=== PATIENT | male | born 1945 | race Caucasian/White ===

== ENCOUNTER → 2019-01-30 | Emergency (ER) | payer MEDICARE, MEDICAID ==
[~2019-01-30] VITALS: Ht 175.3 cm; Wt 102.1 kg
[~2019-01-30] MED LIST: AZIT250T12 PO; SODI45SP9 NS
--- NOTE | 2019-01-30 17:46 | ED Cough/URI ---
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 Symptoms started yesterday all at the same time. States he usually gets a sinus infection every year. No sick contacts, no body aches or joint aches. (SORAYA ARCINIEGA MD) Allergies and Home Medications Allergies Coded Allergies: No Known Drug Allergies (Unverified , 01/30/19) Patient Home Medication List Home Medication List Reviewed: Yes (SORAYA ARCINIEGA MD) Review of Systems Review of Systems Constitutional: No chills, No fever EENTM: nose congestion; No blurred vision, No hoarseness, No throat pain Respiratory: cough, short of breath Cardiovascular: No chest pain, No edema Gastrointestinal: No abdominal pain, No nausea, No vomiting Genitourinary: No decreased output, No hematuria Musculoskeletal: No joint pain, No muscle pain Immunological/Allergic: denies food allergy, denies mold allergy (SORAYA ARCINIEGA MD) Past Chdteon-Tmvhtr-Xxcuvw Hx Past Med/Social Hx: Reviewed Nursing Past Med/Soc Hx (SORAYA ARCINIEGA MD) Patient Social History Recent Foreign Travel: No Contact w/Someone Who Travel: No (SORAYA ARCINIEGA MD) Physical Exam Vital Signs - First Documented 01/30/19 17:33 Temp 98.3 Pulse 88 Resp 18 B/P (MAP) 118/54 (75) Pulse Ox 99 O2 Delivery Room Air (TARYN BULLOCK DO) Capillary Refill : (SORAYA ARCINIEGA MD) Height: '" Weight: lbs. oz. kg; BMI Method: General Appearance: WD/WN, no apparent distress HEENT: PERRL/EOMI, normal ENT inspection, TMs normal, pharynx normal, other (+ frontal and maxillary sinus pressure.) Neck: non-tender, full range of motion, supple, normal inspection Respiratory: chest non-tender, lungs clear, normal breath sounds, no respiratory distress, no accessory muscle use, respiratory distress Cardiovascular: normal peripheral pulses, regular rate, rhythm, no edema, no gallop, no JVD, no murmur Gastrointestinal: normal bowel sounds, non tender, soft, no organomegaly, no pulsatile mass Neurologic/Psychiatric: no motor/sensory deficits, alert, normal mood/affect, oriented x 3 Skin: normal color, warm/dry (SORAYA ARCINIEGA MD) Progress/Results/Core Measures Suspected Sepsis SIRS Temperature: Pulse: Respiratory Rate: Blood Pressure / Mean: (SORAYA ARCINIEGA MD) Results/Orders Vital Signs/I&O 01/30/19 17:33 Temp 98.3 Pulse 88 Resp 18 B/P (MAP) 118/54 (75) Pulse Ox 99 O2 Delivery Room Air (TARYN BULLOCK DO) Vital Signs/I&O Capillary Refill : (SORAYA ARCINIEGA MD) Progress Note : Progress Note Jef addendum: I received sign out at 6 PM. Patient has been complaining of acute on chronic cough and rhinorrhea, nasal congestion for the last 2 days. No fevers. No facial pain. He denies shortness of breath for me. He does state that he was having some trouble breathing out of his nose but now he feels better after having sxpc-zwk-nyntkce sinus congestion medication. He has no sinus tenderness on my exam, nasal turbinates are unremarkable in appearance, pharynx is unremarkable in appearance. Lungs are clear. He is an active smoker. He does have a long smoking history and as such we can consider this complicated bronchitis, we can treat with a Z-Evgeny. I also recommended hypertonic saline for his nasal congestion. I spoke to patient at length about smoking cessation. He will follow-up with his doctor and return if worse. (TARYN BULLOCK DO) Diagnostic Imaging Diagonstic Imaging: Xray Plain Films/CT/US/NM/MRI: chest (SORAYA ARCINIEGA MD) Departure Impression Primary Impression: Rhinitis Qualified Codes: J00 - Acute nasopharyngitis [common cold] Additional Impression: Complicated bronchitis Disposition: 01 HOME, SELF-CARE Condition: Stable Departure-Patient Inst. Referrals: ALCIDES CALI MD (PCP) Primary Care Physician Patient Instructions: Quitting Smoking Scripts Sodium Chloride (Saline Nose Ashippun) 45 Ml Ash[place]un 45 ML NS QID PRN for CONGESTION for 7 Days, #1 SPRAY Prov: TARYN BULLOCK DO 01/30/19 Azithromycin (Azithromycin) 250 Mg Tablet 250 MG PO UD, #6 TAB TAKE 2 TABLETS ON DAY ONE THEN TAKE 1 TABLET DAILY FOR FOUR MORE DAYS Prov: TARYN BULLOCK DO 01/30/19 SORAYA ARCINIEGA MD Jan 30, 2019 17:46 TARYN BULLOCK DO Jan 30, 2019 18:26
--- NOTE | 2019-01-30 18:10 | Diagnostic Imaging Report ---
INDICATION: Flu-like symptoms since yesterday. Coughing up green mucus. EXAMINATION: Two-view chest 01/30/2019. FINDINGS: Heart is unremarkable but there is pulmonary vascular congestion. Linear markings at the bases likely due to atelectasis. There are no infiltrates or effusions. No pneumothorax. IMPRESSION: 1. Bibasilar atelectatic changes. 2. Pulmonary vascular congestion. Dictated by: Dictated on workstation # [id number]
[2019-01-30 18:37] VITALS: BP 122/71
== END | disposition home or self-care (01) ==
LOC: EDUNIT# 17:25 → ER FS 17:27
DX: J31.0 Chronic rhinitis (principal); J40 Bronchitis, not specified as acute or chronic
CPT/HCPCS: 71046

== ENCOUNTER → 2019-12-12 | Outpatient (CLI) | payer MEDICARE, MEDICAID ==
--- NOTE | 2019-12-12 14:35 | Diagnostic Imaging Report ---
Indication: Obstructive airway disease PA and lateral chest Heart size and pulmonary vascularity are normal. There is some scarring at the left lung base. There is no infiltrate, effusion or pneumothorax. IMPRESSION: Left basilar scarring unchanged since 01/30/2019. No acute abnormality seen. Dictated by: Dictated on workstation # [id number]
== END ==
LOC: RAD FS 14:13
PROVIDERS: ATTEND Family Medicine
DX: J44.9 Chronic obstructive pulmonary disease, unspecified (principal)
CPT/HCPCS: 71046

== ENCOUNTER 2020-12-30 13:32 | Emergency (ER) | payer MEDICARE, MEDICAID ==
[~2020-12-30] VITALS: Ht 172.7 cm; Wt 102.2 kg
--- NOTE | 2020-12-30 13:32 | NUR ---
Pt arrival per [facility] for c/o low O2 sats. Arrived on n.c. at 4 L/m but was noted to have improved from "70's" at [facility] with applying pt's O2 at 2L/m. The staff had removed the O2 just NAMED [employer]OUNT EXECUTIVE of EMS as it was a nocturnal order but helped patient up to low 90's.
--- NOTE | 2020-12-30 13:40 | NUR ---
O2 reduced from 4L/m to 2L/m as SaO2 high 90's.
--- NOTE | 2020-12-30 13:43 | ED General ---
General Stated Complaint: LOW O2 Source of Information: Patient Exam Limitations: No Limitations History of Present Illness Date Seen by Provider: Dec 30, 2020 Time Seen by Provider: 13:30 Initial Comments 75-year-old male presents via EMS from his assisted living residence where he was noted to have low oxygen saturation without complaint of significant s hortness of air or any distress. Patient has been treated with "3 rounds of Levaquin" over the past several weeks and is on oxygen at night for oxygen desaturation. He is not on oxygen during the day. However, today when they removed his oxygen this afternoon (was only to be on oxygen at night) he dropped into the 80s and staff was concerned so they called EMS. On EMS arrival, his oxygen saturation was 88% on room air with some coarse breath sounds, he was given a DuoNeb in route with some improvement of his breath sounds and was 99% on 4 L on arrival. Patient was without complaint, denies chest pain, shortness of air, fever or chills or weakness. Allergies and Home Medications Allergies Coded Allergies: No Known Drug Allergies (Unverified , 01/30/19) Home Medications Albuterol Sulfate 2.5 Mg/0.5 Ml Vial.neb, 2.5 MG INH Q6H, (Reported) Albuterol/Ipratropium 4 Gm Aero, 2 PUFF IH QID Prescribed by: JULIA ANGEL on 12/30/201425 Albuterol/Ipratropium 4 Gm Aero, 2 PUFF IH QID PRN for SHORTNESS OF BREATH, (Reported) Allopurinol 100 Mg Tablet, 100 MG PO DAILY, (Reported) Atorvastatin Calcium 10 Mg Tablet, 10 MG PO DAILY, (Reported) Budesonide/Formoterol Fumarate 10.2 Gm Hfa.aer.ad, 2 PUFF IH BID, (Reported) Dexamethasone 6 Mg Tablet, 6 MG PO DAILY Prescribed by: JULIA ANGEL on 12/30/201425 Furosemide 40 Mg Tablet, 40 MG PO BID, (Reported) Gabapentin 100 Mg Capsule, 100 MG PO HS, (Reported) Ibuprofen 800 Mg Tablet, 800 MG PO BID WITH MEALS, (Reported) Loratadine 10 Mg Tablet, 10 MG PO DAILY, (Reported) Multivitamin 1 Each Tablet, 1 EACH PO DAILY, (Reported) Pantoprazole Sodium 40 Mg Tablet.dr, 40 MG PO DAILY, (Reported) Phenobarbital 64.8 Mg Tablet, 64.8 MG PO BID, (Reported) Polyethylene Glycol 3350 17 Gm Powd.pack, 17 GM PO EVERY OTHER DAY, (Reported) Potassium Chloride 10 Meq Tab.er.prt, 10 MEQ PO BID, (Reported) Thiamine HCl 250 Mg Tablet, 250 MG PO DAILY, (Reported) Patient Home Medication List Home Medication List Reviewed: Yes Review of Systems Review of Systems Constitutional: No diaphoresis, No dizziness, No fever, No malaise, No weakness EENTM: no symptoms reported Respiratory: No cough; short of breath, wheezing Cardiovascular: No chest pain, No palpitations, No syncope Gastrointestinal: No abdominal pain, No loss of appetite, No nausea, No vomiting Musculoskeletal: No back pain, No joint pain Skin: No change in color, No rash Past Gizrqyu-Fgmytt-Yuqdgq Hx Past Med/Social Hx: Reviewed Nursing Past Med/Soc Hx Patient Social History Smoking Status: Current Everyday Smoker Type Used: Cigarettes 2nd Hand Smoke Exposure: Yes Recent Hopitalizations: No Immunizations Up To Date Date of Influenza Vaccine: Jul 21, 2018 Seasonal Allergies Seasonal Allergies: No Past Medical History Respiratory: No Cardiac: No High Cholesterol Neurological: Yes Seizure Disorder Genitourinary: Yes (suprapubic catheter) Gastrointestinal: Yes Gastroesophageal Reflux Musculoskeletal: Yes (spinal degeneration) Gout Endocrine: Yes Diabetes, Non-Insulin dep HEENT: No Cancer: No Psychosocial: No Integumentary: No Physical Exam Vital Signs Vital Signs - First Documented 12/30/20 13:32 Temp 36.3 Pulse 96 Resp 20 B/P (MAP) 144/91 (108) Pulse Ox 99 O2 Delivery Nasal Cannula O2 Flow Rate 4.00 Capillary Refill : Height, Weight, BMI Height: 5'9.00" Weight: 225lbs. oz. 102.873271id; BMI Method:Stated General Appearance: No Apparent Distress, WD/WN HEENT: PERRL/EOMI, Normal ENT Inspection Neck: Full Range of Motion, Non Tender, Supple Respiratory: Chest Non Tender, No Accessory Muscle Use, No Respiratory Distress, Rhonci, Wheezing (faint end expiratory) Cardiovascular: Regular Rate, Rhythm, No Edema, No JVD Gastrointestinal: Non Tender, Soft; No Guarding, No Rebound Extremity: Normal Capillary Refill, Normal Inspection, Non Tender Neurologic/Psychiatric: Alert, Oriented x3, Normal Mood/Affect Progress/Results/Core Measures Suspected Sepsis SIRS Temperature: Pulse: Respiratory Rate: Laboratory Tests 12/30/20 13:40: White Blood Count 8.9 Blood Pressure / Mean: Laboratory Tests 12/30/20 13:40: Creatinine 1.38H, Platelet Count 247, Total Bilirubin 0.2 Results/Orders Lab Results Laboratory Tests Test 12/30/20 13:40 Range/Units White Blood Count 8.9 4.3-11.0 10^3/uL Red Blood Count 3.68 L 4.35-5.85 10^6/uL Hemoglobin 12.3 L 13.3-17.7 G/DL Hematocrit 38 L 40-54 % Mean Corpuscular Volume 102 H 80-99 FL Mean Corpuscular Hemoglobin 33 25-34 PG Mean Corpuscular Hemoglobin Concent 33 32-36 G/DL Red Cell Distribution Width 13.0 10.0-14.5 % Platelet Count 247 130-400 10^3/uL Mean Platelet Volume 8.2 7.4-10.4 FL Immature Granulocyte % (Auto) 0 % Neutrophils (%) (Auto) 73 42-75 % Lymphocytes (%) (Auto) 10 L 12-44 % Monocytes (%) (Auto) 8 0-12 % Eosinophils (%) (Auto) 9 0-10 % Basophils (%) (Auto) 1 0-10 % Neutrophils # (Auto) 6.4 1.8-7.8 X 10^3 Lymphocytes # (Auto) 0.9 L 1.0-4.0 X 10^3 Monocytes # (Auto) 0.7 0.0-1.0 X 10^3 Eosinophils # (Auto) 0.8 H 0.0-0.3 10^3/uL Basophils # (Auto) 0.1 0.0-0.1 10^3/uL Immature Granulocyte # (Auto) 0.0 0.0-0.1 10^3/uL Sodium Level 128 L 135-145 MMOL/L Potassium Level 4.3 3.6-5.0 MMOL/L Chloride Level 88 L 98-107 MMOL/L Carbon Dioxide Level 33 H 21-32 MMOL/L Anion Gap 7 5-14 MMOL/L Blood Urea Nitrogen 19 H 7-18 MG/DL Creatinine 1.38 H 0.60-1.30 MG/DL Estimat Glomerular Filtration Rate 50 BUN/Creatinine Ratio 14 Glucose Level 92 70-105 MG/DL Calcium Level 9.0 8.5-10.1 MG/DL Corrected Calcium 9.2 8.5-10.1 MG/DL Total Bilirubin 0.2 0.1-1.0 MG/DL Aspartate Amino Transf (AST/SGOT) 21 5-34 U/L Alanine Aminotransferase (ALT/SGPT) 13 0-55 U/L Alkaline Phosphatase 112 40-136 U/L Total Protein 7.1 6.4-8.2 GM/DL Albumin 3.8 3.2-4.5 GM/DL My Orders Orders - ROVENSTINEZIONJULIA L DO Ed Iv/Invasive Line Start (12/30/20 13:38) Cbc With Automated Diff (12/30/20 13:38) Comprehensive Metabolic Panel (12/30/20 13:38) Chest 1 View Ap/Pa Only (12/30/20 13:38) Dexamethasone Injection (Decadron Inje (12/30/20 13:45) Medications Given in ED Current Medications Medications Dose Ordered Sig/Ana Route Start Time Stop Time Status Last Admin Dose Admin Dexamethasone Sodium Phosphate 8 mg ONCE ONCE IV 12/30/20 13:45 12/30/20 13:46 DC 12/30/20 14:03 8 MG Vital Signs/I&O 12/30/20 12/30/20 13:32 14:58 Temp 36.3 36.2 Pulse 96 95 Resp 20 22 B/P (MAP) 144/91 (108) 122/76 (108) Pulse Ox 99 97 O2 Delivery Nasal Cannula Nasal Cannula O2 Flow Rate 4.00 2.00 Capillary Refill : Progress Note : Progress Note Well-appearing, no distress, much improved after EMS gave a DuoNeb in route and on arrival without complaint. Chest x-ray with no significant findings other than mild atelectasis. Labs unremarkable. Discussed prescriptions, steroid and Combivent inhaler with follow-up in 1 week with his PCP. Also wrote a note/order to give oxygen 24 hours daily as needed to keep sats greater than 90%. Diagnostic Imaging Diagonstic Imaging: Xray Plain Films/CT/US/NM/MRI: chest Comments COMPARISON: 12/12/2019. FINDINGS: Single frontal radiographic view of the chest was obtained and demonstrates low inspiratory volumes with asymmetric elevation of the left hemidiaphragm. There is a probable small left basilar effusion as well. Bibasilar patchy airspace disease is also noted. There is no pneumothorax. Cardiac silhouette and pulmonary vasculature are within normal limits. Osseous structures show no gross acute abnormalities. IMPRESSION: Low lung volumes with probable bibasilar atelectasis and small left effusion. Dictated on workstation # [id number] Dict: 12/30/20 1349 Trans: 12/30/20 1352 [id number] Interpreted by: JUANA BARRIGA MD Electronically signed by: Departure Impression Primary Impression: Bronchitis Additional Impression: Chronic lung disease Disposition: HOME, SELF-CARE Condition: Improved Departure-Patient Inst. Decision time for Depature: 14:23 Referrals: ALCIDES MIRANDA MD (PCP/Family) Primary Care Physician Patient Instructions: Chronic Bronchitis (DC) Add. Discharge Instructions: Follow up with Dr Miranda in 1 week for re-evaluation. Orders written for home oxygen 24 hours daily to keep sats > 90% Scripts Albuterol/Ipratropium (Combivent Respimat Inhal Cameron) 4 Gm Aero 2 PUFF IH QID, #1 INH Prov: JULIA ANGEL DO 12/30/20 Dexamethasone (Dexamethasone) 6 Mg Tablet 6 MG PO DAILY for 7 Days, #7 TAB Prov: JULIA ANGEL DO 12/30/20 JULIA ANGEL DO Dec 30, 2020 13:43
--- NOTE | 2020-12-30 13:53 | Diagnostic Imaging Report ---
INDICATION: Shortness of air. Cough. COMPARISON: 12/12/2019. FINDINGS: Single frontal radiographic view of the chest was obtained and demonstrates low inspiratory volumes with asymmetric elevation of the left hemidiaphragm. There is a probable small left basilar effusion as well. Bibasilar patchy airspace disease is also noted. There is no pneumothorax. Cardiac silhouette and pulmonary vasculature are within normal limits. Osseous structures show no gross acute abnormalities. IMPRESSION: Low lung volumes with probable bibasilar atelectasis and small left effusion. Dictated by: Dictated on workstation # [id number]
[2020-12-30 14:02] LABS: BASOPHILS % (AUTO) 1 % (0-10); EOSINOPHILS % (AUTO) 9 % (0-10); HEMATOCRIT 38 % (40-54); HEMOGLOBIN 12.3 G/DL (13.3-17.7); LYMPHOCYTES # (AUTO) 0.9 X 10^3 (1.0-4.0); LYMPHOCYTES % (AUTO) 10 % (12-44); MEAN CORPUSCULAR HEMOGLOBIN 33 PG (25-34); MEAN CORPUSCULAR HGB CONC 33 G/DL (32-36); MEAN CORPUSCULAR VOLUME 102 FL (80-99); MEAN PLATELET VOLUME 8.2 FL (7.4-10.4); MONOCYTES % (AUTO) 8 % (0-12); NEUTROPHILS # (AUTO) 6.4 X 10^3 (1.8-7.8); NEUTROPHILS % (AUTO) 73 % (42-75); PLATELET COUNT 247 10^3/uL (130-400); WHITE BLOOD COUNT 8.9 10^3/uL (4.3-11.0)
[2020-12-30 14:03] LABS: BASOPHILS # (AUTO) 0.1 10^3/uL (0.0-0.1); EOSINOPHILS # (AUTO) 0.8 10^3/uL (0.0-0.3); MONOCYTES # (AUTO) 0.7 X 10^3 (0.0-1.0)
[2020-12-30 14:13] LABS: CREATININE SERUM 1.38 MG/DL (0.60-1.30)
[2020-12-30 14:14] LABS: ALBUMIN 3.8 GM/DL (3.2-4.5); BILIRUBIN,TOTAL 0.2 MG/DL (0.1-1.0); POTASSIUM 4.3 MMOL/L (3.6-5.0); TOTAL PROTEIN 7.1 GM/DL (6.4-8.2)
[2020-12-30] MEDS ORDERED: PHEN64.8 PO (14:24)
[2020-12-30] MEDS ORDERED: POTA10TA36 PO (14:24)
[2020-12-30] MEDS ORDERED: GABA-486 PO (14:24)
[2020-12-30] MEDS ORDERED: PANT40TA52 PO (14:24)
[2020-12-30] MEDS ORDERED: ATOR10TA66 PO (14:24)
[2020-12-30] MEDS ORDERED: FURO40TA4 PO (14:24)
[2020-12-30] MEDS ORDERED: LORA10TA7 PO (14:24)
[2020-12-30] MEDS ORDERED: IBUP-1780 PO (14:24)
[2020-12-30] MEDS ORDERED: ALLO100T PO (14:24)
[2020-12-30] MEDS ORDERED: DEXA6TAB PO (14:26)
[2020-12-30] MEDS ORDERED: IPRA4AER IH ×2 (14:26→14:42)
--- NOTE | 2020-12-30 14:30 | NUR ---
Attempt to call [facility] for patient's transportation. No answer.
--- NOTE | 2020-12-30 14:38 | NUR ---
Call from Lisseth Bolivar Director of [facility] and she is made aware patient is doing fine and ready for discharge.
[2020-12-30] MEDS ORDERED: POLY17PO6 PO (14:42)
[2020-12-30] MEDS ORDERED: THIA250T8 PO (14:42)
[2020-12-30] MEDS ORDERED: BUDE10.2 IH (14:42)
[2020-12-30] MEDS ORDERED: MULT-974 PO (14:42)
[2020-12-30] MEDS ORDERED: ALB0.5V INH (14:42)
[2020-12-30 14:58] VITALS: BP 122/76
--- NOTE | 2020-12-30 14:58 | NUR ---
Pt is discharged in computer and awaiting ride.
--- NOTE | 2020-12-30 15:25 | NUR ---
Patient was assisted to be loaded in van per WC with staff. 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 Envelope of instructions provided.
[2020-12-31] MEDS ORDERED: AZIT250T12 PO (17:31)
[2020-12-31] MEDS ORDERED: oxygen (17:31)
== END 2020-12-30 14:58 | disposition home or self-care (01) ==
LOC: EDUNIT# 13:32 → ER FS 13:33
DX: J40 Bronchitis, not specified as acute or chronic (principal); J98.4 Other disorders of lung; E78.00 Pure hypercholesterolemia, unspecified; K21.9 Gastro-esophageal reflux disease without esophagitis; M10.9 Gout, unspecified; G40.909 Epilepsy, unspecified, not intractable, without status epilepticus; F17.210 Nicotine dependence, cigarettes, uncomplicated
CPT/HCPCS: 36415; 71045; 80053; 85025

== ENCOUNTER 2020-12-31 14:45 | Emergency (ER) | payer MEDICARE, MEDICAID ==
[~2020-12-31] VITALS: Ht 175 cm; Wt 102.0 kg
[~2020-12-31 14:45] MED LIST changes: +ALB0.5V INH; +ALLO100T PO; +ATOR10TA66 PO; +BUDE10.2 IH; +DEXA6TAB PO; +FURO40TA4 PO; +GABA-486 PO; +IBUP-1780 PO; +IPRA4AER IH; +LORA10TA7 PO; +MULT-974 PO; +PANT40TA52 PO; +PHEN64.8 PO; +POLY17PO6 PO; +POTA10TA36 PO; +THIA250T8 PO
--- NOTE | 2020-12-31 15:45 | ED General ---
General Stated Complaint: COPD, Source of Information: Patient Exam Limitations: No Limitations History of Present Illness Date Seen by Provider: Dec 31, 2020 Time Seen by Provider: 15:42 Initial Comments To ER by private vehicle from [facility] in [place]. Reports of persistent difficulty breathing. He was seen at [place] ye sterday, diagnosed with bronchitis, given prescription for dexamethasone and Combivent. He continues to smoke about a half a pack of cigarettes per day which he has done since he was 30 years old. No fevers. No exposure to ill contacts that are known. Has O2 at home to wear PRN. Timing/Duration: 1-2 Days Severity: Moderate Associated Systoms: Cough, Shortness of Air Allergies and Home Medications Allergies Coded Allergies: No Known Drug Allergies (Unverified , 01/30/19) Home Medications Albuterol Sulfate 2.5 Mg/0.5 Ml Vial.neb, 2.5 MG INH Q6H, (Reported) Albuterol/Ipratropium 4 Gm Aero, 2 PUFF IH QID Prescribed by: JULIA ANGEL on 12/30/20 1426 Albuterol/Ipratropium 4 Gm Aero, 2 PUFF IH QID PRN for SHORTNESS OF BREATH, (Reported) Allopurinol 100 Mg Tablet, 100 MG PO DAILY, (Reported) Atorvastatin Calcium 10 Mg Tablet, 10 MG PO DAILY, (Reported) Azithromycin 250 Mg Tablet, 250 MG PO UD TAKE 2 TABLETS ON DAY ONE THEN TAKE 1 TABLET DAILY FOR FOUR MORE DAYS Prescribed by: VIBHA FLORES on 12/31/20 1731 Budesonide/Formoterol Fumarate 10.2 Gm Hfa.aer.ad, 2 PUFF IH BID, (Reported) Dexamethasone 6 Mg Tablet, 6 MG PO DAILY Prescribed by: JULIA ANGEL on 12/30/20 1426 Furosemide 40 Mg Tablet, 40 MG PO BID, (Reported) Gabapentin 100 Mg Capsule, 100 MG PO HS, (Reported) Ibuprofen 800 Mg Tablet, 800 MG PO BID WITH MEALS, (Reported) Loratadine 10 Mg Tablet, 10 MG PO DAILY, (Reported) Multivitamin 1 Each Tablet, 1 EACH PO DAILY, (Reported) Pantoprazole Sodium 40 Mg Tablet.dr, 40 MG PO DAILY, (Reported) Phenobarbital 64.8 Mg Tablet, 64.8 MG PO BID, (Reported) Polyethylene Glycol 3350 17 Gm Powd.pack, 17 GM PO EVERY OTHER DAY, (Reported) Potassium Chloride 10 Meq Tab.er.prt, 10 MEQ PO BID, (Reported) Thiamine HCl 250 Mg Tablet, 250 MG PO DAILY, (Reported) Patient Home Medication List Home Medication List Reviewed: Yes Review of Systems Review of Systems Constitutional: see HPI EENTM: see HPI Respiratory: see HPI, cough, short of breath, wheezing Genitourinary: no symptoms reported Musculoskeletal: no symptoms reported Skin: no symptoms reported Psychiatric/Neurological: No Symptoms Reported Hematologic/Lymphatic: No Symptoms Reported Immunological/Allergic: no symptoms reported Past Ovmvass-Cvivyh-Wcvlcx Hx Patient Social History Alcohol Beverage of Choice: Whiskey Type Used: Cigarettes 2nd Hand Smoke Exposure: Yes Recent Hopitalizations: No Immunizations Up To Date Date of Influenza Vaccine: Aug 19, 2020 Seasonal Allergies Seasonal Allergies: Yes Past Medical History Surgeries: Yes (suprapubic catheter placement) Respiratory: Yes Chronic Bronchitis Cardiac: Yes High Cholesterol, Hypertension Neurological: Yes Neuropathy, Seizure Disorder Genitourinary: Yes (suprapubic catheter) Neurogenic Bladder Gastrointestinal: Yes Gastroesophageal Reflux Musculoskeletal: Yes (spinal degeneration/uses wheelchair) Gout Endocrine: Yes Diabetes, Non-Insulin dep HEENT: No Cancer: No Psychosocial: No Integumentary: No Blood Disorders: No Physical Exam Vital Signs Vital Signs - First Documented 12/31/20 15:30 Temp 36.0 Pulse 101 Resp 20 B/P (MAP) 174/95 (121) Pulse Ox 96 O2 Delivery Simple Mask O2 Flow Rate 2.00 Capillary Refill : Height, Weight, BMI Height: 5'9.00" Weight: 225lbs. oz. 102.034484iy; 34.00 BMI Method:Stated General Appearance: No Apparent Distress, Chronically ill, Other (Patient saturation is 76% on room air on arrival without oxygen--drove down here from facility without oxygen. ) Eyes: Bilateral Eye Normal Inspection, Bilateral Eye PERRL, Bilateral Eye EOMI Respiratory: Lungs Clear, Normal Breath Sounds, No Accessory Muscle Use, No Respiratory Distress, Other (No distress speaks in full sentences no accessory muscle use. He is surprisingly asymptomatic with a SPO2 of 76% on room air on arrival. He did not travel down here with his supplemental oxygen.) Cardiovascular: Regular Rate, Rhythm, Normal Peripheral Pulses Gastrointestinal: Normal Bowel Sounds, Non Tender, Soft Neurologic/Psychiatric: Alert, Oriented x3 Skin: Normal Color, Warm/Dry Focused Exam Lactate Level 12/31/20 16:20: Lactic Acid Level 1.30 Lactic Acid Level Laboratory Tests Test 12/31/20 16:20 Lactic Acid Level 1.30 MMOL/L (0.50-2.00) Progress/Results/Core Measures Suspected Sepsis SIRS Temperature: Pulse: Respiratory Rate: Laboratory Tests 12/31/20 16:20: White Blood Count 8.3 Blood Pressure / Mean: 12/31/20 16:20: Lactic Acid Level 1.30 Laboratory Tests 12/31/20 16:20: Creatinine 1.57H, Platelet Count 212, Total Bilirubin 0.3 Results/Orders Lab Results Laboratory Tests Test 12/31/20 15:46 12/31/20 16:00 12/31/20 16:20 Range/Units Coronavirus 2019 ([place]) Negative Negative Blood Gas Puncture Site RR Blood Gas Patient Temperature 98.1 Arterial Blood pH 7.36 L 7.37-7.43 Arterial Blood Partial Pressure CO2 65 H 35-45 MMHG Arterial Blood Partial Pressure O2 76 L 79-93 MMHG Arterial Blood HCO3 36 H 23-27 MMOL/L Arterial Blood Total CO2 37.8 H 21.0-31.0 MMOL/L Arterial Blood Oxygen Saturation 95 94-100 % Arterial Blood Base Excess 10.1 H -2.5-2.5 MMOL/L Husam Test NA Blood Gas Ventilator Setting NO Blood Gas Inspired Oxygen 2.5L White Blood Count 8.3 4.3-11.0 10^3/uL Red Blood Count 3.89 L 4.30-5.52 10^6/uL Hemoglobin 13.0 L 13.3-17.7 g/dL Hematocrit 40 40-54 % Mean Corpuscular Volume 102 H 80-99 fL Mean Corpuscular Hemoglobin 33 25-34 pg Mean Corpuscular Hemoglobin Concent 33 32-36 g/dL Red Cell Distribution Width 12.7 10.0-14.5 % Platelet Count 212 130-400 10^3/uL Mean Platelet Volume 8.6 L 9.0-12.2 fL Immature Granulocyte % (Auto) 0 % Neutrophils (%) (Auto) 77 H 42-75 % Lymphocytes (%) (Auto) 12 12-44 % Monocytes (%) (Auto) 7 0-12 % Eosinophils (%) (Auto) 3 0-10 % Basophils (%) (Auto) 1 0-10 % Neutrophils # (Auto) 6.4 1.8-7.8 10^3/uL Lymphocytes # (Auto) 1.0 1.0-4.0 10^3/uL Monocytes # (Auto) 0.6 0.0-1.0 10^3/uL Eosinophils # (Auto) 0.3 0.0-0.3 10^3/uL Basophils # (Auto) 0.1 0.0-0.1 10^3/uL Immature Granulocyte # (Auto) 0.0 0.0-0.1 10^3/uL Sodium Level 131 L 135-145 MMOL/L Potassium Level 4.3 3.6-5.0 MMOL/L Chloride Level 87 L 98-107 MMOL/L Carbon Dioxide Level 33 H 21-32 MMOL/L Anion Gap 11 5-14 MMOL/L Blood Urea Nitrogen 24 H 7-18 MG/DL Creatinine 1.57 H 0.60-1.30 MG/DL Estimat Glomerular Filtration Rate 43 BUN/Creatinine Ratio 15 Glucose Level 107 H 70-105 MG/DL Lactic Acid Level 1.30 0.50-2.00 MMOL/L Calcium Level 9.0 8.5-10.1 MG/DL Corrected Calcium 9.0 8.5-10.1 MG/DL Total Bilirubin 0.3 0.1-1.0 MG/DL Aspartate Amino Transf (AST/SGOT) 20 5-34 U/L Alanine Aminotransferase (ALT/SGPT) 15 0-55 U/L Alkaline Phosphatase 105 40-136 U/L C-Reactive Protein High Sensitivity 1.80 H 0.00-0.50 MG/DL Total Protein 7.5 6.4-8.2 GM/DL Albumin 4.0 3.2-4.5 GM/DL Procalcitonin 0.08 <0.10 NG/ML My Orders Orders - VIBHA FLORES MEDIA MARKETING DIRECTOR Cbc With Automated Diff (12/31/20 15:38) Comprehensive Metabolic Panel (12/31/20 15:38) Procalcitonin (Pct) (12/31/20 15:38) Hs C Reactive Protein (12/31/20 15:38) Chest 1 View, Ap/Pa Only (12/31/20 15:38) Ed Iv/Invasive Line Start (12/31/20 15:38) Blood Culture (12/31/20 15:38) Arterial Blood Gas (12/31/20 15:38) Lactic Acid Analyzer (12/31/20 15:38) Covid 19 Inhouse Test (12/31/20 15:45) Vital Signs/I&O 12/31/20 15:30 Temp 36.0 Pulse 101 Resp 20 B/P (MAP) 174/95 (121) Pulse Ox 96 O2 Delivery Simple Mask O2 Flow Rate 2.00 Capillary Refill : Departure Communication (Admissions) 1708 given the hypercarbia I discussed with Dr. Velasquez and we recommend a dmission to the hospital for BiPAP. The patient states he is not going to stay in the hospital. He is alert and oriented and capable of making this decision. He agrees to sign out AGAINST MEDICAL ADVICE. I will give him a prescription for azithromycin he should continue the steroids. 1721 Discussed with Lisseth from [place] who drove him here. Advised her that he is going to come home (though he requests we not tell her that hes leaving AMA). However he was 76% on room air so he will need to be transported home on oxygen. She informs me that he sits outside and smokes in shorts and that he will be fine to go home without oxygen. I advised that he will not and he needs oxygen. She is very upset that I want him transported home on oxygen. States She states she was not aware that he was supposed to be on continuous oxygen until she was almost to [place] when she brought him initially. Lisseth states that he only has a concentrator plugged into the wall at home, he does not have one for portable use. 1732-spoke with Neftaly from [facility]. He agrees to bring out an oxygen tank. Impression Primary Impression: COPD with exacerbation Disposition: HOME, SELF-CARE Condition: Stable Departure-Patient Inst. Decision time for Depature: 17:18 Referrals: ALCIDES CALI MD (PCP/Family) Primary Care Physician Patient Instructions: COPD Exacerbation, Adult ED Scripts Azithromycin (Azithromycin) 250 Mg Tablet 250 MG PO UD, #6 TAB TAKE 2 TABLETS ON DAY ONE THEN TAKE 1 TABLET DAILY FOR FOUR MORE DAYS Prov: VIBHA FLORES MEDIA MARKETING DIRECTOR 12/31/20 [oxygen] No Conflict Check L NA DAILY PRN, #2 ICD 10 J96.11 Prov: VIBHA FLORES APRN 12/31/20 VIBHA FLORES APRN Dec 31, 2020 15:45
[2020-12-31 16:12] LABS: ABG BASE EXCESS 10.1 MMOL/L (-2.5-2.5); ABG OXYGEN SATURATION 95 % (94-100); ABG PCO2 65 MMHG (35-45); ABG PH 7.36 (7.37-7.43); ABG PO2 76 MMHG (79-93); ABG TCO2 37.8 MMOL/L (21.0-31.0)
[2020-12-31 16:13] LABS: INSPIRED O2 2.5L; PATIENT TEMP 98.1; VENTILATOR NO
[2020-12-31 16:31] LABS: BASOPHILS # (AUTO) 0.1 10^3/uL (0.0-0.1); BASOPHILS % (AUTO) 1 % (0-10); EOSINOPHILS # (AUTO) 0.3 10^3/uL (0.0-0.3); EOSINOPHILS % (AUTO) 3 % (0-10); HEMATOCRIT 40 % (40-54); LYMPHOCYTES % (AUTO) 12 % (12-44); MEAN CORPUSCULAR HEMOGLOBIN 33 pg (25-34); MEAN CORPUSCULAR HGB CONC 33 g/dL (32-36); MEAN CORPUSCULAR VOLUME 102 fL (80-99); MEAN PLATELET VOLUME 8.6 fL (9.0-12.2); MONOCYTES # (AUTO) 0.6 10^3/uL (0.0-1.0); MONOCYTES % (AUTO) 7 % (0-12); NEUTROPHILS # (AUTO) 6.4 10^3/uL (1.8-7.8); NEUTROPHILS % (AUTO) 77 % (42-75); PLATELET COUNT 212 10^3/uL (130-400); WHITE BLOOD COUNT 8.3 10^3/uL (4.3-11.0)
[2020-12-31 16:40] LABS: POTASSIUM 4.3 MMOL/L (3.6-5.0)
[2020-12-31 16:43] LABS: TOTAL PROTEIN 7.5 GM/DL (6.4-8.2)
[2020-12-31 16:45] LABS: BILIRUBIN,TOTAL 0.3 MG/DL (0.1-1.0)
[2020-12-31 16:47] LABS: CREATININE SERUM 1.57 MG/DL (0.60-1.30)
--- NOTE | 2020-12-31 16:52 | Diagnostic Imaging Report ---
INDICATION: Cough and shortness of breath. EXAMINATION: Frontal chest obtained at 04:50 p.m. and compared to yesterday. FINDINGS: Heart is normal in size. There is mild bibasilar atelectasis. There is poor inspiration. There is no pneumothorax or pleural fluid. IMPRESSION: Poor inspiration with mild bibasilar atelectasis. No significant change from yesterday. Dictated by: Dictated on workstation # [id number]
[2020-12-31] MEDS ORDERED: oxygen (17:31)
[2020-12-31] MEDS ORDERED: AZIT250T12 PO (17:31)
[2020-12-31 18:20] VITALS: BP 123/63
== END 2020-12-31 18:20 | disposition home or self-care (01) ==
LOC: EDUNIT# 14:45 → ER 14:47
DX: J44.1 Chronic obstructive pulmonary disease with (acute) exacerbation (principal); M10.9 Gout, unspecified; E78.00 Pure hypercholesterolemia, unspecified; K21.9 Gastro-esophageal reflux disease without esophagitis; G40.909 Epilepsy, unspecified, not intractable, without status epilepticus; Z20.822 Contact with and (suspected) exposure to COVID-19; Z77.22 Contact with and (suspected) exposure to environmental tobacco smoke (acute) (chronic)
CPT/HCPCS: 71045; 80053; 82805; 83605; 84145; 85025; 86141; 87040; 99285; U0002; 36415; 87635

== ENCOUNTER 2021-02-19 18:01 | Inpatient (IN) | payer MEDICARE, MEDICAID ==
[2021-02-19] VITALS (8 sets, daily range): BP systolic 116–164; BP diastolic 54–94
[~2021-02-19] VITALS: Ht 175 cm; Wt 106.7 kg
[~2021-02-19 18:01] MED LIST changes: +ALBU2.5V4 NEB; +IPRA3AMP31 NEB; +LOPE-175 PO; +NAPH15DR6 OU; +NYST15CR TOP; +TIZA-169 PO; +oxygen
[2021-02-19 18:20] LABS: BASOPHILS # (AUTO) 0.1 10^3/uL (0.0-0.1); BASOPHILS % (AUTO) 1 % (0-10); EOSINOPHILS # (AUTO) 0.3 10^3/uL (0.0-0.3); EOSINOPHILS % (AUTO) 4 % (0-10); HEMATOCRIT 33 % (40-54); HEMOGLOBIN 10.8 G/DL (13.3-17.7); LYMPHOCYTES # (AUTO) 0.7 X 10^3 (1.0-4.0); LYMPHOCYTES % (AUTO) 9 % (12-44); MEAN CORPUSCULAR HEMOGLOBIN 34 PG (25-34); MEAN CORPUSCULAR HGB CONC 32 G/DL (32-36); MEAN CORPUSCULAR VOLUME 104 FL (80-99); MEAN PLATELET VOLUME 9.5 FL (7.4-10.4); MONOCYTES # (AUTO) 0.5 X 10^3 (0.0-1.0); MONOCYTES % (AUTO) 7 % (0-12); NEUTROPHILS # (AUTO) 6.2 X 10^3 (1.8-7.8); NEUTROPHILS % (AUTO) 80 % (42-75); PLATELET COUNT 250 10^3/uL (130-400); WHITE BLOOD COUNT 7.8 10^3/uL (4.3-11.0)
[2021-02-19 18:34] LABS: PROTHROMBIN TIME PATIENT 13.3 SEC (12.2-14.7)
--- NOTE | 2021-02-19 18:38 | Diagnostic Imaging Report ---
INDICATION: Shortness of breath. Comparison made with the prior study from January 27, 2021. FINDINGS: There is enlargement of the cardiac silhouette. There are again findings of a large left-sided pleural effusion. There again appears to be abnormal prominence of the central pulmonary vascularity suggesting a component of edema. The degree of edema does not appear as severe as the comparison exam. The right lung is better aerated than on the prior. There is no pneumothorax. IMPRESSION: 1. Similar features to the prior examination with cardiomegaly, large left effusion and abnormal pulmonary vascularity. The overall degree of severity of this process is, however, diminished from the comparison exam. Dictated by: Dictated on workstation # [id number]
[2021-02-19 18:39] LABS: ALANINE AMINOTRANSFERASE 145 U/L (0-55); ALBUMIN 3.5 GM/DL (3.2-4.5); ALKALINE PHOSPHATASE 177 U/L (40-136); BILIRUBIN,TOTAL 0.4 MG/DL (0.1-1.0); BUN/CREATININE RATIO 19; CALCIUM 8.4 MG/DL (8.5-10.1); CARBON DIOXIDE 32 MMOL/L (21-32); CHLORIDE 95 MMOL/L (98-107); CREATININE SERUM 1.02 MG/DL (0.60-1.30); GFR ESTIMATED > 60; GLUCOSE 135 MG/DL (70-105); SODIUM 134 MMOL/L (135-145); TOTAL PROTEIN 6.4 GM/DL (6.4-8.2)
[2021-02-19] MEDS ORDERED: FUROSEMIDE 40 MG/4 ML INJ (LASIX) IVP ONE (18:45)
--- NOTE | 2021-02-19 18:47 | ED General ---
General Chief Complaint: Respiratory Problems Stated Complaint: RESP DISTRESS Nursing Triage Note: Patient brought to the ED from [facility] via EMS for chief complaint of shortness of breath. 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 Staff reports that patient tested negative for COVID-19 yesterday. Nursing Sepsis Screen: No Definite Risk Source of Information: Patient Exam Limitations: No Limitations History of Present Illness Date Seen by Provider: Feb 19, 2021 Time Seen by Provider: 18:02 Initial Comments Here by EMS with report of shortness of breath. Patient is a resident of [facility]. Previous recent hospitalization at [facility] with follow-up care at [facility]. Does have history of atrial fibrillation and heart failure. Currently on digoxin. Had Lasix increased to 80 mg p.o. today due to concerns of 20 pound weight gain. Has been on 2 to 4 L of oxygen at the long-term but more recently 4 L via nasal cannula. Difficulty with getting O2 sats initially and he was placed on nonrebreather. Patient was 100% on nonrebreather on arrival. Denies recent fever or chills. Does admit to weakness. Does not currently smoke but quit at last evaluation in early January. Denies nausea or vomiting. No contact with Covid and is in facility that has no Covid infections and surveillance has shown negative for Covid. Timing/Duration: 1-2 Days Severity: Moderate Associated Systoms: No Cough, No Fever/Chills, No Nausea/Vomiting; Shortness of Air, Weakness Allergies and Home Medications Allergies Coded Allergies: No Known Drug Allergies (Unverified , 01/30/19) Home Medications Albuterol Sulfate 2.5 Mg/3 Ml Vial.neb, 3 ML NEB BID, (Reported) Allopurinol 100 Mg Tablet, 100 MG PO DAILY, (Reported) Atorvastatin Calcium 10 Mg Tablet, 10 MG PO 1700, (Reported) Azithromycin 250 Mg Tablet, 250 MG PO DAILY, (Reported) FILLED 01-18-2021 (FIRST DOSE 01-19) #6/5 DAY SUPPLY Budesonide/Formoterol Fumarate 10.2 Gm Hfa.aer.ad, 2 PUFF IH BID, (Reported) Furosemide 40 Mg Tablet, 40 MG PO 0800,1400, (Reported) Gabapentin 100 Mg Capsule, 100 MG PO HS, (Reported) Ibuprofen 800 Mg Tablet, 800 MG PO 0800,1700, (Reported) Ipratropium/Albuterol Sulfate 3 Ml Ampul.neb, 3 ML NEB Q6H PRN for SHORTNESS OF BREATH, (Reported) Loperamide HCl 2 Mg Capsule, 2 MG PO UD PRN for DIARRHEA, (Reported) Loratadine 10 Mg Tablet, 10 MG PO DAILY, (Reported) Multivitamin 1 Each Tablet, 1 EACH PO DAILY, (Reported) Naphazoline HCl/Pheniramine 15 Ml Drops, 1 DROP OU PRN PRN for DRY/ITCHY EYES, (Reported) Nystatin 15 Gm Cream..g., 1 APPLIC TOP PRN PRN for RASH, (Reported) Pantoprazole Sodium 40 Mg Tablet.dr, 40 MG PO DAILY, (Reported) Phenobarbital 64.8 Mg Tablet, 64.8 MG PO BID, (Reported) Polyethylene Glycol 3350 17 Gm Powd.pack, 17 GM PO EVERY OTHER DAY, (Reported) Polyethylene Glycol 3350 17 Gm Powd.pack, 17 GR PO DAILY PRN for CONSTIPATION- 2ND LINE, (Reported) Potassium Chloride 10 Meq Tab.er.prt, 10 MEQ PO 0800,1700, (Reported) Thiamine HCl 250 Mg Tablet, 250 MG PO DAILY, (Reported) Tizanidine HCl 2 Mg Tablet, 2 MG PO Q8H PRN for MUSCLE SPASMS, (Reported) Patient Home Medication List Home Medication List Reviewed: Yes Review of Systems Review of Systems Constitutional: see HPI; No chills, No fever EENTM: no symptoms reported Respiratory: No cough; short of breath; No wheezing Cardiovascular: No chest pain; edema Gastrointestinal: No abdominal pain, No nausea, No vomiting Genitourinary: no symptoms reported Musculoskeletal: no symptoms reported Skin: no symptoms reported All Other Systems Reviewed Negative Unless Noted: Yes Past Xfecfkn-Nabyys-Nqkcir Hx Past Med/Social Hx: Reviewed Nursing Past Med/Soc Hx Patient Social History Alcohol Use: Regular Use Number of Drinks Today: GG Alcohol Beverage of Choice: Whiskey Smoking Status: Current Everyday Smoker Type Used: Cigarettes 2nd Hand Smoke Exposure: Yes Recent Infectious Disease Expo: No Recent Hopitalizations: No Immunizations Up To Date Tetanus Booster (TDap): Unknown Date of Influenza Vaccine: Aug 19, 2020 Seasonal Allergies Seasonal Allergies: Yes Past Medical History Surgeries: Yes (suprapubic catheter placement) Respiratory: Yes Chronic Bronchitis, COPD Cardiac: Yes High Cholesterol, Hypertension Neurological: Yes Neuropathy, Seizure Disorder Genitourinary: Yes (suprapubic catheter) Neurogenic Bladder Gastrointestinal: Yes Gastroesophageal Reflux Musculoskeletal: Yes (spinal degeneration/uses wheelchair) Gout Endocrine: Yes Diabetes, Non-Insulin dep HEENT: No Cancer: No Psychosocial: No Integumentary: No Blood Disorders: No Family Medical History Reviewed Nursing Family Hx Physical Exam-Suspected Sepsis Physical Exam Vital Signs Vital Signs - First Documented 02/19/21 02/19/21 18:01 18:10 Temp 36.4 Pulse 112 Resp 31 B/P (MAP) 164/54 (90) Pulse Ox 96 O2 Delivery Nasal Cannula O2 Flow Rate 4.00 Capillary Refill : Less Than 3 Seconds Blood Pressure Mean: 90 Height, Weight, BMI Height: 5'9.00" Weight: 225lbs. oz. 102.574426kg; 25.00 BMI Method:Stated General Appearance: No Apparent Distress, WD/WN HEENT: PERRL/EOMI, Pharynx Normal Neck: Non Tender, Supple Respiratory: Decreased Breath Sounds, Other (Mildly tachypneic with rate in the 20s.) Cardiovascular: Irregularly Irregular, Tachycardia Gastrointestinal: Non Tender, Soft Back: Normal Inspection, No CVA Tenderness, No Vertebral Tenderness Extremity: Normal Range of Motion, Non Tender, Pedal Edema (3+ pedal edema to level just above knees bilateral) Neurologic/Psychiatric: Alert, Oriented x3 Skin: normal color, warm/dry Focused Exam Lactate Level 02/19/21 18:10: Lactic Acid Level 0.90 Lactic Acid Level Laboratory Tests Test 02/19/21 18:10 Lactic Acid Level 0.90 MMOL/L (0.50-2.00) Procedures/Interventions Date of ETT Placement: Jan 23, 2021 Time of ETT Placement: 1614 Progress/Results/Core Measures Suspected Sepsis Recent Fever Within 48 Hours: No Infection Criteria Present: None New/Unexplained Altered Menta: No Sepsis Screen: No Definite Risk SIRS Temperature: Pulse: 112 Respiratory Rate: 31 Laboratory Tests 02/19/21 18:10: White Blood Count 7.8 Blood Pressure 164 /54 Mean: 90 02/19/21 18:10: Lactic Acid Level 0.90 Laboratory Tests 02/19/21 18:10: Creatinine 1.02, INR Comment 1.0, Platelet Count 250, Total Bilirubin 0.4 Results/Orders Lab Results Laboratory Tests Test 02/19/21 18:10 02/19/21 18:45 Range/Units White Blood Count 7.8 4.3-11.0 10^3/uL Red Blood Count 3.20 L 4.35-5.85 10^6/uL Hemoglobin 10.8 L 13.3-17.7 G/DL Hematocrit 33 L 40-54 % Mean Corpuscular Volume 104 H 80-99 FL Mean Corpuscular Hemoglobin 34 25-34 PG Mean Corpuscular Hemoglobin Concent 32 32-36 G/DL Red Cell Distribution Width 15.0 H 10.0-14.5 % Platelet Count 250 130-400 10^3/uL Mean Platelet Volume 9.5 7.4-10.4 FL Immature Granulocyte % (Auto) 1 % Neutrophils (%) (Auto) 80 H 42-75 % Lymphocytes (%) (Auto) 9 L 12-44 % Monocytes (%) (Auto) 7 0-12 % Eosinophils (%) (Auto) 4 0-10 % Basophils (%) (Auto) 1 0-10 % Neutrophils # (Auto) 6.2 1.8-7.8 X 10^3 Lymphocytes # (Auto) 0.7 L 1.0-4.0 X 10^3 Monocytes # (Auto) 0.5 0.0-1.0 X 10^3 Eosinophils # (Auto) 0.3 0.0-0.3 10^3/uL Basophils # (Auto) 0.1 0.0-0.1 10^3/uL Immature Granulocyte # (Auto) 0.0 0.0-0.1 10^3/uL Prothrombin Time 13.3 12.2-14.7 SEC INR Comment 1.0 0.8-1.4 Activated Partial Thromboplast Time 22 L 24-35 SEC Sodium Level 134 L 135-145 MMOL/L Potassium Level 4.0 3.6-5.0 MMOL/L Chloride Level 95 L 98-107 MMOL/L Carbon Dioxide Level 32 21-32 MMOL/L Anion Gap 7 5-14 MMOL/L Blood Urea Nitrogen 19 H 7-18 MG/DL Creatinine 1.02 0.60-1.30 MG/DL Estimat Glomerular Filtration Rate > 60 BUN/Creatinine Ratio 19 Glucose Level 135 H 70-105 MG/DL Lactic Acid Level 0.90 0.50-2.00 MMOL/L Calcium Level 8.4 L 8.5-10.1 MG/DL Corrected Calcium 8.8 8.5-10.1 MG/DL Total Bilirubin 0.4 0.1-1.0 MG/DL Aspartate Amino Transf (AST/SGOT) 75 H 5-34 U/L Alanine Aminotransferase (ALT/SGPT) 145 H 0-55 U/L Alkaline Phosphatase 177 H 40-136 U/L Troponin I < 0.30 <0.30 NG/ML C-Reactive Protein 3.12 H <0.50 MG/DL Pro-B-Type Natriuretic Peptide 3641.0 H <75.0 PG/ML Total Protein 6.4 6.4-8.2 GM/DL Albumin 3.5 3.2-4.5 GM/DL Urine Color YELLOW Urine Clarity SLIGHTLY CLOUDY Urine pH 6.5 5-9 Urine Specific Ponce 1.010 L 1.016-1.022 Urine Protein TRACE H NEGATIVE Urine Glucose (UA) NEGATIVE NEGATIVE Urine Ketones NEGATIVE NEGATIVE Urine Nitrite NEGATIVE NEGATIVE Urine Bilirubin NEGATIVE NEGATIVE Urine Urobilinogen 0.2 < = 1.0 MG/DL Urine Leukocyte Esterase 3+ H NEGATIVE Urine RBC (Auto) TRACE-I NEGATIVE Urine RBC NONE /HPF Urine WBC >100 H /HPF Urine Squamous Epithelial Cells 0-2 /HPF Urine Crystals NONE /LPF Urine Bacteria MODERATE H /HPF Urine Casts NONE /LPF Urine Mucus NEGATIVE /LPF Urine Culture Indicated NO My Orders Orders - KENDRICK SANTACRUZ MD Cbc With Automated Diff (02/19/21 18:14) Comprehensive Metabolic Panel (02/19/21 18:14) Blood Culture (02/19/21 18:14) Sputum Culture (02/19/21 18:14) Urinalysis (02/19/21 18:14) Urine Culture (02/19/21 18:14) Protime With Inr (02/19/21 18:14) Partial Thromboplastin Time (02/19/21 18:14) Chest 1 View Ap/Pa Only (02/19/21 18:14) Ed Iv/Invasive Line Start (02/19/21 18:14) Ekg Tracing (02/19/21 18:14) Vital Signs Adult Sepsis Patie Q15M (02/19/21 18:14) O2 (02/19/21 18:14) Remove Rings In Anticipation O (02/19/21 18:14) Lactic Acid Analyzer (02/19/21 18:14) Probnp Fs (02/19/21 18:14) Crp Fs (02/19/21 18:14) Troponin I Fs (02/19/21 18:14) Furosemide Injection (Lasix Injection) (02/19/21 18:45) Diltiazem Cd 24 Hr Capsule (Cardizem Cd (02/20/21 09:00) Enoxaparin Injection (Lovenox Injection) (02/19/21 19:30) Diltiazem Cd 24 Hr Capsule (Cardizem Cd (02/19/21 19:23) Medications Given in ED Current Medications Medications Dose Ordered Sig/Ana Route Start Time Stop Time Status Last Admin Dose Admin Diltiazem HCl 120 mg STK-MED ONCE PO 02/19/21 19:23 02/19/21 19:30 DC 02/19/21 19:32 120 MG Enoxaparin Sodium 100 mg ONCE ONCE SC 02/19/21 19:30 02/19/21 19:31 DC 02/19/21 19:33 100 MG Furosemide 80 mg ONCE ONCE IVP 02/19/21 18:45 02/19/21 18:46 DC 02/19/21 18:39 80 MG Vital Signs/I&O 02/19/21 02/19/21 18:01 18:10 Temp 36.4 Pulse 112 Resp 31 B/P (MAP) 164/54 (90) Pulse Ox 96 96 O2 Delivery Nasal Cannula Nasal Cannula O2 Flow Rate 4.00 4.00 Capillary Refill : Less Than 3 Seconds Blood Pressure Mean: 90 Progress Note : Progress Note Seen and evaluated on arrival by EMS. IV established by EMS. We will initiate sepsis protocol plus BNP, troponin and EKG. Lasix 80 mg IV ordered for obvious volume overload. Decreased oxygen to 4 L via nasal cannula and is tolerating well. Monitor patient. 1930: I have discussed the case with Dr. Yu and Gina Alatorre. Dr. Yu accepts patient for admission and Dr. Alatorre accepts patient in consult. We will initiate Lovenox 1 mg/kg subcu and Cardizem 120 mg p.o. Patient will be admitted to cardiac stepdown. O2 saturations mid to upper 90s on his 4 L. Heart rate 10 5-1 19. Blood pressure 120s to 140s systolic. Patient denies any significant complaints currently. Patient will go by EMS. Patient agrees to plan. ECG Initial ECG Impression Date: Feb 19, 2021 Initial ECG Impression Time: 18:13 Initial ECG Rate: 116 Initial ECG Rhythm: A Fib/Flutter Initial ECG Impression: Atrial Fibrillation Initial ECG Comparisson: Unchanged (Unchanged with respect to morphology but rate is slower than previous. 01/20/2021.) Comment Atrial fibrillation with some features occasionally a flutter. Normal axis. No evidence of ST elevation UT. Interpreted by me. Diagnostic Imaging Diagonstic Imaging: Xray Plain Films/CT/US/NM/MRI: chest Comments NAME: NOHEMY HUERTA MED REC#: [id number] PT STATUS: REG ER : 1945 PHYSICIAN: KENDRICK SANTACRUZ MD ADMIT DATE: 02/19/21/ER FS Draft Date of Exam:02/19/21 CHEST 1 VIEW AP/PA ONLY INDICATION: Shortness of breath. Comparison made with the prior study from January 27, 2021. FINDINGS: There is enlargement of the cardiac silhouette. There are again findings of a large left-sided pleural effusion. There again appears to be abnormal prominence of the central pulmonary vascularity suggesting a component of edema. The degree of edema does not appear as severe as the comparison exam. The right lung is better aerated than on the prior. There is no pneumothorax. IMPRESSION: 1. Similar features to the prior examination with cardiomegaly, large left effusion and abnormal pulmonary vascularity. The overall degree of severity of this process is diminished from the comparison exam. Dictated on workstation # [id number] Dict: 02/19/21 1830 Trans: 02/19/21 1836 CVB [id number] Interpreted by: FAUZIA SPANN MD Electronically signed by: Departure Communication (Admissions) Time/Spoke to Admitting Phy: 19:05 Time/Spoke to Consulting Phy: 19:00 Impression Primary Impression: Acute on chronic heart failure Qualified Codes: I50.43 - Acute on chronic combined systolic (congestive) and diastolic (congestive) heart failure Disposition: 09 ADMITTED INPATIENT Condition: Stable Admissions Decision to Admit Reason: Admit from ER (General) Decision to Admit/Date: Feb 19, 2021 Time/Decision to Admit Time: 19:00 Departure-Patient Inst. Referrals: ALCIDES CALI MD (PCP/Family) Primary Care Physician KENDRICK SANTACRUZ MD Feb 19, 2021 18:47
[2021-02-19 18:56] LABS: BACTERIA,URINE MODERATE /HPF; BILIRUBIN,URINE NEGATIVE (NEGATIVE); CLARITY,URINE SLIGHTLY CLOUDY; COLOR,URINE YELLOW; GLUCOSE, URINE (UA) NEGATIVE (NEGATIVE); KETONES,URINE NEGATIVE (NEGATIVE); LEUKOCYTE ESTERASE ,URINE 3+ (NEGATIVE); NITRITE,URINE NEGATIVE (NEGATIVE); PH,URINE 6.5 (5-9); PROTEIN,URINE TRACE (NEGATIVE); SQUAMOUS EPITHELIAL CELL,UR 0-2 /HPF; WBC,URINE >100 /HPF
[2021-02-19] MEDS ORDERED: dilTIAZem120 MG (CARDIZEM CD) CAP PO ONE (19:23)
[2021-02-19] MEDS ORDERED: ENOXAPARIN 100 MG/1 ML (LOVENOX) SYR SC ONE (19:30)
[2021-02-19] MEDS ORDERED: RT-ALBUTEROL/IPRATROPIUM 3 ML (DUONEB) VIAL INH PRN (22:30)
[2021-02-19] MEDS: ENOXAPARIN 100 MG/1 ML (LOVENOX) SYR SC SCH (22:41)
[2021-02-19] MEDS: CEFEPIME 1,000 MG/SWFI 10 ML IV PUSH IV SCH ×2 (23:46)
[2021-02-20] VITALS (18 sets, daily range): BP systolic 112–150; BP diastolic 66–101
[2021-02-20 01:24] LABS: BILIRUBIN,URINE NEGATIVE (NEGATIVE); CLARITY,URINE CLEAR; COLOR,URINE YELLOW; GLUCOSE, URINE (UA) NEGATIVE (NEGATIVE); KETONES,URINE NEGATIVE (NEGATIVE); LEUKOCYTE ESTERASE ,URINE 3+ (NEGATIVE); NITRITE,URINE NEGATIVE (NEGATIVE); PROTEIN,URINE NEGATIVE (NEGATIVE)
[2021-02-20 01:37] LABS: BACTERIA,URINE MODERATE /HPF; SQUAMOUS EPITHELIAL CELL,UR 0-2 /HPF
[2021-02-20 01:44] LABS: ABG BASE EXCESS 11.3 MMOL/L (-2.5-2.5); ABG OXYGEN SATURATION 97 % (94-100); ABG PCO2 64 MMHG (35-45); ABG PH 7.38 (7.37-7.43); ABG PO2 107 MMHG (79-93); ABG TCO2 38.7 MMOL/L (21.0-31.0)
[2021-02-20 01:46] LABS: ALLENS TEST YES-POS; INSPIRED O2 4L; PATIENT TEMP NOT INDICATED; VENTILATOR NO
[2021-02-20] MEDS: RT-ALBUTEROL/IPRATROPIUM 3 ML (DUONEB) VIAL INH SCH ×6 (01:59→21:05)
[2021-02-20 03:38] LABS: BASOPHILS % (AUTO) 1 % (0-10); EOSINOPHILS # (AUTO) 0.3 10^3/uL (0.0-0.3); EOSINOPHILS % (AUTO) 4 % (0-10); HEMATOCRIT 36 % (40-54); HEMOGLOBIN 11.2 g/dL (13.3-17.7); LYMPHOCYTES # (AUTO) 0.9 10^3/uL (1.0-4.0); LYMPHOCYTES % (AUTO) 13 % (12-44); MEAN CORPUSCULAR HEMOGLOBIN 33 pg (25-34); MEAN CORPUSCULAR HGB CONC 31 g/dL (32-36); MEAN CORPUSCULAR VOLUME 107 fL (80-99); MEAN PLATELET VOLUME 9.5 fL (9.0-12.2); MONOCYTES # (AUTO) 0.4 10^3/uL (0.0-1.0); MONOCYTES % (AUTO) 6 % (0-12); NEUTROPHILS # (AUTO) 5.2 10^3/uL (1.8-7.8); NEUTROPHILS % (AUTO) 76 % (42-75); PLATELET COUNT 252 10^3/uL (130-400); WHITE BLOOD COUNT 6.8 10^3/uL (4.3-11.0)
[2021-02-20 04:01] LABS: BUN/CREATININE RATIO 17; CALCIUM 8.3 MG/DL (8.5-10.1); CARBON DIOXIDE 30 MMOL/L (21-32); CHLORIDE 96 MMOL/L (98-107); CREATININE SERUM 0.93 MG/DL (0.60-1.30); GFR ESTIMATED > 60; GLUCOSE 110 MG/DL (70-105); POTASSIUM 3.2 MMOL/L (3.6-5.0); SODIUM 140 MMOL/L (135-145)
[2021-02-20] MEDS: CEFEPIME 1,000 MG/SWFI 10 ML IV PUSH IV SCH ×8 (05:15→21:18)
[2021-02-20] MEDS: ENOXAPARIN 100 MG/1 ML (LOVENOX) SYR SC SCH ×2 (08:08→19:53)
[2021-02-20] MEDS ORDERED: CEFEPIME INJECTION 2,000 MG in WATER (STERILE) FOR INJECTION 20 ML IV SCH (09:00)
[2021-02-20] MEDS ORDERED: dilTIAZem120 MG (CARDIZEM CD) CAP PO SCH (09:00)
--- NOTE | 2021-02-20 09:12 | Diagnostic Imaging Report ---
PROCEDURE: US Venous Lower Ext Brian. TECHNIQUE: Multiple real-time grayscale images were obtained over the lower extremities in various projections, bilaterally. Additional duplex Doppler and color Doppler images were also obtained. INDICATION: Lower extremity swelling and numbness COMPARISON: None. FINDINGS: The bilateral common femoral vein, femoral vein, deep femoral vein, and popliteal vein are normal in appearance. These vessels show normal compressibility, color flow and doppler augmentation. The visualized deep calf veins demonstrate no distinct intraluminal thrombus. IMPRESSION: 1. No sonographic evidence of deep venous thrombosis in the bilateral lower extremities. Dictated by: Dictated on workstation # [id number]
--- NOTE | 2021-02-20 10:01 | History & Physical-Hospitalist ---
History of Present Illness HPI/Chief Complaint 75-year-old white male with complicated past medical history resides in a [facility] in [place]. He noticed that his legs were not as strong and he was weak and more short of breath yesterday the nursing staff encouraged him to go to the emergency room which he did. Is found to be in A. fib with RVR and which is actually old and in congestive failure. He is admitted for tuning up. He was requiring a higher level of oxygen than he had been in the past. This morning at the time my interview he says he is feeling better he does asked that he not be reintubated but he would entertain CPR and defibrillation. Source: patient, old records Exam Limitations: no limitations Date Seen 02/20/21 Time Seen by a Provider: 09:00 Attending Physician Delfina Yu MD PCP Wellington Miranda MD Referring Physician Date of Admission Feb 19, 2021 at 19:00 Home Medications & Allergies Home Medications Reviewed patient Home Medication Reconciliation performed by pharmacy medication reconciliations gas plant technician and/or nursing. Patients Allergies have been reviewed. Allergies Allergies Coded Allergies No Known Drug Allergies (Unverified01/30/19) Patient Social History Marrital Status: single Employed/Student: retired Smoking Status: Current Everyday Smoker Immunizations Up To Date Influenza Vaccine Up-to-Date: Yes; Up-to-Date Tetanus Booster (TDap): Unknown Current Status Communicates: Verbally Primary Language: Ethiopian Preferred Spoken Language: Ethiopian Is interpretation needed?: No Past Medical History PMHx: HTN HLD Atherosclerotic occlusive disease DMII Previous respiratory failure COPD Alcohol dependence CKD SurgHx: Suprapubic catheter Review of Systems Constitutional: see HPI Respiratory: cough, short of breath Cardiovascular: no symptoms reported Gastrointestinal: no symptoms reported Genitourinary: other (Suprapubic cath) Musculoskeletal: muscle weakness (Legs) Skin: no symptoms reported Psychiatric/Neurological: No Symptoms Reported Physical Exam Physical Exam Vital Signs Vital Signs - First Documented 02/19/21 02/19/21 18:01 18:10 Temp 36.4 Pulse 112 Resp 31 B/P (MAP) 164/54 (90) Pulse Ox 96 O2 Delivery Nasal Cannula O2 Flow Rate 4.00 Capillary Refill : Less Than 3 Seconds Height, Weight, BMI Height: 5'9.00" Weight: 225lbs. oz. 102.596187vj; 36.24 BMI Method:Stated General Appearance: Chronically ill HEENT: Other (Dry) Neck: Limited Range of Motion Respiratory: No Accessory Muscle Use, No Respiratory Distress, Decreased Breath Sounds Cardiovascular: Irregularly Irregular, Tachycardia Gastrointestinal: Normal Bowel Sounds, Non Tender, Soft Back: Normal Inspection Extremity: Pedal Edema, Swelling Neurologic/Psychiatric: Alert, Oriented x3, Normal Mood/Affect Skin: Pallor Results Results/Procedures Labs Laboratory Tests 02/19/21 18:10 02/20/21 03:20 Patient resulted labs reviewed. Imaging: Reviewed Imaging Report Assessment/Plan Admission Diagnosis Atrial fibrillation with RVR Exacerbation of COPD CHF decompensated Increased weakness O2 dependent COPD Plan for improved rate control diuresis physical therapy and probable return to [facility] Admission Status: Inpatient Order (span 2 midnights) Reason for Inpatient Admission: Multiple comorbidities Diagnosis/Problems Diagnosis/Problems (1) Acute on chronic heart failure Status: Acute Qualifiers: Heart failure type: combined systolic and diastolic Qualified Codes: I50.43 - Acute on chronic combined systolic (congestive) and diastolic (congestive) heart failure (2) COPD with exacerbation Status: Acute (3) Atrial fibrillation with RVR Status: Acute (4) Productive cough Status: Acute (5) Hypertension Status: Chronic Supervisory-Addendum Brief Verification & Attestation Participated in pt care: history, MDM, physical Personally performed: exam, history, MDM Care discussed with: other (ER physician) Procedures: n/a No student involved in patient's care DELFINA YU MD Feb 20, 2021 10:01
[2021-02-20] MEDS ORDERED: RT-ALBUTEROL/IPRATROPIUM 3 ML (DUONEB) VIAL IH PRN (10:30)
[2021-02-20] MEDS ORDERED: polyethylene glycoL POWDER 17 GM (MIRALAX) PACK PO PRN (10:30)
[2021-02-20] MEDS ORDERED: dilTIAZem120 MG (CARDIZEM CD) CAP PO ONE (14:00)
[2021-02-20] MEDS ORDERED: FUROSEMIDE 40 MG/4 ML INJ (LASIX) IVP ONE (14:30)
[2021-02-20] MEDS ORDERED: KCL 20 MEQ TAB (K-DUR) PO ONE ×2 (14:30→16:30)
--- NOTE | 2021-02-20 14:31 | Consultation-Cardiology ---
HPI-Cardiology Cardiology Consultation: Date of Consultation 02/20/21 Date of Admission Attending Physician Delfina Yu MD Admitting Physician Wellington Miranda MD Consulting Physician Lulu ALATORRE MD HPI: Time Seen by a Provider: 13:30 Chief Complaint: Shortness of breath This is a 75-year-old gentleman who was previously admitted to our hospital for respiratory failure and then transferred to [place]. From [place] he was transferred to [facility]. He has a history of atrial fibrillation and congestive heart failure. He was complaining of increasing sh ortness of breath and was given increased dose of Lasix. There was also associated weight gain as well. [facility] but was more short of breath requiring a nonrebreather and transferred to our hospital. Previous smoker. Does not smoke at this point in time. Review of Systems-Cardiology Review of Systems Constitutional: As described under HPI; No As described under HPI, No no symptoms reported, No chills, No fever, No lightheadedness Eyes: No As described under HPI, No no symptoms reported, No blindness, No blurred vision, No contact lenses, No drainage, No decreased acuity, No foreign body sensation, No pain, No vision change Ears/Nose/Throat: No As described under HPI, No no symptoms reported, No chronic hearing loss, No ear discharge, No ear pain, No nasal drainage, No ulcerations Respiratory: No no symptoms reported; As described under HPI; No As described under HPI, No cough; orthopnea; No shortness of breath, No SOB with excertion Cardiovascular: No no symptoms reported; As described under HPI; No As described under HPI, No chest pain, No edema, No irregular heart rate, No lightheadedness, No palpitations Gastrointestinal: No no symptoms reported, No As described under HPI, No abdomen distended, No abdominal pain, No blood streaked bowels, No constipation, No diarrhea, No nausea, No vomiting, No stool coloration changes Genitourinary: No As described under HPI, No burning, No dysuria, No discharge, No frequency, No flank pain, No hematuria, No urgency Skin: No rash, No skin related problems, No ulcerations Psychiatric/Neurological: No anxiety, No depression, No seizure, No focal weakness, No syncope Hematologic: No bleeding abnormalities All Other Systems Reviewed Negative Unless Noted: Yes [id number] Hx Patient Social History Marrital Status: single Employed/Student: retired Smoking Status: Current Everyday Smoker 2nd Hand Smoke Exposure: Yes Immunizations Up To Date Tetanus Booster (TDap): Unknown Date of Influenza Vaccine: Aug 19, 2020 Past Medical History PMH As described under Assessment. Allergies and Home Medications Allergies Coded Allergies: No Known Drug Allergies (Unverified , 01/30/19) Home Medications Albuterol Sulfate 2.5 Mg/3 Ml Vial.neb, 3 ML NEB BID, (Reported) Allopurinol 100 Mg Tablet, 100 MG PO DAILY, (Reported) Atorvastatin Calcium 10 Mg Tablet, 10 MG PO 1700, (Reported) Azithromycin 250 Mg Tablet, 250 MG PO DAILY, (Reported) FILLED 01-18-2021 (FIRST DOSE 01-19) #6/5 DAY SUPPLY Budesonide/Formoterol Fumarate 10.2 Gm Hfa.aer.ad, 2 PUFF IH BID, (Reported) Furosemide 40 Mg Tablet, 40 MG PO 0800,1400, (Reported) Gabapentin 100 Mg Capsule, 100 MG PO HS, (Reported) Ibuprofen 800 Mg Tablet, 800 MG PO 0800,1700, (Reported) Ipratropium/Albuterol Sulfate 3 Ml Ampul.neb, 3 ML NEB Q6H PRN for SHORTNESS OF BREATH, (Reported) Loperamide HCl 2 Mg Capsule, 2 MG PO UD PRN for DIARRHEA, (Reported) Loratadine 10 Mg Tablet, 10 MG PO DAILY, (Reported) Multivitamin 1 Each Tablet, 1 EACH PO DAILY, (Reported) Naphazoline HCl/Pheniramine 15 Ml Drops, 1 DROP OU PRN PRN for DRY/ITCHY EYES, (Reported) Nystatin 15 Gm Cream..g., 1 APPLIC TOP PRN PRN for RASH, (Reported) Pantoprazole Sodium 40 Mg Tablet.dr, 40 MG PO DAILY, (Reported) Phenobarbital 64.8 Mg Tablet, 64.8 MG PO BID, (Reported) Polyethylene Glycol 3350 17 Gm Powd.pack, 17 GM PO EVERY OTHER DAY, (Reported) Polyethylene Glycol 3350 17 Gm Powd.pack, 17 GR PO DAILY PRN for CONSTIPATION- 2ND LINE, (Reported) Potassium Chloride 10 Meq Tab.er.prt, 10 MEQ PO 0800,1700, (Reported) Thiamine HCl 250 Mg Tablet, 250 MG PO DAILY, (Reported) Tizanidine HCl 2 Mg Tablet, 2 MG PO Q8H PRN for MUSCLE SPASMS, (Reported) Patient Home Medication List Home Medication List Reviewed: Yes Physical Exam-Cardiology Physical Exam Vital Signs/I&O 02/20/21 02/20/21 02/20/21 02/20/21 02:55 03:00 03:00 04:00 Pulse 106 97 Resp 29 25 B/P (MAP) 121/75 (90) Pulse Ox 91 98 O2 Delivery Nasal Cannula Nasal Cannula Nasal Cannula Nasal Cannula O2 Flow Rate 3.00 4.00 4.00 4.00 02/20/21 02/20/21 02/20/21 02/20/21 05:00 06:00 06:22 07:00 Pulse 98 106 102 Resp 24 25 B/P (MAP) 145/71 (95) 141/101 (114) Pulse Ox 90 96 95 O2 Delivery Nasal Cannula Nasal Cannula Nasal Cannula O2 Flow Rate 4.00 4.00 2.00 02/20/21 02/20/21 02/20/21 02/20/21 07:00 07:53 08:00 08:00 Temp 36.3 Pulse 98 118 Resp 27 B/P (MAP) 145/88 (107) 140/86 (104) Pulse Ox 97 99 97 O2 Delivery Nasal Cannula Nasal Cannula Nasal Cannula O2 Flow Rate 4.00 4.00 4.00 02/20/21 02/20/21 02/20/21 02/20/21 09:00 10:00 10:14 11:00 Pulse 118 109 92 Resp 16 24 23 B/P (MAP) 127/72 (90) 127/66 (86) Pulse Ox 97 96 96 96 O2 Delivery Nasal Cannula Nasal Cannula Nasal Cannula Nasal Cannula O2 Flow Rate 4.00 4.00 4.00 4.00 02/20/21 02/20/21 02/20/21 02/20/21 11:32 12:00 12:42 13:00 Temp 36.2 Pulse 130 118 131 Resp 28 29 B/P (MAP) 131/93 (106) 130/93 (105) Pulse Ox 97 97 O2 Delivery Nasal Cannula Nasal Cannula O2 Flow Rate 4.00 4.00 02/20/21 00:00 Intake Total 300 ml Output Total 900 ml Balance -600 ml Capillary Refill : Less Than 3 Seconds Constitutional: appears stated age, AAO x 3; No apparent distress; well- developed, well-nourished HEENT: PERRL; No discharge; hearing is well preserved, oral hygience is good; No ulceration, No xanthelasmas are seen Neck: No carotid bruit; carotid pulses are 2 + bilaterally Respiratory: chest is bilaterally symmetric, lungs clear to auscultation Cardiovascular: irregularly irregular, S1 and S2 Gastrointestinal: soft, audible bowel sounds; No spleenomegaly Rectal: deferred Extremities: No clubbing, No cyanosis; no lower extremity edema bilateral; No significant edema Neurologic/Psychiatric: no motor/sensory deficits, alert, normal mood/affect, oriented x 3, power is 5/5 both on sides Skin: normal color, warm/dry Data Review Labs Laboratory Tests 02/19/21 18:10: White Blood Count 7.8, Red Blood Count 3.20L, Hemoglobin 10.8L, Hematocrit 33L, Mean Corpuscular Volume 104H, Mean Corpuscular Hemoglobin 34, Mean Corpuscular Hemoglobin Concent 32, Red Cell Distribution Width 15.0H, Platelet Count 250, Mean Platelet Volume 9.5, Immature Granulocyte % (Auto) 1, Neutrophils (%) (Auto) 80H, Lymphocytes (%) (Auto) 9L, Monocytes (%) (Auto) 7, Eosinophils (%) (Auto) 4, Basophils (%) (Auto) 1, Neutrophils # (Auto) 6.2, Lymphocytes # (Auto) 0.7L, Monocytes # (Auto) 0.5, Eosinophils # (Auto) 0.3, Basophils # (Auto) 0.1, Immature Granulocyte # (Auto) 0.0, Prothrombin Time 13.3, INR Comment 1.0, Activated Partial Thromboplast Time 22L, Sodium Level 134L, Potassium Level 4.0, Chloride Level 95L, Carbon Dioxide Level 32, Anion Gap 7, Blood Urea Nitrogen 19H, Creatinine 1.02, Estimat Glomerular Filtration Rate > 60, BUN/Creatinine Ratio 19, Glucose Level 135H, Lactic Acid Level 0.90, Calcium Level 8.4L, Corrected Calcium 8.8, Total Bilirubin 0.4, Aspartate Amino Transf (AST/SGOT) 75H, Alanine Aminotransferase (ALT/SGPT) 145H, Alkaline Phosphatase 177H, Troponin I < 0.30, C-Reactive Protein 3.12H, Pro-B-Type Natriuretic Peptide 3641.0H, Total Protein 6.4, Albumin 3.5 02/19/21 18:45: Urine Color YELLOW, Urine Clarity SLIGHTLY CLOUDY, Urine pH 6.5, Urine Specific Loop 1.010L, Urine Protein TRACEH, Urine Glucose (UA) NEGATIVE, Urine Ketones NEGATIVE, Urine Nitrite NEGATIVE, Urine Bilirubin NEGATIVE, Urine Urobilinogen 0.2, Urine Leukocyte Esterase 3+H, Urine RBC (Auto) TRACE-I, Urine RBC NONE, Urine WBC >100H, Urine Squamous Epithelial Cells 0-2, Urine Crystals NONE, Urine Bacteria MODERATEH, Urine Casts NONE, Urine Mucus NEGATIVE, Urine Culture Indicated NO 02/19/21 22:05: Troponin I 0.160H, Thyroid Stimulating Hormone (TSH) 3.86 02/20/21 01:00: Urine Color YELLOW, Urine Clarity CLEAR, Urine pH 7.0, Urine Specific Loop 1.010L, Urine Protein NEGATIVE, Urine Glucose (UA) NEGATIVE, Urine Ketones NEGATIVE, Urine Nitrite NEGATIVE, Urine Bilirubin NEGATIVE, Urine Urobilinogen 0.2, Urine Leukocyte Esterase 3+H, Urine RBC (Auto) TRACE-I, Urine RBC NONE, Urine WBC 10-25H, Urine Squamous Epithelial Cells 0-2, Urine Crystals NONE, Urine Bacteria MODERATEH, Urine Casts NONE, Urine Mucus NEGATIVE, Urine Culture Indicated YES 02/20/21 01:35: Blood Gas Puncture Site RIGHT RADIAL, Blood Gas Patient Temperature NOT INDICATED, Arterial Blood pH 7.38, Arterial Blood Partial Pressure CO2 64H, Arterial Blood Partial Pressure O2 107H, Arterial Blood HCO3 37H, Arterial Blood Total CO2 38.7H, Arterial Blood Oxygen Saturation 97, Arterial Blood Base Excess 11.3H, Husam Test YES-POS, Blood Gas Ventilator Setting NO, Blood Gas Inspired Oxygen 4L 02/20/21 03:20: White Blood Count 6.8, Red Blood Count 3.36L, Hemoglobin 11.2L, Hematocrit 36L, Mean Corpuscular Volume 107H, Mean Corpuscular Hemoglobin 33, Mean Corpuscular Hemoglobin Concent 31L, Red Cell Distribution Width 14.6H, Platelet Count 252, Mean Platelet Volume 9.5, Immature Granulocyte % (Auto) 0, Neutrophils (%) (Auto) 76H, Lymphocytes (%) (Auto) 13, Monocytes (%) (Auto) 6, Eosinophils (%) (Auto) 4, Basophils (%) (Auto) 1, Neutrophils # (Auto) 5.2, Lymphocytes # (Auto) 0.9L, Monocytes # (Auto) 0.4, Eosinophils # (Auto) 0.3, Basophils # (Auto) 0.0, Immature Granulocyte # (Auto) 0.0, Sodium Level 140, Potassium Level 3.2L, Chloride Level 96L, Carbon Dioxide Level 30, Anion Gap 14, Blood Urea Nitrogen 16, Creatinine 0.93, Estimat Glomerular Filtration Rate > 60, BUN/Creatinine Ratio 17, Glucose Level 110H, Calcium Level 8.3L Microbiology 02/19/21 Urine Culture - Preliminary, Resulted Probable Pseudomonas ECG Impression ECG Initial ECG Impression: Atrial Fibrillation A/P-Cardiology Assessment/Admission Diagnosis Acute respiratory failure, Acute on chronic congestive heart failure, Longstanding persistent atrial fibrillation, Oxygen dependent COPD Plan Acute respiratory failure, likely multifactorial due to COPD exacerbation and acute on chronic congestive heart failure. Echocardiogram done on 01/20/2021 showed mild systolic dysfunction with an EF of 45 to 50%. Elevated PA pressure was noted. Acute on chronic congestive heart failure, IV Lasix 80 mg. Potassium supplementation. Longstanding persistent atrial fibrillation, need to start him on oral anticoagulation. However due to phenobarbital, numerous oral anticoagulation are contraindicated. We will require pharmacy help to see which oral anticoagulation can the patient tolerate. Also I will request Dr. Yu/primary team to see if there is no oral anticoagulation that we can give with phenobarbital, if there is a possibility of changing phenobarbital to some other agent. For now the patient is on full dose Lovenox. Ventricular rate is well controlled. Oxygen dependent COPD, on oxygen therapy. Defer to the primary team. Pulmonary hypertension, likely due to severe COPD. Thank you for your consultation. Please call me if you have any questions. Britany Alatorre MD, FACP, FACC, FSCAI, FHRS, CCDS Interventional Cardiology Cardiac Electrophysiology Vascular Medicine and Endovascular Interventions Lulu ALATORRE MD Feb 20, 2021 14:31
[2021-02-20] MEDS: KCL 10 MEQ TAB (MICRO K) PO SCH (16:57)
[2021-02-20] MEDS: GABAPENTIN 100 MG (NEURONTIN) CAP PO SCH (19:53)
[2021-02-20] MEDS: PHENobarbital 64.8 MG (1 GRAIN) TAb PO SCH (19:53)
[2021-02-20] MEDS ORDERED: RT--FLUTICASONE/SALMETEROL 113-14 (AIRDUO RespiCLICK) IH ONE (20:54)
[2021-02-20] MEDS ORDERED: RT-ALBUTEROL SULF 2.5 MG/3 ML PRE-MIX VIAL IH SCH (21:00)
[2021-02-20] MEDS: RT--FLUTICASONE/SALMETEROL 232-14 (AIRDUO RespiCLICK) IH SCH (21:02)
[2021-02-21 00:20] VITALS: BP 137/78
[2021-02-21 03:19] LABS: BASOPHILS # (AUTO) 0.1 10^3/uL (0.0-0.1); BASOPHILS % (AUTO) 1 % (0-10); EOSINOPHILS # (AUTO) 0.4 10^3/uL (0.0-0.3); EOSINOPHILS % (AUTO) 5 % (0-10); HEMATOCRIT 36 % (40-54); HEMOGLOBIN 11.1 g/dL (13.3-17.7); LYMPHOCYTES # (AUTO) 0.7 10^3/uL (1.0-4.0); LYMPHOCYTES % (AUTO) 9 % (12-44); MEAN CORPUSCULAR HEMOGLOBIN 33 pg (25-34); MEAN CORPUSCULAR HGB CONC 31 g/dL (32-36); MEAN CORPUSCULAR VOLUME 108 fL (80-99); MEAN PLATELET VOLUME 9.6 fL (9.0-12.2); MONOCYTES # (AUTO) 0.5 10^3/uL (0.0-1.0); MONOCYTES % (AUTO) 6 % (0-12); NEUTROPHILS # (AUTO) 5.5 10^3/uL (1.8-7.8); NEUTROPHILS % (AUTO) 78 % (42-75); PLATELET COUNT 284 10^3/uL (130-400)
[2021-02-21 03:39] LABS: ALANINE AMINOTRANSFERASE 132 U/L (0-55); ALBUMIN 3.5 GM/DL (3.2-4.5); ALKALINE PHOSPHATASE 165 U/L (40-136); BILIRUBIN,TOTAL 0.7 MG/DL (0.1-1.0); BUN/CREATININE RATIO 15; CALCIUM 8.3 MG/DL (8.5-10.1); CARBON DIOXIDE 33 MMOL/L (21-32); CHLORIDE 96 MMOL/L (98-107); CREATININE SERUM 1.09 MG/DL (0.60-1.30); GFR ESTIMATED > 60; GLUCOSE 102 MG/DL (70-105); POTASSIUM 3.9 MMOL/L (3.6-5.0); SODIUM 141 MMOL/L (135-145); TOTAL PROTEIN 6.6 GM/DL (6.4-8.2)
[2021-02-21 03:53] VITALS: BP 136/93
[2021-02-21] MEDS: CEFEPIME 1,000 MG/SWFI 10 ML IV PUSH IV SCH ×8 (04:18→23:01)
[2021-02-21] MEDS: RT--FLUTICASONE/SALMETEROL 232-14 (AIRDUO RespiCLICK) IH SCH ×2 (07:12→21:03)
[2021-02-21] MEDS: RT-ALBUTEROL/IPRATROPIUM 3 ML (DUONEB) VIAL INH SCH ×5 (07:13→22:21)
[2021-02-21] MEDS ORDERED: AZITHROMYCIN 250 MG TAB (ZITHROMAX) PO SCH (09:00)
[2021-02-21] MEDS: ALLOPURINOL 100 MG (ZYLOPRIM) TAB PO SCH (09:31)
[2021-02-21] MEDS: polyethylene glycoL POWDER 17 GM (MIRALAX) PACK PO SCH (09:31)
[2021-02-21] MEDS: KCL 10 MEQ TAB (MICRO K) PO SCH ×2 (09:31→17:49)
[2021-02-21] MEDS: PANTOPRAZOLE 40 MG (PROTONIX) TAB PO SCH (09:31)
[2021-02-21] MEDS: PHENobarbital 64.8 MG (1 GRAIN) TAb PO SCH ×2 (09:31→19:38)
[2021-02-21] MEDS: ENOXAPARIN 100 MG/1 ML (LOVENOX) SYR SC SCH ×2 (09:32→19:38)
--- NOTE | 2021-02-21 09:45 | Progress Note - Hospitalist ---
Subjective HPI/CC On Admission Date Seen by Provider: Feb 21, 2021 Time Seen by Provider: 09:00 75-year-old white male with complicated past medical history resides in a senior care in [place]. He noticed that his legs were not as strong and he was weak and more short of breath yesterday the nursing staff encouraged him to go to the emergency room which he did. Is found to be in A. fib with RVR and which is actually old and in congestive failure. He is admitted for tuning up. He was requiring a higher level of oxygen than he had been in the past. This morning at the time my interview he says he is feeling better he does asked that he not be reintubated but he would entertain CPR and defibrillation. Subjective/Events-last exam Patient is without complaint this morning he asks if he is better. His heart rate is better controlled. Dr. Alatorre and I discussed the difficulty of using blood thinners with phenobarbital and allopurinol. It is recommended that he go on a blood thinner because of the A. fib. Review of Systems Pulmonary: Dyspnea Neurological: Weakness Focused Exam Lactate Level 02/19/21 18:10: Lactic Acid Level 0.90 Objective Exam Vital Signs Vital Signs Date Time Temp Pulse Resp B/P (MAP) Pulse Ox O2 Delivery O2 Flow Rate FiO2 02/21/21 08:00 104 25 97 Nasal Cannula 4.00 02/21/21 07:58 36.6 02/21/21 03:53 136/93 (107) Capillary Refill : Less Than 3 Seconds General Appearance: Chronically ill HEENT: Other (My) Neck: Limited Range of Motion Respiratory: Lungs Clear, Normal Breath Sounds, No Accessory Muscle Use, No Respiratory Distress, Decreased Breath Sounds Cardiovascular: Irregularly Irregular Gastrointestinal: Normal Bowel Sounds, Non Tender, Soft Rectal: Deferred Extremity: Pedal Edema, Swelling Results/Procedures Lab Laboratory Tests 02/21/21 02:58 Patient resulted labs reviewed. Imaging: Reviewed Imaging Report Assessment/Plan Assessment and Plan Assess & Plan/Chief Complaint Atrial fibrillation with RVR-improved rate control. We will start Coumadin since the interaction with phenobarbital is that co-administration may decrease the levels of Coumadin, however if the phenobarbital administration is level the Coumadin can be managed by the INR Exacerbation of COPD-improved CHF decompensated-improved with better rate control of his A. fib Increased weakness-we will start PT in the morning O2 dependent COPD-met protocol Suprapubic catheter with Pseudomonas-on meropenem We will transfer to the floor on telemetry Diagnosis/Problems Diagnosis/Problems (1) Acute on chronic heart failure Status: Acute Qualifiers: Heart failure type: combined systolic and diastolic Qualified Codes: I50.4 3 - Acute on chronic combined systolic (congestive) and diastolic (congestive) heart failure (2) COPD with exacerbation Status: Acute (3) Atrial fibrillation with RVR Status: Acute (4) Productive cough Status: Acute (5) Hypertension Status: Chronic CAITLIN VICENTE MD Feb 21, 2021 09:45
[2021-02-21 11:20] VITALS: BP 118/79
[2021-02-21 16:08] VITALS: BP 146/90
[2021-02-21] MEDS ORDERED: WATER (STERILE) FOR INJECTION 10 ML ONE ×2 (17:31→22:43)
[2021-02-21] MEDS ORDERED: CEFEPIME 1 GM/10 ML (MAXIPIME) VIAL ONE ×2 (17:31→22:43)
[2021-02-21] MEDS: warFARin 10 MG (COUMADIN) TAB PO SCH (17:49)
[2021-02-21 19:35] VITALS: BP 125/75
[2021-02-21] MEDS: GABAPENTIN 100 MG (NEURONTIN) CAP PO SCH (19:38)
[2021-02-22] VITALS (12 sets, daily range): BP systolic 124–167; BP diastolic 78–101
[2021-02-22] MEDS: RT-ALBUTEROL/IPRATROPIUM 3 ML (DUONEB) VIAL INH SCH ×2 (02:26→07:05)
[2021-02-22] MEDS ORDERED: WATER (STERILE) FOR INJECTION 10 ML ONE ×4 (04:09→21:15)
[2021-02-22] MEDS ORDERED: CEFEPIME 1 GM/10 ML (MAXIPIME) VIAL ONE ×4 (04:09→21:15)
[2021-02-22] MEDS: CEFEPIME 1,000 MG/SWFI 10 ML IV PUSH IV SCH ×8 (04:24→21:24)
[2021-02-22 06:35] LABS: BASOPHILS # (AUTO) 0.1 10^3/uL (0.0-0.1); BASOPHILS % (AUTO) 1 % (0-10); EOSINOPHILS # (AUTO) 0.3 10^3/uL (0.0-0.3); EOSINOPHILS % (AUTO) 4 % (0-10); HEMATOCRIT 34 % (40-54); HEMOGLOBIN 10.5 g/dL (13.3-17.7); LYMPHOCYTES % (AUTO) 12 % (12-44); MEAN CORPUSCULAR HEMOGLOBIN 33 pg (25-34); MEAN CORPUSCULAR HGB CONC 31 g/dL (32-36); MEAN CORPUSCULAR VOLUME 108 fL (80-99); MEAN PLATELET VOLUME 9.1 fL (9.0-12.2); MONOCYTES # (AUTO) 0.6 10^3/uL (0.0-1.0); MONOCYTES % (AUTO) 8 % (0-12); NEUTROPHILS # (AUTO) 5.8 10^3/uL (1.8-7.8); NEUTROPHILS % (AUTO) 74 % (42-75); PLATELET COUNT 214 10^3/uL (130-400); WHITE BLOOD COUNT 7.8 10^3/uL (4.3-11.0)
[2021-02-22 06:42] LABS: INR 1.1 (0.8-1.4); PROTHROMBIN TIME PATIENT 14.9 SEC (12.2-14.7)
[2021-02-22 06:57] LABS: ALANINE AMINOTRANSFERASE 98 U/L (0-55); ALBUMIN 3.3 GM/DL (3.2-4.5); ALKALINE PHOSPHATASE 146 U/L (40-136); BILIRUBIN,TOTAL 0.6 MG/DL (0.1-1.0); BUN/CREATININE RATIO 16; CALCIUM 8.1 MG/DL (8.5-10.1); CARBON DIOXIDE 30 MMOL/L (21-32); CHLORIDE 96 MMOL/L (98-107); CREATININE SERUM 1.03 MG/DL (0.60-1.30); GFR ESTIMATED > 60; GLUCOSE 106 MG/DL (70-105); POTASSIUM 4.2 MMOL/L (3.6-5.0); SODIUM 137 MMOL/L (135-145); TOTAL PROTEIN 6.2 GM/DL (6.4-8.2)
[2021-02-22] MEDS: RT--FLUTICASONE/SALMETEROL 232-14 (AIRDUO RespiCLICK) IH SCH ×2 (07:10→23:06)
[2021-02-22] MEDS: ALLOPURINOL 100 MG (ZYLOPRIM) TAB PO SCH (07:52)
[2021-02-22] MEDS: PHENobarbital 64.8 MG (1 GRAIN) TAb PO SCH ×2 (07:52→21:24)
[2021-02-22] MEDS: KCL 10 MEQ TAB (MICRO K) PO SCH ×2 (07:52→16:33)
[2021-02-22] MEDS: PANTOPRAZOLE 40 MG (PROTONIX) TAB PO SCH (07:52)
[2021-02-22] MEDS: ENOXAPARIN 100 MG/1 ML (LOVENOX) SYR SC SCH ×2 (07:53→21:24)
[2021-02-22] MEDS: polyethylene glycoL POWDER 17 GM (MIRALAX) PACK PO SCH ×2 (07:53→07:55)
[2021-02-22] MEDS ORDERED: DIGOXIN 0.25 MG/ML (LANOXIN) 2 ML AMP IV ONE (09:45)
[2021-02-22] MEDS ORDERED: meTOprolol 5 MG/5 ML (LOPRESSOR) VIAL ONE (09:48)
[2021-02-22] MEDS: meTOprolol 5 MG/5 ML (LOPRESSOR) VIAL IV SCH ×4 (10:04→23:43)
--- NOTE | 2021-02-22 10:13 | Physical Therapy Evaluation ---
PT Evaluation-General Medical Diagnosis Admission Date Feb 19, 2021 at 19:00 Medical Diagnosis: CHF Onset Date: Feb 19, 2021 Therapy Diagnosis Therapy Diagnosis: generalized weakness/debility Height/Weight Height (Feet): 5 Height (Inches): 9.00 Weight (Pounds): 225 Precautions Precautions/Isolations: Fall Prevention, Standard Precautions, Pressure Ulcer Referral Physician: Aimee Reason for Referral: Evaluation/Treatment Medical History Pertinent Medical History: Atrial Fib, Alcoholism, COPD, DM, HTN, Smoking Current History EMS from [place] secondary to SOA Reviewed History: Yes Social History Home: Assisted Prior Prior Level of Function SCALE: Activities may be completed with or without assistive devices. 1-Mjzeuaisst-psdmczq completes the activity by him/herself with no assistance from a helper. 5-Set-up or Clean-up Assistance-helper sets up or cleans up; patient completes activity. [place] assists only prior to or following the activity. 4-Supervision or Touching Assistance-helper provides verbal cues and/or touching/steadying and/or contact guard assistance as patient completes activity. Assistance may be provided throughout the activity or intermittently. 3-Partial/Moderate Assistance-helper does LESS THAN HALF the effort. [place] lifts, holds or supports trunk or limbs, but provides less than half the effort. 2-Substantial/Maximal Assistance-helper does MORE THAN HALF the effort. [place] lifts or holds trunk or limbs and provides more than half the effort. 8-Rgpojbjdm-xmggdi does ALL the effort. Patient does none of the effort to complete the activity. Or, the assistance of 2 or more helpers is required for the patient to complete the activity. If activity was not attempted, code reason: 7-Patient Refused. 9-Not Applicable-not attempted and the patient did not perform the activity before the current illness, exacerbation or injury. 10-Not Attempted due to Environmental Limitations-(lack of equipment, weather restraints, etc.). 88-Not Attempted due to Medical Conditions or Safety Concerns. Bed Mobility: 2 Transfers (B,C,W/C): 1 Gait: 9 Stairs: 9 Wheelchair Mobility: 2 Indoor Mobility (Ambulation): Not [place] Stairs: Not [place] Prior Devices Use: Manual wheelchair, Walker PT Evaluation-Current Subjective Patient agrees to PT. Objective Patient Orientation: Normal For Age Attachments: Oxygen, Suprapubic Catheter ROM/Strength ROM Lower Extremities bilateral LE WFL (noted edema bilateral LE) Strength Lower Extremities 3-/5 grossly bilateral LE Integumentary/Posture Integumentary refer to nursing notes Bowel Incontinence: Yes Bladder Incontinence: Cramer Cath Posture trunk flexed posture Neuromuscular (Tone, Coordination, Reflexes) diminished coordination bilateral LE and core Sensory Vision: Functional Hearing: Functional Sensation Right Lower Extremit: Impaired Sensation Left Lower Extremity: Impaired Transfers Roll Left to Right (QC): 1 Lying to Sitting/Side of Bed(Q: 1 Sit to Stand (QC): 1 Chair/Yhz-dp-Geuow Xfer(QC): 1 patient incontinent BM during session requiring dependent assist of 2 to perform sit to stand and assist of another to cleanse patient Gait Does the Patient Walk?: No and Walking Goal NOT indicated Balance Sitting Static: Fair Sitting Dynamic: Fair Standing Static: Fair Standing Dynamic: Poor Assessment/Needs 75 y.o. male, will benefit from skilled PT to address functional strength and mobility to improve current LOF. Patient is extremely edematous total body. Rehab Potential: Guarded PT Chcf Goals Chcf Goals PT Chcf Goals Time Frame: Mar 06, 2021 Roll Left & Right (QC): 2 Sit to Lying (QC): 2 Lying-Sitting on Side/Bed(QC): 2 Sit to Stand (QC): 2 Chair/Dxe-fm-Ssukh Xfer(QC): 2 PT Plan Problem List Problem List: Activity Tolerance, Functional Strength, Safety, Balance, Transfer, Bed Mobility Treatment/Plan Treatment Plan: Continue Plan of Care Treatment Plan: Bed Mobility, Education, Functional Activity Ken, Functional Strength, Safety, Therapeutic Exercise, Transfers Treatment Duration: Mar 06, 2021 Frequency: 6 times per week Estimated Hrs Per Day: .25 hour per day Patient and/or Family Agrees t: Yes Time/GCodes Time In: 913 Time Out: 930 Total Billed Treatment Time: 17 Total Billed Treatment 1 visit EVMod 17 min SELVIN RODRIGUEZ PT Feb 22, 2021 10:13
--- NOTE | 2021-02-22 10:29 | Progress Note - Hospitalist ---
TANGELA CHANEY, MED STUDENT 02/22/21 1029: Subjective HPI/CC On Admission 75-year-old white male with complicated past medical history resides in a prison in [place]. He noticed that his legs were not as strong and he was weak and more short of breath yesterday the nursing staff encouraged him to go to the emergency room which he did. Is found to be in A. fib with RVR and which is actually old and in congestive failure. He is admitted for tuning up. He was requiring a higher level of oxygen than he had been in the past. This morning at the time my interview he says he is feeling better he does asked that he not be reintubated but he would entertain CPR and defibrillation. Subjective/Events-last exam Pt did well overnight with no acute events. He denies any shortness of breath or worsening of his leg swelling overnight. He has not ambulated much except to the bathroom. Review of Systems General: No Chills, No Night Sweats, No Fatigue, No Malaise, No Appetite, No Other HEENT: Visual Changes Pulmonary: No Dyspnea, No Cough, No Pleuritic Chest Pain, No Other Cardiovascular: Chest Pain Gastrointestinal: Nausea, Vomiting Genitourinary: No Dysuria, No Frequency, No Incontinence, No Hematuria, No Retention, No Other Musculoskeletal: No: other, neck pain, shoulder pain, arm pain, back pain, hand pain, leg pain, foot pain Neurological: No: Weakness, Numbness, Incoordination, Change in speech, Confusion, Seizures, Other Focused Exam Lactate Level 02/19/21 18:10: Lactic Acid Level 0.90 Objective Exam Vital Signs Vital Signs Date Time Temp Pulse Resp B/P (MAP) Pulse Ox O2 Delivery O2 Flow Rate FiO2 02/22/21 09:38 158 167/93 (117) 02/22/21 08:00 Nasal Cannula 4.00 02/22/21 08:00 36.1 20 95 Capillary Refill : Less Than 3 Seconds General Appearance: No Apparent Distress Neck: Full Range of Motion, Normal Inspection Respiratory: Chest Non Tender, Lungs Clear, Normal Breath Sounds, No Accessory Muscle Use, No Respiratory Distress Cardiovascular: Regular Rate, Rhythm, No Edema, No Gallop, No JVD, No Murmur, Normal Peripheral Pulses Gastrointestinal: Normal Bowel Sounds, No Organomegaly, No Pulsatile Mass, Non Tender, Soft Extremity: Normal Capillary Refill, Normal Inspection, Pedal Edema, Swelling Neurologic/Psychiatric: Alert, Oriented x3 Skin: Normal Color, Warm/Dry Results/Procedures Lab Laboratory Tests 02/22/21 06:06 Patient resulted labs reviewed. Imaging: Reviewed Imaging Report Assessment/Plan Assessment and Plan Assess & Plan/Chief Complaint Curly Gonzalez is a 75 y/o M w/ PMH of COPD, chronic a-fib, and HF w/ last EF of 45-50 (01/20/2021) presenting for acute on chronic HF exacerbation #CHF - JVD present - Bilateral 1-2+ pitting edema in lower extremities up to mid-perdue - BNP 142 - U/o net +240 yesterday, +710 today Plan: > Start Lasix 80mg BID > Goal net -1.5L u/o > Cardiology following #A-fib w/ RVR - Permanent a-fib - HRs 80-150s overnight - Currently on Diltiazem 240mg - Warfarin 10mg, Lovenox max dose Plan: > Bridge Lovenox to warfarin > Cardiology managing HR #COPD - Home 2L NC at night - Currently 4L NC w/ 95% O2 saturation - Lungs CTAB Plan: > Schedule duonebs TID > Titrate O2 off #Transaminitis - AST 37, ALT 98, ALP 146 - Likely congestive vs ischemic Plan: > Continue to monitor > Will RUQ US, viral panel if necessary Dispo: Continue inpatient floor care GRACE ALFONSO DO 02/23/21 0507: Subjective HPI/CC On Admission Date Seen by Provider: Feb 22, 2021 Time Seen by Provider: 09:30 Subjective/Events-last exam Pt doing a little better Cardiology mentioned diuresis so will await for their dosing DuoNebs will be ordered scheduled Coumadin managed, INR 1.1 Has chronic AF Oxygenation requiring 4 liters, was at home on 2 liters PT and OT working with him Review of Systems Pulmonary: Dyspnea Objective Exam General Appearance: No Apparent Distress, WD/WN, Chronically ill Respiratory: Lungs Clear Cardiovascular: Regular Rate, Rhythm Assessment/Plan Assessment and Plan Assess & Plan/Chief Complaint Monitor closely Wean O2 Supervisory-Addendum Brief Verification & Attestation Participated in pt care: history, MDM, physical Personally performed: exam, history, MDM, supervision of care Care discussed with: Medical Student Procedures: n/a Results interpretation: Verified all documentation Verification and Attestation of Medical Student E/M Service A medical student performed and documented this service in my presence. I reviewed and verified all information documented by the medical student and made modifications to such information, when appropriate. I personally performed the physical exam and medical decision making. Grace Alfonso, Feb 23, 2021,05:07 TANGELA CHANEY, MED STUDENT Feb 22, 2021 10:29 GRACE ALFONSO DO Feb 23, 2021 05:07
[2021-02-22] MEDS ORDERED: FUROSEMIDE 40 MG/4 ML INJ (LASIX) IVP ONE (10:30)
[2021-02-22] MEDS ORDERED: ARTIFICAL TEARS 0.4 ML UNIT DOSE (REFRESH PLUS) OU PRN (11:00)
--- NOTE | 2021-02-22 12:03 | Cardiology Progress Note ---
Cardiology Progess Note Progress Date Seen by Provider: Feb 22, 2021 Time Seen by Provider: 08:10 Mr. Gonzalez was seen and examined this morning while eating breakfast. Denies concerns at this time. States he is still having shortness of breath but is improved with increasing his nighttime O2. States Lasix is not improving his edema. Focused Exam Lactate Level Physical Exam Vital Signs/I&O 02/22/21 02/22/21 02/22/21 02/22/21 08:00 08:00 09:38 10:15 Temp 36.1 Pulse 97 158 156 Resp 20 B/P (MAP) 124/85 (98) 167/93 (117) 144/101 (115) Pulse Ox 95 92 O2 Delivery Nasal Cannula Nasal Cannula O2 Flow Rate 4.00 4.00 02/22/21 02/22/21 02/22/21 02/22/21 10:25 12:12 12:15 12:16 Pulse 73 87 83 83 B/P (MAP) 134/79 (97) 146/90 (108) 127/78 (94) Pulse Ox 93 02/22/21 02/22/21 02/22/21 14:25 16:00 17:54 Temp 36.1 Pulse 68 78 Resp 22 B/P (MAP) 124/80 (95) 152/83 (106) Pulse Ox 92 94 O2 Delivery Nasal Cannula Nasal Cannula O2 Flow Rate 1.50 3.00 02/22/21 00:00 Intake Total 890 ml Output Total 425 ml Balance 465 ml Capillary Refill : Less Than 3 Seconds Constitutional: appears stated age, AAO x 3, well-developed, well-nourished HEENT: PERRL; No discharge; hearing is well preserved, oral hygience is good; No ulceration, No xanthelasmas are seen Respiratory: chest is bilaterally symmetric, crackles Cardiovascular: irregularly irregular, S1 and S2 Gastrointestinal: soft, audible bowel sounds Rectal: deferred Extremities: No clubbing, No cyanosis; significant edema Neurologic/Psychiatric: no motor/sensory deficits, alert, normal mood/affect, oriented x 3 A/P-Cardiology Assessment/Plan Plan Acute respiratory failure, likely multifactorial due to COPD exacerbation and acute on chronic congestive heart failure. Echocardiogram done on 01/20/2021 showed mild systolic dysfunction with an EF of 45 to 50%. Elevated PA pressure was noted. Acute on chronic congestive heart failure, Lasix 40mg IV BID with potassium supplementation. Monitor electrolytes. Longstanding persistent atrial fibrillation, previously diagnosed on 01/20/2021 on last admission. CHADsVASc score of 5, yearly stroke risk 7.2%. Currently on diltiazem 240mg daily. Adding lopressor 5mg IV and digoxin PO. Day #2 of warfarin with lovenox bridge. Oxygen dependent COPD, on oxygen therapy. Defer to the primary team. Pulmonary hypertension, likely due to severe COPD. Patient was seen and evaluated with Jelly Carter, medical student Management was discussed I agree with the scribed note Patient recovered from multifactorial respiratory failure Continue with diuretics Monitor electrolytes Continue with oxygen and physical therapy. JELLY MULLINS, Feb 22, 2021 12:02 pm MAHAD CRUMP MD Feb 22, 2021 7:10 pm
[2021-02-22] MEDS ORDERED: NYST1POW22 TOP (13:47)
[2021-02-22] MEDS ORDERED: METO-333 PO (13:47)
[2021-02-22] MEDS ORDERED: DIGO125T3 PO (13:47)
[2021-02-22] MEDS ORDERED: FLUT1BLS12 IH (13:47)
[2021-02-22] MEDS ORDERED: DOCU100T2 PO (13:47)
[2021-02-22] MEDS ORDERED: PHEN32.44 PO (13:47)
[2021-02-22] MEDS ORDERED: SIME80TA16 PO (13:47)
[2021-02-22] MEDS ORDERED: MV-M1TAB2 PO (13:47)
[2021-02-22] MEDS ORDERED: THIA100T66 PO (13:47)
[2021-02-22] MEDS ORDERED: FURO80TA3 PO (13:47)
[2021-02-22] MEDS ORDERED: LACT1CAP62 PO (13:47)
[2021-02-22] MEDS: RT-ALBUTEROL/IPRATROPIUM 3 ML (DUONEB) VIAL IH SCH ×2 (14:25→23:06)
[2021-02-22] MEDS: FUROSEMIDE 40 MG/4 ML INJ (LASIX) IVP SCH (16:33)
[2021-02-22] MEDS: warFARin 10 MG (COUMADIN) TAB PO SCH (17:49)
[2021-02-22] MEDS: GABAPENTIN 100 MG (NEURONTIN) CAP PO SCH (21:24)
[2021-02-23] MEDS ORDERED: WATER (STERILE) FOR INJECTION 10 ML ONE ×2 (03:43→20:49)
[2021-02-23] MEDS ORDERED: CEFEPIME 1 GM/10 ML (MAXIPIME) VIAL ONE ×2 (03:43→20:49)
[2021-02-23] MEDS: CEFEPIME 1,000 MG/SWFI 10 ML IV PUSH IV SCH ×8 (03:57→21:56)
[2021-02-23 03:58] VITALS: BP_SYST 122; BP_SYST 77; BP_DIAS 82
[2021-02-23 05:50] LABS: BASOPHILS # (AUTO) 0.1 10^3/uL (0.0-0.1); BASOPHILS % (AUTO) 1 % (0-10); EOSINOPHILS # (AUTO) 0.3 10^3/uL (0.0-0.3); EOSINOPHILS % (AUTO) 4 % (0-10); HEMATOCRIT 35 % (40-54); HEMOGLOBIN 10.7 g/dL (13.3-17.7); LYMPHOCYTES % (AUTO) 13 % (12-44); MEAN CORPUSCULAR HEMOGLOBIN 33 pg (25-34); MEAN CORPUSCULAR HGB CONC 31 g/dL (32-36); MEAN CORPUSCULAR VOLUME 107 fL (80-99); MEAN PLATELET VOLUME 9.3 fL (9.0-12.2); MONOCYTES # (AUTO) 0.5 10^3/uL (0.0-1.0); MONOCYTES % (AUTO) 7 % (0-12); NEUTROPHILS # (AUTO) 5.9 10^3/uL (1.8-7.8); NEUTROPHILS % (AUTO) 75 % (42-75); PLATELET COUNT 209 10^3/uL (130-400); WHITE BLOOD COUNT 7.9 10^3/uL (4.3-11.0)
[2021-02-23 06:00] LABS: INR 1.7 (0.8-1.4); PROTHROMBIN TIME PATIENT 20.8 SEC (12.2-14.7)
[2021-02-23 06:04] LABS: ALBUMIN 3.2 GM/DL (3.2-4.5); CHLORIDE 93 MMOL/L (98-107); SODIUM 136 MMOL/L (135-145)
[2021-02-23 06:06] LABS: GLUCOSE 96 MG/DL (70-105)
[2021-02-23] MEDS: meTOprolol 5 MG/5 ML (LOPRESSOR) VIAL IV SCH (06:06)
[2021-02-23] MEDS: FUROSEMIDE 40 MG/4 ML INJ (LASIX) IVP SCH ×2 (06:06→16:10)
[2021-02-23 06:07] LABS: TOTAL PROTEIN 6.1 GM/DL (6.4-8.2)
[2021-02-23 06:08] LABS: BILIRUBIN,TOTAL 0.5 MG/DL (0.1-1.0); CARBON DIOXIDE 31 MMOL/L (21-32)
[2021-02-23 06:10] LABS: ALKALINE PHOSPHATASE 135 U/L (40-136); CREATININE SERUM 1.17 MG/DL (0.60-1.30); GFR ESTIMATED > 60
[2021-02-23 06:11] LABS: BUN/CREATININE RATIO 14
[2021-02-23 06:13] LABS: ALANINE AMINOTRANSFERASE 78 U/L (0-55)
[2021-02-23 07:33] VITALS: BP 127/77
--- NOTE | 2021-02-23 07:35 | Cardiology Progress Note ---
Subjective Date Seen by Provider: Feb 23, 2021 Time Seen by Provider: 07:10 Subjective/Events-last exam Mr. Gonzalez was seen and examined this morning. He was resting comfortably throughout the interview. Denies any chest pain or shortness of breath at this time. Does admit to some back pain, but believes this is due to the hospital bed. Review of Systems General: No Chills, No Night Sweats, No Fatigue, No Malaise, No Appetite, No Other HEENT: No Head Aches, No Visual Changes, No Eye Pain, No Ear Pain, No Dysphasia, No Sinus Congestion, No Post Nasal Drip, No Sore Throat, No Other Pulmonary: No Dyspnea, No Cough, No Pleuritic Chest Pain, No Other Cardiovascular: No: Chest Pain, Palpitations, Orthopnea, Paroxysmal Noc. Dyspnea, Edema, Lt Headedness, Other Objective-Cardiology Exam Last Set of Vital Signs Vital Signs 02/23/21 02/23/21 02/23/21 08:23 11:33 12:19 Temp 36.1 Pulse 117 Resp 24 B/P (MAP) 154/74 (100) Pulse Ox 88 O2 Delivery Room Air O2 Flow Rate 2.00 Capillary Refill : Less Than 3 Seconds I&O Intake and Output 02/23/21 00:00 Intake Total 3360 ml Output Total 4600 ml Balance -1240 ml Intake Oral 3350 ml IV Total 10 ml Output Urine Total 4600 ml General: Alert, Oriented X3 HEENT: PERRLA Lungs: Other (coarse breath sounds bilaterally ) Heart: No Murmurs, Other (irregularly irregular) Abdomen: Normal Bowel Sounds, Soft Extremities: No Clubbing, Other (2+ pitting edema bilateral LE) Results Lab Laboratory Tests 02/23/21 05:23 A/P-Cardiology Admission Diagnosis Acute respiratory failure Hypertension Congestive heart failure Hyperlipidemia Assessment/Plan Acute respiratory failure, likely multifactorial due to COPD exacerbation and acute on chronic congestive heart failure. Echocardiogram done on 01/20/2021 showed mild systolic dysfunction with an EF of 45 to 50%. Elevated PA pressure was noted. Continue on diuretics and monitor tolerance and response Acute on chronic congestive heart failure, Lasix 40mg IV BID with potassium supplementation. Monitor electrolytes, K+ on 02/23 labs was 4. Longstanding persistent atrial fibrillation, previously diagnosed on 01/20/2021 on last admission. Currently on diltiazem 240mg daily. Started on Toprol, continue on digoxin and monitor tolerance and response CHADsVASc score of 5, yearly stroke risk 7.2%. Day #3 of warfarin with lovenox bridge. INR 1.7 on 02/23. Oxygen dependent COPD, on oxygen therapy. Defer to the primary team. Pulmonary hypertension, likely due to severe COPD. Supervisory-Addendum Brief Verification & Attestation Participated in pt care: history, MDM, physical Personally performed: exam, history, MDM, supervision of care Care discussed with: Medical Student Procedures: n/a Results interpretation: Verified all documentation Verification and Attestation of Medical Student E/M Service A medical student performed and documented this service in my presence. I r eviewed and verified all information documented by the medical student and made modifications to such information, when appropriate. I personally performed the physical exam and medical decision making. Mahad Leslie, Feb 23, 2021,13:13 MIRACLE MULLINS, Feb 23, 2021 07:35 MAHAD LESLIE MD Feb 23, 2021 10:38
[2021-02-23] MEDS: RT-ALBUTEROL/IPRATROPIUM 3 ML (DUONEB) VIAL IH SCH ×3 (08:23→20:33)
[2021-02-23] MEDS: RT--FLUTICASONE/SALMETEROL 232-14 (AIRDUO RespiCLICK) IH SCH ×2 (08:23→20:33)
[2021-02-23] MEDS: ALLOPURINOL 100 MG (ZYLOPRIM) TAB PO SCH (09:04)
[2021-02-23] MEDS: DIGOXIN 0.25 MG (LANOXIN) TAB PO SCH (09:04)
[2021-02-23] MEDS: PANTOPRAZOLE 40 MG (PROTONIX) TAB PO SCH (09:04)
[2021-02-23] MEDS: PHENobarbital 64.8 MG (1 GRAIN) TAb PO SCH ×2 (09:04→21:01)
[2021-02-23] MEDS: polyethylene glycoL POWDER 17 GM (MIRALAX) PACK PO SCH (09:05)
[2021-02-23] MEDS: ENOXAPARIN 100 MG/1 ML (LOVENOX) SYR SC SCH ×2 (09:05→21:01)
--- NOTE | 2021-02-23 10:07 | Physical Therapy Daily Note ---
PT Daily Note-Current Subjective Patient agrees to PT. Mental Status Patient Orientation: Normal For Age Attachments: Oxygen, Suprapubic Catheter Transfers SCALE: Activities may be completed with or without assistive devices. 8-Gyqzlfguwa-ufwccew completes the activity by him/herself with no assistance from a helper. 5-Set-up or Clean-up Assistance-helper sets up or cleans up; patient completes activity. [place] assists only prior to or following the activity. 4-Supervision or Touching Assistance-helper provides verbal cues and/or touching/steadying and/or contact guard assistance as patient completes activity. Assistance may be provided throughout the activity or intermittently. 3-Partial/Moderate Assistance-helper does LESS THAN HALF the effort. [place] lifts, holds or supports trunk or limbs, but provides less than half the effort. 2-Substantial/Maximal Assistance-helper does MORE THAN HALF the effort. [place] lifts or holds trunk or limbs and provides more than half the effort. 9-Cucyqmyul-hkphrm does ALL the effort. Patient does none of the effort to complete the activity. Or, the assistance of 2 or more helpers is required for the patient to complete the activity. If activity was not attempted, code reason: 7-Patient Refused. 9-Not Applicable-not attempted and the patient did not perform the activity before the current illness, exacerbation or injury. 10-Not Attempted due to Environmental Limitations-(lack of equipment, weather restraints, etc.). 88-Not Attempted due to Medical Conditions or Safety Concerns. Lying to Sitting/Side of Bed(Q: 5 Sit to Stand (QC): 3 Chair/Mcc-ac-Ycuva Xfer(QC): 3 sit to stand to FWW x 3 sets for exercise Gait Training Does the Patient Walk?: No and Walking Goal NOT indicated Exercises Seated Therapy Exercises: Ankle pumps, Long arc quads Seated Reps: 15 Assessment Patient is up in recliner with breakfast on tray. Patient tolerates minimal activity. PT Assistant Director Of Financial Aid Goals Assistant Director Of Financial Aid Goals PT Assistant Director Of Financial Aid Goals Time Frame: Mar 06, 2021 Roll Left & Right (QC): 2 Sit to Lying (QC): 2 Lying-Sitting on Side/Bed(QC): 2 Sit to Stand (QC): 2 Chair/Saq-wz-Ibhtx Xfer(QC): 2 PT Plan Treatment/Plan Treatment Plan: Continue Plan of Care Treatment Plan: Bed Mobility, Education, Functional Activity Ken, Functional Strength, Safety, Therapeutic Exercise, Transfers Treatment Duration: Mar 06, 2021 Frequency: 6 times per week Estimated Hrs Per Day: .25 hour per day Patient and/or Family Agrees t: Yes Time/GCodes Time In: 843 Time Out: 853 Total Billed Treatment Time: 10 Total Billed Treatment 1 visit FA 10 min SELVIN RODRIGUEZ PT Feb 23, 2021 10:07
--- NOTE | 2021-02-23 11:13 | Progress Note - Hospitalist ---
TANGELA CHANEY, MED STUDENT 02/23/21 1113: Subjective HPI/CC On Admission 75-year-old white male with complicated past medical history resides in a half-way in [place]. He noticed that his legs were not as strong and he was weak and more short of breath yesterday the nursing staff encouraged him to go to the emergency room which he did. Is found to be in A. fib with RVR and which is actually old and in congestive failure. He is admitted for tuning up. He was requiring a higher level of oxygen than he had been in the past. This morning at the time my interview he says he is feeling better he does asked that he not be reintubated but he would entertain CPR and defibrillation. Subjective/Events-last exam Doing well this morning with no acute events overnight. Mr. Wagner reports improved breathing and overall feeling much better. He is currently still requiring 1.5L oxygen via nasal cannula but that is a decrease from 3L yesterday. Review of Systems General: No Chills, No Night Sweats, No Fatigue, No Malaise, No Appetite, No Other Pulmonary: No Dyspnea, No Cough, No Pleuritic Chest Pain, No Other Cardiovascular: Edema Gastrointestinal: No: Nausea, Vomiting, Abdominal Pain, Diarrhea, Constipation, Melena, Hematochezia, Other Genitourinary: No Dysuria, No Frequency, No Incontinence, No Hematuria, No Retention, No Other Musculoskeletal: No: other, neck pain, shoulder pain, arm pain, back pain, hand pain, leg pain, foot pain Neurological: No: Weakness, Numbness, Incoordination, Change in speech, Confusion, Seizures, Other Objective Exam Vital Signs Vital Signs Date Time Temp Pulse Resp B/P (MAP) Pulse Ox O2 Delivery O2 Flow Rate FiO2 02/23/21 08:23 97 Nasal Cannula 2.00 02/23/21 07:33 35.9 81 24 127/77 (94) Capillary Refill : Less Than 3 Seconds General Appearance: No Apparent Distress, WD/WN Neck: Full Range of Motion, Normal Inspection, Non Tender, Supple Respiratory: Chest Non Tender, Lungs Clear, Normal Breath Sounds, No Accessory Muscle Use, No Respiratory Distress Cardiovascular: Regular Rate, Rhythm, No Gallop, No JVD, No Murmur, Normal Peripheral Pulses Gastrointestinal: Normal Bowel Sounds, No Organomegaly, No Pulsatile Mass, Non Tender, Soft Extremity: Normal Inspection, Non Tender, Pedal Edema Neurologic/Psychiatric: Alert, Oriented x3, No Motor/Sensory Deficits Results/Procedures Lab Laboratory Tests 02/23/21 05:23 Patient resulted labs reviewed. Imaging: Reviewed Imaging Report Assessment/Plan Assessment and Plan Assess & Plan/Chief Complaint Curly Gonzalez is a 75 y/o M w/ PMH of COPD, chronic a-fib, and HF w/ last EF of 45-50 (01/20/2021) presenting for acute on chronic HF exacerbation #CHF - JVD present - Bilateral 1-2+ pitting edema in lower extremities up to mid-perdue - BNP 142 - U/o net -1240 mls yesterday, -850mls as of this morning - Lasix 40mg BID IV started yesterday Plan: > Continue Lasix > Goal net -1.5L u/o > Cardiology following #A-fib w/ RVR - Permanent a-fib - HR 80's overnight - Currently on Diltiazem 240mg - Warfarin 10mg, Lovenox max dose - Started on Digixon 0.25 and Metoprolol 5mg yesterday - Warfarin decreased to 5mg for today - INR 1.7 today Plan: > Bridge Lovenox to warfarin, goal INR 2-3 > Cardiology managing HR #COPD - 1.5l NC today, 3L yesterday - Lungs CTAB - Duonebs scheduled for TID yesterday Plan: > Continue to titrate off oxygen > Likely will improve with duonebs and removing fluid #Transaminitis - AST 37, ALT 98, ALP 146 - Likely congestive vs ischemic Plan: > Continue to monitor > Will RUQ US, viral panel if necessary Dispo: Continue inpatient floor care, potential discharge tomorrow GRACE ALFONSO DO 02/24/21 0559: Subjective HPI/CC On Admission Date Seen by Provider: Feb 23, 2021 Time Seen by Provider: 10:00 Subjective/Events-last exam Pt doing a lot better today Nebulizer treatments scheduled seems to be helping Has a suprapubic catheter Up in a chair today Now on 1.5 liters of O2 INR 1.7, rest of labs look good Review of Systems General: Fatigue, Malaise Objective Exam General Appearance: No Apparent Distress, WD/WN, Chronically ill Respiratory: Lungs Clear Cardiovascular: Regular Rate, Rhythm Neurologic/Psychiatric: Alert, Oriented x3, No Motor/Sensory Deficits, Normal Mood/Affect Assessment/Plan Assessment and Plan Assess & Plan/Chief Complaint DC planned for tomorrow O2 Nebs INR check Supervisory-Addendum Brief Verification & Attestation Participated in pt care: history, MDM, physical Personally performed: exam, history, MDM, supervision of care Care discussed with: Medical Student Procedures: n/a Results interpretation: Verified all documentation Verification and Attestation of Medical Student E/M Service A medical student performed and documented this service in my presence. I reviewed and verified all information documented by the medical student and made modifications to such information, when appropriate. I personally performed the physical exam and medical decision making. Grace Alfonso, Feb 24, 2021,05:59 TANGELA CHANEY, MED STUDENT Feb 23, 2021 11:13 GRACE ALFONSO DO Feb 24, 2021 05:59
[2021-02-23 11:33] VITALS: BP 154/74
[2021-02-23] MEDS: NYSTATIN CREAM (MYCOSTATIN) 30 GM TUBE TP SCH ×2 (13:39→21:02)
[2021-02-23 16:00] VITALS: BP 153/81
[2021-02-23] MEDS ORDERED: warFARin 5 MG (COUMADIN) TAB PO SCH (18:00)
[2021-02-23 20:00] VITALS: BP 111/75
[2021-02-23] MEDS: meTOprolol TARTRATE 25 MG (LOPRESSOR) TABLET PO SCH (21:01)
[2021-02-23] MEDS: GABAPENTIN 100 MG (NEURONTIN) CAP PO SCH (21:01)
[2021-02-24 00:34] VITALS: BP 113/76
[2021-02-24] MEDS ORDERED: CEFEPIME 1 GM/10 ML (MAXIPIME) VIAL ONE ×2 (03:42→10:48)
[2021-02-24] MEDS ORDERED: WATER (STERILE) FOR INJECTION 10 ML ONE (03:42)
[2021-02-24] MEDS: CEFEPIME 1,000 MG/SWFI 10 ML IV PUSH IV SCH ×4 (03:53→10:57)
[2021-02-24 03:55] VITALS: BP 127/83
[2021-02-24 05:27] LABS: HEMOGLOBIN 11.1 g/dL (13.3-17.7); MEAN PLATELET VOLUME 9.6 fL (9.0-12.2); WHITE BLOOD COUNT 8.2 10^3/uL (4.3-11.0)
[2021-02-24 05:40] LABS: INR 2.2 (0.8-1.4); PROTHROMBIN TIME PATIENT 24.4 SEC (12.2-14.7)
[2021-02-24 05:45] LABS: ALBUMIN 3.4 GM/DL (3.2-4.5)
[2021-02-24 05:46] LABS: CALCIUM 8.4 MG/DL (8.5-10.1)
[2021-02-24 05:47] LABS: TOTAL PROTEIN 6.5 GM/DL (6.4-8.2)
[2021-02-24 05:49] LABS: BILIRUBIN,TOTAL 0.5 MG/DL (0.1-1.0)
[2021-02-24 05:51] LABS: CREATININE SERUM 1.25 MG/DL (0.60-1.30)
[2021-02-24] MEDS: FUROSEMIDE 40 MG/4 ML INJ (LASIX) IVP SCH (06:46)
[2021-02-24] MEDS: RT-ALBUTEROL/IPRATROPIUM 3 ML (DUONEB) VIAL IH SCH (07:18)
[2021-02-24] MEDS: RT--FLUTICASONE/SALMETEROL 232-14 (AIRDUO RespiCLICK) IH SCH (07:18)
[2021-02-24 07:33] VITALS: BP 127/75
--- NOTE | 2021-02-24 07:36 | Cardiology Progress Note ---
Subjective Date Seen by Provider: Feb 24, 2021 Time Seen by Provider: 07:10 Subjective/Events-last exam Mr. Gonzalez was seen and examined this morning. He was resting comfortably in bed during interview. Believes he is feeling much better, denies chest pain, shortness of breath, nausea or vomiting. Believes his swelling is much improved from yesterday. Objective-Cardiology Exam Last Set of Vital Signs Vital Signs 02/24/21 14:27 Temp 35.7 Pulse 76 Resp 20 B/P (MAP) 132/74 Pulse Ox 94 O2 Delivery Nasal Cannula O2 Flow Rate 1.50 Capillary Refill : Less Than 3 Seconds I&O Intake and Output 02/24/21 00:00 Intake Total 1890 ml Output Total 4925 ml Balance -3035 ml Intake Oral 1890 ml Output Urine Total 4925 ml General: Alert, No Acute Distress HEENT: PERRLA Lungs: Clear to Auscultation, Normal Air Movement Heart: No Murmurs, Other (irregularly irregular) Abdomen: Normal Bowel Sounds, Soft Extremities: No Clubbing, Other (1+ pitting edema bilateral LE) Results Lab Laboratory Tests 02/24/21 05:11 A/P-Cardiology Admission Diagnosis Acute respiratory failure Hypertension Congestive heart failure Hyperlipidemia Assessment/Plan Acute respiratory failure, likely multifactorial due to COPD exacerbation and acute on chronic congestive heart failure. Echocardiogram done on 01/20/2021 showed mild systolic dysfunction with an EF of 45 to 50%. Elevated PA pressure was noted. Continue on diuretics and monitor tolerance and response Acute on chronic congestive heart failure, transition to oral Lasix 40mg daily with potassium supplementation. Monitor electrolytes, K+ on 02/24 labs was 4. Longstanding persistent atrial fibrillation, previously diagnosed on 01/20/2021 on last admission. Currently on diltiazem 240mg daily. Started on Toprol, continue on digoxin and monitor tolerance and response. Digoxin level 1.05. CHADsVASc score of 5, yearly stroke risk 7.2%. Day #4 of warfarin with lovenox bridge. INR 2.2 on 02/24. Oxygen dependent COPD, on oxygen therapy. Defer to the primary team. Pulmonary hypertension, likely due to severe COPD. Supervisory-Addendum Brief Verification & Attestation Participated in pt care: history, MDM, physical Personally performed: exam, history, MDM, supervision of care Care discussed with: Medical Student Procedures: n/a Results interpretation: Verified all documentation Verification and Attestation of Medical Student E/M Service A medical student performed and documented this service in my presence. I reviewed and verified all information documented by the medical student and made modifications to such information, when appropriate. I personally performed the physical exam and medical decision making. Mahad Leslie, Feb 24, 2021,18:26 MIRACLE MULLINS, Feb 24, 2021 07:36 MAHAD LESLIE MD Feb 24, 2021 18:26
[2021-02-24] MEDS: DIGOXIN 0.25 MG (LANOXIN) TAB PO SCH (08:57)
[2021-02-24] MEDS: PHENobarbital 64.8 MG (1 GRAIN) TAb PO SCH (08:58)
[2021-02-24] MEDS: meTOprolol TARTRATE 25 MG (LOPRESSOR) TABLET PO SCH (08:58)
[2021-02-24] MEDS: polyethylene glycoL POWDER 17 GM (MIRALAX) PACK PO SCH (08:59)
[2021-02-24] MEDS: ALLOPURINOL 100 MG (ZYLOPRIM) TAB PO SCH (08:59)
[2021-02-24] MEDS: PANTOPRAZOLE 40 MG (PROTONIX) TAB PO SCH (08:59)
[2021-02-24] MEDS: ENOXAPARIN 100 MG/1 ML (LOVENOX) SYR SC SCH (08:59)
[2021-02-24] MEDS: NYSTATIN CREAM (MYCOSTATIN) 30 GM TUBE TP SCH (09:01)
[2021-02-24] MEDS ORDERED: WRF5T PO (10:33)
[2021-02-24] MEDS ORDERED: DILT240C91 PO (10:33)
[2021-02-24] MEDS ORDERED: DIGO250T15 PO (10:33)
[2021-02-24] MEDS ORDERED: IPRA3AMP31 IH (10:33)
--- NOTE | 2021-02-24 10:34 | Discharge Summary ---
Discharge Summary Hospital Course Was the Problem List Reviewed?: Yes Problems/Dx: (1) Acute on chronic heart failure Status: Acute Qualifiers: Qualified Codes: I50.43 - Acute on chronic combined systolic (congestive) and diastolic (congestive) heart failure (2) COPD with exacerbation Status: Acute (3) Atrial fibrillation with RVR Status: Acute (4) Productive cough Status: Acute (5) Hypertension Status: Chronic Hospital Course Date of Admission: Feb 19, 2021 at 19:00 Admission Diagnosis : Family Physician/Provider: Wellington Miranda MD Date of Discharge: 02/24/21 Discharge Diagnosis: Acute on chronic CHF, AF, acute on chronic UTI, SP catheter, hypoxia, COPD Hospital Course: Hospital course: Pt had a lengthy hospital course for six days after he was admitted fro acute on-chronic heart failure, he was found to be hypoxic, found to have acute on- chronic UTI, placed on Cefepime due to Supra-pubic catheter confirmed pseudomonas. He required IV Lasix, cardiology was consulted, hypoxia improved back to two lit[facility], [facility], he has finished his antibiotics of Cefepime for the UTI and Pt will have close follow-up with cardiology. His INR was 2.2 at discharge. Labs and Pending Lab Test: Laboratory Tests 02/24/21 05:11: White Blood Count 8.2, Red Blood Count 3.40L, Hemoglobin 11.1L, Hematocrit 36L, Mean Corpuscular Volume 105H, Mean Corpuscular Hemoglobin 33, Mean Corpuscular Hemoglobin Concent 31L, Red Cell Distribution Width 14.3, Platelet Count 208, Mean Platelet Volume 9.6, Prothrombin Time 24.4H, INR Comment 2.2H, Sodium Level 135, Potassium Level 4.0, Chloride Level 92L, Carbon Dioxide Level 30, Anion Gap 13, Blood Urea Nitrogen 17, Creatinine 1.25, Estimat Glomerular Filtration Rate 56, BUN/Creatinine Ratio 14, Glucose Level 101, Calcium Level 8.4L, Corrected Calcium 8.9, Total Bilirubin 0.5, Aspartate Amino Transf (AST/SGOT) 38H, Alanine Aminotransferase (ALT/SGPT) 69H, Alkaline Phosphatase 137H, Total Protein 6.5, Albumin 3.4, Triglycerides Level 148, Cholesterol Level 172, LDL Cholesterol Direct 124, VLDL Cholesterol 30, HDL Cholesterol 28L, Digoxin Level 1.05 Microbiology 02/20/21 Urine Culture - Final, Complete Pseudomonas aeruginosa 02/19/21 Blood Culture - Preliminary, Resulted No growth Home Meds Active Diltiazem 24Hr ER (Diltiazem HCl) 240 Mg Cap.er.24h 240 Mg PO DAILY 365 Days Digox (Digoxin) 250 Mcg Tablet 0.25 Mg PO DAILY 365 Days Jantoven (Warfarin Sodium) 5 Mg Tablet 5 Mg PO DAILY@1800 365 Days Iprat-Albut 0.5-3(2.5) mg/3 ml (Ipratropium/Albuterol Sulfate) 3 Ml Ampul.neb 3 Ml IH RTTID 30 Days Reported B-1 (Thiamine HCl) 100 Mg Tablet 100 Mg PO DAILY Theragran-M Premier 50+ Caplet (Mv-Mn/FA/Coq10/Lycopene/Lutein) 1 Each Tablet 1 Each PO DAILY Simethicone 80 Mg Tab.chew 80 Mg PO BID Phenobarbital 32.4 Mg Tablet 32.4 Mg PO BID Nystatin 1 Each Powder.ea. 1 Each TOP TID Metoprolol Tartrate 25 Mg Tablet 25 Mg PO BID Probiotic (Lactobacillus Acidophilus) 1 Each Capsule 1 Each PO BID Furosemide 80 Mg Tablet 80 Mg PO DAILY STOP TAKING 02/26/21 AND SWITCH TO FUROSEMIDE 40MG Fluticasone-Salmeterol 250-50 (Fluticasone Propion/Salmeterol) 1 Each Blst.w.dev 1 Each IH BID Docusate Sodium 100 Mg Tablet 100 Mg PO BID Digoxin 125 Mcg Tablet 125 Mcg PO DAILY Albuterol Sulfate 2.5 Mg/3 Ml Vial.neb 3 Ml NEB BID Symbicort 160-4.5 Mcg Inhaler (Budesonide/Formoterol Fumarate) 10.2 Gm Hfa.aer.ad 2 Puff IH BID Atorvastatin Calcium 10 Mg Tablet 10 Mg PO 1700 Pantoprazole Sodium 40 Mg Tablet.dr 40 Mg PO DAILY Gabapentin 100 Mg Capsule 100 Mg PO HS Allopurinol 100 Mg Tablet 100 Mg PO DAILY Assessment/Pt Instructions [facility] 1 week Discharge Planning: <30 minutes discharge planning Discharge Instructions Discharge Diet: No Restrictions Activity as Tolerated: Yes Discharge Physical Examination Vital Signs Vital Signs Date Time Temp Pulse Resp B/P (MAP) Pulse Ox O2 Delivery O2 Flow Rate FiO2 02/24/21 08:28 Nasal Cannula 1.50 02/24/21 07:33 36.2 95 18 127/75 (92) 95 General Appearance: No Apparent Distress, WD/WN Respiratory: Lungs Clear Cardiovascular: Regular Rate, Rhythm Neurologic/Psychiatric: Alert, Oriented x3, No Motor/Sensory Deficits, Normal Mood/Affect Allergies: Coded Allergies: No Known Drug Allergies (Unverified , 01/30/19) Discharge Summary Date of Admission Feb 19, 2021 at 19:00 Date of Discharge Discharge Date: Feb 24, 2021 Admission Diagnosis Atrial fibrillation with RVR Exacerbation of COPD CHF decompensated Increased weakness O2 dependent COPD Plan for improved rate control diuresis physical therapy and probable return to [facility] Discharge Diagnosis DC planned for tomorrow O2 Nebs INR check (1) Acute on chronic heart failure Status: Acute Qualifiers: Qualified Codes: I50.43 - Acute on chronic combined systolic (congestive) and diastolic (congestive) heart failure (2) COPD with exacerbation Status: Acute (3) Atrial fibrillation with RVR Status: Acute (4) Productive cough Status: Acute (5) Hypertension Status: Chronic ASTRID ALFONSO DO Feb 24, 2021 10:34
--- NOTE | 2021-02-24 10:34 | Discharge Inst-Skilled Nursing ---
Discharge Inst-Skilled NF Reconcile Patient Problems Problems Reviewed?: Yes Chief Complaint 75-year-old white male with complicated past medical history resides in a retirement in [place]. He noticed that his legs were not as strong and he was weak and more short of breath yesterday the nursing staff encouraged him to go to the emergency room which he did. Is found to be in A. fib with RVR and which is actually old and in congestive failure. He is admitted for tuning up. He was requiring a higher level of oxygen than he had been in the past. This morning at the time my interview he says he is feeling better he does asked that he not be reintubated but he would entertain CPR and defibrillation. Patient Instructions Patient Problems: AF Debility Consult/Follow Up/Orders Follow Up Appt.: PCP NH rounds 1 week Skilled NF Admit to: Certification (SNF) I certify that SNF services are required to be given on an inpatient basis because of the above named patient's need for snf care on a continuing basis for the conditions(s) for which he/she was receiving inpatient hospital services prior to his/her transfer to the SNF. Intermediate Facility Order: Nursing Services, Blindstitch Lapel Padder-Evaluate & Treat, Physical Therapy-Evaluate & Treat Oxygen Delivery Method: Nasal Cannula Discharge Diet: No Restrictions Resuscitation Status: Code Limitations(See Ord) New & Resume Previous Orders New Medications: Digoxin (Digox) 250 Mcg Tablet 0.25 MG PO DAILY for 365 Days, TAB Diltiazem HCl (Diltiazem 24Hr ER) 240 Mg Cap.er.24h 240 MG PO DAILY for 365 Days, CAP Ipratropium/Albuterol Sulfate (Iprat-Albut 0.5-3(2.5) mg/3 ml) 3 Ml Ampul.neb 3 ML IH RTTID for 30 Days, INHALER Warfarin Sodium (Jantoven) 5 Mg Tablet 5 MG PO DAILY@1800 for 365 Days, TAB Continued Medications: Allopurinol (Allopurinol) 100 Mg Tablet 100 MG PO DAILY, TAB Atorvastatin Calcium (Atorvastatin Calcium) 10 Mg Tablet 10 MG PO 1700, TAB Budesonide/Formoterol Fumarate (Symbicort 160-4.5 Mcg Inhaler) 10.2 Gm Hfa .aer.ad 2 PUFF IH BID, INHALER Docusate Sodium (Docusate Sodium) 100 Mg Tablet 100 MG PO BID, TAB Fluticasone Propion/Salmeterol (Fluticasone-Salmeterol 250-50) 1 Each Blst.w.dev 1 EACH IH BID Furosemide (Furosemide) 80 Mg Tablet 80 MG PO DAILY, TAB STOP TAKING 02/26/21 AND SWITCH TO FUROSEMIDE 40MG Gabapentin (Gabapentin) 100 Mg Capsule 100 MG PO HS, CAP Lactobacillus Acidophilus (Probiotic) 1 Each Capsule 1 EACH PO BID, CAP Metoprolol Tartrate (Metoprolol Tartrate) 25 Mg Tablet 25 MG PO BID, TAB Mv-Mn/FA/Coq10/Lycopene/Lutein (Theragran-M Premier 50+ Caplet) 1 Each Tablet 1 EACH PO DAILY, TAB Nystatin (Nystatin) 1 Each Powder.ea. 1 EACH TOP TID, UNIT Pantoprazole Sodium (Pantoprazole Sodium) 40 Mg Tablet.dr 40 MG PO DAILY, TAB Phenobarbital (Phenobarbital) 32.4 Mg Tablet 32.4 MG PO BID, TAB Simethicone (Simethicone) 80 Mg Tab.chew 80 MG PO BID, TAB Thiamine HCl (B-1) 100 Mg Tablet 100 MG PO DAILY, TAB Discontinued Medications: Albuterol Sulfate (Albuterol Sulfate) 2.5 Mg/3 Ml Vial.neb 3 ML NEB BID, EA Digoxin (Digoxin) 125 Mcg Tablet 125 MCG PO DAILY, TAB Grace Velasquez Feb 24, 2021 10:33 GRACE VELASQUEZ DO Feb 24, 2021 10:34
--- NOTE | 2021-02-24 11:02 | Progress Note ---
TANGELA CHANEY, MED STUDENT 02/24/21 1102: Progress Note The following information is only a summary of the Pt's admission while at [facility] and is not al inclusive. Please review the entire chart for more information. Curly Wagner is a 75 y/o M w/ PMH HTN, HLD, COPD, CKD, chronic a-fib, HF w/ EF 45-50 presented to [facility] for shortness of breath and lower extremity weakness. His vitals on admission included tachycardia at 112, tachypnea at 31 respirations per minute, and hypertensive 164/54. Initial lab work showed a low bicarb at 19, hypokalemia at 3.2, and hyponatremia at 134. Cardiology was consulted for Mr. Wagner's atrial fibrillation with rapid ventricular response. He was subsequently started on Lovenox to warfarin bridge, metoprolol 5mg, and diltiazem 240mg. Mr. Wagner's heart rate would still occasionally reach >100 so the metoprolol was increased to 25mg. INR at the time of discharge is 2.2. For his heart failure, Mr. Wagner was started on furosemide 40mg IV and has had net negative 7.06L fluid status. Mr. Wagner initially weighted 111kg on admission but his weight on discharge is 106.7 which we estimate to be his dry weight. Mr. Wagner has also required 3L of oxygen on admission which is increased from his reported baseline 2L requirement. Mr. Wagner was started duonebs TID and fuoresimde 40mg IV which resulted in a decrease in Mr. Wagner's oxygen requirement. On discharge, Mr. Wagner is on 1.5L oxygen and reports improved breathing. During Mr. Wagner's hospital stay, PT and OT saw Mr. Wagner and he had difficulty transferring himself to his wheelchair. It has been recommended Mr. Wagner continue his PT at a shelter facility. On discharge Mr. Wagner is in stable condition with vitals within normal limits including oxygen saturation of 97% on 1.5L oxygen. GRACE ALFONSO DO 02/24/21 2005: Supervisory-Addendum Brief Verification & Attestation Participated in pt care: history, MDM, physical Personally performed: exam, history, MDM, supervision of care Care discussed with: Medical Student Procedures: n/a Results interpretation: Verified all documentation Verification and Attestation of Medical Student E/M Service A medical student performed and documented this service in my presence. I reviewed and verified all information documented by the medical student and made modifications to such information, when appropriate. I personally performed the physical exam and medical decision making. Grace Alfonso, Feb 24, 2021,20:05 TANGELA CHANEY, MED STUDENT Feb 24, 2021 11:02 GRACE ALFONSO DO Feb 24, 2021 20:05
[2021-02-24 12:09] VITALS: BP 92/55
[2021-02-24 12:24] VITALS: BP 132/74
[2021-02-24 14:27] VITALS: BP 132/74
== END 2021-02-24 13:30 | DRG 291 ==
LOC: EDUNIT# 18:01 → ER FS 18:02 → ICU 19:00 → ER FS 20:21 → 4TH 02-21 12:10
PROVIDERS: ADMIT Internal Medicine; ATTEND Internal Medicine
DX: I13.0 Hypertensive heart and chronic kidney disease with heart failure and stage 1 through stage 4 chronic kidney disease, or unspecified chronic kidney disease (principal); I50.43 Acute on chronic combined systolic (congestive) and diastolic (congestive) heart failure; J96.01 Acute respiratory failure with hypoxia; T83.518A Infection and inflammatory reaction due to other urinary catheter, initial encounter; J44.1 Chronic obstructive pulmonary disease with (acute) exacerbation; I48.21 Permanent atrial fibrillation; F17.210 Nicotine dependence, cigarettes, uncomplicated; E78.00 Pure hypercholesterolemia, unspecified; G40.909 Epilepsy, unspecified, not intractable, without status epilepticus; N31.9 Neuromuscular dysfunction of bladder, unspecified; I27.20 Pulmonary hypertension, unspecified; K21.9 Gastro-esophageal reflux disease without esophagitis; N18.9 Chronic kidney disease, unspecified; E11.22 Type 2 diabetes mellitus with diabetic chronic kidney disease; M10.9 Gout, unspecified; Z99.81 Dependence on supplemental oxygen
CPT/HCPCS: 36415; 71045; 80048; 80053; 80061; 80162; 81000; 82805; 83605; 83880; 84443; 84484; 85025; 85027; 85610; 85730; 86141; 87040; 87077; 87088; 87186; 93005; 93970; 94640; 94760

== ENCOUNTER 2021-02-27 16:02 | Inpatient (IN) | payer MEDICARE, MEDICAID ==
[~2021-02-27] VITALS: Ht 175 cm; Wt 114.3 kg
[2021-02-27] VITALS (8 sets, daily range): BP systolic 93–151; BP diastolic 51–95
[~2021-02-27 16:02] MED LIST changes: +DIGO125T3 PO; +DIGO250T15 PO; +DILT240C91 PO; +DOCU100T2 PO; +FLUT1BLS12 IH; +FURO80TA3 PO; +IPRA3AMP31 IH; +LACT1CAP62 PO; +METO-333 PO; +MV-M1TAB2 PO; +NYST1POW22 TOP; +PHEN32.44 PO; +SIME80TA16 PO; +THIA100T66 PO; +WRF5T PO
[2021-02-27] MEDS ORDERED: FUROSEMIDE 40 MG/4 ML INJ (LASIX) IVP ONE ×2 (16:15→17:00)
--- NOTE | 2021-02-27 16:24 | ED General ---
General Chief Complaint: Respiratory Problems Stated Complaint: SOB History of Present Illness Date Seen by Provider: Feb 27, 2021 Time Seen by Provider: 16:19 Initial Comments Patient presenting to the emergency department from the [facility] for e valuation of worsening shortness of breath. Patient was just released from the hospital 2 days ago after being admitted for acute on chronic CHF as well as acute on chronic COPD and his oxygen was titrated up to 4 L which she is on at the [facility] [place] [facility] however he had an oxygen saturation in the 70s on his baseline oxygen and they called 911 for EMS to bring him here for further evaluation. Patient denies any pain to me rather he just feels very short of breath patient also had a complicated urinary tract infection and is on cefepime. Patient had diastolic dysfunction as well as signs of pulmonary hypertension and his ejection fraction was 45 to 50%. He is a full code but a DNI which I do not completely understand but he said that is his wishes. He appears to be acute on chronically ill and has an oxygen saturation of 90% on 6 L in the emergency department. Allergies and Home Medications Allergies Coded Allergies: No Known Drug Allergies (Unverified , 01/30/19) Home Medications Allopurinol 100 Mg Tablet, 100 MG PO DAILY, (Reported) Atorvastatin Calcium 10 Mg Tablet, 10 MG PO 1700, (Reported) Budesonide/Formoterol Fumarate 10.2 Gm Hfa.aer.ad, 2 PUFF IH BID, (Reported) Digoxin 250 Mcg Tablet, 0.25 MG PO DAILY Prescribed by: ASTRID ALFONSO on 02/24/21 1033 Diltiazem HCl 240 Mg Cap.er.24h, 240 MG PO DAILY Prescribed by: ASTRID ALFONSO on 02/24/21 1033 Docusate Sodium 100 Mg Tablet, 100 MG PO BID, (Reported) Fluticasone Propion/Salmeterol 1 Each Blst.w.dev, 1 EACH IH BID, (Reported) Furosemide 80 Mg Tablet, 80 MG PO DAILY, (Reported) STOP TAKING 02/26/21 AND SWITCH TO FUROSEMIDE 40MG Gabapentin 100 Mg Capsule, 100 MG PO HS, (Reported) Ipratropium/Albuterol Sulfate 3 Ml Ampul.neb, 3 ML IH RTTID Prescribed by: ASTRID ALFONSO on 02/24/21 1033 Lactobacillus Acidophilus 1 Each Capsule, 1 EACH PO BID, (Reported) Metoprolol Tartrate 25 Mg Tablet, 25 MG PO BID, (Reported) Mv-Mn/FA/Coq10/Lycopene/Lutein 1 Each Tablet, 1 EACH PO DAILY, (Reported) Nystatin 1 Each Powder.ea., 1 EACH TOP TID, (Reported) Pantoprazole Sodium 40 Mg Tablet.dr, 40 MG PO DAILY, (Reported) Phenobarbital 32.4 Mg Tablet, 32.4 MG PO BID, (Reported) Simethicone 80 Mg Tab.chew, 80 MG PO BID, (Reported) Thiamine HCl 100 Mg Tablet, 100 MG PO DAILY, (Reported) Warfarin Sodium 5 Mg Tablet, 5 MG PO DAILY@1800 Prescribed by: ASTRID ALFONSO on 02/24/21 1033 Patient Home Medication List Home Medication List Reviewed: Yes Review of Systems Review of Systems Constitutional: no symptoms reported EENTM: no symptoms reported Respiratory: short of breath Cardiovascular: edema Gastrointestinal: no symptoms reported Genitourinary: no symptoms reported Musculoskeletal: no symptoms reported Skin: no symptoms reported Psychiatric/Neurological: No Symptoms Reported All Other Systems Reviewed Negative Unless Noted: Yes Past Qjtmpdd-Uvyiot-Imsxgu Hx Patient Social History Alcohol Beverage of Choice: Whiskey Type Used: Cigarettes 2nd Hand Smoke Exposure: Yes Recent Hopitalizations: No Immunizations Up To Date Tetanus Booster (TDap): Unknown Date of Influenza Vaccine: Aug 19, 2020 Seasonal Allergies Seasonal Allergies: Yes Past Medical History Surgeries: Yes (suprapubic catheter placement) Respiratory: Yes Chronic Bronchitis, COPD Cardiac: Yes High Cholesterol, Hypertension Neurological: Yes Neuropathy, Seizure Disorder Genitourinary: Yes (suprapubic catheter) Neurogenic Bladder Gastrointestinal: Yes Gastroesophageal Reflux Musculoskeletal: Yes (spinal degeneration/uses wheelchair) Gout Endocrine: Yes Diabetes, Non-Insulin dep HEENT: No Cancer: No Psychosocial: No Integumentary: No Blood Disorders: No Physical Exam Vital Signs Vital Signs - First Documented 02/27/21 16:02 Temp 35.9 Pulse 103 Resp 26 B/P (MAP) 203/88 (126) Pulse Ox 94 O2 Delivery Non Rebreather O2 Flow Rate 15.00 Capillary Refill : Height, Weight, BMI Height: 5'9.00" Weight: 225lbs. oz. 102.818121tn; 36.24 BMI Method:Stated General Appearance: Chronically ill, Moderate Distress HEENT: PERRL/EOMI Neck: Supple Respiratory: Crackles, Respiratory Distress Cardiovascular: Irregularly Irregular, Other (edema BL LE) Gastrointestinal: Non Tender, Soft Extremity: Normal Capillary Refill Neurologic/Psychiatric: Alert, Other (confused, lethargic) Skin: Warm/Dry Procedures/Interventions Date of ETT Placement: Jan 23, 2021 Time of ETT Placement: 1614 Progress/Results/Core Measures Suspected Sepsis SIRS Temperature: Pulse: Respiratory Rate: Laboratory Tests 02/27/21 16:19: White Blood Count 15.5H Blood Pressure / Mean: Laboratory Tests 02/27/21 16:19: Creatinine 1.05, INR Comment 1.4, Platelet Count 348, Total Bilirubin 0.4 Results/Orders Lab Results Laboratory Tests Test 02/27/21 16:19 02/27/21 16:24 02/27/21 16:28 Range/Units White Blood Count 15.5 H 4.3-11.0 10^3/uL Red Blood Count 3.80 L 4.35-5.85 10^6/uL Hemoglobin 12.6 L 13.3-17.7 G/DL Hematocrit 40 40-54 % Mean Corpuscular Volume 104 H 80-99 FL Mean Corpuscular Hemoglobin 33 25-34 PG Mean Corpuscular Hemoglobin Concent 32 32-36 G/DL Red Cell Distribution Width 14.2 10.0-14.5 % Platelet Count 348 130-400 10^3/uL Mean Platelet Volume 9.1 7.4-10.4 FL Immature Granulocyte % (Auto) 1 % Neutrophils (%) (Auto) 82 H 42-75 % Lymphocytes (%) (Auto) 9 L 12-44 % Monocytes (%) (Auto) 6 0-12 % Eosinophils (%) (Auto) 2 0-10 % Basophils (%) (Auto) 1 0-10 % Neutrophils # (Auto) 12.6 H 1.8-7.8 X 10^3 Lymphocytes # (Auto) 1.4 1.0-4.0 X 10^3 Monocytes # (Auto) 0.9 0.0-1.0 X 10^3 Eosinophils # (Auto) 0.3 0.0-0.3 10^3/uL Basophils # (Auto) 0.1 0.0-0.1 10^3/uL Immature Granulocyte # (Auto) 0.2 H 0.0-0.1 10^3/uL Neutrophils % (Manual) 82 % Lymphocytes % (Manual) 12 % Monocytes % (Manual) 5 % Eosinophils % (Manual) 1 % Toxic Granulation 4+ Prothrombin Time 17.7 H 12.2-14.7 SEC INR Comment 1.4 0.8-1.4 Activated Partial Thromboplast Time 32 24-35 SEC Sodium Level 132 L 135-145 MMOL/L Potassium Level 4.2 3.6-5.0 MMOL/L Chloride Level 91 L 98-107 MMOL/L Carbon Dioxide Level 32 21-32 MMOL/L Anion Gap 9 5-14 MMOL/L Blood Urea Nitrogen 17 7-18 MG/DL Creatinine 1.05 0.60-1.30 MG/DL Estimat Glomerular Filtration Rate > 60 BUN/Creatinine Ratio 16 Glucose Level 178 H 70-105 MG/DL Calcium Level 9.2 8.5-10.1 MG/DL Corrected Calcium 9.0 8.5-10.1 MG/DL Total Bilirubin 0.4 0.1-1.0 MG/DL Aspartate Amino Transf (AST/SGOT) 37 H 5-34 U/L Alanine Aminotransferase (ALT/SGPT) 51 0-55 U/L Alkaline Phosphatase 234 H 40-136 U/L Troponin I < 0.30 <0.30 NG/ML Pro-B-Type Natriuretic Peptide 1745.0 H <75.0 PG/ML Total Protein 7.6 6.4-8.2 GM/DL Albumin 4.2 3.2-4.5 GM/DL Urine Color YELLOW Urine Clarity SLIGHTLY CLOUDY Urine pH 6.0 5-9 Urine Specific [place] 1.020 1.016-1.022 Urine Protein 2+ H NEGATIVE Urine Glucose (UA) NEGATIVE NEGATIVE Urine Ketones NEGATIVE NEGATIVE Urine Nitrite POSITIVE H NEGATIVE Urine Bilirubin NEGATIVE NEGATIVE Urine Urobilinogen 0.2 < = 1.0 MG/DL Urine Leukocyte Esterase 2+ H NEGATIVE Urine RBC (Auto) 1+ H NEGATIVE Urine RBC NONE /HPF Urine WBC 50-100 H /HPF Urine Crystals NONE /LPF Urine Bacteria MODERATE H /HPF Urine Casts NONE /LPF Urine Mucus NEGATIVE /LPF Urine Culture Indicated YES Blood Gas Puncture Site RIGHT WRIST Blood Gas Patient Temperature 35.9 Arterial Blood pH 7.22 *L 7.37-7.43 Arterial Blood Partial Pressure CO2 95 *H 35-45 MMHG Arterial Blood Partial Pressure O2 64 L 79-93 MMHG Arterial Blood HCO3 39 H 23-27 MMOL/L Arterial Blood Total CO2 41.8 H 21.0-31.0 MMOL/L Arterial Blood Oxygen Saturation 87 L 94-100 % Arterial Blood Base Excess 7.9 H -2.5-2.5 MMOL/L Hus[place] Test NEG Blood Gas Ventilator Setting NO Blood Gas Inspired Oxygen 15 L My Orders Orders - DICK CRAIG DO Cbc With Automated Diff (02/27/21 16:13) Comprehensive Metabolic Panel (02/27/21 16:13) Iv/Invasive Line Insertion .IV start (02/27/21 16:13) Chest 1 View Ap/Pa Only (02/27/21 16:13) Ekg Tracing (02/27/21 16:13) Troponin I Fs (02/27/21 16:13) Protime With Inr (02/27/21 16:13) Probnp Fs (02/27/21 16:13) Partial Thromboplastin Time (02/27/21 16:13) Furosemide Injection (Lasix Injection) (02/27/21 16:15) Ua Culture If Indicated (02/27/21 16:18) Arterial Blood Gas (02/27/21 16:20) Manual Differential (02/27/21 16:19) Urine Culture (02/27/21 16:24) Nitro Drip 30641 Mcg/D5w (Nitroglycerin (02/27/21 17:00) Furosemide Injection (Lasix Injection) (02/27/21 17:00) Medications Given in ED Current Medications Medications Dose Ordered Sig/Ana Route Start Time Stop Time Status Last Admin Dose Admin Furosemide 40 mg ONCE ONCE IVP 02/27/21 16:15 02/27/21 16:16 DC 02/27/21 16:25 40 MG Vital Signs/I&O 02/27/21 16:02 Temp 35.9 Pulse 103 Resp 26 B/P (MAP) 203/88 (126) Pulse Ox 94 O2 Delivery Non Rebreather O2 Flow Rate 15.00 Capillary Refill : Progress Note : Progress Note Patient appears to be more hypoxic however do not hear any wheezing. I suspect this is more likely from his CHF or pulmonary hypertension. I will check labs and imaging and then likely plan for transfer to [facility] after his work-up is completed given his worsening hypoxia and respiratory status. Patient was started on BiPAP here in the emergency department and he did appeared to improve as his oxygen saturation was 100% and he did not appear to be in as much distress. I did speak to Dr. Alfonso and she did request intubation which is certainly warranted in this circumstance given his acidosis from his CO2 retention with altered mental status. I confirmed on his paperwork the patient is listed as a full code but specifically has listed DO NOT INTUBATE. I will honor his pre-existing wishes. I will not ask him if he wishes to be intubated at this time given he is confused and with likely not be able to make a good decision. Patient has signs of leukocytosis and possible pneumonia and urinary tract infection. I will defer antibiotics at this time given the complexity of his prior infection. I spoke to Dr. Cortez and he agreed with current treatment and will see patient if and when he makes it to the ICU at [facility]. I also spoke to Dr. Leslie and he felt this was more likely pulmonary than his CHF. I did order a nitroglycerin drip but his blood pressure improved with the BiPAP so I will defer the nitro drip at this time. Patient transferred to [facility] in critical condition. Critical care time I have 46 minutes including speaking to consultants charting and managing his critical illness. Critical Care Note Critical Care Total Time (minutes) 46 Departure Impression Primary Impression: Acute respiratory failure with hypoxia and hypercapnia Additional Impressions: COPD exacerbation CHF exacerbation UTI (urinary tract infection) Pulmonary hypertension Disposition: ADMITTED INPATIENT Condition: Critical Transfer Transfer Reason: Exceeds level of care Transfer Facility: [facility] by Dr. Alfonso Method of Transfer: EMS Departure-Patient Inst. Referrals: ALCIDES CALI MD (PCP/Family) Primary Care Physician DICK CRAIG DO Feb 27, 2021 16:24
[2021-02-27 16:29] LABS: BASOPHILS # (AUTO) 0.1 10^3/uL (0.0-0.1); BASOPHILS % (AUTO) 1 % (0-10); EOSINOPHILS # (AUTO) 0.3 10^3/uL (0.0-0.3); EOSINOPHILS % (AUTO) 2 % (0-10); HEMATOCRIT 40 % (40-54); HEMOGLOBIN 12.6 G/DL (13.3-17.7); LYMPHOCYTES # (AUTO) 1.4 X 10^3 (1.0-4.0); LYMPHOCYTES % (AUTO) 9 % (12-44); MEAN CORPUSCULAR HEMOGLOBIN 33 PG (25-34); MEAN CORPUSCULAR HGB CONC 32 G/DL (32-36); MEAN CORPUSCULAR VOLUME 104 FL (80-99); MEAN PLATELET VOLUME 9.1 FL (7.4-10.4); MONOCYTES # (AUTO) 0.9 X 10^3 (0.0-1.0); MONOCYTES % (AUTO) 6 % (0-12); NEUTROPHILS # (AUTO) 12.6 X 10^3 (1.8-7.8); NEUTROPHILS % (AUTO) 82 % (42-75); PLATELET COUNT 348 10^3/uL (130-400); WHITE BLOOD COUNT 15.5 10^3/uL (4.3-11.0)
[2021-02-27 16:34] LABS: BACTERIA,URINE MODERATE /HPF; BILIRUBIN,URINE NEGATIVE (NEGATIVE); CLARITY,URINE SLIGHTLY CLOUDY; COLOR,URINE YELLOW; GLUCOSE, URINE (UA) NEGATIVE (NEGATIVE); KETONES,URINE NEGATIVE (NEGATIVE); LEUKOCYTE ESTERASE ,URINE 2+ (NEGATIVE); NITRITE,URINE POSITIVE (NEGATIVE); PROTEIN,URINE 2+ (NEGATIVE); WBC,URINE 50-100 /HPF
[2021-02-27 16:36] LABS: ABG BASE EXCESS 7.9 MMOL/L (-2.5-2.5); ABG OXYGEN SATURATION 87 % (94-100); ABG PCO2 95 MMHG (35-45); ABG PH 7.22 (7.37-7.43); ABG PO2 64 MMHG (79-93); ABG TCO2 41.8 MMOL/L (21.0-31.0); ALLENS TEST NEG
[2021-02-27 16:38] LABS: INSPIRED O2 15 L; PATIENT TEMP 35.9; VENTILATOR NO
--- NOTE | 2021-02-27 16:39 | Diagnostic Imaging Report ---
INDICATION: Shortness of breath and hypoxia. FINDINGS: There is cardiomegaly and moderate central pulmonary venous congestion. There are bibasilar infiltrates. There is a left pleural effusion. No pneumothorax. The mediastinum is unremarkable. IMPRESSION: 1. Bibasilar infiltrates and a left pleural effusion. 2. Cardiomegaly and moderate central pulmonary venous congestion. Dictated by: Dictated on workstation # [id number]
[2021-02-27 16:42] LABS: EOSINOPHILS % (MANUAL) 1 %; LYMPHOCYTES % (MANUAL) 12 %; MONOCYTES % (MANUAL) 5 %; NEUTROPHILS % (MANUAL) 82 %; TOXIC GRANULATION/VACUOLAZATIO 4+
[2021-02-27 16:44] LABS: INR 1.4 (0.8-1.4); PROTHROMBIN TIME PATIENT 17.7 SEC (12.2-14.7)
[2021-02-27 16:45] LABS: ALKALINE PHOSPHATASE 234 U/L (40-136); BILIRUBIN,TOTAL 0.4 MG/DL (0.1-1.0); BUN/CREATININE RATIO 16; CALCIUM 9.2 MG/DL (8.5-10.1); CARBON DIOXIDE 32 MMOL/L (21-32); CHLORIDE 91 MMOL/L (98-107); CREATININE SERUM 1.05 MG/DL (0.60-1.30); GFR ESTIMATED > 60; GLUCOSE 178 MG/DL (70-105); POTASSIUM 4.2 MMOL/L (3.6-5.0); SODIUM 132 MMOL/L (135-145)
[2021-02-27 16:46] LABS: ALANINE AMINOTRANSFERASE 51 U/L (0-55); ALBUMIN 4.2 GM/DL (3.2-4.5); TOTAL PROTEIN 7.6 GM/DL (6.4-8.2)
[2021-02-27] MEDS: NITRO DRIP 25000 MCG/D5W 250 ML IV SCH (18:42)
[2021-02-27 20:50] LABS: ABG BASE EXCESS 8.7 MMOL/L (-2.5-2.5); ABG OXYGEN SATURATION 91 % (94-100); ABG PCO2 66 MMHG (35-45); ABG PO2 66 MMHG (79-93); ABG TCO2 36.9 MMOL/L (21.0-31.0)
[2021-02-27 20:51] LABS: ABG PH 7.33 (7.37-7.43); INSPIRED O2 80% BIPAP; VENTILATOR NO
[2021-02-28] VITALS (26 sets, daily range): BP systolic 86–141; BP diastolic 47–84
[2021-02-28 04:16] LABS: BASOPHILS # (AUTO) 0.1 10^3/uL (0.0-0.1); BASOPHILS % (AUTO) 1 % (0-10); EOSINOPHILS # (AUTO) 0.1 10^3/uL (0.0-0.3); EOSINOPHILS % (AUTO) 1 % (0-10); HEMATOCRIT 37 % (40-54); HEMOGLOBIN 11.7 g/dL (13.3-17.7); LYMPHOCYTES # (AUTO) 0.9 10^3/uL (1.0-4.0); LYMPHOCYTES % (AUTO) 6 % (12-44); MEAN CORPUSCULAR HEMOGLOBIN 33 pg (25-34); MEAN CORPUSCULAR HGB CONC 32 g/dL (32-36); MEAN CORPUSCULAR VOLUME 105 fL (80-99); MEAN PLATELET VOLUME 9.4 fL (9.0-12.2); MONOCYTES # (AUTO) 0.7 10^3/uL (0.0-1.0); MONOCYTES % (AUTO) 5 % (0-12); NEUTROPHILS # (AUTO) 11.6 10^3/uL (1.8-7.8); NEUTROPHILS % (AUTO) 87 % (42-75); PLATELET COUNT 286 10^3/uL (130-400); WHITE BLOOD COUNT 13.4 10^3/uL (4.3-11.0)
[2021-02-28 04:24] LABS: ABG BASE EXCESS 10.1 MMOL/L (-2.5-2.5); ABG OXYGEN SATURATION 91 % (94-100); ABG PCO2 45 MMHG (35-45); ABG PH 7.49 (7.37-7.43); ABG PO2 57 MMHG (79-93); ABG TCO2 35.6 MMOL/L (21.0-31.0)
[2021-02-28 04:25] LABS: ALLENS TEST YES-POS; INSPIRED O2 21% BIPAP; PATIENT TEMP 36.3; VENTILATOR NO
[2021-02-28 04:35] LABS: BUN/CREATININE RATIO 15; CALCIUM 8.7 MG/DL (8.5-10.1); CARBON DIOXIDE 28 MMOL/L (21-32); CHLORIDE 93 MMOL/L (98-107); CREATININE SERUM 1.12 MG/DL (0.60-1.30); GFR ESTIMATED > 60; GLUCOSE 107 MG/DL (70-105); MAGNESIUM 1.7 MG/DL (1.6-2.4); PHOSPHORUS 3.2 MG/DL (2.3-4.7); POTASSIUM 4.2 MMOL/L (3.6-5.0); SODIUM 134 MMOL/L (135-145)
--- NOTE | 2021-02-28 05:40 | Pulmonary Consultation ---
History of Present Illness History of Present Illness Date Seen by Provider: Feb 28, 2021 Time Seen by Provider: 05:34 Date of Admission History of Present Illness 75yo with hx of COPD, CHF and recent hospitalization presented to ED secondary to worsening SOB. PT was found to be hypoxic upon admission. PT denies CP, palpitations f/ns/c. Allergies and Home Medications Allergies Coded Allergies: No Known Drug Allergies (Unverified , 01/30/19) Home Medications Allopurinol 100 Mg Tablet, 100 MG PO DAILY, (Reported) Atorvastatin Calcium 10 Mg Tablet, 10 MG PO DAILY, (Reported) Budesonide/Formoterol Fumarate 10.2 Gm Hfa.aer.ad, 2 PUFF IH BID, (Reported) Digoxin 250 Mcg Tablet, 250 MCG PO DAILY, (Reported) Diltiazem HCl 240 Mg Capsule.er, 240 MG PO DAILY, (Reported) Docusate Sodium 100 Mg Tablet, 100 MG PO BID, (Reported) Fluticasone Propion/Salmeterol 1 Each Blst.w.dev, 1 EACH IH BID, (Reported) Furosemide 40 Mg Tablet, 40 MG PO DAILY, (Reported) Ipratropium/Albuterol Sulfate 3 Ml Ampul.neb, 3 ML IH TID, (Reported) Lactobacillus Acidophilus 1 Each Capsule, 1 EACH PO BID, (Reported) Levofloxacin 500 Mg Tablet, 500 MG PO DAILY Prescribed by: LELA FONTENOT on 03/03/21 1133 Metoprolol Tartrate 25 Mg Tablet, 25 MG PO BID, (Reported) Mv-Mn/FA/Coq10/Lycopene/Lutein 1 Each Tablet, 1 EACH PO DAILY, (Reported) Nystatin 1 Each Powder.ea., 1 EACH TOP TID, (Reported) Pantoprazole Sodium 40 Mg Tablet.dr, 40 MG PO DAILY, (Reported) Phenobarbital 32.4 Mg Tablet, 32.4 MG PO BID, (Reported) Simethicone 180 Mg Capsule, 180 MG PO BID, (Reported) Thiamine HCl 100 Mg Tablet, 100 MG PO DAILY, (Reported) Warfarin Sodium 5 Mg Tablet, 5 MG PO DAILY, (Reported) Past Cknaycs-Qoiguf-Rfkhrc Hx Patient Social History Alcohol Use: Occasionally Uses Number of Drinks Today: GG Alcohol Beverage of Choice: Whiskey Smoking Status: Current Everyday Smoker Type Used: Cigarettes 2nd Hand Smoke Exposure: Yes Recent Infectious Disease Expo: No Recent Hopitalizations: No Alcohol Use?: No Immunizations Up To Date Tetanus Booster (TDap): Unknown Date of Influenza Vaccine: Aug 19, 2020 Seasonal Allergies Seasonal Allergies: Yes Past Medical History Surgeries: Yes (suprapubic catheter placement) Respiratory: Yes Chronic Bronchitis, COPD Cardiac: Yes High Cholesterol, Hypertension Neurological: Yes Neuropathy, Seizure Disorder Genitourinary: Yes (suprapubic catheter) Neurogenic Bladder Gastrointestinal: Yes Gastroesophageal Reflux Musculoskeletal: Yes (spinal degeneration/uses wheelchair) Gout Endocrine: Yes Diabetes, Non-Insulin dep HEENT: No Cancer: No Psychosocial: No Integumentary: No Blood Disorders: No Review of Systems Time Seen by Provider: 05:35 Sepsis Event Evaluation Height, Weight, BMI Height: 5'9.00" Weight: 225lbs. oz. 102.031543xs; 34.84 BMI Method:Stated Exam Exam Vital Signs Date Time Temp Pulse Resp B/P (MAP) Pulse Ox O2 Delivery O2 Flow Rate FiO2 02/28/21 05:29 High Flow N/C 4.00 02/28/21 05:00 80 27 105/56 (72) 91 NIV Bilevel 21.00 02/28/21 04:41 NIV Bilevel 21 02/28/21 04:00 85 24 112/68 (83) 90 NIV Bilevel 21.00 02/28/21 03:00 83 26 104/72 (83) 91 NIV Bilevel 21.00 02/28/21 02:00 81 21 100/58 (72) 90 NIV Bilevel 21.00 02/28/21 01:47 82 37 92 21.00 02/28/21 01:00 79 26 92/48 (63) 90 NIV Bilevel 21.00 02/28/21 01:00 78 02/28/21 00:36 NIV Bilevel 21.00 02/28/21 00:35 36.7 02/28/21 00:16 NIV Bilevel 30 02/28/21 00:00 77 26 103/54 (70) 96 NIV Bilevel 30.00 02/27/21 23:18 NIV Bilevel 30.00 02/27/21 23:17 35.8 02/27/21 23:00 77 26 93/51 (65) 95 NIV Bilevel 50.00 02/27/21 22:00 80 25 118/77 (91) 100 NIV Bilevel 50.00 02/27/21 21:55 NIV Bilevel 50.00 02/27/21 21:55 79 26 102/58 (73) 100 NIV Bilevel 50.00 02/27/21 21:00 78 20 102/58 (73) 100 NIV Bilevel 50.00 02/27/21 20:30 36.0 02/27/21 20:28 36.0 02/27/21 20:06 84 29 97 80.00 02/27/21 20:00 83 25 99 NIV Bilevel 50.00 02/27/21 20:00 NIV Bilevel 80 02/27/21 19:00 85 33 112/70 (84) 97 NIV Bilevel 50.00 02/27/21 19:00 85 02/27/21 18:37 NIV Bilevel 70 02/27/21 18:32 95 02/27/21 18:15 102 32 151/95 (113) 91 NIV Bilevel 50.00 02/27/21 18:09 108 34 97 50.00 02/27/21 17:30 35.9 89 24 141/69 (126) 100 NIV Bilevel 02/27/21 16:02 35.9 103 26 203/88 (126) 94 Non Rebreather 15.00 I & O 02/28/21 07:00 Intake Total 0 ml Output Total 900 ml Balance -900 ml Height & Weight Height: 5'9.00" Weight: 225lbs. oz. 102.344179lh; 34.84 BMI Method:Stated General Appearance: Chronically ill, Moderate Distress HEENT: PERRL/EOMI Neck: Supple Respiratory: Crackles, Respiratory Distress Cardiovascular: Irregularly Irregular, Other (edema BL LE) Capillary Refill: Less Than 3 Seconds Extremity: Normal Capillary Refill Neurologic/Psychiatric: Alert, Other (confused, lethargic) Skin: Warm/Dry Results Lab Laboratory Tests 02/27/21 16:19 02/28/21 03:47 Assessment/Plan Assessment/Plan Acute respiratory failure -Currenlty on BIPAP -PT is a DNR -Oxygen COPDAE -Duonebs -Oxygen -Add advair UTI with chronic coburn -Pt has been on Cefepime as out pt -[place] cultures pending -Start Merrem and vanco PAfib -start theraputic dose Lovenox -Pt is on Coumadin as out pt. INR is < 2 CHF hx - 01/20/2021 showed mild systolic dysfunction with an EF of 45 to 50%. Pulmonary HTN DM -SSI -Accu checks VICTOR M MIRANDA DO Feb 28, 2021 05:39
[2021-02-28] MEDS ORDERED: ENOXAPARIN 100 MG/1 ML (LOVENOX) SYR SC SCH (05:45)
[2021-02-28] MEDS ORDERED: PHARMACY TO DOSE IV SCH (05:45)
--- NOTE | 2021-02-28 06:05 | Diagnostic Imaging Report ---
EXAMINATION: Portable erect AP chest at 3:44 AM INDICATION: Respiratory distress The cardiomegaly, pulmonary congestion and bibasilar pneumonia/atelectasis and bilateral pleural effusions seen on the prior exam of 02/27/2021 are again visualized. Overall, there does not appear to have been any significant change. However, the left lung base may be slightly better aerated. The mediastinum is not widened. The osseous structures are intact. IMPRESSION: The overall appearance of the chest has not changed significantly since the prior exam. The left lung base may be slightly better aerated, however. A followup study would be recommended for continued evaluation. Dictated by: Dictated on workstation # [id number]
[2021-02-28] MEDS: inSUlin ASPART (NovoLOG) 1 UNIT/0.01 ML (CHARGE PER UNIT) SC SCH ×4 (06:21→20:31)
[2021-02-28] MEDS ORDERED: VANCOMYCIN 1000 MG/VIAL ONE (06:36)
[2021-02-28] MEDS ORDERED: NS (IVPB) 500 ML ONE (06:36)
[2021-02-28] MEDS: MEROPENEM 500 MG in WATER (STERILE) FOR INJECTION 10 ML IV SCH ×4 (06:55→23:11)
[2021-02-28] MEDS: VANCOMYCIN INJECTION 1,000 MG in NS (IVPB) 250 ML IV SCH ×2 (06:55→08:03)
[2021-02-28] MEDS ORDERED: ENOXAPARIN 60 MG/0.6 ML (LOVENOX) SYR SC SCH (07:00)
--- NOTE | 2021-02-28 07:02 | History & Physical-Hospitalist ---
History of Present Illness HPI/Chief Complaint CC: Acute hypoxic hypercapneic resp failure on chronic resp failure HPI: This is a 75yoWM known to me from recent DC 2 days prior to presenting to [facility] ER with dyspnea. Patient was DC in improved status on but quickly decompensated. ABG reviewed and biPAP was initiated since he was do not intubate but remained a full code. ABG showed CO2 93. Currently he is much better. DNR ordered obtained. Patient really needs Hospice. Source: patient Exam Limitations: clinical condition Date Seen 02/28/21 Time Seen by a Provider: 10:30 Attending Physician Grace Velasquez Pankaj K MD Referring Physician Date of Admission Feb 27, 2021 at 18:04 Home Medications & Allergies Home Medications Reviewed patient Home Medication Reconciliation performed by pharmacy medication reconciliations sterilization technician and/or nursing. Patients Allergies have been reviewed. Allergies Allergies Coded Allergies No Known Drug Allergies (Unverified01/30/19) Patient Social History Marrital Status: single Employed/Student: retired Tobacco Use?: Yes Tobacco type used: Cigarettes Smoking Status: Current Everyday Smoker Substance use?: No Alcohol Use?: No Pt stated abuse/neglect: No Immunizations Up To Date Tetanus Booster (TDap): Unknown Current Status Primary Language: Citizen Of [place] Past Medical History PMHx: HTN HLD Atherosclerotic occlusive disease DMII Previous respiratory failure COPD Alcohol dependence CKD Chronic UTI Severe BPH SurgHx: Suprapubic catheter Family Medical History Family Hx: NC Review of Systems Constitutional: see HPI, malaise, weakness Respiratory: dyspnea on exertion, short of breath Physical Exam Physical Exam Vital Signs Vital Signs - First Documented 02/27/21 02/27/21 16:02 18:37 Temp 35.9 Pulse 103 Resp 26 B/P (MAP) 203/88 (126) Pulse Ox 94 O2 Delivery Non Rebreather O2 Flow Rate 15.00 FiO2 70 Capillary Refill : Less Than 3 Seconds Height, Weight, BMI Height: 5'9.00" Weight: 225lbs. oz. 102.287535vb; 34.84 BMI Method:Stated General Appearance: No Apparent Distress, Anxious, Chronically ill, Obese Eyes: Right Eye Normal Inspection, Right Eye PERRL HEENT: PERRL/EOMI, Normal ENT Inspection, Pharynx Normal, Moist Mucous Membranes Neck: Full Range of Motion, Normal Inspection, Non Tender Respiratory: Chest Non Tender, Lungs Clear, No Respiratory Distress, Accessory Muscle Use, Decreased Breath Sounds Cardiovascular: No Edema, No Gallop, No JVD, No Murmur, Normal Peripheral Pulses, Irregularly Irregular Gastrointestinal: Normal Bowel Sounds, No Organomegaly, No Pulsatile Mass, Non Tender, Soft Back: Normal Inspection, No CVA Tenderness, No Vertebral Tenderness Extremity: Normal Capillary Refill, Normal Inspection, Normal Range of Motion, Non Tender, No Calf Tenderness, No Pedal Edema Neurologic/Psychiatric: Alert, Oriented x3, No Motor/Sensory Deficits, Normal Mood/Affect Skin: Normal Color, Warm/Dry Lymphatic: No Adenopathy Results Results/Procedures Labs Laboratory Tests 02/27/21 16:19 02/28/21 03:47 Patient resulted labs reviewed. Assessment/Plan Admission Diagnosis Assessment: Acute hypoxic hypercapneic resp failure on chronic resp failure PNA UTI chronic SP catheter COPD O2 dependence AF CHF CAD Plan: Monitor closely ICU DNR Needs Hospice Admission Status: Inpatient Order (span 2 midnights) Reason for Inpatient Admission: resp failure GRACE VELASQUEZ DO Feb 28, 2021 07:02
[2021-02-28] MEDS: RT-ALBUTEROL/IPRATROPIUM 3 ML (DUONEB) VIAL INH SCH ×5 (07:17→21:53)
[2021-02-28] MEDS: FUROSEMIDE 40 MG/4 ML INJ (LASIX) IVP SCH (08:02)
[2021-02-28] MEDS: PANTOPRAZOLE 40 MG (PROTONIX) VIAL IV SCH (08:02)
[2021-02-28] MEDS: ENOXAPARIN 300 MG/3 ML (LOVENOX) MULTI-DOSE VIAL SQ SCH ×2 (09:10→20:29)
[2021-02-28] MEDS: RT--FLUTICASONE/SALMETEROL 113-14 (AIRDUO RespiCLICK) IH SCH ×2 (09:52→21:54)
--- NOTE | 2021-02-28 11:04 | Consultation-Cardiology ---
HPI-Cardiology Cardiology Consultation Date of Consultation 02/28/21 Date of Admission Time Seen by Provider: 10:58 Indication: Shortness of breath HPI 75 years old gentleman with recent discharge from the hospital for acute exacerbation of COPD and congestive heart failure, patient was feeling better on discharge then he started to have increasing shortness of breath, cough. Oxygen saturation has dropped. Patient was brought back to the hospital. On my evaluation was laying down in bed, requiring higher dose of oxygen. Denied any chest pain, complaining of fatigue and loss of energy in addition to the shortness of breath. Home Medications & Allergies Allergies: Coded Allergies: No Known Drug Allergies (Unverified , 01/30/19) Home Medication List Reviewed: Yes BDI-Xaciua-Tapsxq Hx Patient Social History Recreational Drug Use: No Smoking Status: Current Everyday Smoker Type Used: Cigarettes 2nd Hand Smoke Exposure: Yes Recent Hopitalizations: No Alcohol Use?: No Immunizations Up To Date Tetanus Booster (TDap): Unknown Date of Influenza Vaccine: Aug 19, 2020 Past Medical History Discussed below Family Medical History Family Medical Hx Noncontributory Review of Systems-General Review of Systems Constitutional: no symptoms reported, see HPI EENTM: see HPI, no symptoms reported Respiratory: see HPI, cough, dyspnea on exertion; No hemoptysis, No orthopnea, No phlegm; short of breath; No stridor, No wheezing, No other Cardiovascular: see HPI; No chest pain; edema; No Hx of Intervention, No palpitations, No syncope, No vascular heart diseas, No other Gastrointestinal: no symptoms reported, see HPI Genitourinary: no symptoms reported, see HPI Musculoskeletal: no symptoms reported, see HPI Skin: no symptoms reported, see HPI Psychiatric/Neurological: No Symptoms Reported, See HPI All Other Systems Reviewed Negative Unless Noted: Yes Reviewed Test Results Reviewed Test Results Lab Laboratory Tests Test 02/27/21 16:19 02/27/21 16:24 02/27/21 16:28 02/27/21 20:30 Range/Units White Blood Count 15.5 H 4.3-11.0 10^3/uL Red Blood Count 3.80 L 4.35-5.85 10^6/uL Hemoglobin 12.6 L 13.3-17.7 G/DL Hematocrit 40 40-54 % Mean Corpuscular Volume 104 H 80-99 FL Mean Corpuscular Hemoglobin 33 25-34 PG Mean Corpuscular Hemoglobin Concent 32 32-36 G/DL Red Cell Distribution Width 14.2 10.0-14.5 % Platelet Count 348 130-400 10^3/uL Mean Platelet Volume 9.1 7.4-10.4 FL Immature Granulocyte % (Auto) 1 % Neutrophils (%) (Auto) 82 H 42-75 % Lymphocytes (%) (Auto) 9 L 12-44 % Monocytes (%) (Auto) 6 0-12 % Eosinophils (%) (Auto) 2 0-10 % Basophils (%) (Auto) 1 0-10 % Neutrophils # (Auto) 12.6 H 1.8-7.8 X 10^3 Lymphocytes # (Auto) 1.4 1.0-4.0 X 10^3 Monocytes # (Auto) 0.9 0.0-1.0 X 10^3 Eosinophils # (Auto) 0.3 0.0-0.3 10^3/uL Basophils # (Auto) 0.1 0.0-0.1 10^3/uL Immature Granulocyte # (Auto) 0.2 H 0.0-0.1 10^3/uL Neutrophils % (Manual) 82 % Lymphocytes % (Manual) 12 % Monocytes % (Manual) 5 % Eosinophils % (Manual) 1 % Toxic Granulation 4+ Prothrombin Time 17.7 H 12.2-14.7 SEC INR Comment 1.4 0.8-1.4 Activated Partial Thromboplast Time 32 24-35 SEC Sodium Level 132 L 135-145 MMOL/L Potassium Level 4.2 3.6-5.0 MMOL/L Chloride Level 91 L 98-107 MMOL/L Carbon Dioxide Level 32 21-32 MMOL/L Anion Gap 9 5-14 MMOL/L Blood Urea Nitrogen 17 7-18 MG/DL Creatinine 1.05 0.60-1.30 MG/DL Estimat Glomerular Filtration Rate > 60 BUN/Creatinine Ratio 16 Glucose Level 178 H 70-105 MG/DL Calcium Level 9.2 8.5-10.1 MG/DL Corrected Calcium 9.0 8.5-10.1 MG/DL Total Bilirubin 0.4 0.1-1.0 MG/DL Aspartate Amino Transf (AST/SGOT) 37 H 5-34 U/L Alanine Aminotransferase (ALT/SGPT) 51 0-55 U/L Alkaline Phosphatase 234 H 40-136 U/L Troponin I < 0.30 <0.30 NG/ML Pro-B-Type Natriuretic Peptide 1745.0 H <75.0 PG/ML Total Protein 7.6 6.4-8.2 GM/DL Albumin 4.2 3.2-4.5 GM/DL Urine Color YELLOW Urine Clarity SLIGHTLY CLOUDY Urine pH 6.0 5-9 Urine Specific Depue 1.020 1.016-1.022 Urine Protein 2+ H NEGATIVE Urine Glucose (UA) NEGATIVE NEGATIVE Urine Ketones NEGATIVE NEGATIVE Urine Nitrite POSITIVE H NEGATIVE Urine Bilirubin NEGATIVE NEGATIVE Urine Urobilinogen 0.2 < = 1.0 MG/DL Urine Leukocyte Esterase 2+ H NEGATIVE Urine RBC (Auto) 1+ H NEGATIVE Urine RBC NONE /HPF Urine WBC 50-100 H /HPF Urine Crystals NONE /LPF Urine Bacteria MODERATE H /HPF Urine Casts NONE /LPF Urine Mucus NEGATIVE /LPF Urine Culture Indicated YES Blood Gas Puncture Site RIGHT WRIST LT BRACHIAL Blood Gas Patient Temperature 35.9 36.0 Arterial Blood pH 7.22 *L 7.33 *L 7.37-7.43 Arterial Blood Partial Pressure CO2 95 *H 66 H 35-45 MMHG Arterial Blood Partial Pressure O2 64 L 66 L 79-93 MMHG Arterial Blood HCO3 39 H 35 H 23-27 MMOL/L Arterial Blood Total CO2 41.8 H 36.9 H 21.0-31.0 MMOL/L Arterial Blood Oxygen Saturation 87 L 91 L 94-100 % Arterial Blood Base Excess 7.9 H 8.7 H -2.5-2.5 MMOL/L Husam Test NEG NA Blood Gas Ventilator Setting NO NO Blood Gas Inspired Oxygen 15 L 80% BIPAP Lactic Acid Level 1.33 0.50-2.00 MMOL/L Test 02/28/21 00:19 02/28/21 03:47 02/28/21 04:19 Range/Units Glucometer 123 H 70-110 MG/DL White Blood Count 13.4 H 4.3-11.0 10^3/uL Red Blood Count 3.54 L 4.30-5.52 10^6/uL Hemoglobin 11.7 L 13.3-17.7 g/dL Hematocrit 37 L 40-54 % Mean Corpuscular Volume 105 H 80-99 fL Mean Corpuscular Hemoglobin 33 25-34 pg Mean Corpuscular Hemoglobin Concent 32 32-36 g/dL Red Cell Distribution Width 13.8 10.0-14.5 % Platelet Count 286 130-400 10^3/uL Mean Platelet Volume 9.4 9.0-12.2 fL Immature Granulocyte % (Auto) 1 % Neutrophils (%) (Auto) 87 H 42-75 % Lymphocytes (%) (Auto) 6 L 12-44 % Monocytes (%) (Auto) 5 0-12 % Eosinophils (%) (Auto) 1 0-10 % Basophils (%) (Auto) 1 0-10 % Neutrophils # (Auto) 11.6 H 1.8-7.8 10^3/uL Lymphocytes # (Auto) 0.9 L 1.0-4.0 10^3/uL Monocytes # (Auto) 0.7 0.0-1.0 10^3/uL Eosinophils # (Auto) 0.1 0.0-0.3 10^3/uL Basophils # (Auto) 0.1 0.0-0.1 10^3/uL Immature Granulocyte # (Auto) 0.2 H 0.0-0.1 10^3/uL Sodium Level 134 L 135-145 MMOL/L Potassium Level 4.2 3.6-5.0 MMOL/L Chloride Level 93 L 98-107 MMOL/L Carbon Dioxide Level 28 21-32 MMOL/L Anion Gap 13 5-14 MMOL/L Blood Urea Nitrogen 17 7-18 MG/DL Creatinine 1.12 0.60-1.30 MG/DL Estimat Glomerular Filtration Rate > 60 BUN/Creatinine Ratio 15 Glucose Level 107 H 70-105 MG/DL Calcium Level 8.7 8.5-10.1 MG/DL Phosphorus Level 3.2 2.3-4.7 MG/DL Magnesium Level 1.7 1.6-2.4 MG/DL Procalcitonin 0.35 H <0.10 NG/ML Blood Gas Puncture Site LT RAD Blood Gas Patient Temperature 36.3 Arterial Blood pH 7.49 H 7.37-7.43 Arterial Blood Partial Pressure CO2 45 35-45 MMHG Arterial Blood Partial Pressure O2 57 L 79-93 MMHG Arterial Blood HCO3 34 H 23-27 MMOL/L Arterial Blood Total CO2 35.6 H 21.0-31.0 MMOL/L Arterial Blood Oxygen Saturation 91 L 94-100 % Arterial Blood Base Excess 10.1 H -2.5-2.5 MMOL/L Husam Test YES-POS Blood Gas Ventilator Setting NO Blood Gas Inspired Oxygen 21% BIPAP Physical Exam Physical Exam Vital Signs Vital Signs - First Documented 02/27/21 02/27/21 16:02 18:37 Temp 35.9 Pulse 103 Resp 26 B/P (MAP) 203/88 (126) Pulse Ox 94 O2 Delivery Non Rebreather O2 Flow Rate 15.00 FiO2 70 Capillary Refill : Less Than 3 Seconds Height, Weight, BMI Height: 5'9.00" Weight: 225lbs. oz. 102.171911dk; 34.84 BMI Method:Stated General Appearance: Chronically ill, Moderate Distress Eyes: Bilateral Eye Normal Inspection, Bilateral Eye PERRL, Bilateral Eye EOMI HEENT: PERRL/EOMI Neck: Supple Respiratory: Crackles, Decreased Breath Sounds, Respiratory Distress Cardiovascular: No JVD, Systolic Murmur, Irregularly Irregular, Other (edema BL LE) Gastrointestinal: Non Tender, Soft Back: Normal Inspection, No CVA Tenderness, No Vertebral Tenderness Extremity: Normal Capillary Refill Neurologic/Psychiatric: Alert, Other (confused, lethargic) Skin: Warm/Dry Lymphatic: No Adenopathy A/P-Cardiology Admission Diagnosis Acute respiratory failure Acute exacerbation of COPD Congestive heart failure Pneumonia Assessment/Plan Acute respiratory failure, acute exacerbation of COPD with congestive heart failure. Improving slowly. Continue to monitor Pneumonia, receiving antibiotics. Managed by primary care team Congestive heart failure, acute on chronic left ventricular systolic dysfunction, last echo done in January 2021 showing mild left ventricular systolic dysfunction with EF 45 to 50%, had pulmonary hypertension. Started on diuretics. Continue to monitor Persistent atrial fibrillation, diagnosed in January 2021, rate is controlled. Continue to monitor CHADs-VASc score of 5, yearly stroke risk 7.2%. Day #4 of warfarin with lovenox bridge. INR 2.2 on 02/24. Oxygen dependent COPD, managed by primary care team. Pulmonary hypertension, PA pressure 55 to 60 mmHg, likely due to severe COPD. MAHAD CRUMP MD Feb 28, 2021 11:04
[2021-02-28] MEDS: NITRO DRIP 25000 MCG/D5W 250 ML IV SCH (15:23)
[2021-02-28] MEDS: VANCOMYCIN 1 GM/NS 250 ML IVPB IV SCH ×2 (17:24)
[2021-03-01] VITALS (13 sets, daily range): BP systolic 119–152; BP diastolic 65–90
[2021-03-01] MEDS: RT-ALBUTEROL/IPRATROPIUM 3 ML (DUONEB) VIAL INH SCH ×6 (02:23→21:31)
[2021-03-01 03:42] LABS: BASOPHILS # (AUTO) 0.1 10^3/uL (0.0-0.1); BASOPHILS % (AUTO) 1 % (0-10); EOSINOPHILS # (AUTO) 0.1 10^3/uL (0.0-0.3); EOSINOPHILS % (AUTO) 2 % (0-10); HEMATOCRIT 36 % (40-54); LYMPHOCYTES # (AUTO) 1.2 10^3/uL (1.0-4.0); LYMPHOCYTES % (AUTO) 13 % (12-44); MEAN CORPUSCULAR HEMOGLOBIN 32 pg (25-34); MEAN CORPUSCULAR HGB CONC 31 g/dL (32-36); MEAN CORPUSCULAR VOLUME 105 fL (80-99); MEAN PLATELET VOLUME 9.3 fL (9.0-12.2); MONOCYTES # (AUTO) 0.7 10^3/uL (0.0-1.0); MONOCYTES % (AUTO) 7 % (0-12); NEUTROPHILS # (AUTO) 7.1 10^3/uL (1.8-7.8); NEUTROPHILS % (AUTO) 77 % (42-75); PLATELET COUNT 251 10^3/uL (130-400); WHITE BLOOD COUNT 9.2 10^3/uL (4.3-11.0)
[2021-03-01 04:06] LABS: BUN/CREATININE RATIO 16; CALCIUM 8.4 MG/DL (8.5-10.1); CARBON DIOXIDE 28 MMOL/L (21-32); CHLORIDE 94 MMOL/L (98-107); CREATININE SERUM 1.15 MG/DL (0.60-1.30); GFR ESTIMATED > 60; GLUCOSE 97 MG/DL (70-105); MAGNESIUM 1.7 MG/DL (1.6-2.4); PHOSPHORUS 2.6 MG/DL (2.3-4.7); SODIUM 134 MMOL/L (135-145)
--- NOTE | 2021-03-01 04:42 | Pulmonary Progress Note ---
Subjective Time Seen by a Provider: 04:41 Subjective/Events-last exam Pt is currently on 3 liter NC. Sepsis Event Evaluation Height, Weight, BMI Height: 5'9.00" Weight: 225lbs. oz. 102.152638vu; 34.84 BMI Method:Stated Focused Exam Lactate Level 02/27/21 20:30: Lactic Acid Level 1.33 Exam Exam Vital Signs Date Time Temp Pulse Resp B/P (MAP) Pulse Ox O2 Delivery O2 Flow Rate FiO2 03/01/21 04:00 94 High Flow N/C 3.00 03/01/21 04:00 36.4 High Flow N/C 3.00 03/01/21 03:00 86 19 133/84 (100) 95 NIV Bilevel 30.00 03/01/21 03:00 High Flow N/C 3.00 03/01/21 02:23 89 26 92 21.00 03/01/21 02:00 91 23 130/89 (103) 93 NIV Bilevel 30.00 03/01/21 01:00 92 03/01/21 01:00 85 26 135/76 (95) 95 NIV Bilevel 30.00 03/01/21 00:00 86 25 130/80 (97) 97 NIV Bilevel 30.00 02/28/21 23:08 36.3 NIV Bilevel 30.00 02/28/21 23:05 97 NIV Bilevel 30 02/28/21 23:00 94 29 134/84 (101) 94 NIV Bilevel 30.00 02/28/21 22:30 NIV Bilevel 30.00 02/28/21 22:00 96 25 135/81 (99) 96 High Flow N/C 3.00 02/28/21 21:55 99 26 92 21.00 02/28/21 21:00 82 30 141/80 (100) 91 High Flow N/C 3.00 02/28/21 20:00 86 28 119/82 (94) 92 High Flow N/C 3.00 02/28/21 19:20 93 High Flow N/C 3.00 02/28/21 19:15 36.1 02/28/21 19:00 95 02/28/21 19:00 106/72 (83) High Flow N/C 3.00 02/28/21 19:00 95 31 119/67 (84) 90 High Flow N/C 3.00 02/28/21 18:28 93 High Flow N/C 3.00 02/28/21 18:00 92 25 92/59 (70) 93 High Flow N/C 4.00 02/28/21 17:00 101 32 98/57 (71) 89 High Flow N/C 4.00 02/28/21 16:00 93 29 102/68 (79) 93 High Flow N/C 4.00 02/28/21 15:16 Nasal Cannula 4.00 02/28/21 15:00 85 27 101/69 (80) 93 High Flow N/C 4.00 02/28/21 15:00 35.8 02/28/21 14:20 93 High Flow N/C 3.00 02/28/21 14:00 86 28 97/68 (78) 90 High Flow N/C 4.00 02/28/21 13:00 97 23 105/75 (85) 91 High Flow N/C 4.00 02/28/21 13:00 103 02/28/21 12:00 96 32 90/66 (74) 88 High Flow N/C 4.00 02/28/21 11:01 Nasal Cannula 4.00 02/28/21 11:00 103 23 94/62 (73) 88 High Flow N/C 4.00 02/28/21 10:00 82 27 98/62 (74) 95 High Flow N/C 4.00 02/28/21 09:41 95 High Flow N/C 4.00 02/28/21 09:00 96 29 107/70 (82) 96 High Flow N/C 4.00 02/28/21 08:00 73 10 102/63 (76) 91 High Flow N/C 4.00 02/28/21 07:52 Nasal Cannula 4.00 02/28/21 07:32 36.4 02/28/21 07:18 99 High Flow N/C 4.00 02/28/21 07:00 106 02/28/21 07:00 109 21 94/58 (70) 97 High Flow N/C 4.00 02/28/21 06:00 81 27 122/74 (90) 92 High Flow N/C 4.00 02/28/21 05:29 High Flow N/C 4.00 02/28/21 05:00 80 27 105/56 (72) 91 NIV Bilevel 21.00 I & O 03/01/21 07:00 Intake Total 1710 ml Output Total 1650 ml Balance 60 ml Height & Weight Height: 5'9.00" Weight: 225lbs. oz. 102.421128nr; 34.84 BMI Method:Stated General Appearance: No Apparent Distress, Anxious, Chronically ill, Obese HEENT: PERRL/EOMI, Normal ENT Inspection, Pharynx Normal, Moist Mucous Membranes Neck: Full Range of Motion, Normal Inspection, Non Tender Respiratory: Chest Non Tender, Lungs Clear, No Respiratory Distress, Accessory Muscle Use, Decreased Breath Sounds Cardiovascular: No Edema, No Gallop, No JVD, No Murmur, Normal Peripheral Pulses, Irregularly Irregular Capillary Refill: Less Than 3 Seconds Extremity: Normal Capillary Refill, Normal Inspection, Normal Range of Motion, Non Tender, No Calf Tenderness, No Pedal Edema Neurologic/Psychiatric: Alert, Oriented x3, No Motor/Sensory Deficits, Normal Mood/Affect Skin: Normal Color, Warm/Dry Lymphatic: No Adenopathy Results Lab Laboratory Tests 02/27/21 16:19 02/28/21 03:47 03/01/21 03:25 Assessment/Plan Assessment/Plan Acute respiratory failure -Currenlty on 3 liter NC -PT is a DNR -Oxygen COPDAE -Duonebs -Oxygen - advair UTI with chronic coburn -Pt has been on Cefepime as out pt -[place] cultures pending - Merrem and vanco PAfib -start theraputic dose Lovenox -Pt is on Coumadin as out pt. INR is < 2 CHF hx - 01/20/2021 showed mild systolic dysfunction with an EF of 45 to 50%. Pulmonary HTN DM -SSI -Accu checks VICTOR M MIRANDA DO Mar 01, 2021 04:42
[2021-03-01] MEDS ORDERED: SODIUM PHOSPHATE INJ 15 MM in D5W 100 ML IVPB 100 ML IV ONE (04:45)
[2021-03-01] MEDS ORDERED: MAGNESIUM 1 GM/100 ML IVPB 200 ML IV ONE (04:45)
[2021-03-01] MEDS: MEROPENEM 500 MG in WATER (STERILE) FOR INJECTION 10 ML IV SCH ×4 (05:02→23:48)
[2021-03-01] MEDS: VANCOMYCIN 1 GM/NS 250 ML IVPB IV SCH ×4 (05:02→17:42)
[2021-03-01] MEDS: inSUlin ASPART (NovoLOG) 1 UNIT/0.01 ML (CHARGE PER UNIT) SC SCH ×4 (05:02→21:07)
[2021-03-01] MEDS: MAGNESIUM 1 GM/100 ML IVPB 100 ML IV SCH ×2 (05:02→06:23)
[2021-03-01] MEDS: RT--FLUTICASONE/SALMETEROL 113-14 (AIRDUO RespiCLICK) IH SCH ×2 (06:46→21:31)
--- NOTE | 2021-03-01 07:40 | Diagnostic Imaging Report ---
EXAMINATION: Chest 1 view HISTORY: Followup. Respiratory failure. COMPARISON: 02/28/2021. FINDINGS: Increasing opacities are seen in the bilateral perihilar regions with continued consolidative opacities in the bilateral lung bases. Increasing small to moderate pleural effusions are seen. No pneumothorax. Stable prominent cardiac silhouette. IMPRESSION: 1. Increased perihilar opacities bilaterally. 2. Increasing small to moderate pleural effusions with bibasilar opacities present. 3. Stable prominent cardiac silhouette. Dictated by: Dictated on workstation # [id number]
[2021-03-01] MEDS: FUROSEMIDE 40 MG/4 ML INJ (LASIX) IVP SCH (07:45)
[2021-03-01] MEDS: PANTOPRAZOLE 40 MG (PROTONIX) VIAL IV SCH (07:45)
[2021-03-01] MEDS: ENOXAPARIN 300 MG/3 ML (LOVENOX) MULTI-DOSE VIAL SQ SCH ×2 (07:45→21:25)
--- NOTE | 2021-03-01 09:56 | Cardiology Progress Note ---
Subjective Date Seen by Provider: Mar 01, 2021 Time Seen by Provider: 09:55 Subjective/Events-last exam Patient was seen at bedside, sitting comfortably, having mild shortness of breath, using 3 L nasal cannula Review of Systems General: No Chills, No Night Sweats; Fatigue, Malaise; No Appetite, No Other HEENT: No Head Aches, No Visual Changes, No Eye Pain, No Ear Pain, No Dysphasia, No Sinus Congestion, No Post Nasal Drip, No Sore Throat, No Other Pulmonary: Dyspnea; No Cough, No Pleuritic Chest Pain, No Other Cardiovascular: No: Chest Pain, Palpitations, Orthopnea, Paroxysmal Noc. Dyspnea, Edema, Lt Headedness, Other Focused Exam Lactate Level 02/27/21 20:30: Lactic Acid Level 1.33 Objective-Cardiology Exam Last Set of Vital Signs Vital Signs 02/28/21 03/01/21 03/01/21 23:05 08:00 08:32 Temp 36.4 Pulse 90 Resp 19 B/P (MAP) 152/84 (106) Pulse Ox 96 O2 Delivery High Flow N/C O2 Flow Rate 3.00 FiO2 30 Capillary Refill : Less Than 3 Seconds I&O Intake and Output 03/01/21 00:00 Intake Total 1535 ml Output Total 1775 ml Balance -240 ml Intake Oral 1275 ml IV Total 260 ml Output Urine Total 1775 ml General: Alert, Oriented X3, Cooperative HEENT: Atraumatic, PERRLA Neck: Supple, No JVD, No Thyromegaly Lungs: Normal Air Movement, Other (Bilateral rhonchi) Heart: Normal S1, Normal S2, No Murmurs, Other (Irregular rhythm) Abdomen: Normal Bowel Sounds, Soft, No Tenderness, No Hepatosplenomegaly, No Masses Extremities: No Clubbing, No Cyanosis, No Edema, Normal Pulses, No Tenderness/Swelling Skin: No Rashes, No Breakdown, No Significant Lesion Neuro: Normal Gait, Normal Speech, Strength at 5/5 X4 Ext, Normal Tone, Sensation Intact Psych/Mental Status: Mental Status NL, Mood NL Results Lab Laboratory Tests 03/01/21 03:25 A/P-Cardiology Admission Diagnosis Acute respiratory failure Acute exacerbation of COPD Congestive heart failure Pneumonia Assessment/Plan Status post acute respiratory failure with exacerbation of COPD, improving slowly. Managed by Dr. Cortez Pneumonia, receiving antibiotics. Managed by primary care team Congestive heart failure, acute on chronic left ventricular systolic dysfunction, last echo done in January 2021 showing mild left ventricular systolic dysfunction with EF 45 to 50%, had pulmonary hypertension. Continue with diuretics and monitor Persistent atrial fibrillation, diagnosed in January 2021, rate is controlled. Continue to monitor CHADs-VASc score of 5, yearly stroke risk 7.2%. Restart Coumadin and monitor INR Oxygen dependent COPD, managed by primary care team. Pulmonary hypertension, PA pressure 55 to 60 mmHg, likely due to severe COPD. MAHAD CRUMP MD Mar 01, 2021 9:56 am
--- NOTE | 2021-03-01 10:12 | Physical Therapy Evaluation ---
PT Evaluation-General Medical Diagnosis Admission Date Feb 27, 2021 at 18:04 Medical Diagnosis: respiratory failure Onset Date: Feb 27, 2021 Therapy Diagnosis Therapy Diagnosis: debility/weakness Height/Weight Height (Feet): 5 Height (Inches): 9.00 Weight (Pounds): 225 Precautions Precautions/Isolations: Seizure, Fall Prevention, Standard Precautions, Pressure Ulcer Weight Bear Status Right Lower Extremity: Right Partial Weight Bearing Left Lower Extremity: Left Partial Weight Bearing Referral Physician: Dana Reason for Referral: Evaluation/Treatment Medical History Pertinent Medical History: Atrial Fib, Alcoholism, COPD, DM, Heart Failure, HTN, Neuropathy, Smoking Additional Medical History [facility] lift transfer at [facility] Current History EMS from [place] secondary to [facility] Reviewed History: Yes Social History Home: Skilled Nursing Prior Prior Level of Function SCALE: Activities may be completed with or without assistive devices. 2-Tpsbybkizv-cfipnsi completes the activity by him/herself with no assistance from a helper. 5-Set-up or Clean-up Assistance-helper sets up or cleans up; patient completes activity. [place] assists only prior to or following the activity. 4-Supervision or Touching Assistance-helper provides verbal cues and/or touching/steadying and/or contact guard assistance as patient completes activity. Assistance may be provided throughout the activity or intermittently. 3-Partial/Moderate Assistance-helper does LESS THAN HALF the effort. [place] lifts, holds or supports trunk or limbs, but provides less than half the effort. 2-Substantial/Maximal Assistance-helper does MORE THAN HALF the effort. [place] l ifts or holds trunk or limbs and provides more than half the effort. 8-Fxfzsahql-ifdaor does ALL the effort. Patient does none of the effort to complete the activity. Or, the assistance of 2 or more helpers is required for the patient to complete the activity. If activity was not attempted, code reason: 7-Patient Refused. 9-Not Applicable-not attempted and the patient did not perform the activity before the current illness, exacerbation or injury. 10-Not Attempted due to Environmental Limitations-(lack of equipment, weather restraints, etc.). 88-Not Attempted due to Medical Conditions or Safety Concerns. Bed Mobility: 1 Transfers (B,C,W/C): 1 (Katy lift) Gait: 9 Stairs: 9 Wheelchair Mobility: 1 Indoor Mobility (Ambulation): Not Applicalbe Stairs: Not Applicalbe Prior Devices Use: Manual wheelchair, Mechanical lift PT Evaluation-Current Subjective Patient reluctantly agrees to PT. Objective Patient Orientation: Person, Time, Situation Attachments: Oxygen, Suprapubic Catheter, IV ROM/Strength ROM Lower Extremities bilateral LE WFL Strength Lower Extremities 3-/5 grossly bilateral LE Integumentary/Posture Integumentary refer to nursing notes Bowel Incontinence: Yes Bladder Incontinence: No (suprapubic cath) Neuromuscular (Tone, Coordination, Reflexes) severely diminished due to inactivity PLOF Sensory Vision: Functional Hearing: Impaired Sensation Right Lower Extremit: Impaired Sensation Left Lower Extremity: Impaired Transfers Roll Left to Right (QC): 1 Sit to Lying (QC): 1 Lying to Sitting/Side of Bed(Q: 1 Sit to Stand (QC): 9 Chair/Pov-eo-Nyeeo Xfer(QC): 7 Gait Does the Patient Walk?: No and Walking Goal NOT indicated Balance Sitting Static: Fair Sitting Dynamic: Fair Assessment/Needs 75 y.o. male, will be seen short term by skilled PT to address functional s trength. Patient is a Katy lift transfer due to weakness and inactivity PLOF at [place]. Nursing notified. Rehab Potential: Guarded PT Correction Goals Correction Goals PT Business Editor Goals Time Frame: Mar 12, 2021 Roll Left & Right (QC): 2 Sit to Lying (QC): 2 Lying-Sitting on Side/Bed(QC): 2 Sit to Stand (QC): 9 Chair/Wue-dn-Nhsnu Xfer(QC): 1 PT Plan Problem List Problem List: Activity Tolerance, Functional Strength, Safety, Balance, Transfer, Bed Mobility Treatment/Plan Treatment Plan: Continue Plan of Care Treatment Plan: Bed Mobility, Education, Functional Activity Ken, Functional Strength, Safety, Therapeutic Exercise Treatment Duration: Mar 12, 2021 Frequency: 5 times per week Estimated Hrs Per Day: .25 hour per day Patient and/or Family Agrees t: Yes Time/GCodes Time In: 830 Time Out: 844 Total Billed Treatment Time: 14 Total Billed Treatment 1 visit EVMod 14 min SELVIN RODRIGUEZ PT Mar 01, 2021 10:12
[2021-03-01] MEDS: DIGOXIN 0.25 MG (LANOXIN) TAB PO SCH (10:46)
[2021-03-01] MEDS: meTOprolol TARTRATE 25 MG (LOPRESSOR) TABLET PO SCH ×2 (10:46→21:25)
--- NOTE | 2021-03-01 13:27 | Occupational Therapy Eval ---
OT Evaluation-General/PLF Medical Diagnosis Admission Date Feb 27, 2021 at 18:04 Medical Diagnosis: respiratory failure Onset Date: Feb 27, 2021 Therapy Diagnosis Therapy Diagnosis: Weakness Height/Weight Height (Feet): 5 Height (Inches): 9.00 Weight (Pounds): 225 Precautions Precautions/Isolations: Seizure, Fall Prevention, Standard Precautions, Pressure Ulcer Referral Physician: Dana Referral Reason: Activity Tolerance, Self Care, Evaluation/Treatment, Strengthening/ROM Medical History Pertinent Medical History: Atrial Fib, Alcoholism, COPD, DM, Heart Failure, H TN, Neuropathy, Smoking Additional Medical History HLD, Suprapubic catheter Reviewed History: Yes Social History Home: Custodial Current Living Status: Entry Into Home: Level Entry ADL-Prior Level of Function SCALE: Activities may be completed with or without assistive devices. 2-Qdlpgclpwf-ntdyfit completes the activity by him/herself with no assistance from a helper. 5-Set-up or Clean-up Assistance-helper sets up or cleans up; patient completes activity. [place] assists only prior to or following the activity. 4-Supervision or Touching Assistance-helper provides verbal cues and/or touching/steadying and/or contact guard assistance as patient completes activity. Assistance may be provided throughout the activity or intermittently. 3-Partial/Moderate Assistance-helper does LESS THAN HALF the effort. [place] lifts, holds or supports trunk or limbs, but provides less than half the effort. 2-Substantial/Maximal Assistance-helper does MORE THAN HALF the effort. [place] lifts or holds trunk or limbs and provides more than half the effort. 9-Mvhrzlfrv-meifxk does ALL the effort. Patient does none of the effort to complete the activity. Or, the assistance of 2 or more helpers is required for the patient to complete the activity. If activity was not attempted, code reason: 7-Patient Refused. 9-Not Applicable-not attempted and the patient did not perform the activity b efore the current illness, exacerbation or injury. 10-Not Attempted due to Environmental Limitations-(lack of equipment, weather restraints, etc.). 88-Not Attempted due to Medical Conditions or Safety Concerns. ADL PLOF Comments Pt. is inconsistent with history. He states that he lives in an assisted living, but when questioned, reports that he has been at [facility]. When asked what prompted him having to go to NH, pt. states that he has been in [facility], and other facilities, and that he had pneumonia. Pt. is able to verbalize that he uses a wheelchair for most mobility at assisted living, but does use walker to transfer. However, when asked when the last time he functionally ambulated with walker was, pt. verbalizes that it was a month ago. Pt. does state that he receives full assistance to bathe/dress at assisted living. Self Care: Needed Some Help Functional Cognition: Unknown OT Current Status Subjective Pt. does not report pain. Appearance Pt. in bed. Alert. Mental Status/Objective Patient Orientation: Unable to Assess Attachments: IV, Oxygen, Suprapubic Catheter, Telemetry Current Hand Dominance: Right Upper Extremity ROM Pt. has very limited AROM in bilateral shoulders. States that it is from arthritis. Upper Extremity Strength 2/5 bilateral shoulders 3/5 bilateral elbows, fingers ADL-Treatment Eating (QC): 4 (Nursing taking away tray of food when OT enters room. Pt. reports that he was able to feed self. Clinical judgement suggests that pt. required SBA at minimum.) Lower Body Dressing (QC): 1 (Clinical judgement suggests pt. requires dependent assistance.) On/Off Footwear (QC): 1 Toileting Hygiene (QC): 1 Other Treatments Pt. at bed level. OT encourages pt. to work on bed mobility, and to demonstrate core strength with sitting up/forward in bed. Pt. is able to assist self into forward flexed position. However, he is unable to maintain it. OT encourages pt. to transfer to side of bed. Pt. is able to start bringing legs to EOB. He is unable to assist any further and OT brings legs over side, and then assists pt. into seated position. However, pt. is retropulsive and is able to stay in this position without falling backward. Pt. is laid back down and positioned to comfort level. Notes suggest that pt. requires [place] lift transfer at [place]. However, pt. is unable to fully articulate this. All needs met in room. Education OT Patient Education: Correct positioning, Modified ADL techniques, Progress toward Goal/Update tx plan, Purpose of tx/functional activities, Reviewed precautions, Rehab process, Transfer techniques Teaching Recipient: Patient Teaching Methods: Demonstration, Discussion Response to Teaching: Reinforcement Needed OT Short Term Goals Short Term Goals Time Frame: Mar 08, 2021 Eatin Oral hygiene: 4 Upper body dressin OT Solids Control Technician Goals Fpc Goals Time Frame: Mar 15, 2021 Eating (QC): 5 Oral Hygiene (QC): 5 Upper Body Dressing (QC): 4 Additional Goals: 1-Demonstrate ADL Tasks, 2-Verbalize Understanding, 3- ImproveStrength/Ken 1=Demonstrate adherence to instructed precautions during ADL tasks. 2=Patient will verbalize/demonstrate understanding of assistive devices/modifications for ADL. 3=Patient will improve strength/tolerance for activity to enable patient to perform ADL's. OT Education/Plan Problem List/Assessment Assessment: Decreased Activ Tolerance, Decreased UE Strength, Dependent Transfers, Impaired Bed Mobility, Impaired Cognition, Impaired Funct Balance, Impaired I ADL's, Impaired Self-Care Skills, Restricted Funct UE ROM Discharge Recommendations Plan/Recommendations: Continue POC Therapy Discharge Recommendati: 24 Hour Supervision, Post Acute OT Treatment Plan/Plan of Care Treatment,Training & Education: Yes Patient would benefit from OT for education, treatment and training to promote independence in ADL's, mobility, safety and/or upper extremity function for ADL's. Plan of Care: ADL Retraining, Functional Mobility, UE Funct Exercise/Act Treatment Duration: Mar 15, 2021 Frequency: 5 times per week Estimated Hrs Per Day: .25 hour per day Agreement: Yes Rehab Potential: Guarded Time/GCodes Start Time: 12:50 Stop Time: 13:05 Total Time Billed (hr/min): 15 Billed Treatment Time 1, GAETANO MCGEE OT Mar 01, 2021 13:27
[2021-03-01] MEDS ORDERED: TROUGH ORDER-PHARMACY XX NR (17:00)
[2021-03-01] MEDS: warFARin 5 MG (COUMADIN) TAB PO SCH (17:13)
--- NOTE | 2021-03-01 19:30 | Progress Note ---
Subjective Subjective/Events-last exam Patient states that he is somewhat feeling better. Continues on oxygen. Baseline activity patient is in wheelchair and able to help with transfers but requires assistance. Tolerating PO diet. Review of Systems General: Malaise Pulmonary: Dyspnea, Cough Cardiovascular: No: Chest Pain, Palpitations Gastrointestinal: No: Nausea, Vomiting, Abdominal Pain, Diarrhea, Constipation Genitourinary: Frequency Neurological: Weakness, Incoordination Focused Exam Lactate Level 02/27/21 20:30: Lactic Acid Level 1.33 Objective Exam Last Set of Vital Signs Vital Signs Date Time Temp Pulse Resp B/P (MAP) Pulse Ox O2 Delivery O2 Flow Rate FiO2 03/01/21 19:10 36.9 84 18 131/79 (96) 96 High Flow N/C 3.00 02/28/21 23:05 30 Capillary Refill : Less Than 3 Seconds I&O Intake and Output 03/01/21 00:00 Intake Total 1535 ml Output Total 1775 ml Balance -240 ml Intake Oral 1275 ml IV Total 260 ml Output Urine Total 1775 ml General: Alert, Oriented X3, Mild Distress (with any activity gets noticably short of breath) Lungs: Other (diminished breath sounds) Heart: No Murmurs Abdomen: Normal Bowel Sounds, Soft, No Tenderness, No Masses Extremities: Other (2+ pitting edema bilaterally) Neuro: Normal Speech, Sensation Intact, Cranial Nerves 3-12 NL Results/Procedures Lab Laboratory Tests 02/28/21 20:30: Glucometer 163H 03/01/21 03:25: White Blood Count 9.2, Red Blood Count 3.40L, Hemoglobin 11.0L, Hematocrit 36L, Mean Corpuscular Volume 105H, Mean Corpuscular Hemoglobin 32, Mean Corpuscular Hemoglobin Concent 31L, Red Cell Distribution Width 13.9, Platelet Count 251, Mean Platelet Volume 9.3, Immature Granulocyte % (Auto) 1, Neutrophils (%) (Auto) 77H, Lymphocytes (%) (Auto) 13, Monocytes (%) (Auto) 7, Eosinophils (%) (Auto) 2, Basophils (%) (Auto) 1, Neutrophils # (Auto) 7.1, Lymphocytes # (Auto) 1.2, Monocytes # (Auto) 0.7, Eosinophils # (Auto) 0.1, Basophils # (Auto) 0.1, Immature Granulocyte # (Auto) 0.1, Sodium Level 134L, Potassium Level 4.0, Chloride Level 94L, Carbon Dioxide Level 28, Anion Gap 12, Blood Urea Nitrogen 18, Creatinine 1.15, Estimat Glomerular Filtration Rate > 60, BUN/Creatinine Ratio 16, Glucose Level 97, Calcium Level 8.4L, Phosphorus Level 2.6, Magnesium Level 1.7 03/01/21 10:18: Glucometer 135H 03/01/21 15:33: Glucometer 127H 03/01/21 17:09: Vancomycin Level Trough 22.1H Microbiology 02/27/21 Blood Culture - Preliminary, Resulted Staph, Coag Neg (BIOFUELS MANAGER) 02/27/21 MRSA Screen - Final, Complete 02/27/21 Urine Culture - Preliminary, Resulted Pseudomonas aeruginosa Enterococcus faecalis Assessment/Plan Assessment/Plan (1) Acute respiratory failure with hypoxia and hypercapnia Status: Acute Assessment & Plan: 03/01: Titrate as tolerated, unsure if patient has baseline oxygen requirement at home prior to admission, MAT protocol, Will transfer out of ICU (2) 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 Assessment & Plan: 03/01: Continue antibiotics, culture growing pseudomonas (3) Pseudomonas infection Status: Acute (4) Acute on chronic systolic (congestive) heart failure Status: Acute Assessment & Plan: 03/01: Cardiology consulted, appreciate recommendations, Strict I/Os (5) Atrial fibrillation, chronic Status: Chronic Assessment & Plan: 03/01: Dr Leslie recommends restarting coumadin, daily INRs, bleeding precautions (6) COPD exacerbation Status: Acute (7) Hypertension Status: Chronic Assessment & Plan: - Continue home meds Qualifiers: Qualified Codes: I10 - Essential (primary) hypertension (8) Hyperlipidemia Status: Chronic Assessment & Plan: - Continue home meds (9) DVT prophylaxis Status: Acute Assessment & Plan: - Lovenox bridge, restarting coumadin - Hospice consult made, patient states that he is not quite ready for hospice but he did want to be DNR LELA FONTENOT MD Mar 01, 2021 19:30
[2021-03-01] MEDS ORDERED: meTOprolol TARTRATE 25 MG (LOPRESSOR) TABLET PO SCH (21:00)
[2021-03-02] MEDS: RT-ALBUTEROL/IPRATROPIUM 3 ML (DUONEB) VIAL INH SCH ×6 (02:07→21:50)
[2021-03-02 03:00] VITALS: BP 128/82
[2021-03-02] MEDS: MEROPENEM 500 MG in WATER (STERILE) FOR INJECTION 10 ML IV SCH ×4 (05:18→23:44)
[2021-03-02 06:12] LABS: BASOPHILS # (AUTO) 0.1 10^3/uL (0.0-0.1); BASOPHILS % (AUTO) 1 % (0-10); EOSINOPHILS # (AUTO) 0.2 10^3/uL (0.0-0.3); EOSINOPHILS % (AUTO) 2 % (0-10); HEMATOCRIT 37 % (40-54); HEMOGLOBIN 11.3 g/dL (13.3-17.7); LYMPHOCYTES # (AUTO) 1.2 10^3/uL (1.0-4.0); LYMPHOCYTES % (AUTO) 12 % (12-44); MEAN CORPUSCULAR HEMOGLOBIN 32 pg (25-34); MEAN CORPUSCULAR HGB CONC 31 g/dL (32-36); MEAN CORPUSCULAR VOLUME 105 fL (80-99); MEAN PLATELET VOLUME 9.7 fL (9.0-12.2); MONOCYTES # (AUTO) 0.6 10^3/uL (0.0-1.0); MONOCYTES % (AUTO) 6 % (0-12); NEUTROPHILS # (AUTO) 7.9 10^3/uL (1.8-7.8); NEUTROPHILS % (AUTO) 79 % (42-75); PLATELET COUNT 293 10^3/uL (130-400)
[2021-03-02] MEDS: VANCOMYCIN 1 GM/NS 250 ML IVPB IV SCH ×2 (06:18)
[2021-03-02 06:27] LABS: POTASSIUM 4.1 MMOL/L (3.6-5.0); PROTHROMBIN TIME PATIENT 13.5 SEC (12.2-14.7)
[2021-03-02 06:28] LABS: CALCIUM 8.7 MG/DL (8.5-10.1)
[2021-03-02] MEDS: inSUlin ASPART (NovoLOG) 1 UNIT/0.01 ML (CHARGE PER UNIT) SC SCH ×4 (06:30→20:32)
[2021-03-02 06:32] LABS: CREATININE SERUM 1.23 MG/DL (0.60-1.30); PHOSPHORUS 3.8 MG/DL (2.3-4.7)
[2021-03-02 06:35] LABS: MAGNESIUM 2.1 MG/DL (1.6-2.4)
[2021-03-02] MEDS: RT--FLUTICASONE/SALMETEROL 113-14 (AIRDUO RespiCLICK) IH SCH ×2 (06:45→19:00)
[2021-03-02] MEDS ORDERED: FURO40TA4 PO (08:07)
[2021-03-02] MEDS ORDERED: SIME180C65 PO (08:07)
[2021-03-02] MEDS ORDERED: DILT240C87 PO (08:07)
[2021-03-02] MEDS ORDERED: DIGO250T3 PO (08:07)
[2021-03-02] MEDS ORDERED: WARF-48 PO (08:07)
[2021-03-02] MEDS ORDERED: IPRA3AMP31 IH (08:07)
[2021-03-02 08:09] VITALS: BP 132/61
[2021-03-02] MEDS: ENOXAPARIN 300 MG/3 ML (LOVENOX) MULTI-DOSE VIAL SQ SCH ×2 (08:15→20:32)
[2021-03-02] MEDS: FUROSEMIDE 40 MG/4 ML INJ (LASIX) IVP SCH (08:15)
[2021-03-02] MEDS: PANTOPRAZOLE 40 MG (PROTONIX) TAB PO SCH (08:16)
[2021-03-02] MEDS: meTOprolol TARTRATE 25 MG (LOPRESSOR) TABLET PO SCH ×2 (08:16→20:31)
[2021-03-02] MEDS: DIGOXIN 0.25 MG (LANOXIN) TAB PO SCH (08:16)
[2021-03-02] MEDS ORDERED: DIGOXIN 0.25 MG (LANOXIN) TAB PO SCH (09:00)
--- NOTE | 2021-03-02 09:48 | Occupational Ther Daily Note ---
OT Current Status-Daily Note Subjective Pt. verbalizes that he is having pain in low back and legs with sitting EOB. Does not report pain level, but requests to lay down. Mental Status/Objective Patient Orientation: Person, Place Attachments: IV, Oxygen ADL-Treatment Therapy Code Descriptions/Definitions Functional [place] Measure: 0=Not Assessed/NA 4=Minimal Assistance 1=Total Assistance 5=Supervision or Setup 2=Maximal Assistance 6=Modified [place] 3=Moderate Assistance 7=Complete IndependenceSCALE: Activities may be completed with or without assistive devices. 2-Emcgfvkqdo-igjrijg completes the activity by him/herself with no assistance from a helper. 5-Set-up or Clean-up Assistance-helper sets up or cleans up; patient completes activity. [place] assists only prior to or following the activity. 4-Supervision or Touching Assistance-helper provides verbal cues and/or touching/steadying and/or contact guard assistance as patient completes activity. Assistance may be provided throughout the activity or intermittently. 3-Partial/Moderate Assistance-helper does LESS THAN HALF the effort. [place] lifts, holds or supports trunk or limbs, but provides less than half the effort. 2-Substantial/Maximal Assistance-helper does MORE THAN HALF the effort. [place] lifts or holds trunk or limbs and provides more than half the effort. 6-Xfszzummx-kxkwbm does ALL the effort. Patient does none of the effort to complete the activity. Or, the assistance of 2 or more helpers is required for the patient to complete the activity. If activity was not attempted, code reason: 7-Patient Refused. 9-Not Applicable-not attempted and the patient did not perform the activity before the current illness, exacerbation or injury. 10-Not Attempted due to Environmental Limitations-(lack of equipment, weather restraints, etc.). 88-Not Attempted due to Medical Conditions or Safety Concerns. Oral Hygiene (QC): 4 (SBA to sit EOB and brush teeth.) Other Treatment Pt. agrees to work with OT. Transfers supine-sit with hard max assist. Pt. is able to be brought far enough to EOB, that he is able to balance self in "slumped" position. Pt. is able to brush teeth after set up and with SBA. He is able to wash face with warm washcloth. Pt. completes several LE exercises seated, such as leg kicks. Pt. begins to report that it hurts to sit EOB. Transfers sit-supine with max x 2. Bed mobility performed with max x 2. Pt. was receiving full assistance at [place] for showering/bathing. Therefore, this will not be OT goal at this facility, as it is not skilled for him. All needs met. Education OT Patient Education: Correct positioning, Modified ADL techniques, Progress toward Goal/Update tx plan, Purpose of tx/functional activities, Reviewed precautions, Rehab process, Transfer techniques Teaching Recipient: Patient Teaching Methods: Demonstration, Discussion Response to Teaching: Verbalize Understanding, Return Demonstration, Reinforcement Needed OT Short Term Goals Short Term Goals Time Frame: Mar 08, 2021 Eatin Oral hygiene: 4 Upper body dressin OT [facility] Goals Tower Helper Goals Time Frame: Mar 15, 2021 Eating (QC): 5 Oral Hygiene (QC): 5 Upper Body Dressing (QC): 4 Additional Goals: 1-Demonstrate ADL Tasks, 2-Verbalize Understanding, 3- ImproveStrength/Ken 1=Demonstrate adherence to instructed precautions during ADL tasks. 2=Patient will verbalize/demonstrate understanding of assistive devices/modifications for ADL. 3=Patient will improve strength/tolerance for activity to enable patient to perform ADL's. OT Education/Plan Problem List/Assessment Assessment: Decreased Activ Tolerance, Decreased UE Strength, Dependent Transfers, Impaired Bed Mobility, Impaired Funct Balance, Impaired I ADL's, Impaired Self-Care Skills, Restricted Funct UE ROM Discharge Recommendations Plan/Recommendations: Continue POC Therapy Discharge Recommendati: 24 Hour Supervision, Post Acute OT Treatment Plan/Plan of Care Treatment,Training & Education: Yes Patient would benefit from OT for education, treatment and training to promote independence in ADL's, mobility, safety and/or upper extremity function for ADL's. Plan of Care: ADL Retraining, Functional Mobility, UE Funct Exercise/Act Treatment Duration: Mar 15, 2021 Frequency: 5 times per week Estimated Hrs Per Day: .25 hour per day Agreement: Yes Rehab Potential: Fair Time/GCodes Start Time: 09:15 Stop Time: 09:32 Total Time Billed (hr/min): 17 Billed Treatment Time 1, ADL GAETANO PARIKH OT Mar 02, 2021 09:48
--- NOTE | 2021-03-02 10:17 | Physical Therapy Daily Note ---
PT Daily Note-Current Subjective Patient agrees to exercises only. Mental Status Patient Orientation: Person, Time, Situation Attachments: Oxygen, Suprapubic Catheter, IV Transfers SCALE: Activities may be completed with or without assistive devices. 4-Nqfrilernx-qsfneir completes the activity by him/herself with no assistance from a helper. 5-Set-up or Clean-up Assistance-helper sets up or cleans up; patient completes activity. [place] assists only prior to or following the activity. 4-Supervision or Touching Assistance-helper provides verbal cues and/or touching/steadying and/or contact guard assistance as patient completes activi ty. Assistance may be provided throughout the activity or intermittently. 3-Partial/Moderate Assistance-helper does LESS THAN HALF the effort. [place] lifts, holds or supports trunk or limbs, but provides less than half the effort. 2-Substantial/Maximal Assistance-helper does MORE THAN HALF the effort. [place] lifts or holds trunk or limbs and provides more than half the effort. 4-Qkkrfoesy-gwmbhj does ALL the effort. Patient does none of the effort to complete the activity. Or, the assistance of 2 or more helpers is required for the patient to complete the activity. If activity was not attempted, code reason: 7-Patient Refused. 9-Not Applicable-not attempted and the patient did not perform the activity before the current illness, exacerbation or injury. 10-Not Attempted due to Environmental Limitations-(lack of equipment, weather restraints, etc.). 88-Not Attempted due to Medical Conditions or Safety Concerns. Weight Bearing Right Lower Extremity: Right Partial Weight Bearing Left Lower Extremity: Left Partial Weight Bearing Exercises Supine Ex: Ankle pumps, Quad Set, Heel Slides, Straight leg raise, Hip abd/add Supine Reps: 10 (2 sets AAROM) Assessment Patient tolerates minimal activity and ceased treatment due to not feeling well. Patient declined OOB with [place]y Lift at this time. PT Legal Word Processor Goals Correction Goals PT Legal Word Processor Goals Time Frame: Mar 12, 2021 Roll Left & Right (QC): 2 Sit to Lying (QC): 2 Lying-Sitting on Side/Bed(QC): 2 Sit to Stand (QC): 9 Chair/Vzu-pb-Vtjrk Xfer(QC): 1 PT Plan Treatment/Plan Treatment Plan: Continue Plan of Care Treatment Plan: Bed Mobility, Education, Functional Activity Ken, Functional Strength, Safety, Therapeutic Exercise Treatment Duration: Mar 12, 2021 Frequency: 5 times per week Estimated Hrs Per Day: .25 hour per day Patient and/or Family Agrees t: Yes Time/GCodes Time In: 846 Time Out: 859 Total Billed Treatment Time: 13 Total Billed Treatment 1 visit EX 13 min SELVIN RODRIGUEZ PT Mar 02, 2021 10:17
--- NOTE | 2021-03-02 11:07 | Cardiology Progress Note ---
Subjective Date Seen by Provider: Mar 02, 2021 Time Seen by Provider: 11:06 Subjective/Events-last exam Patient was seen at bedside, laying down comfortably, still having shortness of breath. No new complaint Review of Systems General: No Chills, No Night Sweats; Fatigue; No Malaise, No Appetite, No Other HEENT: No Head Aches, No Visual Changes, No Eye Pain, No Ear Pain, No Dysphasia, No Sinus Congestion, No Post Nasal Drip, No Sore Throat, No Other Pulmonary: Dyspnea; No Pleuritic Chest Pain, No Other Cardiovascular: No: Chest Pain, Palpitations, Orthopnea, Paroxysmal Noc. Dyspnea, Edema, Lt Headedness, Other Focused Exam Lactate Level 02/27/21 20:30: Lactic Acid Level 1.33 Objective-Cardiology Exam Last Set of Vital Signs Vital Signs 02/28/21 03/02/21 03/02/21 23:05 08:09 10:34 Temp 36.7 Pulse 80 Resp 18 B/P (MAP) 132/61 (84) Pulse Ox 99 O2 Delivery Nasal Cannula O2 Flow Rate 3.00 FiO2 30 Capillary Refill : Less Than 3 Seconds I&O Intake and Output 03/02/21 00:00 Intake Total 2270 ml Output Total 2620 ml Balance -350 ml Intake Oral 1685 ml IV Total 585 ml Output Urine Total 2620 ml General: Alert, Oriented X3, Mild Distress (with any activity gets noticably short of breath) HEENT: Atraumatic, PERRLA Neck: Supple, No JVD, No Thyromegaly Lungs: Other (diminished breath sounds) Heart: Normal S1, Normal S2, No Murmurs Abdomen: Normal Bowel Sounds, Soft, No Tenderness, No Masses Extremities: Other (2+ pitting edema bilaterally) Skin: No Rashes, No Breakdown, No Significant Lesion Neuro: Normal Speech, Sensation Intact, Cranial Nerves 3-12 NL Psych/Mental Status: Mental Status NL, Mood NL Results Lab Laboratory Tests 03/02/21 05:29 A/P-Cardiology Admission Diagnosis Acute respiratory failure Acute exacerbation of COPD Congestive heart failure Pneumonia Assessment/Plan Status post acute respiratory failure with exacerbation of COPD, improving slowly. Managed by Dr. Cortez Pneumonia, receiving antibiotics. Managed by primary care team Recurrent UTI with Pseudomonas, managed by primary care team Staff aureus grew in blood culture on February 27, I will repeat 2 sets of blood culture and evaluate. Echocardiogram did not show any vegetation. Congestive heart failure, acute on chronic left ventricular systolic dysfunction, last echo done in January 2021 showing mild left ventricular systolic dysfunction with EF 45 to 50%, had pulmonary hypertension. Continue with diuretics and monitor Persistent atrial fibrillation, diagnosed in January 2021, rate is controlled. Continue to monitor CHADs-VASc score of 5, yearly stroke risk 7.2%. Restart Coumadin and monitor INR Oxygen dependent COPD, managed by primary care team. Pulmonary hypertension, PA pressure 55 to 60 mmHg, likely due to severe COPD. MAHAD CRUMP MD Mar 02, 2021 11:07
[2021-03-02 11:47] VITALS: BP 128/73
[2021-03-02 15:55] VITALS: BP 110/77
[2021-03-02] MEDS: warFARin 5 MG (COUMADIN) TAB PO SCH (17:55)
--- NOTE | 2021-03-02 18:51 | Progress Note ---
Subjective Subjective/Events-last exam Patient sleeping comfortably this AM, easily awoken. Denies any concerns. States that he feels much better. States that he only wears oxygen at night. Tolerating PO diet. Review of Systems Pulmonary: No Dyspnea, No Cough Cardiovascular: No: Chest Pain, Palpitations Gastrointestinal: No: Nausea, Vomiting, Abdominal Pain, Diarrhea Neurological: Weakness, Incoordination Focused Exam Lactate Level 02/27/21 20:30: Lactic Acid Level 1.33 Objective Exam Last Set of Vital Signs Vital Signs Date Time Temp Pulse Resp B/P (MAP) Pulse Ox O2 Delivery O2 Flow Rate FiO2 03/02/21 15:55 36.8 86 18 110/77 (88) 96 High Flow N/C 0.50 02/28/21 23:05 30 Capillary Refill : Less Than 3 Seconds I&O Intake and Output 03/02/21 00:00 Intake Total 2270 ml Output Total 2620 ml Balance -350 ml Intake Oral 1685 ml IV Total 585 ml Output Urine Total 2620 ml General: Alert, Oriented X3, Cooperative Lungs: Clear to Auscultation, Normal Air Movement Heart: Regular Rate, No Murmurs Abdomen: Normal Bowel Sounds, Soft, No Tenderness, No Masses Extremities: Other (1+ pitting edema equal bilaterally) Skin: No Rashes, No Breakdown Neuro: Normal Speech, Sensation Intact, Cranial Nerves 3-12 NL Results/Procedures Lab Laboratory Tests 03/01/21 20:57: Glucometer 135H 03/02/21 05:29: White Blood Count 10.0, Red Blood Count 3.50L, Hemoglobin 11.3L, Hematocrit 37L, Mean Corpuscular Volume 105H, Mean Corpuscular Hemoglobin 32, Mean Corpuscular Hemoglobin Concent 31L, Red Cell Distribution Width 13.9, Platelet Count 293, Mean Platelet Volume 9.7, Immature Granulocyte % (Auto) 1, Neutrophils (%) (Auto) 79H, Lymphocytes (%) (Auto) 12, Monocytes (%) (Auto) 6, Eosinophils (%) (Auto) 2, Basophils (%) (Auto) 1, Neutrophils # (Auto) 7.9H, Lymphocytes # (Auto) 1.2, Monocytes # (Auto) 0.6, Eosinophils # (Auto) 0.2, Basophils # (Auto) 0.1, Immature Granulocyte # (Auto) 0.1, Prothrombin Time 13.5, INR Comment 1.0, Sodium Level 137, Potassium Level 4.1, Chloride Level 94L, Carbon Dioxide Level 30, Anion Gap 13, Blood Urea Nitrogen 17, Creatinine 1.23, Estimat Glomerular Filtration Rate 57, BUN/Creatinine Ratio 14, Glucose Level 101, Calcium Level 8.7, Phosphorus Level 3.8, Magnesium Level 2.1 03/02/21 11:39: Glucometer 107 03/02/21 16:02: Glucometer 113H Microbiology 02/27/21 Blood Culture - Preliminary, Resulted Staph, Coag Neg (DRIVER HELPER) 02/27/21 MRSA Screen - Final, Complete 02/27/21 Urine Culture - Final, Complete Pseudomonas aeruginosa Enterococcus faecalis Assessment/Plan Assessment/Plan (1) Acute respiratory failure with hypoxia and hypercapnia Status: Acute Assessment & Plan: 03/01: Titrate as tolerated, unsure if patient has baseline oxygen requirement at home prior to admission, MAT protocol, Will transfer out of ICU 03/02: No oxygen requirement at baseline during the daytime, will titrate as tolerated, Continue IV antibiotics, will transition to PO tomorrow and possibly d/c back to NH (2) 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 Assessment & Plan: 03/01: Continue antibiotics, culture growing pseudomonas (3) Pseudomonas infection Status: Acute (4) Acute on chronic systolic (congestive) heart failure Status: Acute Assessment & Plan: 03/01: Cardiology consulted, appreciate recommendations, Strict I/Os 03/02: Transition to PO Lasix tomorrow (5) Atrial fibrillation, chronic Status: Chronic Assessment & Plan: 03/01: Dr Leslie recommends restarting coumadin, daily INRs, bleeding precautions (6) COPD exacerbation Status: Acute (7) Hypertension Status: Chronic Assessment & Plan: - Continue home meds Qualifiers: Qualified Codes: I10 - Essential (primary) hypertension (8) Hyperlipidemia Status: Chronic Assessment & Plan: - Continue home meds (9) DVT prophylaxis Status: Acute Assessment & Plan: - Lovenox bridge, restarting coumadin - Hospice consult made, patient states that he is not quite ready for hospice but he did want to be DNR LELA FONTENOT MD Mar 02, 2021 18:51
[2021-03-02 20:00] VITALS: BP 129/60
[2021-03-02 23:44] VITALS: BP 128/78
[2021-03-03] MEDS: RT-ALBUTEROL/IPRATROPIUM 3 ML (DUONEB) VIAL INH SCH ×3 (02:17→11:06)
[2021-03-03 04:00] VITALS: BP 118/78
[2021-03-03 05:21] LABS: BASOPHILS # (AUTO) 0.1 10^3/uL (0.0-0.1); BASOPHILS % (AUTO) 1 % (0-10); EOSINOPHILS # (AUTO) 0.2 10^3/uL (0.0-0.3); EOSINOPHILS % (AUTO) 2 % (0-10); HEMATOCRIT 34 % (40-54); HEMOGLOBIN 10.7 g/dL (13.3-17.7); LYMPHOCYTES # (AUTO) 1.4 10^3/uL (1.0-4.0); LYMPHOCYTES % (AUTO) 15 % (12-44); MEAN CORPUSCULAR HEMOGLOBIN 33 pg (25-34); MEAN CORPUSCULAR HGB CONC 32 g/dL (32-36); MEAN CORPUSCULAR VOLUME 105 fL (80-99); MEAN PLATELET VOLUME 9.1 fL (9.0-12.2); MONOCYTES # (AUTO) 0.6 10^3/uL (0.0-1.0); MONOCYTES % (AUTO) 7 % (0-12); NEUTROPHILS # (AUTO) 6.9 10^3/uL (1.8-7.8); NEUTROPHILS % (AUTO) 75 % (42-75); PLATELET COUNT 263 10^3/uL (130-400); WHITE BLOOD COUNT 9.2 10^3/uL (4.3-11.0)
[2021-03-03] MEDS: MEROPENEM 500 MG in WATER (STERILE) FOR INJECTION 10 ML IV SCH ×2 (05:29→13:19)
[2021-03-03 05:30] LABS: CHLORIDE 93 MMOL/L (98-107); INR 1.1 (0.8-1.4); POTASSIUM 3.9 MMOL/L (3.6-5.0); PROTHROMBIN TIME PATIENT 14.1 SEC (12.2-14.7); SODIUM 132 MMOL/L (135-145)
[2021-03-03 05:32] LABS: GLUCOSE 95 MG/DL (70-105)
[2021-03-03 05:33] LABS: CARBON DIOXIDE 30 MMOL/L (21-32)
[2021-03-03 05:35] LABS: PHOSPHORUS 2.7 MG/DL (2.3-4.7)
[2021-03-03 05:36] LABS: BUN/CREATININE RATIO 13; CREATININE SERUM 1.15 MG/DL (0.60-1.30); GFR ESTIMATED > 60
[2021-03-03 05:38] LABS: MAGNESIUM 1.9 MG/DL (1.6-2.4)
[2021-03-03] MEDS: inSUlin ASPART (NovoLOG) 1 UNIT/0.01 ML (CHARGE PER UNIT) SC SCH ×2 (05:43→13:19)
[2021-03-03] MEDS: RT--FLUTICASONE/SALMETEROL 113-14 (AIRDUO RespiCLICK) IH SCH (07:08)
--- NOTE | 2021-03-03 07:18 | Pulmonary Progress Note ---
Subjective Time Seen by a Provider: 07:14 Subjective/Events-last exam No complications noted. Sepsis Event Evaluation Height, Weight, BMI Height: 5'9.00" Weight: 225lbs. oz. 102.949326kd; 34.84 BMI Method:Stated Exam Exam Vital Signs Date Time Temp Pulse Resp B/P (MAP) Pulse Ox O2 Delivery O2 Flow Rate FiO2 03/03/21 04:00 36.4 84 18 118/78 (91) 99 High Flow N/C 2.00 03/03/21 02:17 96 Nasal Cannula 2.00 03/03/21 01:00 86 03/02/21 23:44 36.1 73 18 128/78 (95) 98 High Flow N/C 2.00 03/02/21 21:50 96 Nasal Cannula 2.00 03/02/21 20:13 High Flow N/C 0.50 03/02/21 20:00 36.2 88 18 129/60 (83) 94 High Flow N/C 0.50 03/02/21 19:00 92 Nasal Cannula 0.50 03/02/21 19:00 92 03/02/21 15:55 36.8 86 18 110/77 (88) 96 High Flow N/C 0.50 03/02/21 14:21 95 Nasal Cannula 1.00 03/02/21 12:26 79 03/02/21 11:47 36.1 79 17 128/73 (91) 98 High Flow N/C 3.00 03/02/21 10:34 99 Nasal Cannula 3.00 03/02/21 08:09 36.7 80 18 132/61 (84) 97 High Flow N/C 3.00 03/02/21 08:00 High Flow N/C 3.00 I & O 03/03/21 06:59 Intake Total 2950 ml Output Total 2350 ml Balance 600 ml Height & Weight Height: 5'9.00" Weight: 225lbs. oz. 102.405109kd; 34.84 BMI Method:Stated General Appearance: No Apparent Distress, Anxious, Chronically ill, Obese HEENT: PERRL/EOMI, Normal ENT Inspection, Pharynx Normal, Moist Mucous Membranes Neck: Full Range of Motion, Normal Inspection, Non Tender Respiratory: Chest Non Tender, Lungs Clear, No Respiratory Distress, Accessory Muscle Use, Decreased Breath Sounds Cardiovascular: No Edema, No Gallop, No JVD, No Murmur, Normal Peripheral Pulses, Irregularly Irregular Capillary Refill: Less Than 3 Seconds Extremity: Normal Capillary Refill, Normal Inspection, Normal Range of Motion, Non Tender, No Calf Tenderness, No Pedal Edema Neurologic/Psychiatric: Alert, Oriented x3, No Motor/Sensory Deficits, Normal Mood/Affect Skin: Normal Color, Warm/Dry Lymphatic: No Adenopathy Results Lab Laboratory Tests 03/02/21 05:29 03/03/21 05:10 Assessment/Plan Assessment/Plan Acute respiratory failure -- Improving -Currenlty on 2 liter NC -PT is a DNR -Oxygen COPDAE -Duonebs -Oxygen - advair UTI with pseudomonus and enterococcus -[place] cultures pending - Merrem and vanco PAfib -start theraputic dose Lovenox -Pt is on Coumadin as out pt. INR is < 2 CHF hx - 01/20/2021 showed mild systolic dysfunction with an EF of 45 to 50%. Pulmonary HTN DM -SSI -Accu checks VICTOR M MIRANDA DO Mar 03, 2021 07:18
[2021-03-03 07:52] VITALS: BP 125/75
[2021-03-03] MEDS: FUROSEMIDE 40 MG/4 ML INJ (LASIX) IVP SCH (08:43)
[2021-03-03] MEDS: meTOprolol TARTRATE 25 MG (LOPRESSOR) TABLET PO SCH (08:44)
[2021-03-03] MEDS: ENOXAPARIN 300 MG/3 ML (LOVENOX) MULTI-DOSE VIAL SQ SCH (08:44)
[2021-03-03] MEDS: DIGOXIN 0.25 MG (LANOXIN) TAB PO SCH (08:44)
[2021-03-03] MEDS: PANTOPRAZOLE 40 MG (PROTONIX) TAB PO SCH (08:44)
[2021-03-03] MEDS ORDERED: VANCOMYCIN 1250 MG/NS 250 ML IVPB IV SCH ×2 (09:00)
--- NOTE | 2021-03-03 10:12 | Cardiology Progress Note ---
Subjective Date Seen by Provider: Mar 03, 2021 Time Seen by Provider: 10:09 Subjective/Events-last exam Patient is sitting up in bed, denies any chest pain or increased dyspnea Objective-Cardiology Exam Last Set of Vital Signs Vital Signs 02/28/21 03/03/21 03/03/21 03/03/21 23:05 11:07 12:00 13:26 Temp 36.2 Pulse 75 Resp 16 B/P (MAP) 126/67 (86) Pulse Ox 94 O2 Delivery Nasal Cannula O2 Flow Rate 1.00 FiO2 30 Capillary Refill : Less Than 3 Seconds I&O Intake and Output 03/03/21 00:00 Intake Total 2950 ml Output Total 2375 ml Balance 575 ml Intake Oral 2950 ml Output Urine Total 2375 ml General: Alert, Oriented X3, Cooperative HEENT: Atraumatic, PERRLA Neck: Supple, No JVD, No Thyromegaly Lungs: Clear to Auscultation, Normal Air Movement Heart: Regular Rate, No Murmurs Abdomen: Normal Bowel Sounds, Soft, No Tenderness, No Masses Extremities: Other (1+ pitting edema equal bilaterally) Skin: No Rashes, No Breakdown Neuro: Normal Speech, Sensation Intact, Cranial Nerves 3-12 NL Psych/Mental Status: Mental Status NL, Mood NL Results Lab Laboratory Tests 03/03/21 05:10 A/P-Cardiology Admission Diagnosis Acute respiratory failure Acute exacerbation of COPD Congestive heart failure Pneumonia Assessment/Plan Status post acute respiratory failure with exacerbation of COPD, improving slowly. Managed by Dr. Cortez Pneumonia, receiving antibiotics. Managed by primary care team Recurrent UTI with Pseudomonas, managed by primary care team Staff aureus grew in blood culture on February 27, I will repeat 2 sets of blood culture and evaluate. Echocardiogram did not show any vegetation. Congestive heart failure, acute on chronic left ventricular systolic dysfunction, last echo done in January 2021 showing mild left ventricular systolic dysfunction with EF 45 to 50%, had pulmonary hypertension. Continue with diuretics and monitor Persistent atrial fibrillation, diagnosed in January 2021, rate is controlled. Continue to monitor CHADs-VASc score of 5, yearly stroke risk 7.2%. Restarted Coumadin on 03/01/21, continue to monitor INR. Oxygen dependent COPD, managed by primary care team. Pulmonary hypertension, PA pressure 55 to 60 mmHg, likely due to severe COPD. Patient was seen and evaluated with Tiffanie, examination performed, management plan was discussed, agree with the current scribed note, I made few changes to the note using Italic font Patient was improving slowly, has repeat blood culture pending Maintained on oral anticoagulation to reduce the risk of stroke Oxygen dependent Managed by primary care team TIFFANIE CALDWELL Mar 03, 2021 10:12 MAHAD CRUMP MD Mar 03, 2021 16:55
--- NOTE | 2021-03-03 11:09 | Discharge Summary ---
Diagnosis/Chief Complaint Date of Admission Feb 27, 2021 at 18:04 Date of Discharge Discharge Diagnosis Problems/Diagnosis: (1) Acute respiratory failure with hypoxia and hypercapnia Assessment & Plan: 03/01: Titrate as tolerated, unsure if patient has baseline oxygen requirement at home prior to admission, MAT protocol, Will transfer out of ICU 03/02: No oxygen requirement at baseline during the daytime, will titrate as tolerated, Continue IV antibiotics, will transition to PO tomorrow and possibly d/c back to NH Status: Acute (2) Chronic UTI (urinary tract infection) Assessment & Plan: 03/01: Continue antibiotics, culture growing pseudomonas Status: Chronic (3) Pseudomonas infection Status: Acute (4) Acute on chronic systolic (congestive) heart failure Assessment & Plan: 03/01: Cardiology consulted, appreciate recommendations, Strict I/Os 03/02: Transition to PO Lasix tomorrow Status: Acute (5) Atrial fibrillation, chronic Assessment & Plan: 03/01: Dr Leslie recommends restarting coumadin, daily INRs, bleeding precautions Status: Chronic (6) COPD exacerbation Status: Acute (7) Hypertension Assessment & Plan: - Continue home meds Qualifiers: Qualified Codes: I10 - Essential (primary) hypertension Status: Chronic (8) Hyperlipidemia Assessment & Plan: - Continue home meds Status: Chronic (9) DVT prophylaxis Assessment & Plan: - Lovenox bridge, restarting coumadin - Hospice consult made, patient states that he is not quite ready for hospice but he did want to be DNR Status: Acute Discharge Summary-Simple/Stand Consultations Discharge Physical Examination Allergies: Coded Allergies: No Known Drug Allergies (Unverified , 01/30/19) Vitals & I&Os Vital Sign - Last 12Hours Date Time Temp Pulse Resp B/P (MAP) Pulse Ox O2 Delivery O2 Flow Rate FiO2 03/03/21 11:07 94 1.00 03/03/21 11:06 Room Air 03/03/21 07:52 36.2 83 15 125/75 (92) 02/28/21 23:05 30 Intake and Output 03/03/21 00:00 Intake Total 2300 ml Output Total 2025 ml Balance 275 ml Hospital Course See final discharge diagnosis. Discharge Instructions to patient/family Please see electronic discharge instructions given to patient. Discharge Medications Reviewed and agree with Discharge Medication list on patient's Discharge Instruction sheet LELA FONTENOT MD Mar 03, 2021 11:09
[2021-03-03] MEDS ORDERED: LEVO500T80 PO (11:33)
--- NOTE | 2021-03-03 11:34 | Discharge Summary ---
Discharge [facility] Reconcile Patient Problems Problems Reviewed?: Yes Discharge Medications New, Converted or Re-Newed RX: Transmitted to Pharmacy New Medications: Levofloxacin (Levofloxacin) 500 Mg Tablet 500 MG PO DAILY, #7 TAB Continued Medications: Allopurinol (Allopurinol) 100 Mg Tablet 100 MG PO DAILY, TAB Atorvastatin Calcium (Atorvastatin Calcium) 10 Mg Tablet 10 MG PO DAILY, TAB Budesonide/Formoterol Fumarate (Symbicort 160-4.5 Mcg Inhaler) 10.2 Gm Hfa.ae r.ad 2 PUFF IH BID, INHALER Digoxin (Digoxin) 250 Mcg Tablet 250 MCG PO DAILY, TAB Diltiazem HCl (Diltiazem ER) 240 Mg Capsule.er 240 MG PO DAILY, CAP Docusate Sodium (Docusate Sodium) 100 Mg Tablet 100 MG PO BID, TAB Fluticasone Propion/Salmeterol (Fluticasone-Salmeterol 250-50) 1 Each Blst.w.dev 1 EACH IH BID Furosemide (Furosemide) 40 Mg Tablet 40 MG PO DAILY, TAB Ipratropium/Albuterol Sulfate (Iprat-Albut 0.5-3(2.5) mg/3 ml) 3 Ml Ampul.neb 3 ML IH TID, EACH Lactobacillus Acidophilus (Probiotic) 1 Each Capsule 1 EACH PO BID, CAP Metoprolol Tartrate (Metoprolol Tartrate) 25 Mg Tablet 25 MG PO BID, TAB Mv-Mn/FA/Coq10/Lycopene/Lutein (Theragran-M Premier 50+ Caplet) 1 Each Tablet 1 EACH PO DAILY, TAB Nystatin (Nystatin) 1 Each Powder.ea. 1 EACH TOP TID, UNIT Pantoprazole Sodium (Pantoprazole Sodium) 40 Mg Tablet.dr 40 MG PO DAILY, TAB Phenobarbital (Phenobarbital) 32.4 Mg Tablet 32.4 MG PO BID, TAB Simethicone (Simethicone) 180 Mg Capsule 180 MG PO BID, CAP Thiamine HCl (B-1) 100 Mg Tablet 100 MG PO DAILY, TAB Warfarin Sodium (Warfarin Sodium) 5 Mg Tablet 5 MG PO DAILY, TAB Discontinued Medications: Gabapentin (Gabapentin) 100 Mg Capsule 100 MG PO HS, CAP Patient Instructions Goal/Follow Up Appt: Your PCP provider will see you at the facility Activity & Diet Discharge Diet: Cardiac Diet Orders-Post D/C & Referrals Daily INR until between 2-3, then contact PCP for routine order LELA FONTENOT MD Mar 03, 2021 11:14
[2021-03-03 12:00] VITALS: BP 126/67
--- NOTE | 2021-03-03 13:26 | Discharge Summary ---
Discharge Summary Reconcile Patient Problems Problems Reviewed?: Yes Hospital Course Hospital Course Date of Admission: Feb 27, 2021 at 18:04 Admission Diagnosis : Family Physician/Provider: Wellington Miranda MD Date of Discharge: 03/03/21 Discharge Diagnosis: Acute Respiratory Failure with Hypoxia Chronic UTI Pseudomonas UTI Acute on Chronic systolic CHF Atrial Fibrillation COPD Exacerbation HTN HLD Debility Hospital Course: See problem list Labs and Pending Lab Test: Laboratory Tests 03/02/21 16:02: Glucometer 113H 03/02/21 20:02: Glucometer 135H 03/03/21 05:10: White Blood Count 9.2, Red Blood Count 3.23L, Hemoglobin 10.7L, Hematocrit 34L, Mean Corpuscular Volume 105H, Mean Corpuscular Hemoglobin 33, Mean Corpuscular Hemoglobin Concent 32, Red Cell Distribution Width 13.7, Platelet Count 263, Mean Platelet Volume 9.1, Immature Granulocyte % (Auto) 1, Neutrophils (%) (A uto) 75, Lymphocytes (%) (Auto) 15, Monocytes (%) (Auto) 7, Eosinophils (%) (Auto) 2, Basophils (%) (Auto) 1, Neutrophils # (Auto) 6.9, Lymphocytes # (Auto) 1.4, Monocytes # (Auto) 0.6, Eosinophils # (Auto) 0.2, Basophils # (Auto) 0.1, Immature Granulocyte # (Auto) 0.1, Prothrombin Time 14.1, INR Comment 1.1, Sodium Level 132L, Potassium Level 3.9, Chloride Level 93L, Carbon Dioxide Level 30, Anion Gap 9, Blood Urea Nitrogen 15, Creatinine 1.15, Estimat Glomerular F iltration Rate > 60, BUN/Creatinine Ratio 13, Glucose Level 95, Calcium Level 8.0L, Phosphorus Level 2.7, Magnesium Level 1.9 Microbiology 02/27/21 Blood Culture - Preliminary, Resulted Staph, 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) 02/27/21 MRSA Screen - Final, Complete 02/27/21 Urine Culture - Final, Complete Pseudomonas aeruginosa Enterococcus faecalis Home Meds Active Levofloxacin 500 Mg Tablet 500 Mg PO DAILY Reported Warfarin Sodium 5 Mg Tablet 5 Mg PO DAILY Iprat-Albut 0.5-3(2.5) mg/3 ml (Ipratropium/Albuterol Sulfate) 3 Ml Ampul.neb 3 Ml IH TID Furosemide 40 Mg Tablet 40 Mg PO DAILY Diltiazem ER (Diltiazem HCl) 240 Mg Capsule.er 240 Mg PO DAILY Digoxin 250 Mcg Tablet 250 Mcg PO DAILY Simethicone 180 Mg Capsule 180 Mg PO BID B-1 (Thiamine HCl) 100 Mg Tablet 100 Mg PO DAILY Theragran-M Premier 50+ Caplet (Mv-Mn/FA/Coq10/Lycopene/Lutein) 1 Each Tablet 1 Each PO DAILY Phenobarbital 32.4 Mg Tablet 32.4 Mg PO BID Nystatin 1 Each Powder.ea. 1 Each TOP TID Metoprolol Tartrate 25 Mg Tablet 25 Mg PO BID Probiotic (Lactobacillus Acidophilus) 1 Each Capsule 1 Each PO BID Fluticasone-Salmeterol 250-50 (Fluticasone Propion/Salmeterol) 1 Each Blst.w.dev 1 Each IH BID Docusate Sodium 100 Mg Tablet 100 Mg PO BID Symbicort 160-4.5 Mcg Inhaler (Budesonide/Formoterol Fumarate) 10.2 Gm Hf a.aer.ad 2 Puff IH BID Atorvastatin Calcium 10 Mg Tablet 10 Mg PO DAILY Pantoprazole Sodium 40 Mg Tablet.dr 40 Mg PO DAILY Allopurinol 100 Mg Tablet 100 Mg PO DAILY Follow Up Appt.: PCP to see patient in [place] Skilled NF Admit to: Certification (SNF) I certify that SNF services are required to be given on an inpatient basis because of the above named patient's need for half-way care on a continuing basis for the conditions(s) for which he/she was receiving inpatient hospital services prior to his/her transfer to the SNF. Half-Way Facility Order: Nursing Services, Radiologic Technology Instructor-Evaluate & Treat, Physical Therapy-Evaluate & Treat Oxygen Delivery Method: Nasal Cannula (At night only on previous order, no changes) Discharge Diet: Cardiac Diet Daily Activity as Tolerated: Yes Resuscitation Status: Do Not Resuscitate Lela Loza Mar 03, 2021 13:23 Discharge Physical Exam General: Alert, Oriented X3, Cooperative Lungs: Clear to Auscultation, Normal Air Movement Heart: No Murmurs Abdomen: Normal Bowel Sounds, Soft, No Tenderness, No Masses Extremities: Other (1 pitting edema bilaterally) Skin: No Rashes, No Breakdown Neuro: Normal Speech, Sensation Intact, Cranial Nerves 3-12 NL LELA LOZA MD Mar 03, 2021 13:26
--- NOTE | 2021-03-04 13:53 | Physician Query Clarification ---
PQ-Intro New Diagnosis Admission/Discharge Admission Date: Feb 27, 2021 at 18:04 Discharge Date: Mar 03, 2021 at 13:36 Dr. Loza, The medical record reflects the following clinical scenario: History/Risk Factors: acute on chronic respiratory failure w/hypoxia/hypercapnia, pneumonia, HTN acute on chronic systolic CHF, COPD AE Clinical Findings: T35.9, P 103, R 26, BP 203/88, WBC 15.5, Lactic 1.33 Preliminary blood cultures staph, C02 retention with AMS/confusion Treatment: IV Merrem, IV Vancomycin Bipap Question: What condition best reflects the above clinical scenario? Please document a response in the Progress Noter or Discharge Summary. 1. Sepsis 2. No sepsis. Diagnoses as listed 3. Other, with explanation of the clinical findings. 4. Clinically undetermined, no explanation for the clinical findings. Please remember a lack of response to the above will prompt a phone page by CDI/Coding staff. In responding to this query, please exercise your independent professional judgment. The purpose of this communication is to more accurately reflect the complexity of your patients condition. The fact that a question is asked does not imply that any particular answer is desired or expected. Thank you for your timely response to this clarification. Requestors name: [email or web address] THIS PHYSICIAN QUERY FORM IS A PERMANENT PART OF THE MEDICAL RECORD HANNAH MICHAEL Mar 04, 2021 13:53
--- NOTE | 2021-03-04 13:56 | Physician Query Clarification ---
PQ-Link Infection to Dev/Proc Admission/Discharge Admission Date: Feb 27, 2021 at 18:04 Discharge Date: Mar 03, 2021 at 13:36 Dr. Loza, The medical record reflects the following clinical scenario: History/Risk Factors: acute on chronic respiratory failure w/hypoxia/hypercapnia, pneumonia, HTN acute on chronic systolic CHF, COPD AE. UTI Clinical Finding: Chronic coburn, Urine culture pseudomonas, enteroccus Treatment: IV Merrem, IV Vancomycin, d/c coburn Question: Can you specify if the UTI is due to/associated with coburn? Please document a response in Progress Note or Discharge Summary. 1. Yes - UTI is due to/associated with coburn. 2. No - UTI is not due to/associated with coburn. 3. Other, with explanation of the clinical findings. 4. Clinically undetermined, no explanation for the clinical findings. Please remember a lack of response to the above will prompt a phone page by CDI/Coding staff. In responding to this query, please exercise your independent professional judgment. The purpose of this communication is to more accurately reflect the complexity of your patients condition. The fact that a question is asked does not imply that any particular answer is desired or expected. Thank you for your timely response to this clarification. Requestors name: Hannah THIS PHYSICIAN QUERY FORM IS A PERMANENT PART OF THE MEDICAL RECORD HANNAH MICHAEL Mar 04, 2021 13:56
== END 2021-03-03 13:36 | DRG 189 ==
LOC: EDUNIT# 16:02 → ER FS 16:05 → ICU 18:04 → 4TH 03-01 15:13
PROVIDERS: ADMIT Internal Medicine; ATTEND Family Medicine
PROC: 5A09457 Assistance with Respiratory Ventilation, 24-96 Consecutive Hours, Continuous Positive Airway Pressure (ICD-10-PCS; principal; 2021-02-27)
DX: J96.21 Acute and chronic respiratory failure with hypoxia (principal); J18.9 Pneumonia, unspecified organism; I50.23 Acute on chronic systolic (congestive) heart failure; T83.518A Infection and inflammatory reaction due to other urinary catheter, initial encounter; J44.0 Chronic obstructive pulmonary disease with (acute) lower respiratory infection; J44.1 Chronic obstructive pulmonary disease with (acute) exacerbation; N39.0 Urinary tract infection, site not specified; I48.19 Other persistent atrial fibrillation; J96.22 Acute and chronic respiratory failure with hypercapnia; Z66 Do not resuscitate; I11.0 Hypertensive heart disease with heart failure; I27.20 Pulmonary hypertension, unspecified; E78.00 Pure hypercholesterolemia, unspecified; G40.909 Epilepsy, unspecified, not intractable, without status epilepticus; N31.9 Neuromuscular dysfunction of bladder, unspecified; K21.9 Gastro-esophageal reflux disease without esophagitis; M10.9 Gout, unspecified; E11.40 Type 2 diabetes mellitus with diabetic neuropathy, unspecified; E78.5 Hyperlipidemia, unspecified; B96.5 Pseudomonas (aeruginosa) (mallei) (pseudomallei) as the cause of diseases classified elsewhere; F17.210 Nicotine dependence, cigarettes, uncomplicated; Z79.01 Long term (current) use of anticoagulants; Z99.81 Dependence on supplemental oxygen
CPT/HCPCS: 36415; 71045; 80048; 80053; 80202; 81000; 82805; 82962; 83605; 83735; 83880; 84100; 84145; 84484; 85007; 85025; 85027; 85610; 85730; 87040; 87077; 87081; 87088; 87186; 93005; 94640; 94660; 94760; 94761; 96374; 96375; 99291

== ENCOUNTER 2021-03-10 20:18 | Emergency (ER) | payer MEDICARE, MEDICAID ==
[~2021-03-10 20:18] MED LIST changes: +DIGO250T3 PO; +DILT240C87 PO; +LEVO500T80 PO; +SIME180C65 PO; +WARF-48 PO
--- NOTE | 2021-03-10 20:37 | ED Dyspnea ---
General Chief Complaint: Respiratory Problems Stated Complaint: SOA Source of Information: Patient, EMS, Longterm Records, Old Records History of Present Illness Date Seen by Provider: Mar 10, 2021 Time Seen by Provider: 20:18 Initial Comments 75-year-old male presenting from [facility] via EMS. He was having increased shortness of breath in the last hour or 2 prior to arrival. He does have chronic respiratory failure with heart failure and chronic O2 requirem ent. He has recently been discharged from the hospital a week ago after having respiratory failure and distress. He feels that they have not given him his Lasix in the middle of the day like the were supposed to in the last 2 days. He was eating and eating solid sandwich this evening and suddenly started having more trouble breathing. He denies having any swallowing difficulty or choking but after he started getting short of breath he became more anxious and was having more shortness of breath. Staff increased his oxygen to 5 L but he was still having difficulty picking up a good oxygen saturation waveform. EMS switched him over to their oxygen and 6 L by nasal cannula and he started to calm down. By the time he arrived in the emergency department things were improving. He denied any fever or chills. He has a cough with productive sputum that is white and clear. This has been a chronic problem. He does have an indwelling catheter. He reported some mild nausea but no vomiting. He was not having any pain on arrival. Allergies and Home Medications Allergies Coded Allergies: No Known Drug Allergies (Unverified , 01/30/19) Home Medications Albuterol Sulfate 2.5 Mg/3 Ml Vial.neb, 2.5 MG INH Q6H PRN for SHORTNESS OF BREATH Prescribed by: TREVA CANCHOLA on 03/10/212215 Allopurinol 100 Mg Tablet, 100 MG PO DAILY, (Reported) Atorvastatin Calcium 10 Mg Tablet, 10 MG PO DAILY, (Reported) Budesonide/Formoterol Fumarate 10.2 Gm Hfa.aer.ad, 2 PUFF IH BID, (Reported) Digoxin 250 Mcg Tablet, 250 MCG PO DAILY, (Reported) Diltiazem HCl 240 Mg Capsule.er, 240 MG PO DAILY, (Reported) Docusate Sodium 100 Mg Tablet, 100 MG PO BID, (Reported) Fluticasone Propion/Salmeterol 1 Each Blst.w.dev, 1 EACH IH BID, (Reported) Furosemide 40 Mg Tablet, 40 MG PO DAILY, (Reported) Furosemide 80 Mg Tablet, 80 MG PO DAILY Prescribed by: TREVA CANCHOLA on 03/10/216 Ipratropium/Albuterol Sulfate 3 Ml Ampul.neb, 3 ML IH TID, (Reported) Lactobacillus Acidophilus 1 Each Capsule, 1 EACH PO BID, (Reported) Levofloxacin 500 Mg Tablet, 500 MG PO DAILY Prescribed by: LELA FONTENOT on 03/03/21 1133 Metoprolol Tartrate 25 Mg Tablet, 25 MG PO BID, (Reported) Mv-Mn/FA/Coq10/Lycopene/Lutein 1 Each Tablet, 1 EACH PO DAILY, (Reported) Nystatin 1 Each Powder.ea., 1 EACH TOP TID, (Reported) Pantoprazole Sodium 40 Mg Tablet.dr, 40 MG PO DAILY, (Reported) Phenobarbital 32.4 Mg Tablet, 32.4 MG PO BID, (Reported) Simethicone 180 Mg Capsule, 180 MG PO BID, (Reported) Thiamine HCl 100 Mg Tablet, 100 MG PO DAILY, (Reported) Warfarin Sodium 5 Mg Tablet, 5 MG PO DAILY, (Reported) Patient Home Medication List Home Medication List Reviewed: Yes Review of Systems Review of Systems Constitutional: No chills, No diaphoresis, No fever; malaise EENTM: no symptoms reported Respiratory: see HPI Cardiovascular: No chest pain Gastrointestinal: nausea; No vomiting Genitourinary: see HPI Musculoskeletal: no symptoms reported Skin: no symptoms reported Psychiatric/Neurological: Weakness (Generalized) Past Giymezs-Tfsaxu-Lxlwuz Hx Past Med/Social Hx: Reviewed Nursing Past Med/Soc Hx Patient Social History Alcohol Beverage of Choice: Whiskey Type Used: Cigarettes 2nd Hand Smoke Exposure: Yes Recent Hopitalizations: No Immunizations Up To Date Tetanus Booster (TDap): Unknown Date of Influenza Vaccine: Aug 19, 2020 Seasonal Allergies Seasonal Allergies: Yes Past Medical History Surgeries: Yes (suprapubic catheter placement) Respiratory: Yes Chronic Bronchitis, COPD Cardiac: Yes High Cholesterol, Hypertension Neurological: Yes Neuropathy, Seizure Disorder Genitourinary: Yes (suprapubic catheter) Neurogenic Bladder Gastrointestinal: Yes Gastroesophageal Reflux Musculoskeletal: Yes (spinal degeneration/uses wheelchair) Gout Endocrine: Yes Diabetes, Non-Insulin dep HEENT: No Cancer: No Psychosocial: No Integumentary: No Blood Disorders: No Family Medical History NC Physical Exam Vital Signs Vital Signs - First Documented 03/10/21 03/10/21 20:18 20:20 Temp 36.6 Pulse 112 Resp 33 B/P (MAP) 191/102 (131) Pulse Ox 90 O2 Delivery Nasal Cannula O2 Flow Rate 6.00 Capillary Refill : Height, Weight, BMI Height: 5'9.00" Weight: 225lbs. oz. 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 Norm as Tested Skin: Warm/Dry Focused Exam Lactate Level 03/10/21 20:25: Lactic Acid Level 1.22 Lactic Acid Level Laboratory Tests Test 03/10/21 20:25 Lactic Acid Level 1.22 MMOL/L (0.50-2.00) Procedures/Interventions Date of ETT Placement: Jan 23, 2021 Time of ETT Placement: 161 Progress/Results/Core Measures Results/Orders Lab Results Laboratory Tests Test 03/10/21 20:25 Range/Units White Blood Count 17.6 H 4.3-11.0 10^3/uL Red Blood Count 3.80 L 4.35-5.85 10^6/uL Hemoglobin 12.4 L 13.3-17.7 G/DL Hematocrit 38 L 40-54 % Mean Corpuscular Volume 100 H 80-99 FL Mean Corpuscular Hemoglobin 33 25-34 PG Mean Corpuscular Hemoglobin Concent 33 32-36 G/DL Red Cell Distribution Width 13.2 10.0-14.5 % Platelet Count 386 130-400 10^3/uL Mean Platelet Volume 9.0 7.4-10.4 FL Immature Granulocyte % (Auto) 2 % Neutrophils (%) (Auto) 83 H 42-75 % Lymphocytes (%) (Auto) 7 L 12-44 % Monocytes (%) (Auto) 5 0-12 % Eosinophils (%) (Auto) 3 0-10 % Basophils (%) (Auto) 1 0-10 % Neutrophils # (Auto) 14.6 H 1.8-7.8 X 10^3 Lymphocytes # (Auto) 1.2 1.0-4.0 X 10^3 Monocytes # (Auto) 0.8 0.0-1.0 X 10^3 Eosinophils # (Auto) 0.5 H 0.0-0.3 10^3/uL Basophils # (Auto) 0.2 H 0.0-0.1 10^3/uL Immature Granulocyte # (Auto) 0.4 H 0.0-0.1 10^3/uL Neutrophils % (Manual) 83 % Lymphocytes % (Manual) 10 % Monocytes % (Manual) 1 % Eosinophils % (Manual) 2 % Basophils % (Manual) 1 % Metamyelocytes % 3 % Band Neutrophils 0 % Sodium Level 135 135-145 MMOL/L Potassium Level 3.7 3.6-5.0 MMOL/L Chloride Level 92 L 98-107 MMOL/L Carbon Dioxide Level 31 21-32 MMOL/L Anion Gap 12 5-14 MMOL/L Blood Urea Nitrogen 17 7-18 MG/DL Creatinine 1.13 0.60-1.30 MG/DL Estimat Glomerular Filtration Rate > 60 BUN/Creatinine Ratio 15 Glucose Level 210 H 70-105 MG/DL Lactic Acid Level 1.22 0.50-2.00 MMOL/L Calcium Level 8.6 8.5-10.1 MG/DL Corrected Calcium 8.6 8.5-10.1 MG/DL Magnesium Level 1.5 L 1.6-2.4 MG/DL Total Bilirubin 0.3 0.1-1.0 MG/DL Aspartate Amino Transf (AST/SGOT) 29 5-34 U/L Alanine Aminotransferase (ALT/SGPT) 33 0-55 U/L Alkaline Phosphatase 185 H 40-136 U/L Troponin I < 0.30 <0.30 NG/ML Pro-B-Type Natriuretic Peptide 4361.0 H <75.0 PG/ML Total Protein 7.2 6.4-8.2 GM/DL Albumin 4.0 3.2-4.5 GM/DL My Orders Orders - TREVA CANCHOLA MD Cbc With Automated Diff (03/10/21 20:32) Comprehensive Metabolic Panel (03/10/21 20:32) Blood Culture (03/10/21 20:32) Chest 1 View Ap/Pa Only (03/10/21 20:32) Magnesium (03/10/21 20:32) Ekg Tracing (03/10/21 20:32) O2 (03/10/21 20:32) Ed Iv/Invasive Line Start (03/10/21 20:32) Sputum Culture (03/10/21 20:32) Monitor-Rhythm Ecg Trace Only (03/10/21 20:32) Lactic Acid Analyzer (03/10/21 20:32) Troponin I Fs (03/10/21 20:32) Probnp Fs (03/10/21 20:32) Manual Differential (03/10/21 20:25) Furosemide Injection (Lasix Injection) (03/10/21 21:33) Vital Signs/I&O 03/10/21 03/10/21 03/10/21 20:18 20:20 21:22 Temp 36.6 36.6 Pulse 112 103 Resp 33 25 B/P (MAP) 191/102 (131) 157/71 (99) Pulse Ox 90 90 96 O2 Delivery Nasal Cannula Nasal Cannula O2 Flow Rate 6.00 6.00 Progress Progress Note #1: Progress Note Obtain basic labs as well as blood culture and cardiac enzymes. Electrocardiogram to monitor his tachycardia. Placed on cardiac telemetry monitoring to follow his heart rate and rhythm. Initial telemetry monitoring shows sinus tachycardia without ectopy. He is afebrile but with recent admission to the hospital and feeling worse suddenly will send blood cultures and lactic acid. Since he is coughing up some thick white sputum we will send a sputum culture as well. Differential diagnosis would include anxiety, CHF exacerbation, COPD exacerbation, pneumonia, chronic respiratory failure, myocardial infarction, aspiration pneumonia Progress Note #2: Progress Note Chest x-ray appears stable with slight improvement compared to last week. His electrocardiogram is stable without acute ST elevation or ischemic changes. His telemetry monitoring shows sinus rhythm with heart rate slowing into the 90s and continues to show no ectopy. His labs do show an elevated white blood cell count which may be partly due to stress and anxiety. He has stable chemistry with a negative troponin but does have mild elevation of his proBNP to just over 4000. His symptoms were improved with rest here in the ED. His O2 sat was stable and he was able to be weaned down on his oxygen by nasal cannula to 3 L. He was given a dose of Lasix 40 mg IV to help with diuresis and heart failure. Reviewed with the patient results and he stated he was not wanting to be admitted to the hospital because they had talked about placing him on hospice if he needed to be admitted again. He would like to go back to medical [facility] since his breathing has improved. Will write for an increase in his Lasix for a few days to help with diuresis from CHF standpoint and increase his breathing treatments for a few days to help with his breathing from a COPD standpoint. Counseled to check back with his primary provider about continued symptoms as well. Initial ECG Impression Date: Mar 10, 2021 Initial ECG Impression Time: 20:59 Initial ECG Rate: 107 Initial ECG Rhythm: S.Tach Initial ECG Comparisson: Unchanged Comment Sinus tachycardia with a heart rate of 107 bpm. He had LA interval of [address] elevation. QT interval 282 ms with a QTc interval 377 ms. Chronic repolarization abnormalities in the anterolateral leads. Appears stable from previous tracings Diagnostic Imaging Diagonstic Imaging: Xray Plain Films/CT/US/NM/MRI: chest Comments [facility], [facility]. [place], [place] NAME: NOHEMY HUERTA [facility] REC#: [id number] PT STATUS: REG ER : 1945 PHYSICIAN: TREVA CANCHOLA MD ADMIT DATE: 03/10/21/ER FS Signed Date of Exam:03/10/21 CHEST 1 VIEW AP/PA ONLY EXAMINATION: Chest 1 view. HISTORY: Hypoxia. Shortness of breath. COMPARISON: 03/01/2021. FINDINGS: Cardiomegaly is again noted with decreased central pulmonary vascular congestion. Moderate left and small right pleural effusions are again seen and appear stable. No evidence of pneumothorax. No acute osseous abnormality. IMPRESSION: 1. Cardiomegaly with decreased pulmonary vascular congestion. 2. Stable moderate left and small right pleural effusions. Dictated by: Dictated on workstation # [id number] Dict: 03/10/212102 Trans: 03/10/212113 [facility] [id number] Interpreted by: KURT GOMEZ DO Electronically signed by: KURT GOMEZ DO 03/10/212113 Departure Impression Primary Impression: Dyspnea Qualified Codes: R06.02 - Shortness of breath Additional Impression: Acute on chronic combined systolic and diastolic CHF (congestive heart failure) Disposition: HOME, SELF-CARE Condition: Improved Departure-Patient Inst. Decision time for Depature: 22:11 Referrals: ALCIDES CALI MD (PCP/Family) Primary Care Physician Patient Instructions: Shortness of Breath, Adult ED, Heart Failure, Adult (DC) Add. Discharge Instructions: For the next 5 days take 80 mg of Lasix (Furosemide) to help with heart failure and fluid retention. On March 16 decrease the Lasix (Furosemide) back down to 40 mg a day. Check back with clinic for continued problems/concerns about breathing Use Albuterol Nebulized treatment to help with shortness of breath. All discharge instructions reviewed with patient and/or family. Voiced understanding. Scripts Albuterol Sulfate (Albuterol Sulfate) 2.5 Mg/3 Ml Vial.neb 2.5 MG INH Q6H PRN for SHORTNESS OF BREATH for 30 Days, #75 ML 1 Refill Prov: TREVA CANCHOLA MD 03/10/21 Furosemide (Furosemide) 80 Mg Tablet 80 MG PO DAILY for CHF for 5 Days, #5 TAB 0 Refills Prov: TREVA CANCHOLA MD 03/10/21 TREVA CANCHOLA MD Mar 10, 2021 20:37
[2021-03-10 20:47] LABS: HEMATOCRIT 38 % (40-54); HEMOGLOBIN 12.4 G/DL (13.3-17.7); MEAN CORPUSCULAR HEMOGLOBIN 33 PG (25-34); MEAN CORPUSCULAR HGB CONC 33 G/DL (32-36); MEAN CORPUSCULAR VOLUME 100 FL (80-99); WHITE BLOOD COUNT 17.6 10^3/uL (4.3-11.0)
[2021-03-10 20:48] LABS: PLATELET COUNT 386 10^3/uL (130-400)
[2021-03-10 20:51] LABS: BASOPHILS % (AUTO) 1 % (0-10); EOSINOPHILS % (AUTO) 3 % (0-10); LYMPHOCYTES % (AUTO) 7 % (12-44); MONOCYTES % (AUTO) 5 % (0-12); NEUTROPHILS # (AUTO) 14.6 X 10^3 (1.8-7.8); NEUTROPHILS % (AUTO) 83 % (42-75)
[2021-03-10 20:52] LABS: BASOPHILS # (AUTO) 0.2 10^3/uL (0.0-0.1); EOSINOPHILS # (AUTO) 0.5 10^3/uL (0.0-0.3); LYMPHOCYTES # (AUTO) 1.2 X 10^3 (1.0-4.0); MONOCYTES # (AUTO) 0.8 X 10^3 (0.0-1.0)
--- NOTE | 2021-03-10 21:06 | Diagnostic Imaging Report ---
EXAMINATION: Chest 1 view. HISTORY: Hypoxia. Shortness of breath. COMPARISON: 03/01/2021. FINDINGS: Cardiomegaly is again noted with decreased central pulmonary vascular congestion. Moderate left and small right pleural effusions are again seen and appear stable. No evidence of pneumothorax. No acute osseous abnormality. IMPRESSION: 1. Cardiomegaly with decreased pulmonary vascular congestion. 2. Stable moderate left and small right pleural effusions. Dictated by: Dictated on workstation # [id number]
[2021-03-10 21:09] LABS: BAND NEUTROPHILS 0 %; BASOPHILS % (MANUAL) 1 %; EOSINOPHILS % (MANUAL) 2 %; LYMPHOCYTES % (MANUAL) 10 %; METAMYELOCYTES % 3 %; MONOCYTES % (MANUAL) 1 %; NEUTROPHILS % (MANUAL) 83 %
[2021-03-10 21:12] LABS: POTASSIUM 3.7 MMOL/L (3.6-5.0); SODIUM 135 MMOL/L (135-145)
[2021-03-10 21:13] LABS: ALANINE AMINOTRANSFERASE 33 U/L (0-55); ALKALINE PHOSPHATASE 185 U/L (40-136); BILIRUBIN,TOTAL 0.3 MG/DL (0.1-1.0); BUN/CREATININE RATIO 15; CALCIUM 8.6 MG/DL (8.5-10.1); CARBON DIOXIDE 31 MMOL/L (21-32); CHLORIDE 92 MMOL/L (98-107); CREATININE SERUM 1.13 MG/DL (0.60-1.30); GFR ESTIMATED > 60; GLUCOSE 210 MG/DL (70-105); MAGNESIUM 1.5 MG/DL (1.6-2.4); TOTAL PROTEIN 7.2 GM/DL (6.4-8.2)
[2021-03-10] MEDS ORDERED: FUROSEMIDE 40 MG/4 ML INJ (LASIX) IVP STA (21:33)
[2021-03-10] MEDS ORDERED: FURO80TA3 PO (22:16)
[2021-03-10] MEDS ORDERED: ALBU2.5V4 INH (22:16)
[2021-03-10 22:27] VITALS: BP 145/66
== END 2021-03-10 22:45 | disposition home or self-care (01) ==
LOC: EDUNIT# 20:18 → ER FS 20:19
DX: R06.00 Dyspnea, unspecified (principal); I11.0 Hypertensive heart disease with heart failure; I50.9 Heart failure, unspecified; E78.00 Pure hypercholesterolemia, unspecified; G40.909 Epilepsy, unspecified, not intractable, without status epilepticus; K21.9 Gastro-esophageal reflux disease without esophagitis; M10.9 Gout, unspecified; J44.9 Chronic obstructive pulmonary disease, unspecified; E11.9 Type 2 diabetes mellitus without complications; Z77.22 Contact with and (suspected) exposure to environmental tobacco smoke (acute) (chronic); Z79.01 Long term (current) use of anticoagulants
CPT/HCPCS: 36415; 71045; 80053; 83605; 83735; 83880; 84484; 85007; 85027; 87040; 87070; 87205; 93005; 93041

== ENCOUNTER 2021-03-15 08:14 | Emergency (ER) | payer MEDICARE, MEDICAID ==
[~2021-03-15] VITALS: Ht 175 cm; Wt 90.0 kg
[~2021-03-15 08:14] MED LIST changes: +ALBU2.5V4 INH
--- NOTE | 2021-03-15 08:57 | ED General ---
General Chief Complaint: General Problems/Pain Nursing Triage Note: [facility] REPORTS PT WAS STARING INTO SPACE AND WOULD NOT RESPOND TO THEM VERBALLY. EMS REPORTS NO DEFICITS AND THE PT SPOKE TO THEM UPON ARRIVAL. PT IS AT HIS BASELINE ON ARRIVAL TO ED. Nursing Sepsis Screen: No Definite Risk Source of Information: Patient, EMS, Skilled Nursing Records, Old Records History of Present Illness Date Seen by Provider: Mar 15, 2021 Time Seen by Provider: 08:16 Initial Comments 75-year-old male presenting from [facility] by EMS. They had reported that he was staring off into space and not responding to them. When EMS arrived patient was alert and responding to them. He seems to be at his baseline. He denies any pain after headache. He is aware that he is in the hospital and emergency department. He remembers he was in [place] and then transferred to [facility]. He states he does not remember the nurses coming in to check on him and not being able to talk to them. He denies having any fever or chills, nausea, vomiting, diarrhea, increased swelling in his legs, increased shortness of breath, increased cough. He is a DNR/DNI patient that presents with declining health over the last few months and worse in the last few weeks. He does have an indwelling catheter and was seen last week for CHF exacerbation treated with a few days of increased Lasix. Associated Systoms: No Chest Pain, No Cough, No Diaphoresis, No Fever/Chills, No Headaches; Loss of Appetite, Malaise; No Nausea/Vomiting, No Seizure; Shortness of Air (chronic and no worse than usual); No Syncope; Weakness (generalized) Allergies and Home Medications Allergies Coded Allergies: No Known Drug Allergies (Unverified , 01/30/19) Home Medications Albuterol Sulfate 2.5 Mg/3 Ml Vial.neb, 2.5 MG INH Q6H PRN for SHORTNESS OF BREATH Prescribed by: TREVA CANCHOLA on 03/10/212215 Allopurinol 100 Mg Tablet, 100 MG PO DAILY, (Reported) Atorvastatin Calcium 10 Mg Tablet, 10 MG PO DAILY, (Reported) Budesonide/Formoterol Fumarate 10.2 Gm Hfa.aer.ad, 2 PUFF IH BID, (Reported) Digoxin 250 Mcg Tablet, 250 MCG PO DAILY, (Reported) Diltiazem HCl 240 Mg Capsule.er, 240 MG PO DAILY, (Reported) Docusate Sodium 100 Mg Tablet, 100 MG PO BID, (Reported) Fluticasone Propion/Salmeterol 1 Each Blst.w.dev, 1 EACH IH BID, (Reported) Furosemide 40 Mg Tablet, 40 MG PO DAILY, (Reported) Furosemide 80 Mg Tablet, 80 MG PO DAILY Prescribed by: TREVA CANCHOLA on 03/10/21 2216 Ipratropium/Albuterol Sulfate 3 Ml Ampul.neb, 3 ML IH TID, (Reported) Lactobacillus Acidophilus 1 Each Capsule, 1 EACH PO BID, (Reported) Levofloxacin 500 Mg Tablet, 500 MG PO DAILY Prescribed by: LELA FONTENOT on 03/03/21 1133 Metoprolol Tartrate 25 Mg Tablet, 25 MG PO BID, (Reported) Mv-Mn/FA/Coq10/Lycopene/Lutein 1 Each Tablet, 1 EACH PO DAILY, (Reported) Nystatin 1 Each Powder.ea., 1 EACH TOP TID, (Reported) Pantoprazole Sodium 40 Mg Tablet.dr, 40 MG PO DAILY, (Reported) Phenobarbital 32.4 Mg Tablet, 32.4 MG PO BID, (Reported) Simethicone 180 Mg Capsule, 180 MG PO BID, (Reported) Thiamine HCl 100 Mg Tablet, 100 MG PO DAILY, (Reported) Warfarin Sodium 5 Mg Tablet, 5 MG PO DAILY, (Reported) Patient Home Medication List Home Medication List Reviewed: Yes Review of Systems Review of Systems Constitutional: No chills, No diaphoresis, No dizziness, No fever; malaise, weakness (general) EENTM: no symptoms reported Respiratory: see HPI Cardiovascular: edema (chronic edema) Gastrointestinal: no symptoms reported Genitourinary: no symptoms reported Musculoskeletal: no symptoms reported Skin: no symptoms reported Psychiatric/Neurological: Denies Headache; Weakness (generalized) Past Kfqzwvk-Edtzro-Astomg Hx Past Med/Social Hx: Reviewed Nursing Past Med/Soc Hx Patient Social History Alcohol Use: Denies Use Number of Drinks Today: GG Alcohol Beverage of Choice: Whiskey Smoking Status: Current Everyday Smoker Type Used: Cigarettes 2nd Hand Smoke Exposure: No Recent Infectious Disease Expo: No Recent Hopitalizations: No Immunizations Up To Date Tetanus Booster (TDap): Unknown Date of Influenza Vaccine: Aug 19, 2020 Seasonal Allergies Seasonal Allergies: Yes Past Medical History Surgeries: Yes (suprapubic catheter placement) Respiratory: Yes Chronic Bronchitis, COPD Cardiac: Yes Atrial Fibrillation, Chronic Edema/Swelling, High Cholesterol, Hypertension Neurological: Yes Neuropathy, Seizure Disorder Genitourinary: Yes (suprapubic catheter) Neurogenic Bladder Gastrointestinal: Yes Gastroesophageal Reflux Musculoskeletal: Yes (spinal degeneration/uses wheelchair) Gout Endocrine: Yes Diabetes, Non-Insulin dep HEENT: No Cancer: No Psychosocial: No Integumentary: No Blood Disorders: No Family Medical History NC Physical Exam Vital Signs Vital Signs - First Documented 03/15/21 03/15/21 08:15 09:43 Temp 36.3 Pulse 64 Resp 20 B/P (MAP) 113/66 (82) Pulse Ox 98 O2 Delivery Nasal Cannula O2 Flow Rate 2.00 Capillary Refill : Less Than 3 Seconds Height, Weight, BMI Height: 5'9.00" Weight: 225lbs. oz. 102.781815tv; 29.00 BMI Method:Stated General Appearance: No Apparent Distress, Chronically ill HEENT: PERRL/EOMI, Pharynx Normal Neck: Full Range of Motion, Non Tender Respiratory: Chest Non Tender, No Accessory Muscle Use, No Respiratory Distress, Decreased Breath Sounds Cardiovascular: Regular Rate, Rhythm, Normal Peripheral Pulses Gastrointestinal: No Pulsatile Mass, Non Tender, Soft Rectal: Deferred Extremity: Normal Capillary Refill, Pedal Edema (1 + BLE pitting edema) Neurologic/Psychiatric: Alert, Oriented x3 (slow to answer questions), entry rep II- XII Norm as Tested Skin: Normal Color, Warm/Dry Procedures/Interventions Date of ETT Placement: Jan 23, 2021 Time of ETT Placement: 1614 Progress/Results/Core Measures Suspected Sepsis Recent Fever Within 48 Hours: No Infection Criteria Present: None New/Unexplained Altered Menta: No Sepsis Screen: No Definite Risk SIRS Temperature: Pulse: 64 Respiratory Rate: 20 Laboratory Tests 03/15/21 08:48: White Blood Count 14.7H Blood Pressure 113 /66 Mean: 82 Laboratory Tests 03/15/21 08:48: Creatinine 1.07, Platelet Count 307, Total Bilirubin 0.4 Results/Orders Lab Results Laboratory Tests Test 03/15/21 08:48 03/15/21 08:52 Range/Units White Blood Count 14.7 H 4.3-11.0 10^3/uL Red Blood Count 3.86 L 4.35-5.85 10^6/uL Hemoglobin 12.4 L 13.3-17.7 G/DL Hematocrit 39 L 40-54 % Mean Corpuscular Volume 100 H 80-99 FL Mean Corpuscular Hemoglobin 32 25-34 PG Mean Corpuscular Hemoglobin Concent 32 32-36 G/DL Red Cell Distribution Width 13.2 10.0-14.5 % Platelet Count 307 130-400 10^3/uL Mean Platelet Volume 8.6 7.4-10.4 FL Immature Granulocyte % (Auto) 1 % Neutrophils (%) (Auto) 81 H 42-75 % Lymphocytes (%) (Auto) 7 L 12-44 % Monocytes (%) (Auto) 5 0-12 % Eosinophils (%) (Auto) 4 0-10 % Basophils (%) (Auto) 1 0-10 % Neutrophils # (Auto) 11.9 H 1.8-7.8 X 10^3 Lymphocytes # (Auto) 1.1 1.0-4.0 X 10^3 Monocytes # (Auto) 0.8 0.0-1.0 X 10^3 Eosinophils # (Auto) 0.7 H 0.0-0.3 10^3/uL Basophils # (Auto) 0.1 0.0-0.1 10^3/uL Immature Granulocyte # (Auto) 0.2 H 0.0-0.1 10^3/uL Neutrophils % (Manual) 78 % Lymphocytes % (Manual) 5 % Monocytes % (Manual) 9 % Eosinophils % (Manual) 4 % Basophils % (Manual) 2 % Metamyelocytes % 1 % Band Neutrophils 1 % Sodium Level 135 135-145 MMOL/L Potassium Level 3.4 L 3.6-5.0 MMOL/L Chloride Level 89 L 98-107 MMOL/L Carbon Dioxide Level 36 H 21-32 MMOL/L Anion Gap 10 5-14 MMOL/L Blood Urea Nitrogen 12 7-18 MG/DL Creatinine 1.07 0.60-1.30 MG/DL Estimat Glomerular Filtration Rate > 60 BUN/Creatinine Ratio 11 Glucose Level 123 H 70-105 MG/DL Calcium Level 8.6 8.5-10.1 MG/DL Corrected Calcium 8.9 8.5-10.1 MG/DL Total Bilirubin 0.4 0.1-1.0 MG/DL Aspartate Amino Transf (AST/SGOT) 19 5-34 U/L Alanine Aminotransferase (ALT/SGPT) 20 0-55 U/L Alkaline Phosphatase 148 H 40-136 U/L Total Protein 6.7 6.4-8.2 GM/DL Albumin 3.6 3.2-4.5 GM/DL Urine Color YELLOW Urine Clarity CLEAR Urine pH 7.0 5-9 Urine Specific Stirling 1.015 L 1.016-1.022 Urine Protein NEGATIVE NEGATIVE Urine Glucose (UA) NEGATIVE NEGATIVE Urine Ketones NEGATIVE NEGATIVE Urine Nitrite NEGATIVE NEGATIVE Urine Bilirubin NEGATIVE NEGATIVE Urine Urobilinogen 0.2 < = 1.0 MG/DL Urine Leukocyte Esterase 3+ H NEGATIVE Urine RBC (Auto) 1+ H NEGATIVE Urine RBC 2-5 H /HPF Urine WBC 5-10 H /HPF Urine Squamous Epithelial Cells 5-10 /HPF Urine Renal Epithelial Cells 2-5 /HPF Urine Crystals NONE /LPF Urine Bacteria TRACE /HPF Urine Casts NONE /LPF Urine Mucus NEGATIVE /LPF Urine Culture Indicated YES My Orders Orders - TREVA CANCHOLA MD Comprehensive Metabolic Panel (03/15/21 08:46) Ua Culture If Indicated (03/15/21 08:46) Ed Iv/Invasive Line Start (03/15/21 08:46) Cbc With Automated Diff (03/15/21 08:46) Ct Head Wo (03/15/21 08:46) Chest 1 View Ap/Pa Only (03/15/21 08:46) Manual Differential (03/15/21 08:48) Urine Culture (03/15/21 08:52) Code/Resuscitation (03/15/21 09:38) Vital Signs/I&O 03/15/21 03/15/21 08:15 09:43 Temp 36.3 36.3 Pulse 64 82 Resp 20 16 B/P (MAP) 113/66 (82) 109/72 Pulse Ox 98 O2 Delivery Nasal Cannula Nasal Cannula O2 Flow Rate 2.00 2.00 Capillary Refill : Less Than 3 Seconds Blood Pressure Mean: 82 Progress Note #1: Progress Note Patient alert and responsive, oriented to person, place and time. He does not remember nurses checking on him this am but remembers coming to the ED. Will check basic lab, urine, CT head, CXR. Differential diagnosis includes electrolyte imbalance, TIA, stroke, pneumonia, urinary tract infection, fatigue and malaise Progress Note #2: Time: 09:[address] head no acute process but shows chronic changes, CXR with large pleural effusion, maybe slightly increased from prior imaging, mild central vascular congestion. CBC shows elevated WBC but improved from 03/10. UA with 3+ LE but no Nitrites and only a small amount of bacteria and WBC. this is likely more from the indwelling catheter than acute infection. Chemistry stable with mild elevation of CO2 to 36. This may be secondary to his COPD and heart failure with the pleural effusion and poor respiratory effort. Will discharge back to senior care as no acute process for admit or change in his medical management was found. It could be that he was not fully awake or is having some CO2 retention that is making it harder to wake him up and that is why he was slow to respond to nurses but answering EMS. Diagnostic Imaging Diagonstic Imaging: CT Plain Films/CT/US/NM/MRI: head Comments [facility] [place], [place] NAME: NOHEMY HUERTA [facility] REC#: [id number] PT STATUS: REG ER : 1945 PHYSICIAN: TREVA CANCHOLA MD ADMIT DATE: 03/15/21/ER FS Draft Date of Exam:03/15/21 CT HEAD WO PROCEDURE: CT head without contrast. TECHNIQUE: Multiple contiguous axial images were obtained through the brain without the use of intravenous contrast. Auto Exposure Controls were utilized during the CT exam to meet ALARA standards for radiation dose reduction. INDICATION: Confusion. COMPARISON: No prior studies are available for comparison. FINDINGS: The ventricles and sulci are prominent, consistent with the patient's age. Moderate periventricular hypodensity is noted, consistent with chronic microvascular ischemia. No sulcal effacement or midline shift is identified. No acute intra-axial or extra-axial hemorrhage is detected. The cisterns are patent. The visualized paranasal sinuses are clear. IMPRESSION: Chronic and senescent changes. No acute intracranial process is detected. Dictated on workstation # [id number] Dict: 03/15/21907 Trans: 03/15/21909 [id number] Interpreted by: TWIN HIGGINS MD Electronically signed by: Diagonstic Imaging: Xray Plain Films/CT/US/NM/MRI: chest Comments [facility]. [place], [place] NAME: NOHEMY HUERTA [facility] REC#: [id number] PT STATUS: REG ER : 1945 PHYSICIAN: TREVA CANCHOLA MD ADMIT DATE: 03/15/21/ER FS Draft Date of Exam:03/15/21 CHEST 1 VIEW AP/PA ONLY HISTORY: Confusion, altered mental status, shortness of breath. TECHNIQUE: Frontal view of the chest. COMPARISON: 03/10/2021 FINDINGS: There is a large left pleural effusion with associated airspace opacities. There are airspace opacities of the right lung base. The cardiac silhouette is partially obscured but appears unchanged in size since the prior exam. There is central vascular congestion. No pneumothorax is seen. IMPRESSION: 1. Large left pleural effusion with associated atelectasis, appears mildly increased since the prior exam. 2. Right basilar airspace opacities, may represent atelectasis or infiltrate. 3. Mild central vascular congestion. Dictated on workstation # [id number] Dict: 03/15/21 0908 Trans: 03/15/21 0911 [facility] [id number] Interpreted by: MARY STATON MD Electronically signed by: Departure Impression Primary Impression: Confusion Additional Impressions: Pleural effusion Chronic obstructive pulmonary disease Qualified Codes: J44.9 - Chronic obstructive pulmonary disease, unspecified CHF (congestive heart failure) Qualified Codes: I50.22 - Chronic systolic (congestive) heart failure Disposition: 01 HOME, SELF-CARE Condition: Stable Departure-Patient Inst. Decision time for Depature: 09:38 Referrals: ALCIDES CALI MD (PCP/Family) Primary Care Physician Patient Instructions: COPD Diet, Heart Healthy Diet, Delirium (Confusion), Pleural Effusion Add. Discharge Instructions: Continue on regular medicines and follow up with primary provider for continued concerns. All discharge instructions reviewed with patient and/or family. Voiced understanding. TREVA CANCHOLA MD Mar 15, 2021 08:57
[2021-03-15 09:05] LABS: BASOPHILS % (AUTO) 1 % (0-10); EOSINOPHILS % (AUTO) 4 % (0-10); HEMATOCRIT 39 % (40-54); HEMOGLOBIN 12.4 G/DL (13.3-17.7); LYMPHOCYTES % (AUTO) 7 % (12-44); MEAN CORPUSCULAR HEMOGLOBIN 32 PG (25-34); MEAN CORPUSCULAR HGB CONC 32 G/DL (32-36); MEAN CORPUSCULAR VOLUME 100 FL (80-99); MEAN PLATELET VOLUME 8.6 FL (7.4-10.4); MONOCYTES % (AUTO) 5 % (0-12); NEUTROPHILS % (AUTO) 81 % (42-75); PLATELET COUNT 307 10^3/uL (130-400); WHITE BLOOD COUNT 14.7 10^3/uL (4.3-11.0)
[2021-03-15 09:06] LABS: LYMPHOCYTES # (AUTO) 1.1 X 10^3 (1.0-4.0); NEUTROPHILS # (AUTO) 11.9 X 10^3 (1.8-7.8)
[2021-03-15 09:07] LABS: BASOPHILS # (AUTO) 0.1 10^3/uL (0.0-0.1); EOSINOPHILS # (AUTO) 0.7 10^3/uL (0.0-0.3); MONOCYTES # (AUTO) 0.8 X 10^3 (0.0-1.0)
--- NOTE | 2021-03-15 09:10 | Diagnostic Imaging Report ---
PROCEDURE: CT head without contrast. TECHNIQUE: Multiple contiguous axial images were obtained through the brain without the use of intravenous contrast. Auto Exposure Controls were utilized during the CT exam to meet ALARA standards for radiation dose reduction. INDICATION: Confusion. COMPARISON: No prior studies are available for comparison. FINDINGS: The ventricles and sulci are prominent, consistent with the patient's age. Moderate periventricular hypodensity is noted, consistent with chronic microvascular ischemia. No sulcal effacement or midline shift is identified. No acute intra-axial or extra-axial hemorrhage is detected. The cisterns are patent. The visualized paranasal sinuses are clear. IMPRESSION: Chronic and senescent changes. No acute intracranial process is detected. Dictated by: Dictated on workstation # [id number]
--- NOTE | 2021-03-15 09:12 | Diagnostic Imaging Report ---
HISTORY: Confusion, altered mental status, shortness of breath. TECHNIQUE: Frontal view of the chest. COMPARISON: 03/10/2021 FINDINGS: There is a large left pleural effusion with associated airspace opacities. There are airspace opacities of the right lung base. The cardiac silhouette is partially obscured but appears unchanged in size since the prior exam. There is central vascular congestion. No pneumothorax is seen. IMPRESSION: 1. Large left pleural effusion with associated atelectasis, appears mildly increased since the prior exam. 2. Right basilar airspace opacities, may represent atelectasis or infiltrate. 3. Mild central vascular congestion. Dictated by: Dictated on workstation # [id number]
[2021-03-15 09:13] LABS: BILIRUBIN,URINE NEGATIVE (NEGATIVE); CLARITY,URINE CLEAR; COLOR,URINE YELLOW; GLUCOSE, URINE (UA) NEGATIVE (NEGATIVE); KETONES,URINE NEGATIVE (NEGATIVE); LEUKOCYTE ESTERASE ,URINE 3+ (NEGATIVE); NITRITE,URINE NEGATIVE (NEGATIVE); PROTEIN,URINE NEGATIVE (NEGATIVE)
[2021-03-15 09:14] LABS: BACTERIA,URINE TRACE /HPF
[2021-03-15 09:23] LABS: CARBON DIOXIDE 36 MMOL/L (21-32); CHLORIDE 89 MMOL/L (98-107); POTASSIUM 3.4 MMOL/L (3.6-5.0); SODIUM 135 MMOL/L (135-145)
[2021-03-15 09:24] LABS: ALANINE AMINOTRANSFERASE 20 U/L (0-55); ALBUMIN 3.6 GM/DL (3.2-4.5); ALKALINE PHOSPHATASE 148 U/L (40-136); BAND NEUTROPHILS 1 %; BILIRUBIN,TOTAL 0.4 MG/DL (0.1-1.0); BUN/CREATININE RATIO 11; CALCIUM 8.6 MG/DL (8.5-10.1); CREATININE SERUM 1.07 MG/DL (0.60-1.30); GFR ESTIMATED > 60; GLUCOSE 123 MG/DL (70-105); NEUTROPHILS % (MANUAL) 78 %; TOTAL PROTEIN 6.7 GM/DL (6.4-8.2)
[2021-03-15 09:25] LABS: BASOPHILS % (MANUAL) 2 %; EOSINOPHILS % (MANUAL) 4 %; LYMPHOCYTES % (MANUAL) 5 %; METAMYELOCYTES % 1 %; MONOCYTES % (MANUAL) 9 %
[2021-03-15 09:43] VITALS: BP 109/72
== END 2021-03-15 10:25 | disposition home or self-care (01) ==
LOC: EDUNIT# 08:14 → ER FS 08:15
DX: R41.0 Disorientation, unspecified (principal); J90 Pleural effusion, not elsewhere classified; J44.9 Chronic obstructive pulmonary disease, unspecified; I11.0 Hypertensive heart disease with heart failure; I50.9 Heart failure, unspecified; E78.00 Pure hypercholesterolemia, unspecified; K21.9 Gastro-esophageal reflux disease without esophagitis; M10.9 Gout, unspecified; I48.91 Unspecified atrial fibrillation; E11.9 Type 2 diabetes mellitus without complications; F17.210 Nicotine dependence, cigarettes, uncomplicated; Z79.01 Long term (current) use of anticoagulants
CPT/HCPCS: 36415; 70450; 71045; 80053; 81000; 85007; 85027; 87088

== ENCOUNTER 2021-03-21 02:35 | Inpatient (IN) | payer MEDICARE, MEDICAID ==
[~2021-03-21] VITALS: Ht 175 cm; Wt 109.9 kg
[2021-03-21] MEDS ORDERED: FUROSEMIDE 40 MG/4 ML INJ (LASIX) IVP STA (02:47)
--- NOTE | 2021-03-21 02:52 | ED Dyspnea ---
General Chief Complaint: Respiratory Problems Stated Complaint: SOB Source of Information: Patient, EMS, Halfway Records, Old Records Exam Limitations: Physical Impairments (working hard to breath and wearing cpap) History of Present Illness Date Seen by Provider: March 21, 2021 Time Seen by Provider: 02:37 Initial Comments 75-year-old male presenting from [facility] with increased shortness of breath and hypoxia. He has a history of CHF and COPD as well as renal insufficiency. He has been having increasing problems with his heart failure recently. He has had multiple visits to the hospital as well as the emergency department for his breathing. He was last seen by me on March 15 for shortness of breath and confusion. Tonight he had orders from the doctor to get additional Lasix however the nursing staff at [facility] reported that he had deteriorated before they could administer any Lasix. Patient has a indwelling catheter. He was placed on CPAP by EMS and transported to the ED. His O2 sats were in the 60 and 70% range. With the CPAP he came up into the 80s. He has diminished breath sounds and increased edema to his extremities. He is somnolent but awakens to voice. Unable to answer questions for history and review of systems due to his shortness of breath and wearing a CPAP Allergies and Home Medications Allergies Coded Allergies: No Known Drug Allergies (Unverified , 01/30/19) Home Medications Albuterol Sulfate 2.5 Mg/3 Ml Vial.neb, 2.5 MG INH Q6H PRN for SHORTNESS OF LIZ TH Prescribed by: TREVA CANCHOLA on 03/10/216 Allopurinol 100 Mg Tablet, 100 MG PO DAILY, (Reported) Atorvastatin Calcium 10 Mg Tablet, 10 MG PO DAILY, (Reported) Budesonide/Formoterol Fumarate 10.2 Gm Hfa.aer.ad, 2 PUFF IH BID, (Reported) Digoxin 250 Mcg Tablet, 250 MCG PO DAILY, (Reported) Diltiazem HCl 240 Mg Capsule.er, 240 MG PO DAILY, (Reported) Docusate Sodium 100 Mg Tablet, 100 MG PO BID, (Reported) Fluticasone Propion/Salmeterol 1 Each Blst.w.dev, 1 EACH IH BID, (Reported) Furosemide 40 Mg Tablet, 40 MG PO DAILY, (Reported) Furosemide 80 Mg Tablet, 80 MG PO DAILY Prescribed by: TREVA CANCHOLA on 03/10/21 2216 Ipratropium/Albuterol Sulfate 3 Ml Ampul.neb, 3 ML IH TID, (Reported) Lactobacillus Acidophilus 1 Each Capsule, 1 EACH PO BID, (Reported) Levofloxacin 500 Mg Tablet, 500 MG PO DAILY Prescribed by: LELA FONTENOT on 03/03/21 1133 Metoprolol Tartrate 25 Mg Tablet, 25 MG PO BID, (Reported) Mv-Mn/FA/Coq10/Lycopene/Lutein 1 Each Tablet, 1 EACH PO DAILY, (Reported) Nystatin 1 Each Powder.ea., 1 EACH TOP TID, (Reported) Pantoprazole Sodium 40 Mg Tablet.dr, 40 MG PO DAILY, (Reported) Phenobarbital 32.4 Mg Tablet, 32.4 MG PO BID, (Reported) Simethicone 180 Mg Capsule, 180 MG PO BID, (Reported) Thiamine HCl 100 Mg Tablet, 100 MG PO DAILY, (Reported) Warfarin Sodium 5 Mg Tablet, 5 MG PO DAILY, (Reported) Patient Home Medication List Home Medication List Reviewed: Yes Review of Systems Review of Systems Constitutional: No fever (No reported fever from the group home) Respiratory: short of breath Cardiovascular: edema Unable to obtain full review of systems from the patient due to his clinical condition of being short of breath and on CPAP Past Ywrwijs-Adcmem-Mokotu Hx Past Med/Social Hx: Reviewed Nursing Past Med/Soc Hx Patient Social History Alcohol Beverage of Choice: Whiskey Type Used: Cigarettes 2nd Hand Smoke Exposure: No Recent Hopitalizations: No Immunizations Up To Date Tetanus Booster (TDap): Unknown Date of Influenza Vaccine: Aug 19, 2020 Seasonal Allergies Seasonal Allergies: Yes Past Medical History Surgeries: Yes (suprapubic catheter placement) Respiratory: Yes Chronic Bronchitis, COPD Cardiac: Yes Atrial Fibrillation, Chronic Edema/Swelling, High Cholesterol, Hypertension Neurological: Yes Neuropathy, Seizure Disorder Genitourinary: Yes (suprapubic catheter) Neurogenic Bladder Gastrointestinal: Yes Gastroesophageal Reflux Musculoskeletal: Yes (spinal degeneration/uses wheelchair) Gout Endocrine: Yes Diabetes, Non-Insulin dep HEENT: No Cancer: No Psychosocial: No Integumentary: No Blood Disorders: No Family Medical History NC Physical Exam Vital Signs Vital Signs - First Documented 03/21/21 02:40 Temp 36.5 Pulse 97 Resp 25 B/P (MAP) 180/110 (133) Pulse Ox 92 O2 Delivery NIV CPAP O2 Flow Rate 10.00 Capillary Refill : Height, Weight, BMI Height: 5'9.00" Weight: 225lbs. oz. 102.793554hw; 29.00 BMI Method:Stated General Appearance: Chronically ill, Moderate Distress HEENT: No Moist Mucous Membranes (Dry mucous membranes) Neck: Supple Respiratory: Accessory Muscle Use, Crackles, Decreased Breath Sounds, Respiratory Distress Cardiovascular: Regular Rate, Rhythm, Normal Peripheral Pulses Gastrointestinal: No Pulsatile Mass, Soft Rectal: Deferred Extremity: Pedal Edema (3+ pitting edema to bilateral lower extremities up to his waist) Neurologic/Psychiatric: Other (Patient is somnolent but awakens to voice) Skin: Warm/Dry, Pallor Lymphatic: No Adenopathy Focused Exam Lactate Level 03/21/21 03:12: Lactic Acid Level 0.81 Lactic Acid Level Laboratory Tests Test 03/21/21 03:12 Lactic Acid Level 0.81 MMOL/L (0.50-2.00) Procedures/Interventions Date of ETT Placement: Jan 23, 2021 Time of ETT Placement: 1613 Progress/Results/Core Measures Results/Orders Lab Results Laboratory Tests Test 03/21/21 02:44 03/21/21 03:05 03/21/21 03:12 Range/Units White Blood Count 35.1 *H 4.3-11.0 10^3/uL Red Blood Count 4.03 L 4.35-5.85 10^6/uL Hemoglobin 12.9 L 13.3-17.7 G/DL Hematocrit 41 40-54 % Mean Corpuscular Volume 102 H 80-99 FL Mean Corpuscular Hemoglobin 32 25-34 PG Mean Corpuscular Hemoglobin Concent 32 32-36 G/DL Red Cell Distribution Width 14.0 10.0-14.5 % Platelet Count 431 H 130-400 10^3/uL Mean Platelet Volume 9.2 7.4-10.4 FL Neutrophils (%) (Auto) 86 H 42-75 % Lymphocytes (%) (Auto) 6 L 12-44 % Monocytes (%) (Auto) 5 0-12 % Eosinophils (%) (Auto) 3 0-10 % Basophils (%) (Auto) 0 0-10 % Neutrophils # (Auto) 30.2 H 1.8-7.8 X 10^3 Lymphocytes # (Auto) 2.0 1.0-4.0 X 10^3 Monocytes # (Auto) 1.6 H 0.0-1.0 X 10^3 Eosinophils # (Auto) 1.1 H 0.0-0.3 10^3/uL Basophils # (Auto) 0.1 0.0-0.1 10^3/uL Neutrophils % (Manual) 87 % Lymphocytes % (Manual) 7 % Monocytes % (Manual) 5 % Eosinophils % (Manual) 1 % Toxic Granulation 3+ Prothrombin Time 22.5 H 12.2-14.7 SEC INR Comment 2.0 H 0.8-1.4 Activated Partial Thromboplast Time 34 24-35 SEC Sodium Level 135 135-145 MMOL/L Potassium Level 3.6 3.6-5.0 MMOL/L Chloride Level 89 L 98-107 MMOL/L Carbon Dioxide Level 34 H 21-32 MMOL/L Anion Gap 12 5-14 MMOL/L Blood Urea Nitrogen 17 7-18 MG/DL Creatinine 1.22 0.60-1.30 MG/DL Estimat Glomerular Filtration Rate 58 BUN/Creatinine Ratio 14 Glucose Level 261 H 70-105 MG/DL Calcium Level 8.2 L 8.5-10.1 MG/DL Corrected Calcium 8.2 L 8.5-10.1 MG/DL Total Bilirubin 0.4 0.1-1.0 MG/DL Aspartate Amino Transf (AST/SGOT) 28 5-34 U/L Alanine Aminotransferase (ALT/SGPT) 19 0-55 U/L Alkaline Phosphatase 168 H 40-136 U/L Troponin I < 0.30 <0.30 NG/ML Pro-B-Type Natriuretic Peptide 4088.0 H <75.0 PG/ML Total Protein 7.8 6.4-8.2 GM/DL Albumin 4.0 3.2-4.5 GM/DL Blood Gas Puncture Site RIGHT RADIAL Blood Gas Patient Temperature 36.5 Arterial Blood pH 7.14 *L 7.37-7.43 Arterial Blood Partial Pressure CO2 108 *H 35-45 MMHG Arterial Blood Partial Pressure O2 89 79-93 MMHG Arterial Blood HCO3 37 H 23-27 MMOL/L Arterial Blood Total CO2 40.1 H 21.0-31.0 MMOL/L Arterial Blood Oxygen Saturation 94 94-100 % Arterial Blood Base Excess 4.5 H -2.5-2.5 MMOL/L Husam Test NEGATIVE Blood Gas Ventilator Setting NO Blood Gas Inspired Oxygen 15 Lactic Acid Level 0.81 0.50-2.00 MMOL/L My Orders Orders - TREVA CANCHOLA MD Cbc With Automated Diff (03/21/21 02:45) Comprehensive Metabolic Panel (03/21/21 02:45) Chest 1 View Ap/Pa Only (03/21/21 02:45) Ekg Tracing (03/21/21 02:45) O2 (03/21/21 02:45) Ed Iv/Invasive Line Start (03/21/21 02:45) Monitor-Rhythm Ecg Trace Only (03/21/21 02:45) Arterial Blood Gas (03/21/21 02:45) Furosemide Injection (Lasix Injection) (03/21/21 02:47) Code/Resuscitation (03/21/21 02:47) Probnp Fs (03/21/21 02:49) Troponin I Fs (03/21/21 02:49) Protime With Inr (03/21/21 02:50) Partial Thromboplastin Time (03/21/21 02:50) Blood Culture (03/21/21 03:06) Lactic Acid Analyzer (03/21/21 03:06) Manual Differential (03/21/21 02:44) Bipap (Bilevel) Set Up (03/21/21 03:30) Cefepime Injection (Maxipime Injection) (03/21/21 03:55) Vital Signs/I&O 03/21/21 03/21/21 03/21/21 02:40 02:40 04:25 Temp 36.5 36.5 Pulse 97 88 Resp 25 24 B/P (MAP) 180/110 (133) 137/82 Pulse Ox 92 87 99 O2 Delivery NIV CPAP NIV CPAP NIV Bilevel O2 Flow Rate 10.00 10.00 15.00 Progress Progress Note #1: Progress Note Obtain labs as well as ABG and chest x-ray to evaluate his breathing. Give 80 mg IV Lasix to try and help with diuresis. Differential diagnosis includes CHF exacerbation, pneumonia, respiratory failure due to CHF and COPD, Progress Note #2: Progress Note Chest x-ray shows continued pleural effusion on the left which might be a little worse than previous x-ray. He also now has fluid and possible infiltrate on the right lower lobe. He has his elevated white blood cell count over 35,000 with a left shift so blood cultures and a lactic acid were added on. His blood gas came back showing acidosis with a pH of 7.14, PCO2 108, PO2 of 89 on the CPAP at 15 L. His O2 sat was up to 94% with this. Progress Note #3: Progress Note Chemistry panel came back showing negative troponin at less than 0.3. His proBNP is just over 4000 and stable from the end of February. His lactic Acid level was not elevated. Will start patient on antibiotics for hospital-acquired pneumonia since he has recently been in the hospital and is coming from a group home. Also will start BiPAP to help with blowing off some of the CO2 that he has built up. From reviewing his old chart it looks like he had responded to this in early February. As the patient is a DNR and DNI but was willing to be on BiPAP. 0347 discussed findings and plan with Dr. Bravo who is on-call for Dr. Carrasquillo noting the [facility] service. Also the patient is a DNR and DNI with him being on BiPAP and possibly needing adjustment of that will place him in the ICU and will call and update the [facility] eICU service. Unable to obtain an electrocardiogram due to mechanical difficulties with the machine. Diagnostic Imaging Diagonstic Imaging: Xray Plain Films/CT/US/NM/MRI: chest Comments On my review of his 1 view chest x-ray he has worsening of pulmonary vascular congestion. His pleural effusion on the left appears to be increased. He also appears to have an effusion or infiltrate on the right lower lobe. Reviewed: Reviewed by Me Critical Care Note Critical Care Total Time (minutes) 60 minutes Progress 60 minutes of critical care time were spent in direct care of the patient. This time was excluding separately billable procedures. Time was spent in obtaining history from patient, electronic medical record, group home, EMS, ordering test and reviewing results, ordering interventions and reviewing response, discu ssion with consultants, documentation in the chart. Patient was at risk for imminent demise and morbidity with mortality from his acute respiratory failure and heart failure Departure Communication (Admissions) Time/Spoke to Admitting Phy: 03:[address] Bravo about admission for his acute respiratory failure with acute on chronic CHF and new onset of pneumonia. As the patient is a DNR/DNI will place him on BiPAP to try and help with his hypercapnia and acidosis but will not intubate the patient. Impression Primary Impression: Acute respiratory failure with hypoxia and hypercapnia Additional Impressions: Acute on chronic combined systolic and diastolic CHF (congestive heart failure) Hospital-acquired pneumonia Disposition: 30 STILL A PATIENT Condition: Critical Admissions Decision to Admit Reason: Admit from ER (General) Decision to Admit/Date: March 21, 2021 Time/Decision to Admit Time: 03:47 Departure-Patient Inst. Referrals: ALCIDES CALI MD (PCP/Family) Primary Care Physician TREVA CANCHOLA MD March 21, 2021 02:52
[2021-03-21 03:02] LABS: HEMATOCRIT 41 % (40-54); HEMOGLOBIN 12.9 G/DL (13.3-17.7); MEAN CORPUSCULAR HEMOGLOBIN 32 PG (25-34); MEAN CORPUSCULAR HGB CONC 32 G/DL (32-36); MEAN CORPUSCULAR VOLUME 102 FL (80-99)
[2021-03-21 03:03] LABS: MEAN PLATELET VOLUME 9.2 FL (7.4-10.4); PLATELET COUNT 431 10^3/uL (130-400)
[2021-03-21 03:04] LABS: BASOPHILS # (AUTO) 0.1 10^3/uL (0.0-0.1); BASOPHILS % (AUTO) 0 % (0-10); EOSINOPHILS # (AUTO) 1.1 10^3/uL (0.0-0.3); EOSINOPHILS % (AUTO) 3 % (0-10); LYMPHOCYTES % (AUTO) 6 % (12-44); MONOCYTES # (AUTO) 1.6 X 10^3 (0.0-1.0); MONOCYTES % (AUTO) 5 % (0-12); NEUTROPHILS # (AUTO) 30.2 X 10^3 (1.8-7.8); NEUTROPHILS % (AUTO) 86 % (42-75); WHITE BLOOD COUNT 35.1 10^3/uL (4.3-11.0)
[2021-03-21 03:10] LABS: ABG BASE EXCESS 4.5 MMOL/L (-2.5-2.5); ABG OXYGEN SATURATION 94 % (94-100); ABG PCO2 108 MMHG (35-45); ABG PO2 89 MMHG (79-93); ABG TCO2 40.1 MMOL/L (21.0-31.0)
[2021-03-21 03:13] LABS: ALLENS TEST NEGATIVE; INSPIRED O2 15; VENTILATOR NO
[2021-03-21 03:14] LABS: ABG PH 7.14 (7.37-7.43)
[2021-03-21 03:16] LABS: PROTHROMBIN TIME PATIENT 22.5 SEC (12.2-14.7)
[2021-03-21 03:24] LABS: ALANINE AMINOTRANSFERASE 19 U/L (0-55); ALKALINE PHOSPHATASE 168 U/L (40-136); BILIRUBIN,TOTAL 0.4 MG/DL (0.1-1.0); BUN/CREATININE RATIO 14; CALCIUM 8.2 MG/DL (8.5-10.1); CARBON DIOXIDE 34 MMOL/L (21-32); CHLORIDE 89 MMOL/L (98-107); CREATININE SERUM 1.22 MG/DL (0.60-1.30); GFR ESTIMATED 58; GLUCOSE 261 MG/DL (70-105); POTASSIUM 3.6 MMOL/L (3.6-5.0); SODIUM 135 MMOL/L (135-145); TOTAL PROTEIN 7.8 GM/DL (6.4-8.2)
[2021-03-21 03:37] LABS: EOSINOPHILS % (MANUAL) 1 %; LYMPHOCYTES % (MANUAL) 7 %; MONOCYTES % (MANUAL) 5 %; NEUTROPHILS % (MANUAL) 87 %; TOXIC GRANULATION/VACUOLAZATIO 3+
[2021-03-21 03:39] LABS: PATIENT TEMP 36.5
[2021-03-21] MEDS ORDERED: CEFEPIME INJECTION 1,000 MG in WATER (STERILE) FOR INJECTION 10 ML IV STA (03:55)
[2021-03-21] MEDS ORDERED: CATHETER FLUSH 10 ML SYR IV PRN (05:45)
[2021-03-21] MEDS ORDERED: POTASSIUM CL 10MEQ/50ML IVPB 50 ML IV SCH (06:00)
[2021-03-21] MEDS ORDERED: MAGNESIUM 1 GM/100 ML IVPB 100 ML IV SCH (06:00)
[2021-03-21] MEDS ORDERED: KCL 20 MEQ TAB (K-DUR) PO SCH (06:00)
[2021-03-21 06:27] VITALS: BP 113/58
[2021-03-21] MEDS: CATHETER FLUSH 10 ML SYR IV SCH ×3 (06:37→23:23)
[2021-03-21 06:43] LABS: ABG BASE EXCESS 7.8 MMOL/L (-2.5-2.5); ABG OXYGEN SATURATION 89 % (94-100); ABG PCO2 68 MMHG (35-45); ABG PO2 61 MMHG (79-93); ABG TCO2 36.2 MMOL/L (21.0-31.0)
[2021-03-21 06:46] LABS: ABG PH 7.31 (7.37-7.43); ALLENS TEST YES-POS; INSPIRED O2 40%; PATIENT TEMP 36.4; VENTILATOR NO
--- NOTE | 2021-03-21 06:58 | Diagnostic Imaging Report ---
INDICATION: Hypoxia. COMPARISON: 03/15/2021 FINDINGS: Single frontal radiographic view of the chest was obtained and demonstrates persistent moderate left basilar effusion and associated airspace disease. There has been interval increase in airspace disease within the right base. Right hemidiaphragm is now essentially completely obscured. Lungs also continue to show diffuse prominence of the interstitium. There is also cardiomegaly and vascular congestion. No pneumothorax is seen. IMPRESSION: 1. Interval progression of right basilar airspace disease consistent with effusion and probable atelectasis. 2. Persistent moderate left basilar effusion with associated atelectasis and/or infiltrate. 3. Cardiomegaly with background vascular congestion and interstitial pulmonary edema. Dictated by: Dictated on workstation # [id number]
[2021-03-21 07:45] VITALS: BP 113/58
[2021-03-21] MEDS ORDERED: RT-ALBUTEROL SULF 2.5 MG/3 ML PRE-MIX VIAL INH PRN (08:15)
[2021-03-21] MEDS: RT-ALBUTEROL/IPRATROPIUM 3 ML (DUONEB) VIAL INH SCH ×4 (09:29→21:55)
[2021-03-21] MEDS ORDERED: WARF7.5T3 PO (09:38)
[2021-03-21] MEDS ORDERED: NS IV SCH (10:00)
[2021-03-21] MEDS ORDERED: GENTAMICIN IV SCH (10:00)
[2021-03-21] MEDS: CEFEPIME 1,000 MG/SWFI 10 ML IV PUSH IV SCH ×6 (10:15→21:17)
[2021-03-21] MEDS: PHENobarbital 64.8 MG (1 GRAIN) TAb PO SCH ×2 (10:15→21:18)
--- NOTE | 2021-03-21 12:09 | History & Physical-Hospitalist ---
History of Present Illness HPI/Chief Complaint Time Seen by Provider: 02:37 Initial Comments 75-year-old male presenting from [facility] with increased shortness of breath and hypoxia. He has a history of CHF and COPD as well as renal insufficiency. He has been having increasing problems with his heart f ailure recently. He has had multiple visits to the hospital as well as the emergency department for his breathing. He was last seen by me on March 15 for shortness of breath and confusion. Tonight he had orders from the doctor to get additional Lasix however the nursing staff at [facility] reported that he had deteriorated before they could administer any Lasix. Patient has a indwelling catheter. He was placed on CPAP by EMS and transported to the ED. His O2 sats were in the 60 and 70% range. With the CPAP he came up into the 80s. He has diminished breath sounds and increased edema to his extremities. He is somnolent but awakens to voice. Unable to answer questions for history and review of systems due to his shortness of breath and wearing a CPAP. The patient was still somnolent but arousable to verbal stimulation but unable to answer any questions or follow any commands. Date Seen 03/21/21 Time Seen by a Provider: 10:00 Attending Physician Simón Blanco MD PCP Wellington Miranda MD Referring Physician Date of Admission March 21, 2021 at 03:47 Home Medications & Allergies Home Medications Reviewed patient Home Medication Reconciliation performed by pharmacy medication reconciliations lay out technician and/or nursing. Patients Allergies have been reviewed. Allergies Allergies Coded Allergies No Known Drug Allergies (Unverified01/30/19) Patient Social History Pt stated abuse/neglect: Unable to obtain Immunizations Up To Date Influenza Vaccine Up-to-Date: Yes; Up-to-Date Tetanus Booster (TDap): Unknown Current Status Primary Language: Malagasy Past Medical History PMHx: HTN HLD Atherosclerotic occlusive disease DMII Previous respiratory failure COPD Alcohol dependence CKD Chronic UTI Severe BPH SurgHx: Suprapubic catheter Family Medical History Family Hx: NC Review of Systems Constitutional: see HPI Physical Exam Physical Exam Vital Signs Vital Signs - First Documented 03/21/21 03/21/21 02:40 05:47 Temp 36.5 Pulse 97 Resp 25 B/P (MAP) 180/110 (133) Pulse Ox 92 O2 Delivery NIV CPAP O2 Flow Rate 10.00 FiO2 40 Capillary Refill : Less Than 3 Seconds Height, Weight, BMI Height: 5'9.00" Weight: 225lbs. oz. 102.763079ni; 34.41 BMI Method:Stated General Appearance: No Apparent Distress, Chronically ill, Obese Respiratory: No Accessory Muscle Use, Other (Tachypneic with diminished breath sounds posteriorly coarse breath sounds anteriorly without wheezes.) Cardiovascular: Irregularly Irregular, Other (1-2+ edema of the upper extremities 3+ edema of the lower extremities no ulcerations noted) Results Results/Procedures Labs Laboratory Tests 03/21/21 02:44 Patient resulted labs reviewed. Assessment/Plan Admission Diagnosis 1. Acute on chronic hypercapnic respiratory failure secondary to pneumonia with underlying COPD severe prognosis poor. Continue IV antibiotics broad-spectrum bronchodilator therapy and CPAP. 2. History of chronic diastolic and systolic heart failure reported ejection fraction 45 to 50% on echo done earlier this year with moderate to severe pulmonary hypertension and estimated pulmonary artery pressure of 55 to 60 mmHg continue home medication. 3. Persistent atrial fibrillation continue rate control and anticoagulant therapy. Admission Status: Inpatient Order (span 2 midnights) Reason for Inpatient Admission: See admission diagnosis Critical Care Critically Ill Patient SIMÓN BLANCO MD March 21, 2021 12:09
[2021-03-21] MEDS ORDERED: CEFEPIME 1 GM/10 ML (MAXIPIME) VIAL ONE ×2 (16:09→20:49)
[2021-03-21] MEDS: RT--FLUTICASONE/SALMETEROL 232-14 (AIRDUO RespiCLICK) IH SCH (17:40)
[2021-03-21] MEDS ORDERED: warFARin 7.5 MG (COUMADIN) TAB PO SCH (18:00)
[2021-03-21] MEDS ORDERED: TROUGH ORDER-PHARMACY XX NR (19:00)
[2021-03-21] MEDS ORDERED: WATER (STERILE) FOR INJECTION 10 ML ONE (20:49)
[2021-03-22] MEDS: RT-ALBUTEROL/IPRATROPIUM 3 ML (DUONEB) VIAL INH SCH ×6 (01:44→21:49)
[2021-03-22] MEDS ORDERED: WATER (STERILE) FOR INJECTION 10 ML ONE (03:52)
[2021-03-22] MEDS ORDERED: CEFEPIME 1 GM/10 ML (MAXIPIME) VIAL ONE (03:52)
[2021-03-22] MEDS: CEFEPIME 1,000 MG/SWFI 10 ML IV PUSH IV SCH ×8 (04:07→22:08)
--- NOTE | 2021-03-22 05:09 | Pulmonary Consultation ---
History of Present Illness History of Present Illness Date Seen by Provider: March 22, 2021 Time Seen by Provider: 05:01 Date of Admission History of Present Illness 75yo with hx of CHF, COPD, Pseudomonus PNA, and multiple hospitalizations presented to ED via EMS from [facility] custodial with increased shortness of breath and hypoxia. Allergies and Home Medications Allergies Coded Allergies: No Known Drug Allergies (Unverified , 01/30/19) Home Medications Albuterol Sulfate 2.5 Mg/3 Ml Vial.neb, 2.5 MG INH Q6H PRN for SHORTNESS OF BREATH Prescribed by: TREVA CANCHOLA on 03/10/212215 Allopurinol 100 Mg Tablet, 100 MG PO DAILY, (Reported) Atorvastatin Calcium 10 Mg Tablet, 10 MG PO DAILY, (Reported) Budesonide/Formoterol Fumarate 10.2 Gm Hfa.aer.ad, 2 PUFF IH BID, (Reported) Digoxin 250 Mcg Tablet, 250 MCG PO DAILY, (Reported) Diltiazem HCl 240 Mg Capsule.er, 240 MG PO DAILY, (Reported) Docusate Sodium 100 Mg Tablet, 100 MG PO BID, (Reported) Fluticasone Propion/Salmeterol 1 Each Blst.w.dev, 1 EACH IH BID, (Reported) Furosemide 40 Mg Tablet, 40 MG PO DAILY, (Reported) Furosemide 80 Mg Tablet, 80 MG PO DAILY Prescribed by: TREVA CANCHOLA on 03/10/212215 Ipratropium/Albuterol Sulfate 3 Ml Ampul.neb, 3 ML IH TID, (Reported) Lactobacillus Acidophilus 1 Each Capsule, 1 EACH PO BID, (Reported) Levofloxacin 500 Mg Tablet, 500 MG PO DAILY Prescribed by: LELA FONTENOT on 03/03/21 1133 Metoprolol Tartrate 25 Mg Tablet, 25 MG PO BID, (Reported) Mv-Mn/FA/Coq10/Lycopene/Lutein 1 Each Tablet, 1 EACH PO DAILY, (Reported) Nystatin 1 Each Powder.ea., 1 EACH TOP TID, (Reported) Pantoprazole Sodium 40 Mg Tablet.dr, 40 MG PO DAILY, (Reported) Phenobarbital 32.4 Mg Tablet, 32.4 MG PO BID, (Reported) Simethicone 180 Mg Capsule, 180 MG PO BID, (Reported) Thiamine HCl 100 Mg Tablet, 100 MG PO DAILY, (Reported) Warfarin Sodium 5 Mg Tablet, 5 MG PO DAILY, (Reported) MON, , WED, , MON Warfarin Sodium 7.5 Mg Tablet, 7.5 MG PO DAILY, (Reported) EVERY MONDAY AND MONDAY Past Ozo[place]ap-Azmzwv-Usyasg Hx Past Med/Social Hx: Reviewed Nursing Past Med/Soc Hx Patient Social History Alcohol Use: Denies Use Number of Drinks Today: GG Alcohol Beverage of Choice: Whiskey Type Used: Cigarettes 2nd Hand Smoke Exposure: No Recent Infectious Disease Expo: No Recent Hopitalizations: No Immunizations Up To Date Tetanus Booster (TDap): Unknown Date of Influenza Vaccine: Sep 19, 2020 Seasonal Allergies Seasonal Allergies: Yes Past Medical History Surgeries: Yes (suprapubic catheter placement) Respiratory: Yes Chronic Bronchitis, COPD Cardiac: Yes Atrial Fibrillation, Chronic Edema/Swelling, High Cholesterol, Hypertension Neurological: Yes Neuropathy, Seizure Disorder Genitourinary: Yes (suprapubic catheter) Neurogenic Bladder Gastrointestinal: Yes Gastroesophageal Reflux Musculoskeletal: Yes (spinal degeneration/uses wheelchair) Gout Endocrine: Yes Diabetes, Non-Insulin dep HEENT: No Cancer: No Psychosocial: No Integumentary: No Blood Disorders: No Family Medical History NC Review of Systems Time Seen by Provider: 05:15 Sepsis Event Evaluation Height, Weight, BMI Height: 5'9.00" Weight: 225lbs. oz. 102.370239fe; 34.41 BMI Method:Stated Exam Exam Vital Signs Date Time Temp Pulse Resp B/P (MAP) Pulse Ox O2 Delivery O2 Flow Rate FiO2 03/22/21 04:31 36.2 82 20 101/64 Vapotherm 25.00 40 03/22/21 01:44 92 Vapotherm 25.00 40 03/22/21 00:00 36.6 79 22 99/58 Vapotherm 25.00 40 03/21/21 21:55 94 Vapotherm 25.00 40 03/21/21 20:00 36.2 79 20 106/59 Vapotherm 20.00 40 03/21/21 19:45 Vapotherm 25.00 40 03/21/21 19:00 79 03/21/21 17:40 96 Vapotherm 25.00 40 03/21/21 16:00 Vapotherm 40 03/21/21 15:21 36.4 70 20 105/62 Vapotherm 20.00 40 03/21/21 14:40 91 Vapotherm 25.00 40 03/21/21 12:47 71 03/21/21 11:17 36.0 85 20 150/88 (108) 96 Vapotherm 30.00 03/21/21 11:16 92 25.00 35 03/21/21 11:16 Vapotherm 40 03/21/21 09:34 95 Vapotherm 25.00 30 03/21/21 09:00 Vapotherm 30.00 03/21/21 08:00 64 128/85 (99) 96 NIV Bilevel 80.00 03/21/21 07:52 NIV Bilevel 40 03/21/21 07:49 35.7 03/21/21 07:45 36.4 65 97 03/21/21 07:00 65 03/21/21 07:00 65 113/66 (82) 95 NIV Bilevel 80.00 03/21/21 06:27 70 24 97 40.00 03/21/21 05:47 NIV Bilevel 40 03/21/21 05:45 77 03/21/21 05:15 36.4 87 22 137/76 (96) 96 NIV Bilevel 80.00 I & O 03/22/21 07:00 Intake Total 1050 ml Output Total 1150 ml Balance -100 ml Height & Weight Height: 5'9.00" Weight: 225lbs. oz. 102.280823sa; 34.41 BMI Method:Stated General Appearance: No Apparent Distress, Chronically ill, Obese HEENT: No Moist Mucous Membranes (Dry mucous membranes) Neck: Supple Respiratory: No Accessory Muscle Use, Other (Tachypneic with diminished breath sounds posteriorly coarse breath sounds anteriorly without wheezes.) Cardiovascular: Irregularly Irregular, Other (1-2+ edema of the upper extremities 3+ edema of the lower extremities no ulcerations noted) Capillary Refill: Less Than 3 Seconds Extremity: Pedal Edema (3+ pitting edema to bilateral lower extremities up to his waist) Neurologic/Psychiatric: Other (Patient is somnolent but awakens to voice) Skin: Warm/Dry, Pallor Lymphatic: No Adenopathy Results Lab Laboratory Tests 03/21/21 02:44 Assessment/Plan Assessment/Plan Acute on chronic respiratory failure 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
[2021-03-22] MEDS ORDERED: PHARMACY TO DOSE IV SCH (05:15)
[2021-03-22] MEDS ORDERED: FUROSEMIDE 40 MG/4 ML INJ (LASIX) IVP ONE (05:25)
[2021-03-22] MEDS: CATHETER FLUSH 10 ML SYR IV SCH ×3 (05:35→22:09)
[2021-03-22 05:51] LABS: BASOPHILS # (AUTO) 0.1 10^3/uL (0.0-0.1); BASOPHILS % (AUTO) 1 % (0-10); EOSINOPHILS # (AUTO) 0.4 10^3/uL (0.0-0.3); EOSINOPHILS % (AUTO) 3 % (0-10); HEMATOCRIT 32 % (40-54); HEMOGLOBIN 10.1 g/dL (13.3-17.7); LYMPHOCYTES # (AUTO) 0.7 10^3/uL (1.0-4.0); LYMPHOCYTES % (AUTO) 6 % (12-44); MEAN CORPUSCULAR HEMOGLOBIN 32 pg (25-34); MEAN CORPUSCULAR HGB CONC 32 g/dL (32-36); MEAN CORPUSCULAR VOLUME 100 fL (80-99); MEAN PLATELET VOLUME 8.9 fL (9.0-12.2); MONOCYTES # (AUTO) 0.7 10^3/uL (0.0-1.0); MONOCYTES % (AUTO) 6 % (0-12); NEUTROPHILS % (AUTO) 84 % (42-75); PLATELET COUNT 226 10^3/uL (130-400)
[2021-03-22 06:15] LABS: CALCIUM 7.7 MG/DL (8.5-10.1); CREATININE SERUM 1.56 MG/DL (0.60-1.30); MAGNESIUM 1.3 MG/DL (1.6-2.4); PHOSPHORUS 3.3 MG/DL (2.3-4.7); POTASSIUM 3.4 MMOL/L (3.6-5.0)
[2021-03-22] MEDS ORDERED: VANCOMYCIN INJECTION 2,000 MG in NS IV 500 ML 500 ML IV ONE (06:30)
[2021-03-22] MEDS: RT--FLUTICASONE/SALMETEROL 232-14 (AIRDUO RespiCLICK) IH SCH ×2 (06:58→18:50)
[2021-03-22] MEDS ORDERED: KCL 20 MEQ TAB (K-DUR) PO ONE (07:00)
[2021-03-22] MEDS: MAGNESIUM 1 GM/100 ML IVPB 100 ML IV SCH ×2 (08:55→10:22)
[2021-03-22] MEDS: PHENobarbital 64.8 MG (1 GRAIN) TAb PO SCH ×2 (08:56→20:39)
[2021-03-22] MEDS ORDERED: DIGOXIN 0.25 MG (LANOXIN) TAB PO SCH (09:00)
--- NOTE | 2021-03-22 09:46 | Consultation-Cardiology ---
HPI-Cardiology Cardiology Consultation Date of Consultation 03/22/21 Date of Admission Time Seen by Provider: 10:32 Indication: Dyspnea HPI Patient is a 75 y/o male with history of diastolic dyspfunction, COPD, hx of recurrent pseudomonas pneumonia and recurrent UTI, presented to the ER from the skilled nursing with complaints of incresaed dyspnea. Denies any chest pain, reports increased peripheral edema over the past week. Noted to have elevated proBNP. Currently reporting some improvement in his dyspnea. Home Medications & Allergies Allergies: Coded Allergies: No Known Drug Allergies (Unverified , 01/30/19) Home Medication List Reviewed: Yes EOZ-Cmolmt-Bcexme Hx Patient Social History Recreational Drug Use: No Type Used: Cigarettes 2nd Hand Smoke Exposure: No Recent Hopitalizations: No Immunizations Up To Date Tetanus Booster (TDap): Unknown Date of Influenza Vaccine: Sep 19, 2020 Past Medical History COPD, CHF, HTN Review of Systems-General Review of Systems Constitutional: see HPI; No dizziness, No fever; malaise EENTM: see HPI, no symptoms reported, double vision; No blurred vision Respiratory: see HPI; No cough; dyspnea on exertion, short of breath; No wheezing Cardiovascular: see HPI; No chest pain; edema; No Hx of Intervention, No palpitations, No syncope, No vascular heart diseas Genitourinary: see HPI; No dysuria, No frequency Musculoskeletal: no symptoms reported Skin: no symptoms reported Reviewed Test Results Reviewed Test Results Lab Laboratory Tests 03/21/21 18:57: Random Gentamicin Level 4.4 03/22/21 05:43: White Blood Count 12.0H, Red Blood Count 3.17L, Hemoglobin 10.1L, Hematocrit 32L , Mean Corpuscular Volume 100H, Mean Corpuscular Hemoglobin 32, Mean Corpuscular Hemoglobin Concent 32, Red Cell Distribution Width 13.3, Platelet Count 226, Mean Platelet Volume 8.9L, Immature Granulocyte % (Auto) 1, Neutrophils (%) (Auto) 84H, Lymphocytes (%) (Auto) 6L, Monocytes (%) (Auto) 6, Eosinophils (%) (Auto) 3, Basophils (%) (Auto) 1, Neutrophils # (Auto) 10.0H, Lymphocytes # (Auto) 0.7L, Monocytes # (Auto) 0.7, Eosinophils # (Auto) 0.4H, Basophils # (Auto) 0.1, Immature Granulocyte # (Auto) 0.1, Sodium Level 136, Potassium Level 3.4L, Chloride Level 91L, Carbon Dioxide Level 33H, Anion Gap 12, Blood Urea Nitrogen 20H, Creatinine 1.56H, Estimat Glomerular Filtration Rate 43, BUN/Creatinine Ratio 13, Glucose Level 111H, Calcium Level 7.7L, Phosphorus Level 3.3, Magnesium Level 1.3L, B-Type Natriuretic Peptide 367.9H Microbiology 03/21/21 MRSA Screen - Final, Complete MRSA not isolated 03/21/21 Blood Culture - Preliminary, Resulted No growth ECG Impression ECG Initial ECG Impression: Atrial Fibrillation Physical Exam Physical Exam Vital Signs Vital Signs - First Documented 03/21/21 03/21/21 02:40 05:47 Temp 36.5 Pulse 97 Resp 25 B/P (MAP) 180/110 (133) Pulse Ox 92 O2 Delivery NIV CPAP O2 Flow Rate 10.00 FiO2 40 Capillary Refill : Less Than 3 Seconds Height, Weight, BMI Height: 5'9.00" Weight: 225lbs. oz. 102.403912qu; 34.41 BMI Method:Stated General Appearance: No Apparent Distress, Chronically ill, Obese HEENT: No Moist Mucous Membranes (Dry mucous membranes) Neck: Supple Respiratory: No Accessory Muscle Use, Other (Tachypneic with diminished breath sounds posteriorly coarse breath sounds anteriorly without wheezes.) Cardiovascular: Irregularly Irregular, Other (1-2+ edema of the upper extremities 3+ edema of the lower extremities no ulcerations noted) Gastrointestinal: No Pulsatile Mass, Soft Rectal: Deferred Extremity: Pedal Edema (3+ pitting edema to bilateral lower extremities up to his waist) Neurologic/Psychiatric: Other (Patient is somnolent but awakens to voice) Skin: Warm/Dry, Pallor Lymphatic: No Adenopathy A/P-Cardiology Admission Diagnosis Acute respiratory failure COPD CHF Afib Assessment/Plan Acute respiratory failure with exacerbation of COPD, improving slowly. Managed by Dr. Cortez Pneumonia, receiving antibiotics. Managed by primary care team Recurrent UTI with Pseudomonas, managed by primary care team Positive blood cultures on 03/21/21 for gram neg cocci. Staff aureus grew in blood culture on February 27. Echocardiogram did not show any vegetation. Congestive heart failure, acute on chronic left ventricular systolic dysfuncti on, last echo done in January 2021 showing mild left ventricular systolic dysfunction with EF 45 to 50%, had pulmonary hypertension. Continue with diuretics and monitor Persistent atrial fibrillation, diagnosed in January 2021, rate is controlled. Continue to monitor CHADs-VASc score of 5, yearly stroke risk 7.2%. Maintained on Coumadin. INR therapeutic. Oxygen dependent COPD, managed by primary care team. Pulmonary hypertension, PA pressure 55 to 60 mmHg, likely due to severe COPD. Thank you for allowing us to participate in the management of Mr. Barahona. This is Tiffanie Ellis PA-C, as a scribe for Dr. Leslie. Patient was seen and evaluated with Tiffanie, has been doing well, still having some shortness of breath and peripheral edema, received 60 mg of Lasix earlier We will give Lasix 20 mg IV every 12 hours and monitor tolerance and response Echocardiogram showed ejection fraction 45 to 50% Heart rate is controlled Monitor blood pressure and lipids TIFFANIE CALDWELL March 22, 2021 09:46 MAHAD LESLIE MD March 22, 2021 12:42
[2021-03-22] MEDS ORDERED: ALB0.5V INH (09:55)
--- NOTE | 2021-03-22 10:17 | Progress Note - Hospitalist ---
Subjective HPI/CC On Admission Date Seen by Provider: March 22, 2021 Time Seen by Provider: 09:00 Time Seen by Provider: 02:37 Initial Comments 75-year-old male presenting from [facility] with increased shortness of breath and hypoxia. He has a history of CHF and COPD as well as renal insufficiency. He has been having increasing problems with his heart failure recently. He has had multiple visits to the hospital as well as the emergency department for his breathing. He was last seen by me on March 15 for shortness of breath and confusion. Tonight he had orders from the doctor to get additional Lasix however the nursing staff at [facility] reported that he had deteriorated before they could administer any Lasix. Patient has a indwelling catheter. He was placed on CPAP by EMS and transported to the ED. His O2 sats were in the 60 and 70% range. With the CPAP he came up into the 80s. He has diminished breath sounds and increased edema to his extremities. He is somnolent but awakens to voice. Unable to answer questions for history and review of systems due to his shortness of breath and wearing a CPAP. The patient was still somnolent but arousable to verbal stimulation but unable to answer any questions or follow any commands. Subjective/Events-last exam Pt feels a lot better Tried to talk to him about hospice but he is not interested Creatinine of 1.56 DNR, do not intubate still remains Cardiology consulted Dr. Miranda CHF requires Vapotherm for oxygen support Overall very poor prognosis Review of Systems General: Fatigue Pulmonary: Dyspnea Focused Exam Lactate Level 03/21/21 03:12: Lactic Acid Level 0.81 Objective Exam Vital Signs Vital Signs Date Time Temp Pulse Resp B/P (MAP) Pulse Ox O2 Delivery O2 Flow Rate FiO2 03/23/21 04:41 36.2 83 20 121/75 92 High Flow N/C 3.00 03/22/21 08:00 40 Capillary Refill : Less Than 3 Seconds General Appearance: No Apparent Distress, WD/WN, Chronically ill, Obese Respiratory: No Accessory Muscle Use, No Respiratory Distress, Decreased Breath Sounds, Wheezing Cardiovascular: Regular Rate, Rhythm Neurologic/Psychiatric: Alert, Oriented x3 Results/Procedures Lab Laboratory Tests 03/22/21 05:43 Patient resulted labs reviewed. Assessment/Plan Assessment and Plan Assess & Plan/Chief Complaint Assessment: Acute on chronic resp failure AECHF AF Coumadin treatment CRI Anemia Debility Plan: Monitor closely Not interested in hospice Critical Care Critically Ill Patient ASTRID ALFONSO DO March 22, 2021 10:17
[2021-03-22] MEDS: FUROSEMIDE 40 MG/4 ML INJ (LASIX) IVP SCH (16:02)
[2021-03-22] MEDS: warFARin 5 MG (COUMADIN) TAB PO SCH (17:21)
[2021-03-23] MEDS: RT-ALBUTEROL/IPRATROPIUM 3 ML (DUONEB) VIAL INH SCH ×6 (02:12→21:59)
[2021-03-23] MEDS: CEFEPIME 1,000 MG/SWFI 10 ML IV PUSH IV SCH ×8 (04:27→20:38)
[2021-03-23] MEDS: CATHETER FLUSH 10 ML SYR IV SCH ×3 (04:28→20:38)
[2021-03-23 05:39] LABS: BASOPHILS # (AUTO) 0.1 10^3/uL (0.0-0.1); BASOPHILS % (AUTO) 1 % (0-10); EOSINOPHILS # (AUTO) 0.8 10^3/uL (0.0-0.3); EOSINOPHILS % (AUTO) 7 % (0-10); HEMATOCRIT 31 % (40-54); HEMOGLOBIN 10.1 g/dL (13.3-17.7); LYMPHOCYTES # (AUTO) 0.8 10^3/uL (1.0-4.0); LYMPHOCYTES % (AUTO) 7 % (12-44); MEAN CORPUSCULAR HEMOGLOBIN 33 pg (25-34); MEAN CORPUSCULAR HGB CONC 33 g/dL (32-36); MEAN CORPUSCULAR VOLUME 99 fL (80-99); MEAN PLATELET VOLUME 9.2 fL (9.0-12.2); MONOCYTES # (AUTO) 0.8 10^3/uL (0.0-1.0); MONOCYTES % (AUTO) 7 % (0-12); NEUTROPHILS % (AUTO) 78 % (42-75); PLATELET COUNT 238 10^3/uL (130-400); WHITE BLOOD COUNT 11.5 10^3/uL (4.3-11.0)
[2021-03-23 05:51] LABS: INR 2.9 (0.8-1.4); PROTHROMBIN TIME PATIENT 30.6 SEC (12.2-14.7)
[2021-03-23 05:58] LABS: ALBUMIN 3.2 GM/DL (3.2-4.5); BILIRUBIN,TOTAL 0.4 MG/DL (0.1-1.0); CALCIUM 7.7 MG/DL (8.5-10.1); CREATININE SERUM 1.3 MG/DL (0.60-1.30); POTASSIUM 3.2 MMOL/L (3.6-5.0); TOTAL PROTEIN 6.1 GM/DL (6.4-8.2)
--- NOTE | 2021-03-23 06:23 | Pulmonary Progress Note ---
Subjective Time Seen by a Provider: 06:19 Subjective/Events-last exam PT is only requiring 3 liters of oxygen. Sepsis Event Evaluation Height, Weight, BMI Height: 5'9.00" Weight: 225lbs. oz. 102.375596qn; 34.41 BMI Method:Stated Focused Exam Lactate Level 03/21/21 03:12: Lactic Acid Level 0.81 Exam Exam Vital Signs Date Time Temp Pulse Resp B/P (MAP) Pulse Ox O2 Delivery O2 Flow Rate FiO2 03/23/21 04:41 36.2 83 20 121/75 92 High Flow N/C 3.00 03/23/21 01:00 82 03/22/21 23:43 36.0 89 22 120/74 93 High Flow N/C 3.00 03/22/21 21:49 94 High Flow N/C 3.00 03/22/21 20:40 High Flow N/C 3.00 03/22/21 19:25 36.3 88 24 127/62 High Flow N/C 3.00 03/22/21 19:00 87 03/22/21 18:50 93 High Flow N/C 3.00 03/22/21 16:13 36.3 84 24 127/58 High Flow N/C 3.00 03/22/21 14:27 91 High Flow N/C 3.00 03/22/21 13:26 90 03/22/21 12:10 36.6 94 24 128/77 High Flow N/C 03/22/21 10:28 95 High Flow N/C 3.00 03/22/21 08:00 92 Vapotherm 15.00 40 03/22/21 07:20 36.4 80 22 116/76 Vapotherm 03/22/21 07:00 78 03/22/21 06:58 95 Vapotherm 15.00 40 I & O 03/23/21 07:00 Intake Total 3380 ml Output Total 5175 ml Balance -1795 ml Height & Weight Height: 5'9.00" Weight: 225lbs. oz. 102.484633hk; 34.41 BMI Method:Stated General Appearance: No Apparent Distress, WD/WN, Chronically ill, Obese HEENT: No Moist Mucous Membranes (Dry mucous membranes) Neck: Supple Respiratory: No Accessory Muscle Use, No Respiratory Distress, Decreased Breath Sounds, Wheezing Cardiovascular: Regular Rate, Rhythm Capillary Refill: Less Than 3 Seconds Extremity: Pedal Edema (3+ pitting edema to bilateral lower extremities up to his waist) Neurologic/Psychiatric: Alert, Oriented x3 Skin: Warm/Dry, Pallor Lymphatic: No Adenopathy Results Lab Laboratory Tests 03/22/21 05:43 03/23/21 05:13 Assessment/Plan Assessment/Plan Acute on chronic respiratory failure PNA with hx of Pseudomonus and enterococcus -Continue Vanco and Cefepime pseudomonus previously sensitive to Cefepime -MRSA is positive -[place] cultures pending -Repeat CXR Bacteremia with staph -Continue Cefepime -MRSA swab is negative -Repeat BC X 3 -Improving leukocytosis and afebrial Hx of CHF and Afib -Lasix add Spironolacatone -Pt is on coumadin Hypokalemia -Replace VICTOR M MIRANDA DO March 23, 2021 06:23
[2021-03-23] MEDS: FUROSEMIDE 40 MG/4 ML INJ (LASIX) IVP SCH ×2 (06:26→16:15)
[2021-03-23] MEDS: RT--FLUTICASONE/SALMETEROL 232-14 (AIRDUO RespiCLICK) IH SCH ×2 (07:18→18:38)
[2021-03-23] MEDS ORDERED: KCL 20 MEQ TAB (K-DUR) PO ONE (08:00)
[2021-03-23] MEDS ORDERED: VANCOMYCIN 1250 MG/NS 250 ML IVPB IV SCH ×2 (08:00)
--- NOTE | 2021-03-23 08:38 | Progress Note - Hospitalist ---
Subjective HPI/CC On Admission Date Seen by Provider: March 23, 2021 Time Seen by Provider: 09:00 Time Seen by Provider: 02:37 Initial Comments 75-year-old male presenting from [facility] with increased shortness of breath and hypoxia. He has a history of CHF and COPD as well as renal insufficiency. He has been having increasing problems with his heart failure recently. He has had multiple visits to the hospital as well as the emergency department for his breathing. He was last seen by me on March 15 for shortness of breath and confusion. Tonight he had orders from the doctor to get additional Lasix however the nursing staff at [facility] reported that he had deteriorated before they could administer any Lasix. Patient has a indwelling catheter. He was placed on CPAP by EMS and transported to the ED. His O2 sats were in the 60 and 70% range. With the CPAP he came up into the 80s. He has diminished breath sounds and increased edema to his extremities. He is somnolent but awakens to voice. Unable to answer questions for history and review of systems due to his shortness of breath and wearing a CPAP. The patient was still somnolent but arousable to verbal stimulation but unable to answer any questions or follow any commands. Subjective/Events-last exam Pt doing a lot better Will order PT and OT Spoke with palliative care nurse and she will see him Creatinine down to 1.3 INR 2.9 Off Vapotherm Breathing better Very chronically debilitated Review of Systems General: Fatigue, Malaise Pulmonary: Dyspnea Focused Exam Lactate Level Objective Exam Vital Signs Vital Signs Date Time Temp Pulse Resp B/P (MAP) Pulse Ox O2 Delivery O2 Flow Rate FiO2 03/24/21 04:43 36.1 69 18 100/64 99 High Flow N/C 3.00 03/22/21 08:00 40 Capillary Refill : Less Than 3 Seconds General Appearance: No Apparent Distress, WD/WN, Chronically ill Respiratory: No Accessory Muscle Use, No Respiratory Distress, Decreased Breath Sounds Cardiovascular: Irregularly Irregular, Tachycardia Neurologic/Psychiatric: Alert, Oriented x3, Depressed Affect Results/Procedures Lab Patient resulted labs reviewed. Assessment/Plan Assessment and Plan Assess & Plan/Chief Complaint Assessment: Acute on chronic resp failure AECHF AF Coumadin treatment CRI Anemia Debility Plan: Monitor closely Not interested in hospice 03/23/21: Palliative care consult PT OT SP catheter Monitor BP Critical Care Critically Ill Patient ASTRID ALFONSO DO March 23, 2021 08:38
--- NOTE | 2021-03-23 08:40 | Cardiology Progress Note ---
Subjective Date Seen by Provider: March 23, 2021 Time Seen by Provider: 08:38 Subjective/Events-last exam Patient is sitting up in bed, denies any chest pain or increased dyspnea. Review of Systems General: No Chills, No Night Sweats; Fatigue; No Malaise, No Appetite, No Other HEENT: No Head Aches, No Visual Changes, No Eye Pain, No Ear Pain, No Dysphasia, No Sinus Congestion, No Post Nasal Drip, No Sore Throat, No Other Pulmonary: Dyspnea; No Cough, No Pleuritic Chest Pain, No Other Cardiovascular: Edema; No: Chest Pain, Palpitations, Orthopnea, Paroxysmal Noc. Dyspnea, Lt Headedness, Other Focused Exam Lactate Level 03/21/21 03:12: Lactic Acid Level 0.81 Objective-Cardiology Exam Last Set of Vital Signs Vital Signs 03/22/21 03/23/21 08:00 07:49 Temp 36.3 Pulse 81 Resp 18 B/P (MAP) 130/66 Pulse Ox 93 O2 Delivery High Flow N/C O2 Flow Rate 3.00 FiO2 40 Capillary Refill : Less Than 3 Seconds I&O Intake and Output 03/23/21 00:00 Intake Total 3130 ml Output Total 5125 ml Balance -1995 ml Intake Oral 2300 ml IV Total 830 ml Output Urine Total 5125 ml General: Alert, Oriented X3, Cooperative HEENT: Atraumatic, PERRLA Neck: Supple, No JVD, No Thyromegaly Lungs: Other (decreased breath sounds) Heart: Regular Rate, Normal S1, Normal S2 Abdomen: Soft, No Tenderness Extremities: No Clubbing, No Cyanosis, Other (+1 edema BLE) Skin: No Rashes Neuro: Normal Gait, Cranial Nerves 3-12 NL Psych/Mental Status: Mental Status NL, Mood NL Results Lab Laboratory Tests 03/23/21 05:13 A/P-Cardiology Admission Diagnosis Acute respiratory failure COPD CHF Afib Assessment/Plan Acute respiratory failure with exacerbation of COPD, improving slowly. Managed by Dr. Cortez Pneumonia, receiving antibiotics. Managed by primary care team History of Recurrent UTI with Pseudomonas, managed by primary care team Positive blood cultures on 03/21/21 for gram neg cocci. Staff aureus grew in blood culture on February 27. Echocardiogram did not show any vegetation. Congestive heart failure, acute on chronic left ventricular systolic dysfunction, last echo done in January 2021 showing mild left ventricular systolic dysfunction with EF 45 to 50%, had pulmonary hypertension. Continue with diuretics and monitor Persistent atrial fibrillation, diagnosed in January 2021, rate is controlled. Continue to monitor CHADs-VASc score of 5, yearly stroke risk 7.2%. Maintained on Coumadin. INR therapeutic. Oxygen dependent COPD, managed by primary care team. Pulmonary hypertension, PA pressure 55 to 60 mmHg, likely due to severe COPD. Hypokalemia- replace and continue to monitor. Patient was seen and evaluated with Tiffanie, has been doing well, still having pedal edema Hypokalemia being replaced Continue with diuretics Monitor blood pressure and lipids Supervisory-Addendum Brief Supervisory Addendum Participated in pt care: history, MDM, physical Personally performed: exam, history, MDM Care discussed with: TIFFANIE KNOX March 23, 2021 08:40 MAHAD CRUMP MD March 23, 2021 10:23
--- NOTE | 2021-03-23 08:48 | Diagnostic Imaging Report ---
EXAMINATION: Portable erect AP chest at 8:09 AM INDICATION: Shortness of breath The prior exam of 03/21/2021 noted that both lung bases were obscured by atelectasis/infiltrate and fluid. On this exam, the right lung base does seem better aerated although there is still some residual pneumonia/atelectasis and fluid present. The left lung has not changed significantly. The heart is stable in size and the central pulmonary vasculature remains prominent. The mediastinum is not widened. The osseous structures are intact. IMPRESSION: The appearance of the chest has improved as the right lung base does seem better aerated. A follow-up study would be recommended for continued evaluation. Dictated by: Dictated on workstation # [id number]
[2021-03-23] MEDS: VANCOMYCIN 1250 MG/NS 250 ML IVPB IV SCH ×2 (09:47)
[2021-03-23] MEDS: PHENobarbital 64.8 MG (1 GRAIN) TAb PO SCH ×2 (09:47→20:39)
[2021-03-23] MEDS: SPIRONOLACTONE 25 MG (ALDACTONE) TAB PO SCH (09:47)
--- NOTE | 2021-03-23 11:34 | Physical Therapy Evaluation ---
PT Evaluation-General Medical Diagnosis Admission Date March 21, 2021 at 03:47 Medical Diagnosis: acute respiratory failure Onset Date: March 21, 2021 Therapy Diagnosis Therapy Diagnosis: debility/weakness Height/Weight Height (Feet): 5 Height (Inches): 9.00 Weight (Pounds): 225 Precautions Precautions/Isolations: Seizure, Fall Prevention, Standard Precautions, Pressure Ulcer Referral Physician: Ron Reason for Referral: Evaluation/Treatment Medical History Pertinent Medical History: Atrial Fib, Alcoholism, COPD, DM, Heart Failure, HTN, Neuropathy, Smoking Current History EMS from [place] secondary to SOA Reviewed History: Yes Social History Home: Shelter Prior Prior Level of Function SCALE: Activities may be completed with or without assistive devices. 6-Uaoqacfbfh-npvbzku completes the activity by him/herself with no assistance from a helper. 5-Set-up or Clean-up Assistance-helper sets up or cleans up; patient completes activity. [place] assists only prior to or following the activity. 4-Supervision or Touching Assistance-helper provides verbal cues and/or touching/steadying and/or contact guard assistance as patient completes activity. Assistance may be provided throughout the activity or intermittently. 3-Partial/Moderate Assistance-helper does LESS THAN HALF the effort. [place] lifts, holds or supports trunk or limbs, but provides less than half the effort. 2-Substantial/Maximal Assistance-helper does MORE THAN HALF the effort. [place] lifts or holds trunk or limbs and provides more than half the effort. 3-Fbwssjvtb-lgdcly does ALL the effort. Patient does none of the effort to complete the activity. Or, the assistance of 2 or more helpers is required for the patient to complete the activity. If activity was not attempted, code reason: 7-Patient Refused. 9-Not Applicable-not attempted and the patient did not perform the activity before the current illness, exacerbation or injury. 10-Not Attempted due to Environmental Limitations-(lack of equipment, weather restraints, etc.). 88-Not Attempted due to Medical Conditions or Safety Concerns. Bed Mobility: 3 Transfers (B,C,W/C): 3 Gait: 3 Stairs: 9 Indoor Mobility (Ambulation): Needed Some Help Stairs: Not Applicalbe Prior Devices Use: Manual wheelchair, Walker PT Evaluation-Current Subjective Patient agrees to PT. Objective Patient Orientation: Normal For Age Attachments: Oxygen, Suprapubic Catheter ROM/Strength ROM Lower Extremities bilateral LE WFL Strength Lower Extremities 3/5 grossly bilateral LE Integumentary/Posture Integumentary refer to nursing notes Posture WFL Neuromuscular (Tone, Coordination, Reflexes) grossly intact Sensory Vision: Functional Hearing: Functional Sensation Right Lower Extremit: Impaired Sensation Left Lower Extremity: Impaired Transfers Lying to Sitting/Side of Bed(Q: 3 Sit to Stand (QC): 3 Chair/Ueq-nh-Cpfsa Xfer(QC): 3 Gait Does the Patient Walk?: Yes Mode of Locomotion: Both Anticipated Mode of Locomotion: Both Walk 10 feet (QC): 3 Walk 50 ft with 2 Turns(QC): 88 Walk 150 ft (QC): 88 Distance: 10' Gait Assistive Device: FWW Comments/Gait Description functional gait sequence Balance Sitting Static: Normal Sitting Dynamic: Normal Standing Static: Fair Standing Dynamic: Fair Assessment/Needs 75 y.o. male, will benefit from skilled PT to address functional strength and mobility to improve current LOF. Patient is beginning to ambulate with FWW short distances. Patient perseverates on wanting whiskey or vodka. Rehab Potential: Guarded PT [place] Goals Long-Term Goals PT Long-Term Goals Time Frame: April 03, 2021 Roll Left & Right (QC): 4 Sit to Lying (QC): 4 Lying-Sitting on Side/Bed(QC): 4 Sit to Stand (QC): 3 Chair/Zqr-lm-Ohxwr Xfer(QC): 33 Toilet Transfer (QC): 3 Does the Patient Walk: Yes Walk 10 feet (QC): 3 Walk 50ft with 2 Turns (QC): 3 PT Plan Problem List Problem List: Activity Tolerance, Functional Strength, Safety, Balance, Gait, Transfer, Bed Mobility Treatment/Plan Treatment Plan: Continue Plan of Care Treatment Plan: Bed Mobility, Education, Functional Activity Ken, Functional Strength, Gait, Safety, Therapeutic Exercise, Transfers Treatment Duration: April 03, 2021 Frequency: 6 times per week Estimated Hrs Per Day: .25 hour per day Patient and/or Family Agrees t: Yes Time/GCodes Time In: 1053 Time Out: 1105 Total Billed Treatment Time: 12 Total Billed Treatment 1 visit EVModC 12 min SELVIN RODRIGUEZ PT March 23, 2021 11:34
--- NOTE | 2021-03-23 11:55 | Occupational Therapy Eval ---
OT Evaluation-General/PLF Medical Diagnosis Admission Date March 21, 2021 at 03:47 Medical Diagnosis: acute respiratory failure Onset Date: March 21, 2021 Therapy Diagnosis Therapy Diagnosis: weakness, decreased ADL status Height/Weight Height (Feet): 5 Height (Inches): 9.00 Weight (Pounds): 225 Precautions Precautions/Isolations: Seizure, Fall Prevention, Standard Precautions, Pressure Ulcer Referral Physician: Ron Referral Reason: Evaluation/Treatment Medical History Pertinent Medical History: Atrial Fib, Alcoholism, COPD, DM, Heart Failure, HTN, Neuropathy, Smoking Additional Medical History CHF, renal insufficiency, suprapubic catheter, HLD, atherosclerotic occlusive di sease, alcohol dependence, severe BPH Current History EMS from [place] due to SOB and hypoxia Social History Home: [facility] ADL-Prior Level of Function SCALE: Activities may be completed with or without assistive devices. 1-Ctnrczvvyz-rxheyyc completes the activity by him/herself with no assistance from a helper. 5-Set-up or Clean-up Assistance-helper sets up or cleans up; patient completes activity. [place] assists only prior to or following the activity. 4-Supervision or Touching Assistance-helper provides verbal cues and/or touching/steadying and/or contact guard assistance as patient completes activity. Assistance may be provided throughout the activity or intermittently. 3-Partial/Moderate Assistance-helper does LESS THAN HALF the effort. [place] lifts, holds or supports trunk or limbs, but provides less than half the effort. 2-Substantial/Maximal Assistance-helper does MORE THAN HALF the effort. [place] lifts or holds trunk or limbs and provides more than half the effort. 8-Bbysnctat-byitag does ALL the effort. Patient does none of the effort to complete the activity. Or, the assistance of 2 or more helpers is required for the patient to complete the activity. If activity was not attempted, code reason: 7-Patient Refused. 9-Not Applicable-not attempted and the patient did not perform the activity before the current illness, exacerbation or injury. 10-Not Attempted due to Environmental Limitations-(lack of equipment, weather restraints, etc.). 88-Not Attempted due to Medical Conditions or Safety Concerns. ADL PLOF Comments Pt indicates he required assistance with bathing and dressing, indicates he would be able to assist some, but [facility] staff do not give him the chance as they are in a hurry. Pt indicates he would have difficulty putting pants/footwear on as it is hard to bend over, but he thinks he would be able to don a shirt with increased time. He mainly uses w/c for mobility, but able to use walker in his room. Self Care: Needed Some Help Functional Cognition: Unknown DME/Equipment Comments walker, w/c OT Current Status Subjective Pt seated in recliner eating lunch, agreeable to OT Tx. Mental Status/Objective Patient Orientation: Person, Place, Situation Attachments: Oxygen, Suprapubic Catheter Current Glasses/Contacts: Yes (reading) Hearing Aids: No Dentures/Partials: No Hand Dominance: Right Upper Extremity ROM WFL, BUE shoulder flexion to approx 90 degrees, WFL at elbows/wrists. 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 Upper Extremity Coordination slightly decreased due to arthritis in hands Upper Extremity Sensation When asked if he had any tingling/numbness in UEs, pt states arthritis in hands. Unknown at this time, as pt did not answer question fully. Upper Extremity Strength grossly 3/5 BUEs ADL-Treatment Eating (QC): 5 (assist with containers, pt able to use utensils to cut food and eat) On/Off Footwear (QC): 1 (based on clincial judgement, pt would require total assist with task.) Other Treatments Pt seated in recliner eating lunch. OT educated pt on purpose and benefit of OT, he verbalize understanding. Pt provided information about PLOF and participated in UE Screen. OT educated pt on UE exercises in order to increase BUE strength, activity tolerance, and pulmonary function. Pt completed x10 reps of the following BUE AROM: shoulder flexion, elbow flexion/extension and finger flexion/extension. Rest breaks between exercises as needed. OT educated pt to complete exercises throughout the day, increasing reps as tolerated, he verbalized understanding. Post tx, pt seated in recliner, call light in reach and all needs met. Education OT Patient Education: Correct positioning, Exercise program, Modified ADL techniques, Progress toward Goal/Update tx plan, Purpose of tx/functional activities, Rehab process Teaching Recipient: Patient Teaching Methods: Discussion Response to Teaching: Verbalize Understanding OT Packager Goals Packager Goals Time Frame: April 02, 2021 Eating (QC): 6 Oral Hygiene (QC): 5 Toileting Hygiene (QC): 4 Shower/Bathe Self (QC): 2 Upper Body Dressing (QC): 4 Additional Goals: 1-Demonstrate ADL Tasks, 2-Verbalize Understanding, 3- ImproveStrength/Ken 1=Demonstrate adherence to instructed precautions during ADL tasks. 2=Patient will verbalize/demonstrate understanding of assistive devices/modifications for ADL. 3=Patient will improve strength/tolerance for activity to enable patient to perform ADL's. OT Education/Plan Problem List/Assessment Assessment: Decreased Activ Tolerance, Decreased UE Strength, Impaired Funct Balance, Impaired I ADL's, Impaired Self-Care Skills Discharge Recommendations Plan/Recommendations: Continue POC Treatment Plan/Plan of Care Patient would benefit from OT for education, treatment and training to promote independence in ADL's, mobility, safety and/or upper extremity function for ADL's. Plan of Care: ADL Retraining, Functional Mobility, UE Funct Exercise/Act Treatment Duration: April 02, 2021 Frequency: 5 times per week Estimated Hrs Per Day: .25 hour per day Rehab Potential: Guarded Time/GCodes Start Time: 11:33 Stop Time: 11:48 Total Time Billed (hr/min): 15 Billed Treatment Time 1BULL ADDISON OT March 23, 2021 11:55
[2021-03-23] MEDS: SIMETHICONE 80 MG (MYLICON) CHEW PO SCH (16:15)
[2021-03-23] MEDS: MICONAZOLE 2% POWDER (DESENEX AF) 90 GM TOP SCH ×2 (16:16→20:39)
[2021-03-23] MEDS: warFARin 5 MG (COUMADIN) TAB PO SCH (17:53)
[2021-03-23] MEDS: LACTOBACILLUS ACIDOPHILUS (PROBIOTIC) CAPSULE PO SCH (20:38)
[2021-03-23] MEDS: DOCUSATE SODIUM 100 MG (COLACE) CAP PO SCH (20:39)
[2021-03-24] MEDS: RT-ALBUTEROL/IPRATROPIUM 3 ML (DUONEB) VIAL INH SCH ×6 (02:09→21:08)
[2021-03-24] MEDS: CEFEPIME 1,000 MG/SWFI 10 ML IV PUSH IV SCH ×8 (04:38→22:14)
[2021-03-24] MEDS: CATHETER FLUSH 10 ML SYR IV SCH ×3 (04:39→22:13)
--- NOTE | 2021-03-24 06:03 | Progress Note - Hospitalist ---
Subjective HPI/CC On Admission Date Seen by Provider: March 24, 2021 Time Seen by Provider: 09:00 Time Seen by Provider: 02:37 Initial Comments 75-year-old male presenting from [facility] with increased shortness of breath and hypoxia. He has a history of CHF and COPD as well as renal insufficiency. He has been having increasing problems with his heart failure recently. He has had multiple visits to the hospital as well as the emergency department for his breathing. He was last seen by me on March 15 for shortness of breath and confusion. Tonight he had orders from the doctor to get additional Lasix however the nursing staff at [facility] reported that he had deteriorated before they could administer any Lasix. Patient has a indwelling catheter. He was placed on CPAP by EMS and transported to the ED. His O2 sats were in the 60 and 70% range. With the CPAP he came up into the 80s. He has diminished breath sounds and increased edema to his extremities. He is somnolent but awakens to voice. Unable to answer questions for history and review of systems due to his shortness of breath and wearing a CPAP. The patient was still somnolent but arousable to verbal stimulation but unable to answer any questions or follow any commands. Subjective/Events-last exam Pt doing pretty well PT and OT working with him INR is good at 2.6 Creatinine is 1.3 and stable WBC is 12.2 Antibiotics maintained for pneumonia Appreciate cardiology Review of Systems General: Fatigue, Malaise Pulmonary: Dyspnea Neurological: Weakness Objective Exam Vital Signs Vital Signs Date Time Temp Pulse Resp B/P (MAP) Pulse Ox O2 Delivery O2 Flow Rate FiO2 03/24/21 19:34 36.0 93 24 113/68 97 High Flow N/C 3.00 03/24/21 18:36 3 Capillary Refill : Less Than 3 Seconds General Appearance: No Apparent Distress, WD/WN, Chronically ill Respiratory: Lungs Clear Cardiovascular: Irregularly Irregular Neurologic/Psychiatric: Alert, Oriented x3, Depressed Affect Results/Procedures Lab Laboratory Tests 03/24/21 05:48 Patient resulted labs reviewed. Assessment/Plan Assessment and Plan Assess & Plan/Chief Complaint Assessment: Acute on chronic resp failure AECHF AF Coumadin treatment CRI Anemia Debility Plan: Monitor closely Not interested in hospice 03/23/21: Palliative care consult PT OT SP catheter Monitor BP 03/24/21: DC planning O2 Lasix Critical Care Critically Ill Patient ASTRID ALFONSO DO March 24, 2021 06:03
[2021-03-24 06:09] LABS: BASOPHILS # (AUTO) 0.1 10^3/uL (0.0-0.1); BASOPHILS % (AUTO) 1 % (0-10); EOSINOPHILS # (AUTO) 0.8 10^3/uL (0.0-0.3); EOSINOPHILS % (AUTO) 7 % (0-10); HEMATOCRIT 35 % (40-54); LYMPHOCYTES # (AUTO) 1.1 10^3/uL (1.0-4.0); LYMPHOCYTES % (AUTO) 9 % (12-44); MEAN CORPUSCULAR HEMOGLOBIN 31 pg (25-34); MEAN CORPUSCULAR HGB CONC 32 g/dL (32-36); MEAN CORPUSCULAR VOLUME 98 fL (80-99); MEAN PLATELET VOLUME 9.2 fL (9.0-12.2); MONOCYTES # (AUTO) 0.8 10^3/uL (0.0-1.0); MONOCYTES % (AUTO) 6 % (0-12); NEUTROPHILS # (AUTO) 9.3 10^3/uL (1.8-7.8); NEUTROPHILS % (AUTO) 76 % (42-75); PLATELET COUNT 261 10^3/uL (130-400); WHITE BLOOD COUNT 12.2 10^3/uL (4.3-11.0)
[2021-03-24 06:26] LABS: ALBUMIN 3.2 GM/DL (3.2-4.5)
[2021-03-24 06:27] LABS: POTASSIUM 3.6 MMOL/L (3.6-5.0)
--- NOTE | 2021-03-24 06:27 | Pulmonary Progress Note ---
Subjective Time Seen by a Provider: 06:26 Subjective/Events-last exam No complications noted. Sepsis Event Evaluation Height, Weight, BMI Height: 5'9.00" Weight: 225lbs. oz. 102.312154sw; 34.41 BMI Method:Stated Exam Exam Vital Signs Date Time Temp Pulse Resp B/P (MAP) Pulse Ox O2 Delivery O2 Flow Rate FiO2 03/24/21 04:43 36.1 69 18 100/64 99 High Flow N/C 3.00 03/24/21 00:44 81 03/24/21 00:15 36.1 77 18 98/63 96 High Flow N/C 3.00 03/23/21 20:45 High Flow N/C 3.00 03/23/21 19:35 36.2 86 20 113/72 95 High Flow N/C 3.00 03/23/21 19:00 82 03/23/21 18:38 93 High Flow N/C 3.00 03/23/21 16:00 36.2 96 20 113/73 96 High Flow N/C 3.00 03/23/21 12:49 93 03/23/21 11:39 36.4 82 18 142/67 93 High Flow N/C 3.00 03/23/21 10:50 94 High Flow N/C 3.00 03/23/21 08:00 93 High Flow N/C 3.00 03/23/21 07:49 36.3 81 18 130/66 93 High Flow N/C 3.00 03/23/21 07:19 93 High Flow N/C 3.00 03/23/21 06:46 82 I & O 03/24/21 07:00 Intake Total 2620 ml Output Total 3300 ml Balance -680 ml Height & Weight Height: 5'9.00" Weight: 225lbs. oz. 102.682811nw; 34.41 BMI Method:Stated General Appearance: No Apparent Distress, WD/WN, Chronically ill HEENT: No Moist Mucous Membranes (Dry mucous membranes) Neck: Supple Respiratory: No Accessory Muscle Use, No Respiratory Distress, Decreased Breath Sounds Cardiovascular: Irregularly Irregular, Tachycardia Capillary Refill: Less Than 3 Seconds Extremity: Pedal Edema (3+ pitting edema to bilateral lower extremities up to his waist) Neurologic/Psychiatric: Alert, Oriented x3, Depressed Affect Skin: Warm/Dry, Pallor Lymphatic: No Adenopathy Results Lab Laboratory Tests 03/23/21 05:13 03/24/21 05:48 Assessment/Plan Assessment/Plan Acute on chronic respiratory failure PNA with hx of Pseudomonus and enterococcus -Continue Vanco and Cefepime pseudomonus previously sensitive to Cefepime -MRSA is positive -[place] cultures pending -Repeat CXR Bacteremia with staph -Continue Cefepime and vanco -Repeat BC X 3 pending -Improving leukocytosis and afebrial Hx of CHF and Afib -Lasix add Spironolacatone -Pt is on coumadin Hypokalemia -Replace VICTOR M MIRANDA DO March 24, 2021 06:27
[2021-03-24 06:29] LABS: TOTAL PROTEIN 6.4 GM/DL (6.4-8.2)
[2021-03-24 06:30] LABS: INR 2.6 (0.8-1.4); PROTHROMBIN TIME PATIENT 27.8 SEC (12.2-14.7)
[2021-03-24 06:31] LABS: BILIRUBIN,TOTAL 0.4 MG/DL (0.1-1.0)
[2021-03-24 06:33] LABS: CREATININE SERUM 1.3 MG/DL (0.60-1.30)
[2021-03-24] MEDS: FUROSEMIDE 40 MG/4 ML INJ (LASIX) IVP SCH ×2 (06:37→17:01)
[2021-03-24] MEDS: RT--FLUTICASONE/SALMETEROL 232-14 (AIRDUO RespiCLICK) IH SCH ×2 (07:17→18:34)
[2021-03-24] MEDS: SPIRONOLACTONE 25 MG (ALDACTONE) TAB PO SCH (08:44)
[2021-03-24] MEDS: PANTOPRAZOLE 40 MG (PROTONIX) TAB PO SCH (08:44)
[2021-03-24] MEDS: VANCOMYCIN 1250 MG/NS 250 ML IVPB IV SCH ×2 (08:44)
[2021-03-24] MEDS: SIMETHICONE 80 MG (MYLICON) CHEW PO SCH ×2 (08:44→17:01)
[2021-03-24] MEDS: THIAMINE 100 MG (VITAMIN B-1) TAB PO SCH (08:44)
[2021-03-24] MEDS: DOCUSATE SODIUM 100 MG (COLACE) CAP PO SCH ×2 (08:44→20:30)
[2021-03-24] MEDS: ALLOPURINOL 100 MG (ZYLOPRIM) TAB PO SCH (08:44)
[2021-03-24] MEDS: LACTOBACILLUS ACIDOPHILUS (PROBIOTIC) CAPSULE PO SCH ×2 (08:44→20:29)
[2021-03-24] MEDS: PHENobarbital 64.8 MG (1 GRAIN) TAb PO SCH ×2 (08:45→20:29)
[2021-03-24] MEDS: MICONAZOLE 2% POWDER (DESENEX AF) 90 GM TOP SCH ×3 (08:47→20:30)
--- NOTE | 2021-03-24 09:05 | Cardiology Progress Note ---
Subjective Date Seen by Provider: March 24, 2021 Time Seen by Provider: 08:30 Subjective/Events-last exam Patient sitting up in chair, denies any chest pain or increase dyspnea. Complains of fatigue. Review of Systems General: No Chills, No Night Sweats; Fatigue, Malaise; No Appetite, No Other HEENT: No Head Aches, No Visual Changes, No Eye Pain, No Ear Pain, No Dyspha frances, No Sinus Congestion, No Post Nasal Drip, No Sore Throat, No Other Pulmonary: Dyspnea; No Cough, No Pleuritic Chest Pain, No Other Cardiovascular: Edema; No: Chest Pain, Palpitations, Orthopnea, Paroxysmal Noc. Dyspnea, Lt Headedness, Other Objective-Cardiology Exam Last Set of Vital Signs Vital Signs 03/24/21 03/24/21 03/24/21 03/24/21 07:19 12:06 12:56 14:55 Temp 35.8 Pulse 83 Resp 18 B/P (MAP) 116/69 Pulse Ox 94 O2 Delivery Nasal Cannula O2 Flow Rate 3.00 FiO2 3 Capillary Refill : Less Than 3 Seconds I&O Intake and Output 03/23/21 23:59 Intake Total 2770 ml Output Total 3400 ml Balance -630 ml Intake Oral 2770 ml Output Urine Total 3400 ml # Bowel Movements 2 General: Alert, Oriented X3, Cooperative HEENT: Atraumatic, PERRLA Neck: Supple, No JVD, No Thyromegaly Lungs: Other (decreased breath sounds) Heart: Regular Rate, Normal S1, Normal S2 Abdomen: Soft, No Tenderness Extremities: No Clubbing, No Cyanosis, Other (+1 edema BLE) Skin: No Rashes Neuro: Normal Gait, Cranial Nerves 3-12 NL Psych/Mental Status: Mental Status NL, Mood NL Results Lab Laboratory Tests 03/24/21 05:48 A/P-Cardiology Admission Diagnosis Acute respiratory failure COPD CHF Afib Assessment/Plan Acute respiratory failure with exacerbation of COPD, improving slowly. Managed by Dr. Cortez Pneumonia, receiving antibiotics. Managed by primary care team History of Recurrent UTI with Pseudomonas, managed by primary care team Positive blood cultures on 03/21/21 for gram neg cocci. Staff aureus grew in blood culture on February 27. Echocardiogram did not show any vegetation. Congestive heart failure, acute on chronic left ventricular systolic dysfunction, last echo done in January 2021 showing mild left ventricular systolic dysfunction with EF 45 to 50%, had pulmonary hypertension. Continue with diuretics and monitor Persistent atrial fibrillation, diagnosed in January 2021, rate is controlled. Continue to monitor CHADs-VASc score of 5, yearly stroke risk 7.2%. Maintained on Coumadin. INR therapeutic. Oxygen dependent COPD, managed by primary care team. Pulmonary hypertension, PA pressure 55 to 60 mmHg, likely due to severe COPD. Hypokalemia- improved, continue to monitor. Patient was seen and evaluated at bedside, sitting comfortably, feeling better Still having pedal edema and using bronchodilators Repeat blood culture is suggestive of contamination From cardiac standpoint we will continue on diuretics as an outpatient and follow-up as an outpatient KATRINA CALDWELL March 24, 2021 9:05 am MAHAD CRUMP MD March 24, 2021 3:07 pm
--- NOTE | 2021-03-24 11:12 | Occupational Ther Daily Note ---
OT Current Status-Daily Note Subjective Pt seated in recliner post PT tx, agreeable to OT tx with moderate encouragement. Mental Status/Objective Patient Orientation: Person, Place, Situation Attachments: Oxygen ADL-Treatment Therapy Code Descriptions/Definitions Functional [place] Measure: 0=Not Assessed/NA 4=Minimal Assistance 1=Total Assistance 5=Supervision or Setup 2=Maximal Assistance 6=Modified [place] 3=Moderate Assistance 7=Complete IndependenceSCALE: Activities may be completed with or without assistive devices. 2-Ixukzssict-xgagndb completes the activity by him/herself with no assistance from a helper. 5-Set-up or Clean-up Assistance-helper sets up or cleans up; patient completes activity. [place] assists only prior to or following the activity. 4-Supervision or Touching Assistance-helper provides verbal cues and/or touching/steadying and/or contact guard assistance as patient completes activity. Assistance may be provided throughout the activity or intermittently. 3-Partial/Moderate Assistance-helper does LESS THAN HALF the effort. [place] lifts, holds or supports trunk or limbs, but provides less than half the effort. 2-Substantial/Maximal Assistance-helper does MORE THAN HALF the effort. [place] lifts or holds trunk or limbs and provides more than half the effort. 5-Girvnczas-nvpgfa does ALL the effort. Patient does none of the effort to complete the activity. Or, the assistance of 2 or more helpers is required for the patient to complete the activity. If activity was not attempted, code reason: 7-Patient Refused. 9-Not Applicable-not attempted and the patient did not perform the activity before the current illness, exacerbation or injury. 10-Not Attempted due to Environmental Limitations-(lack of equipment, weather restraints, etc.). 88-Not Attempted due to Medical Conditions or Safety Concerns. Oral Hygiene (QC): 7 Shower/Bathe Self (QC): 7 Upper Body Dressing (QC): 7 Lower Body Dressing (QC): 7 On/Off Footwear: 7 Toileting Hygiene (QC): 7 Other Treatment Pt seated in recliner, moderate encouragement to participate in tx. Pt declined showering, dressing, oral care. OT offered to set up for face washing and hair brushing, pt declines. OT encouraged pt to participate in UE exercises, but he still declines. Pt states desire to shave, OT informed pt that she did not have any razors, he verbalized understanding. OT educated pt on purpose and benefit of OT, encouraging him to participate in tx, he agreed to washing his hair with a shower cap. OT set up pt with shower cap, encouraging pt to scrub his scalp. P t asked this therapist to do it for him. OT again explained purpose of OT, he agreed and able to scrub his hair with set up assistance. Pt declined drying hair with a towel after washing, but agreed to comb his hair, set up assist. Pt declined further tx at this time. Post tx, pt seated in recliner, call light in reach and all needs met. Education OT Patient Education: Correct positioning, Exercise program, Modified ADL techniques, Progress toward Goal/Update tx plan, Purpose of tx/functional activities, Rehab process, Safety issues Teaching Recipient: Patient Teaching Methods: Discussion Response to Teaching: Verbalize Understanding, Reinforcement Needed OT Lithographic Printing Machinist Goals Senior Living Goals Time Frame: April 02, 2021 Eating (QC): 6 Oral Hygiene (QC): 5 Toileting Hygiene (QC): 4 Shower/Bathe Self (QC): 2 Upper Body Dressing (QC): 4 Additional Goals: 1-Demonstrate ADL Tasks, 2-Verbalize Understanding, 3- ImproveStrength/Ken 1=Demonstrate adherence to instructed precautions during ADL tasks. 2=Patient will verbalize/demonstrate understanding of assistive devices/modifications for ADL. 3=Patient will improve strength/tolerance for activity to enable patient to perform ADL's. OT Education/Plan Problem List/Assessment Assessment: Decreased Activ Tolerance, Decreased UE Strength, Impaired I ADL's, Impaired Self-Care Skills Discharge Recommendations Plan/Recommendations: Continue POC Treatment Plan/Plan of Care Patient would benefit from OT for education, treatment and training to promote independence in ADL's, mobility, safety and/or upper extremity function for ADL's. Plan of Care: ADL Retraining, Functional Mobility, UE Funct Exercise/Act Treatment Duration: April 02, 2021 Frequency: 5 times per week Estimated Hrs Per Day: .25 hour per day Rehab Potential: Guarded Time/GCodes Start Time: 10:37 Stop Time: 10:45 Total Time Billed (hr/min): 8 Billed Treatment Time 1, ADL GRACIELA ASHTON OT March 24, 2021 11:12
--- NOTE | 2021-03-24 11:18 | Physical Therapy Daily Note ---
PT Daily Note-Current Subjective Patient upright in bed pre tx, consents to therapy. Denies pain. Appearance Patient upright in chair, with call button and tray table within reach, chair alarm on. Mental Status Patient Orientation: Person, Place, Time, Normal For Age Transfers SCALE: Activities may be completed with or without assistive devices. 7-Grksfpxdki-ewjvuir completes the activity by him/herself with no assistance from a helper. 5-Set-up or Clean-up Assistance-helper sets up or cleans up; patient completes activity. [place] assists only prior to or following the activity. 4-Supervision or Touching Assistance-helper provides verbal cues and/or touching/steadying and/or contact guard assistance as patient completes activity. Assistance may be provided throughout the activity or intermittently. 3-Partial/Moderate Assistance-helper does LESS THAN HALF the effort. [place] li fts, holds or supports trunk or limbs, but provides less than half the effort. 2-Substantial/Maximal Assistance-helper does MORE THAN HALF the effort. [place] lifts or holds trunk or limbs and provides more than half the effort. 5-Zcetucpvy-nrtbju does ALL the effort. Patient does none of the effort to complete the activity. Or, the assistance of 2 or more helpers is required for the patient to complete the activity. If activity was not attempted, code reason: 7-Patient Refused. 9-Not Applicable-not attempted and the patient did not perform the activity before the current illness, exacerbation or injury. 10-Not Attempted due to Environmental Limitations-(lack of equipment, weather restraints, etc.). 88-Not Attempted due to Medical Conditions or Safety Concerns. Roll Left & Right (QC): 6 Lying to Sitting/Side of Bed(Q: 3 (mod) Sit to Stand (QC): 3 (min) Chair/Lyg-ie-Zjmpy Xfer(QC): 3 (min) Gait Training Does the Patient Walk?: Yes Distance: 5' Gait Assistive Device: FWW Patient was steady with gait, did not want to walk too far. Exercises Seated Therapy Exercises: Ankle pumps, Long arc quads Seated Reps: 20 Treatments LE strengthening, transfers, gait Assessment Current Status: Fair Progress Patient demonstrated better bed mobility and functional activity with less assistance required PT Wrapping Machine Tender Goals Wrapping Machine Tender Goals PT Wrapping Machine Tender Goals Time Frame: April 03, 2021 Roll Left & Right (QC): 4 Sit to Lying (QC): 4 Lying-Sitting on Side/Bed(QC): 4 Sit to Stand (QC): 3 Chair/Eqt-in-Jlcpu Xfer(QC): 33 Toilet Transfer (QC): 3 Does the Patient Walk: Yes Walk 10 feet (QC): 3 Walk 50ft with 2 Turns (QC): 3 PT Plan Problem List Problem List: Activity Tolerance, Functional Strength, Safety, Balance, Gait, Transfer, Bed Mobility, ROM Treatment/Plan Treatment Plan: Continue Plan of Care Treatment Plan: Bed Mobility, Education, Functional Activity Ken, Functional Strength, Gait, Safety, Therapeutic Exercise, Transfers Treatment Duration: April 03, 2021 Frequency: 6 times per week Estimated Hrs Per Day: .25 hour per day Patient and/or Family Agrees t: Yes Safety Risks/Education Patient Education: Gait Training, Transfer Techniques, Correct Positioning, Safety Issues Teaching Recipient: Patient Teaching Methods: Demonstration, Discussion Response to Teaching: Verbalize Understanding, Return Demonstration Time/GCodes Time In: 1027 Time Out: 1037 Total Billed Treatment Time: 10 Total Billed Treatment 1 visit: FA: GEOVANNA AVILES PT March 24, 2021 11:18
[2021-03-24] MEDS: warFARin 5 MG (COUMADIN) TAB PO SCH (17:01)
[2021-03-25] MEDS: RT-ALBUTEROL/IPRATROPIUM 3 ML (DUONEB) VIAL INH SCH ×2 (02:30→06:36)
[2021-03-25] MEDS: CEFEPIME 1,000 MG/SWFI 10 ML IV PUSH IV SCH ×4 (03:47→10:16)
[2021-03-25 05:23] LABS: BASOPHILS # (AUTO) 0.1 10^3/uL (0.0-0.1); BASOPHILS % (AUTO) 1 % (0-10); EOSINOPHILS # (AUTO) 0.9 10^3/uL (0.0-0.3); EOSINOPHILS % (AUTO) 7 % (0-10); HEMATOCRIT 33 % (40-54); HEMOGLOBIN 10.7 g/dL (13.3-17.7); LYMPHOCYTES % (AUTO) 8 % (12-44); MEAN CORPUSCULAR HEMOGLOBIN 32 pg (25-34); MEAN CORPUSCULAR HGB CONC 32 g/dL (32-36); MEAN CORPUSCULAR VOLUME 98 fL (80-99); MEAN PLATELET VOLUME 9.5 fL (9.0-12.2); MONOCYTES # (AUTO) 0.7 10^3/uL (0.0-1.0); MONOCYTES % (AUTO) 6 % (0-12); NEUTROPHILS # (AUTO) 9.3 10^3/uL (1.8-7.8); NEUTROPHILS % (AUTO) 77 % (42-75); PLATELET COUNT 260 10^3/uL (130-400); WHITE BLOOD COUNT 12.1 10^3/uL (4.3-11.0)
[2021-03-25 05:45] LABS: INR 2.6 (0.8-1.4)
--- NOTE | 2021-03-25 05:49 | Pulmonary Progress Note ---
Subjective Time Seen by a Provider: 05:44 Subjective/Events-last exam CXR shows improvement. Sepsis Event Evaluation Height, Weight, BMI Height: 5'9.00" Weight: 225lbs. oz. 102.230879vt; 34.41 BMI Method:Stated Exam Exam Vital Signs Date Time Temp Pulse Resp B/P (MAP) Pulse Ox O2 Delivery O2 Flow Rate FiO2 03/25/21 04:00 36.6 85 20 107/55 96 High Flow N/C 3.00 03/25/21 01:00 97 03/24/21 23:13 36.0 77 20 131/76 98 High Flow N/C 3.00 03/24/21 21:08 95 Nasal Cannula 3.00 03/24/21 20:43 High Flow N/C 3.00 03/24/21 19:34 36.0 93 24 113/68 97 High Flow N/C 3.00 03/24/21 19:00 86 03/24/21 18:36 3 03/24/21 18:34 96 Nasal Cannula 3.00 03/24/21 15:39 36.0 77 24 108/68 97 High Flow N/C 3.00 03/24/21 14:55 94 Nasal Cannula 3.00 03/24/21 12:56 83 03/24/21 12:06 35.8 92 18 116/69 95 High Flow N/C 3.00 03/24/21 10:48 Nasal Cannula 3.00 03/24/21 08:00 95 High Flow N/C 3.00 03/24/21 07:43 36.4 81 20 113/61 96 High Flow N/C 3.00 03/24/21 07:19 3 03/24/21 07:11 96 Nasal Cannula 3.00 03/24/21 06:50 83 I & O 03/25/21 07:00 Intake Total 2510 ml Output Total 3050 ml Balance -540 ml Height & Weight Height: 5'9.00" Weight: 225lbs. oz. 102.501389re; 34.41 BMI Method:Stated General Appearance: No Apparent Distress, WD/WN, Chronically ill HEENT: No Moist Mucous Membranes (Dry mucous membranes) Neck: Supple Respiratory: Lungs Clear Cardiovascular: Irregularly Irregular Capillary Refill: Less Than 3 Seconds Extremity: Pedal Edema (3+ pitting edema to bilateral lower extremities up to his waist) Neurologic/Psychiatric: Alert, Oriented x3, Depressed Affect Skin: Warm/Dry, Pallor Lymphatic: No Adenopathy Results Lab Laboratory Tests 03/24/21 05:48 03/25/21 04:46 Assessment/Plan Assessment/Plan Acute on chronic respiratory failure PNA with hx of Pseudomonus and enterococcus -Continue Vanco and Cefepime pseudomonus previously sensitive to Cefepime -MRSA is positive -De [place] cultures pending -Repeat CXR - shows improvement -Titrate oxygen down. Bacteremia with staph -Continue Cefepime and vanco -Repeat BC X 3 pending - Negative thus far -Improving leukocytosis and afebrial Hx of CHF and Afib -Lasix add Spironolacatone -Pt is on coumadin VICTOR M MIRANDA DO March 25, 2021 05:49
[2021-03-25 06:06] LABS: ALBUMIN 3.2 GM/DL (3.2-4.5); POTASSIUM 3.6 MMOL/L (3.6-5.0)
[2021-03-25] MEDS: FUROSEMIDE 40 MG/4 ML INJ (LASIX) IVP SCH (06:06)
[2021-03-25] MEDS: CATHETER FLUSH 10 ML SYR IV SCH (06:06)
[2021-03-25 06:07] LABS: CALCIUM 8.1 MG/DL (8.5-10.1)
[2021-03-25 06:08] LABS: TOTAL PROTEIN 6.4 GM/DL (6.4-8.2)
[2021-03-25 06:10] LABS: BILIRUBIN,TOTAL 0.3 MG/DL (0.1-1.0)
[2021-03-25 06:12] LABS: CREATININE SERUM 1.49 MG/DL (0.60-1.30)
[2021-03-25] MEDS: RT--FLUTICASONE/SALMETEROL 232-14 (AIRDUO RespiCLICK) IH SCH (06:36)
--- NOTE | 2021-03-25 08:24 | Cardiology Progress Note ---
Subjective Date Seen by Provider: March 25, 2021 Time Seen by Provider: 08:22 Subjective/Events-last exam Patient is laying down in bed, denied any chest pain, feeling better, swelling is better. Review of Systems General: No Chills, No Night Sweats; Fatigue; No Malaise, No Appetite, No Other HEENT: No Head Aches, No Visual Changes, No Eye Pain, No Ear Pain, No Dysphas ia, No Sinus Congestion, No Post Nasal Drip, No Sore Throat, No Other Pulmonary: Dyspnea; No Cough, No Pleuritic Chest Pain, No Other Cardiovascular: Edema; No: Chest Pain, Palpitations, Orthopnea, Paroxysmal Noc. Dyspnea, Lt Headedness, Other Objective-Cardiology Exam Last Set of Vital Signs Vital Signs 03/24/21 03/25/21 18:36 07:15 Temp 36.2 Pulse 82 Resp 22 B/P (MAP) 116/74 Pulse Ox 93 O2 Delivery High Flow N/C O2 Flow Rate 3.00 FiO2 3 Capillary Refill : Less Than 3 Seconds I&O Intake and Output 03/25/21 00:00 Intake Total 2560 ml Output Total 3050 ml Balance -490 ml Intake Oral 2560 ml Output Urine Total 3050 ml General: Alert, Oriented X3, Cooperative HEENT: Atraumatic, PERRLA Neck: Supple, No JVD, No Thyromegaly Lungs: Other (decreased breath sounds) Heart: Regular Rate, Normal S1, Normal S2 Abdomen: Soft, No Tenderness Extremities: No Clubbing, No Cyanosis, Other (+1 edema BLE) Skin: No Rashes Neuro: Normal Gait, Cranial Nerves 3-12 NL Psych/Mental Status: Mental Status NL, Mood NL Results Lab Laboratory Tests 03/25/21 04:46 A/P-Cardiology Admission Diagnosis Acute respiratory failure COPD CHF Afib Assessment/Plan Acute respiratory failure with exacerbation of COPD, improving slowly. Managed by Dr. Cortez Pneumonia, receiving antibiotics. Managed by primary care team History of Recurrent UTI with Pseudomonas, managed by primary care team Positive blood cultures on 03/21/21 for gram neg cocci. Staff aureus grew in blood culture on February 27. Echocardiogram did not show any vegetation. Congestive heart failure, acute on chronic left ventricular systolic dysfunction, last echo done in January 2021 showing mild left ventricular systolic dysfunction with EF 45 to 50%, had pulmonary hypertension. Continue with diuretics and monitor Chronic kidney disease, creatinine is worsening slightly, I will stop the IV Lasix and return to oral Lasix 20 mg twice a day instead of 40 once daily and monitor tolerance of response Persistent atrial fibrillation, diagnosed in January 2021, rate is controlled. Continue to monitor CHADs-VASc score of 5, yearly stroke risk 7.2%. Maintained on Coumadin. INR therapeutic. Oxygen dependent COPD, managed by primary care team. Pulmonary hypertension, PA pressure 55 to 60 mmHg, likely due to severe COPD. Hypokalemia- improved, continue to monitor. MAHAD CRUMP MD March 25, 2021 08:24
[2021-03-25] MEDS: VANCOMYCIN 1250 MG/NS 250 ML IVPB IV SCH ×2 (09:01)
[2021-03-25] MEDS: THIAMINE 100 MG (VITAMIN B-1) TAB PO SCH (09:01)
[2021-03-25] MEDS: PHENobarbital 64.8 MG (1 GRAIN) TAb PO SCH (09:02)
[2021-03-25] MEDS: SPIRONOLACTONE 25 MG (ALDACTONE) TAB PO SCH (09:02)
[2021-03-25] MEDS: PANTOPRAZOLE 40 MG (PROTONIX) TAB PO SCH (09:02)
[2021-03-25] MEDS: DOCUSATE SODIUM 100 MG (COLACE) CAP PO SCH (09:02)
[2021-03-25] MEDS: LACTOBACILLUS ACIDOPHILUS (PROBIOTIC) CAPSULE PO SCH (09:02)
[2021-03-25] MEDS: SIMETHICONE 80 MG (MYLICON) CHEW PO SCH (09:02)
[2021-03-25] MEDS: ALLOPURINOL 100 MG (ZYLOPRIM) TAB PO SCH (09:02)
[2021-03-25] MEDS: MICONAZOLE 2% POWDER (DESENEX AF) 90 GM TOP SCH (09:08)
--- NOTE | 2021-03-25 11:20 | Physical Therapy Daily Note ---
PT Daily Note-Current Subjective Patient agrees to PT. No c/o. Mental Status Patient Orientation: Normal For Age Attachments: Oxygen, Suprapubic Catheter Transfers SCALE: Activities may be completed with or without assistive devices. 1-Qcbarisovr-mzxsebv completes the activity by him/herself with no assistance from a helper. 5-Set-up or Clean-up Assistance-helper sets up or cleans up; patient completes activity. [place] assists only prior to or following the activity. 4-Supervision or Touching Assistance-helper provides verbal cues and/or touching/steadying and/or contact guard assistance as patient completes activity. Assistance may be provided throughout the activity or intermittently. 3-Partial/Moderate Assistance-helper does LESS THAN HALF the effort. [place] lifts, holds or supports trunk or limbs, but provides less than half the effort. 2-Substantial/Maximal Assistance-helper does MORE THAN HALF the effort. [place] lifts or holds trunk or limbs and provides more than half the effort. 5-Scjrlvnuz-pcydxj does ALL the effort. Patient does none of the effort to complete the activity. Or, the assistance of 2 or more helpers is required for the patient to complete the activity. If activity was not attempted, code reason: 7-Patient Refused. 9-Not Applicable-not attempted and the patient did not perform the activity before the current illness, exacerbation or injury. 10-Not Attempted due to Environmental Limitations-(lack of equipment, weather restraints, etc.). 88-Not Attempted due to Medical Conditions or Safety Concerns. Lying to Sitting/Side of Bed(Q: 3 Sit to Stand (QC): 3 Chair/Fgg-bo-Xpppm Xfer(QC): 3 Gait Training Does the Patient Walk?: Yes Distance: 5' x 4 Gait Assistive Device: FWW Exercises Seated Therapy Exercises: Ankle pumps, Long arc quads Seated Reps: 15 Standing: Sit to Stand (x 3 sets) Assessment Patient is up in recliner with needs met. patient improving with gross motor skills and strength. PT Usp Goals Usp Goals PT Usp Goals Time Frame: April 03, 2021 Roll Left & Right (QC): 4 Sit to Lying (QC): 4 Lying-Sitting on Side/Bed(QC): 4 Sit to Stand (QC): 3 Chair/Wtm-uz-Dcitb Xfer(QC): 33 Toilet Transfer (QC): 3 Does the Patient Walk: Yes Walk 10 feet (QC): 3 Walk 50ft with 2 Turns (QC): 3 PT Plan Treatment/Plan Treatment Plan: Continue Plan of Care Treatment Plan: Bed Mobility, Education, Functional Activity Ken, Functional Strength, Gait, Safety, Therapeutic Exercise, Transfers Treatment Duration: April 03, 2021 Frequency: 6 times per week Estimated Hrs Per Day: .25 hour per day Patient and/or Family Agrees t: Yes Time/GCodes Time In: 1053 Time Out: 1104 Total Billed Treatment Time: 11 Total Billed Treatment 1 visit FA 11 min SELVIN RODRIGUEZ PT March 25, 2021 11:20
[2021-03-25] MEDS ORDERED: LINE600T12 PO (11:25)
[2021-03-25] MEDS ORDERED: CEFD300C3 PO (11:25)
[2021-03-25] MEDS ORDERED: SPIR25TA5 PO (11:25)
[2021-03-25] MEDS ORDERED: FURO20TA4 PO (11:25)
--- NOTE | 2021-03-25 11:26 | Discharge Inst-Skilled Nursing ---
Discharge Inst-Skilled NF Reconcile Patient Problems Problems Reviewed?: Yes Chief Complaint Time Seen by Provider: 02:37 Initial Comments 75-year-old male presenting from [facility] with increased shortness of breath and hypoxia. He has a history of CHF and COPD as well as renal insufficiency. He has been having increasing problems with his heart failure recently. He has had multiple visits to the hospital as well as the emergency department for his breathing. He was last seen by me on March 15 for shortness of breath and confusion. Tonight he had orders from the doctor to get additional Lasix however the nursing staff at [facility] reported that he had deteriorated before they could administer any Lasix. Patient has a indwelling catheter. He was placed on CPAP by EMS and transported to the ED. His O2 sats were in the 60 and 70% range. With the CPAP he came up into the 80s. He has diminished breath sounds and increased edema to his extremities. He is somnolent but awakens to voice. Unable to answer questions for history and review of systems due to his shortness of breath and wearing a CPAP. The patient was still somnolent but arousable to verbal stimulation but unable to answer any questions or follow any commands. Patient Instructions Patient Problems: PNA CHF AF Goal: [place] or Hospice Consult/Follow Up/Orders Follow Up Appt.: [facility] rounds Skilled NF Admit to: Certification (SNF) I certify that SNF services are required to be given on an inpatient basis because of the above named patient's need for snf care on a continuing basis for the conditions(s) for which he/she was receiving inpatient hospital services prior to his/her transfer to the SNF. Care Home Facility Order: Nursing Services, [place] [facility]-Evaluate & Treat, Physical Therapy-Evaluate & Treat Oxygen Delivery Method: Nasal Cannula (3) Discharge Diet: Low Sodium Diet, Cardiac Diet Daily Activity as Tolerated: Yes Resuscitation Status: Do Not Resuscitate New & Resume Previous Orders New Medications: Cefdinir (Cefdinir) 300 Mg Capsule 300 MG PO BID for 5 Days, #10 CAP Linezolid (Zyvox) 600 Mg Tablet 600 MG PO BID for 5 Days, TAB Furosemide (Furosemide) 20 Mg Tablet 20 MG PO BID@07,17 for 365 Days, TAB Spironolactone (Spironolactone) 25 Mg Tablet 25 MG PO DAILY for 365 Days, TAB Continued Medications: Albuterol Sulfate (Albuterol Sulfate) 2.5 Mg/0.5 Ml Vial.neb 2.5 MG INH Q6H PRN for SHORTNESS OF BREATH, EACH Allopurinol (Allopurinol) 100 Mg Tablet 100 MG PO DAILY, TAB Atorvastatin Calcium (Atorvastatin Calcium) 10 Mg Tablet 10 MG PO 1700, TAB Budesonide/Formoterol Fumarate (Symbicort 160-4.5 Mcg Inhaler) 10.2 Gm Hfa.aer.ad 2 PUFF IH BID, INHALER Diltiazem HCl (Diltiazem ER) 240 Mg Capsule.er 240 MG PO DAILY, CAP HOLD SBP <100 AND/OR HR <60 Docusate Sodium (Docusate Sodium) 100 Mg Tablet 100 MG PO BID, TAB Fluticasone Propion/Salmeterol (Fluticasone-Salmeterol 250-50) 1 Each Blst.w.dev 1 EACH IH BID Ipratropium/Albuterol Sulfate (Iprat-Albut 0.5-3(2.5) mg/3 ml) 3 Ml Ampul.neb 3 ML NEB TID, EACH Lactobacillus Acidophilus (Probiotic) 1 Each Capsule 1 EACH PO BID, CAP Mv-Mn/FA/Coq10/Lycopene/Lutein (Theragran-M Premier 50+ Caplet) 1 Each Tablet 1 EACH PO DAILY, TAB Nystatin (Nystatin) 1 Each Powder.ea. 1 EACH TOP TID, UNIT APPLY TO GROIN Pantoprazole Sodium (Pantoprazole Sodium) 40 Mg Tablet.dr 40 MG PO DAILY, TAB Phenobarbital (Phenobarbital) 32.4 Mg Tablet 32.4 MG PO BID, TAB Simethicone (Simethicone) 180 Mg Capsule 180 MG PO 0800,1700, CAP Thiamine HCl (B-1) 100 Mg Tablet 100 MG PO DAILY, TAB Warfarin Sodium (Warfarin Sodium) 5 Mg Tablet 5 MG PO MO,,WE,ERIN,FRI, TAB Warfarin Sodium (Warfarin Sodium) 7.5 Mg Tablet 7.5 MG PO SUN,SAT, TAB Discontinued Medications: Digoxin (Digoxin) 250 Mcg Tablet 250 MCG PO DAILY, TAB HOLD SBP <100 AND/OR HR <60 Furosemide (Furosemide) 40 Mg Tablet 40 MG PO DAILY, TAB Metoprolol Tartrate (Metoprolol Tartrate) 25 Mg Tablet 25 MG PO BID, TAB HOLD SBP <100 AND/OR HR <60 Other Instructions May have 1 whiskey shot every evening Grace Velasquez March 25, 2021 11:25 GRACE VELASQUEZ DO March 25, 2021 11:26
--- NOTE | 2021-03-25 11:27 | Discharge Summary ---
Discharge Summary Hospital Course Was the Problem List Reviewed?: Yes Problems/Dx: (1) Acute respiratory failure with hypoxia and hypercapnia Status: Acute (2) COPD with exacerbation Status: Acute (3) Atrial fibrillation with RVR Status: Acute (4) Hospital-acquired pneumonia Status: Acute Hospital Course Date of Admission: March 21, 2021 at 03:47 Admission Diagnosis : Family Physician/Provider: Wellington Miranda MD Date of Discharge: 03/25/21 Discharge Diagnosis: PNA HAP, CHF, AF, DM, CRI, OAC Hospital Course: Hospital Course: Pt had an uneventful hospital course when he was admitted for pneumonia and CHF. Cardiology was consulted along with pulmonology who managed the heart failure with diuresis ad antibiotics respectively. Pt really met criteria for hospice but he was not ready to do that at this point so skilled therapy will be ordered at [place] along with Lasix twice daily, along with his Coumadin for stroke prophylaxis due to AF. Overall prognosis very poor considering how debilitated he is. Labs and Pending Lab Test: Laboratory Tests 03/25/21 04:46: White Blood Count 12.1H, Red Blood Count 3.39L, Hemoglobin 10.7L, Hematocrit 33L , Mean Corpuscular Volume 98, Mean Corpuscular Hemoglobin 32, Mean Corpuscular Hemoglobin Concent 32, Red Cell Distribution Width 13.7, Platelet Count 260, Mean Platelet Volume 9.5, Immature Granulocyte % (Auto) 1, Neutrophils (%) (Auto) 77H, Lymphocytes (%) (Auto) 8L, Monocytes (%) (Auto) 6, Eosinophils (%) (Auto) 7, Basophils (%) (Auto) 1, Neutrophils # (Auto) 9.3H, Lymphocytes # (Auto) 1.0, Monocytes # (Auto) 0.7, Eosinophils # (Auto) 0.9H, Basophils # (Auto) 0.1, Immature Granulocyte # (Auto) 0.1, Prothrombin Time 28.0H, INR Comment 2.6H, Sodium Level 137, Potassium Level 3.6, Chloride Level 92L, Carbon Dioxide Level 35H, Anion Gap 10, Blood Urea Nitrogen 19H, Creatinine 1.49H, Est imat Glomerular Filtration Rate 46, BUN/Creatinine Ratio 13, Glucose Level 110H, Calcium Level 8.1L, Corrected Calcium 8.7, Total Bilirubin 0.3, Aspartate Amino Transf (AST/SGOT) 29, Alanine Aminotransferase (ALT/SGPT) 24, Alkaline Phosphatase 108, Total Protein 6.4, Albumin 3.2 Microbiology 03/23/21 Blood Culture - Preliminary, Resulted No growth 03/22/21 MRSA Screen - Final, Complete Home Meds Active Zyvox (Linezolid) 600 Mg Tablet 600 Mg PO BID 5 Days Cefdinir 300 Mg Capsule 300 Mg PO BID 5 Days Furosemide 20 Mg Tablet 20 Mg PO BID@07,17 365 Days Spironolactone 25 Mg Tablet 25 Mg PO DAILY 365 Days Reported Albuterol Sulfate 2.5 Mg/0.5 Ml Vial.neb 2.5 Mg INH Q6H PRN Warfarin Sodium 7.5 Mg Tablet 7.5 Mg PO MON,SAT Warfarin Sodium 5 Mg Tablet 5 Mg PO MO,,,MON,MON Iprat-Albut 0.5-3(2.5) mg/3 ml (Ipratropium/Albuterol Sulfate) 3 Ml Ampul.neb 3 Ml NEB TID Furosemide 40 Mg Tablet 40 Mg PO DAILY Diltiazem ER (Diltiazem HCl) 240 Mg Capsule.er 240 Mg PO DAILY HOLD SBP <100 AND/OR HR <60 Digoxin 250 Mcg Tablet 250 Mcg PO DAILY HOLD SBP <100 AND/OR HR <60 Simethicone 180 Mg Capsule 180 Mg PO 0800,1700 B-1 (Thiamine HCl) 100 Mg Tablet 100 Mg PO DAILY Theragran-M Premier 50+ Caplet (Mv-Mn/FA/Coq10/Lycopene/Lutein) 1 Each Tablet 1 Each PO DAILY Phenobarbital 32.4 Mg Tablet 32.4 Mg PO BID Nystatin 1 Each Powder.ea. 1 Each TOP TID APPLY TO GROIN Metoprolol Tartrate 25 Mg Tablet 25 Mg PO BID HOLD SBP <100 AND/OR HR <60 Probiotic (Lactobacillus Acidophilus) 1 Each Capsule 1 Each PO BID Fluticasone-Salmeterol 250-50 (Fluticasone Propion/Salmeterol) 1 Each Blst.w.dev 1 Each IH BID Docusate Sodium 100 Mg Tablet 100 Mg PO BID Symbicort 160-4.5 Mcg Inhaler (Budesonide/Formoterol Fumarate) 10.2 Gm Hfa.aer.ad 2 Puff IH BID Atorvastatin Calcium 10 Mg Tablet 10 Mg PO 1700 Pantoprazole Sodium 40 Mg Tablet.dr 40 Mg PO DAILY Allopurinol 100 Mg Tablet 100 Mg PO DAILY Assessment/Pt Instructions Hospital Course: Pt had an uneventful hospital course when he was admitted for pneumonia and CHF. Cardiology was consulted along with pulmonology who managed the heart failure with diuresis ad antibiotics respectively. Pt really met criteria for hospice but he was not ready to do that at this point so skilled therapy will be ordered at [place] along with Lasix twice daily, along with his Coumadin for stroke prophylaxis due to AF. Overall prognosis very poor considering how debilitated he is. Discharge Planning: <30 minutes discharge planning Discharge Instructions Discharge Diet: Low Sodium Diet, Cardiac Diet Activity as Tolerated: Yes Discharge Physical Examination Vital Signs Vital Signs Date Time Temp Pulse Resp B/P (MAP) Pulse Ox O2 Delivery O2 Flow Rate FiO2 03/25/21 08:00 95 High Flow N/C 3.00 03/25/21 07:15 36.2 82 22 116/74 03/24/21 18:36 3 General Appearance: No Apparent Distress, WD/WN, Chronically ill, Obese Respiratory: Lungs Clear Cardiovascular: Regular Rate, Rhythm Neurologic/Psychiatric: Alert, Oriented x3 Allergies: Coded Allergies: No Known Drug Allergies (Unverified , 01/30/19) Discharge Summary Date of Admission March 21, 2021 at 03:47 Date of Discharge Discharge Date: March 25, 2021 Admission Diagnosis 1. Acute on chronic hypercapnic respiratory failure secondary to pneumonia with underlying COPD severe prognosis poor. Continue IV antibiotics broad-spectrum bronchodilator therapy and CPAP. 2. History of chronic diastolic and systolic heart failure reported ejection fraction 45 to 50% on echo done earlier this year with moderate to severe pulmonary hypertension and estimated pulmonary artery pressure of 55 to 60 mmHg continue home medication. 3. Persistent atrial fibrillation continue rate control and anticoagulant therapy. Discharge Diagnosis Assessment: Acute on chronic resp failure AECHF AF Coumadin treatment CRI Anemia Debility Plan: Monitor closely Not interested in hospice 03/23/21: Palliative care consult PT OT SP catheter Monitor BP 03/24/21: DC planning O2 Lasix ASTRID ALFONSO DO March 25, 2021 11:27
[2021-03-25 13:47] VITALS: BP 114/61
[2021-03-25] MEDS ORDERED: FUROSEMIDE 20 MG (LASIX) TAB PO SCH (17:00)
[2021-03-26] MEDS ORDERED: TROUGH ORDER-PHARMACY XX ONE (07:00)
== END 2021-03-25 13:47 | DRG 291 ==
LOC: EDUNIT# 02:35 → ER FS 02:38 → ICU 03:47 → 4TH 10:43
PROVIDERS: ADMIT Internal Medicine; ATTEND Internal Medicine
PROC: 5A09357 Assistance with Respiratory Ventilation, Less than 24 Consecutive Hours, Continuous Positive Airway Pressure (ICD-10-PCS; principal; 2021-03-21)
DX: I13.0 Hypertensive heart and chronic kidney disease with heart failure and stage 1 through stage 4 chronic kidney disease, or unspecified chronic kidney disease (principal); J18.9 Pneumonia, unspecified organism; J96.21 Acute and chronic respiratory failure with hypoxia; J96.22 Acute and chronic respiratory failure with hypercapnia; I50.43 Acute on chronic combined systolic (congestive) and diastolic (congestive) heart failure; J44.1 Chronic obstructive pulmonary disease with (acute) exacerbation; N39.0 Urinary tract infection, site not specified; I48.19 Other persistent atrial fibrillation; E11.22 Type 2 diabetes mellitus with diabetic chronic kidney disease; N18.9 Chronic kidney disease, unspecified; Z66 Do not resuscitate; Z20.822 Contact with and (suspected) exposure to COVID-19; B96.5 Pseudomonas (aeruginosa) (mallei) (pseudomallei) as the cause of diseases classified elsewhere; Z79.01 Long term (current) use of anticoagulants; E78.00 Pure hypercholesterolemia, unspecified; E78.5 Hyperlipidemia, unspecified; E11.40 Type 2 diabetes mellitus with diabetic neuropathy, unspecified; G40.909 Epilepsy, unspecified, not intractable, without status epilepticus; N31.9 Neuromuscular dysfunction of bladder, unspecified; M10.9 Gout, unspecified; F10.20 Alcohol dependence, uncomplicated; N40.0 Benign prostatic hyperplasia without lower urinary tract symptoms; I27.20 Pulmonary hypertension, unspecified; E87.6 Hypokalemia
CPT/HCPCS: 36415; 71045; 80048; 80053; 80162; 80170; 82805; 83605; 83735; 83880; 84100; 84145; 84484; 85007; 85025; 85027; 85610; 85730; 87040; 87077; 87081; 87635; 93005; 94640; 94660; 94760; 99291

== ENCOUNTER 2021-10-19 17:22 | Emergency (ER) | payer MEDICARE, MEDICAID ==
[~2021-10-19 17:22] MED LIST changes: +CEFD300C3 PO; +FURO20TA4 PO; -LEVO500T80 PO; +LEVO500T81 PO; +LINE600T12 PO; -POTA10TA36 PO; +POTA10TA37 PO; +SPIR25TA5 PO; +WARF7.5T3 PO
--- NOTE | 2021-10-19 17:43 | ED Fall/Injury ---
General Chief Complaint: Trauma-Non Activation Stated Complaint: FALL,HIT HEAD Source: patient, EMS Exam Limitations: physical impairment (Dementia) History of Present Illness Date Seen by Provider: Oct 19, 2021 Time Seen by Provider: 17:25 Initial Comments Here by EMS with report of fall out of wheelchair at [facility] home states. Appar ently he was sleeping when he fell out of the chair forward onto his face. Denies pain. He apparently had loss of consciousness for about 5 minutes per staff according to EMS. He is on warfarin. Does have small abrasion to the right forehead and lower lip. Bleeding currently controlled. No significant laceration. He is answering questions and moving all extremities. Denies neck or back pain. Does seem a bit confused and does have dementia. Poor historian overall. Denies nausea or vomiting or extremity/chest pain. Denies abdominal pain. Occurred: just prior to arrival (Approximately 30 minutes ago) Severity: moderate Injuries/Pain Location: head, face Context: unknown Loss of Consciousness: prolonged (minutes) (5 minutes per staff) Associated Symptoms (Fall): No Abdominal Pain, No Chest Pain; Confusion (May be baseline due to underlying medical condition); No Headache, No Nausea/Vomiting, No Neck Pain Allergies and Home Medications Allergies Coded Allergies: No Known Drug Allergies (Unverified , 01/30/19) Patient Home Medication List Home Medication List Reviewed: Yes Albuterol Sulfate (Albuterol Sulfate) 2.5 Mg/0.5 Ml Vial.neb, 2.5 MG INH Q6H PRN for SHORTNESS OF BREATH, (Reported) Entered as Reported by: DOLLY HORTA on 03/22/21 0955 Allopurinol (Allopurinol) 100 Mg Tablet, 100 MG PO DAILY, (Reported) Entered as Reported by: KATHY CAMEJO on 12/30/20 1424 Atorvastatin Calcium (Atorvastatin Calcium) 10 Mg Tablet, 10 MG PO 1700, (Reported) Entered as Reported by: KATHY CAMEJO on 12/30/20 1424 Budesonide/Formoterol Fumarate (Symbicort 160-4.5 Mcg Inhaler) 10.2 Gm Hfa.aer.ad, 2 PUFF IH BID, (Reported) Entered as Reported by: KATHY CAMEJO on 12/30/20 1442 Cefdinir (Cefdinir) 300 Mg Capsule, 300 MG PO BID Prescribed by: ASTRID ALFONSO on 03/25/21 112 Diltiazem HCl (Diltiazem ER) 240 Mg Capsule.er, 240 MG PO DAILY, (Reported) Entered as Reported by: DOLLY HORTA on 03/02/21 0807 Docusate Sodium (Docusate Sodium) 100 Mg Tablet, 100 MG PO BID, (Reported) Entered as Reported by: VITOR DENSON on 02/22/21 1347 Fluticasone Propion/Salmeterol (Fluticasone-Salmeterol 250-50) 1 Each Blst.w.dev, 1 EACH IH BID, (Reported) Entered as Reported by: VITOR DENSON on 02/22/21 134 Furosemide (Furosemide) 20 Mg Tablet, 20 MG PO BID@,17 Prescribed by: ASTRID ALFONSO on 03/25/21 112 Ipratropium/Albuterol Sulfate (Iprat-Albut 0.5-3(2.5) mg/3 ml) 3 Ml Ampul.neb, 3 ML NEB TID, (Reported) Entered as Reported by: DOLLY HORTA on 03/02/21 08 Lactobacillus Acidophilus (Probiotic) 1 Each Capsule, 1 EACH PO BID, (Reported) Entered as Reported by: VITOR DENSON on 02/22/21 134 Linezolid (Zyvox) 600 Mg Tablet, 600 MG PO BID Prescribed by: ASTRID ALFONSO on 03/25/21 1125 Mv-Mn/FA/Coq10/Lycopene/Lutein (Theragran-M Premier 50+ Caplet) 1 Each Tablet, 1 EACH PO DAILY, (Reported) Entered as Reported by: VITOR DENSON on 02/22/21 134 Nystatin (Nystatin) 1 Each Powder.ea., 1 EACH TOP TID, (Reported) Entered as Reported by: VITOR DENSON on 02/22/21 134 Pantoprazole Sodium (Pantoprazole Sodium) 40 Mg Tablet.dr, 40 MG PO DAILY, (Reported) Entered as Reported by: KATHY CAMEJO on 12/30/20 1424 Phenobarbital (Phenobarbital) 32.4 Mg Tablet, 32.4 MG PO BID, (Reported) Entered as Reported by: VITOR DENSON on 02/22/21 1347 Simethicone (Simethicone) 180 Mg Capsule, 180 MG PO 0800,1700, (Reported) Entered as Reported by: DOLLY HORTA on 03/02/21 0807 Spironolactone (Spironolactone) 25 Mg Tablet, 25 MG PO DAILY Prescribed by: ASTRID ALFONSO on 03/25/21 1125 Thiamine HCl (B-1) 100 Mg Tablet, 100 MG PO DAILY, (Reported) Entered as Reported by: VITOR DENSON on 02/22/21 1347 Warfarin Sodium (Warfarin Sodium) 5 Mg Tablet, 5 MG PO MO,TU,WE,ERIN,FRI, (Reported) Entered as Reported by: DOLLY HORTA on 03/02/21 0807 Warfarin Sodium (Warfarin Sodium) 7.5 Mg Tablet, 7.5 MG PO SUN,SAT, (Reported) Entered as Reported by: VITOR HOLLEY on 03/21/21 0938 Review of Systems Review of Systems Constitutional: see HPI; No dizziness, No weakness Eyes: No Symptoms Reported Respiratory: No short of breath, No wheezing Cardiovascular: No chest pain, No edema Gastrointestinal: No nausea, No vomiting Musculoskeletal: No back pain, No joint pain, No neck pain Skin: change in color, lesions Psychiatric/Neurological: Denies Headache, Denies Weakness Past Ourpnsg-Wwhieq-Heawfy Hx Patient Social History Tobacco Use?: No Use of E-Cig and/or Vaping dev: No Substance use?: No Alcohol Use?: No Pt feels they are or have been: No Immunizations Up To Date Tetanus Booster (TDap): Unknown First/Initial COVID19 Vaccinat: 03/09/21 Second COVID19 Vaccination Elliott: 03/09/21 Seasonal Allergies Seasonal Allergies: Yes Past Medical History Surgeries: Yes (suprapubic catheter placement) Urinary Diversion Respiratory: Yes Chronic Bronchitis, COPD Cardiac: Yes Atrial Fibrillation, Chronic Edema/Swelling, High Cholesterol, Hypertension Neurological: Yes Neuropathy, Seizure Disorder Genitourinary: Yes (suprapubic catheter) Neurogenic Bladder Gastrointestinal: Yes Gastroesophageal Reflux Musculoskeletal: Yes (spinal degeneration/uses wheelchair) Gout Endocrine: Yes Diabetes, Non-Insulin dep HEENT: No Cancer: No Psychosocial: No Integumentary: No Blood Disorders: No Family Medical History Reviewed Nursing Family Hx NC Physical Exam Vital Signs Vital Signs - First Documented 10/19/21 17:22 Temp 36.4 Pulse 110 Resp 27 Pulse Ox 97 O2 Delivery Nasal Cannula O2 Flow Rate 2.00 Capillary Refill : Height, Weight, BMI Height: 5'9.00" Weight: 225lbs. oz. 102.788743wr; 34.41 BMI Method:Stated General Appearance: WD/WN, no apparent distress HEENT: PERRL/EOMI, pharynx normal, other (Abrasions to the lower lip on the left side and to the central area. Superficial) Neck: No tender lateral, No tender midline Cardiovascular: regular rate, rhythm, no murmur Respiratory: lungs clear, normal breath sounds Gastrointestinal: non tender, soft Extremities: non-tender, normal inspection Neurologic/Psychiatric: alert, other (Oriented to self. Does not remember incident. Answer simple questions and follow simple commands.) Skin: warm/dry, other (1 cm superficial abrasion to the right side of the forehead with surrounding erythema and contusion. No active bleeding. Lip abrasion as above.) [place] Coma Score Best Eye Response: (4) Open Spontaneously Best Verbal Response: (4) Confused Conversation Best Motor Response: (6) Obeys Commands Paul Total: 14 Procedures/Interventions Date of ETT Placement: Jan 23, 2021 Time of ETT Placement: 1614 Progress/Results/Core Measures Results/Orders Lab Results Laboratory Tests Test 10/19/21 18:27 Range/Units Prothrombin Time 20.8 H 12.2-14.7 SEC INR Comment 1.7 H 0.8-1.4 My Orders Orders - KENDRICK SANTACRUZ MD Protime With Inr (10/19/21 17:30) Ct Head/Face/Cervical Wo (10/19/21 17:30) Vital Signs/I&O 10/19/21 17:22 Temp 36.4 Pulse 110 Resp 27 B/P (MAP) Pulse Ox 97 O2 Delivery Nasal Cannula O2 Flow Rate 2.00 Progress Progress Note : Progress Note Seen and evaluated. Wounds cleaned and covered with bandage and ointment. CT head, face and neck ordered. We will check PT/INR as he is on warfarin. Monitor patient. 1904: No acute intracranial bleed. INR 1.7. Does have questionable abnormal finding on CT scan. I will send a copy of the chart to his primary care physician with instructions for the patient to make appointment. Discharged home with return precautions. Nursing facility verbalized understanding instructions and agreement with plan. Departure Impression Primary Impression: Head injury Qualified Codes: S09.90XA - Unspecified injury of head, initial encounter Additional Impressions: Facial abrasion Qualified Codes: S00.81XA - Abrasion of other part of head, initial encounter Lip abrasion Qualified Codes: S00.511A - Abrasion of lip, initial encounter Abnormal finding on CT scan Disposition: HOME, SELF-CARE Condition: Improved Departure-Patient Inst. Decision time for Depature: 18:43 Referrals: ALCIDES CALI MD (PCP/Family) Primary Care Physician Patient Instructions: Minor Head Injury, Adult ED, Skin Abrasions (DC), CT Scan, Head Add. Discharge Instructions: All discharge instructions reviewed with patient and/or family. Voiced understanding. Wound care to abrasion on forehead using antibiotic ointment and Band-Aid changing once or twice daily per local protocol. You need to follow-up with Dr. Cali regarding CT results of the head. A copy of the chart was sent to him. This may represent nonconcerning finding but you may need MRI of the head. This can be done as an outpatient. Return for worse pain, fever, vomiting, weakness, breathing problems or other concerns as needed. Copy Copies To 1: ALCIDES CALI MD, TIMOTHY D MD Oct 19, 2021 17:43
--- NOTE | 2021-10-19 18:21 | Diagnostic Imaging Report ---
EXAMINATION: CT head, face and CT cervical spine without contrast. TECHNIQUE: Multiple contiguous axial images were obtained through the face, brain and cervical spine without the use of intravenous contrast. Sagittal and coronal reformations through the cervical spine were then performed. All CT scans use one or more of the following dose optimizing techniques: automated exposure control, MA and/or KvP adjustment based on patient size and exam type or iterative reconstruction. HISTORY: Fall, head, face and neck injury COMPARISON: 03/15/2021 FINDINGS: The bob-white matter differentiation is normal. No mass effect or midline shift. The ventricles are normal in size and configuration. Basilar cisterns are patent. There are no intra- or extra-axial fluid collections. There is no intracranial hemorrhage. The orbits are normal. Paranasal sinuses are normal. Mastoid air cells are clear. There is a scalp injury of the right frontal area. No osseus lesions or fractures are seen. No fracture is seen in the face. The nasal bones are normal. Mandible and maxillae are normal. Zygomatic arches are normal. Pterygoid plates are normal. There is heterogeneous mineralization of the greater wings of the sphenoid and skull base. It appears similar to prior exam. The alignment of the cervical spine is normal. No fracture is seen. Vertebral body heights are normal. The craniocervical junction is normal. There is no degenerative disease in the cervical spine. There is no spinal canal stenosis. No soft tissue abnormality is seen in the neck. Limited views of the superior thorax are normal. IMPRESSION: 1. No acute intracranial abnormality. 2. No cervical spine fracture. 3. No fracture in the face. 4. Heterogeneous mineralization of the greater wings of the sphenoid and skull base, if the patient has a known malignancy this could represent metastatic disease. Consider brain MRI with and without contrast for further evaluation. Dictated by: Dictated on workstation # [id number]
[2021-10-19 18:59] LABS: INR 1.7 (0.8-1.4); PROTHROMBIN TIME PATIENT 20.8 SEC (12.2-14.7)
[2021-10-19] MEDS ORDERED: ACETAMINOPHEN 500 MG TAB (TYLENOL) PO ONE (19:45)
[2021-10-19 20:30] VITALS: BP 139/80
== END 2021-10-19 20:30 | disposition home or self-care (01) ==
LOC: EDUNIT# 17:22 → ER FS 17:23
DX: S09.90XA Unspecified injury of head, initial encounter (principal); S00.511A Abrasion of lip, initial encounter; J44.9 Chronic obstructive pulmonary disease, unspecified; I10 Essential (primary) hypertension; E78.00 Pure hypercholesterolemia, unspecified; G40.909 Epilepsy, unspecified, not intractable, without status epilepticus; I48.91 Unspecified atrial fibrillation; K21.9 Gastro-esophageal reflux disease without esophagitis; M10.9 Gout, unspecified; E11.9 Type 2 diabetes mellitus without complications; Z79.01 Long term (current) use of anticoagulants; Z79.899 Other long term (current) drug therapy; W05.0XXA Fall from non-moving wheelchair, initial encounter
CPT/HCPCS: 36415; 70450; 70486; 72125; 85610

== ENCOUNTER → 2021-11-03 | Outpatient (CLI) | payer MEDICARE, MEDICAID ==
[~2021-11-03] MED LIST changes: +GADOTERATE 0.5 MMOL/ML (CLARISCAN) 20 ML VIAL IV ONE
--- NOTE | 2021-11-03 11:30 | Diagnostic Imaging Report ---
Clinical Indication: Patient had a fall. Exam: MRI of the brain performed without and with 20 mL of Clariscan IV contrast. Sequences include axial DWI, ADC map, axial gradient echo, axial T2, axial FLAIR, axial T1, axial T1 post IV contrast, coronal T1 fat-sat post IV contrast, sagittal T1 post IV contrast. Comparison: CT scan of the head, face, cervical spine dated 10/19/2021. Findings: There is motion artifact which limits evaluation of portions of this exam. There is no evidence of acute cerebral infarct, intracranial hemorrhage, or gross mass effect. There is diffuse brain parenchymal volume loss. There is diffuse focal, patchy confluent areas of high T2 signal white matter changes involving both cerebral hemispheres and periventricular regions, likely representing chronic small vessel ischemic disease and leukoaraiosis. There is normal bob-white matter distinction. There is no significant midline shift or herniation. The [place] vascular structures show no gross abnormality as visualized. There is no evidence of hydrocephalus. The basal cisterns are unremarkable. The skull, extracranial soft tissue, and orbits are unremarkable. The paranasal sinuses are unremarkable. There is a small amount of fluid in left mastoid air cells. IMPRESSION: 1: There is no evidence of acute intracranial process. There is no abnormal IV contrast enhancement. 2: There are age-related brain parenchymal changes including chronic small vessel ischemic disease and leukoaraiosis. Dictated by: Dictated on workstation # [id number]
== END ==
LOC: RAD 09:30
PROVIDERS: ATTEND Family Medicine
DX: G31.1 Senile degeneration of brain, not elsewhere classified (principal); I67.81 Acute cerebrovascular insufficiency
CPT/HCPCS: 70553

== ENCOUNTER 2021-12-08 14:54 | Inpatient (IN) | payer MEDICARE, MEDICAID ==
[~2021-12-08] VITALS: Ht 175.3 cm; Wt 107.0 kg
[~2021-12-08 14:54] MED LIST changes: -GADOTERATE 0.5 MMOL/ML (CLARISCAN) 20 ML VIAL IV ONE
[2021-12-08 15:19] LABS: HEMATOCRIT 39 % (40-54); HEMOGLOBIN 12.6 g/dL (13.3-17.7); MEAN CORPUSCULAR HEMOGLOBIN 32 pg (25-34); MEAN CORPUSCULAR HGB CONC 32 g/dL (32-36); MEAN CORPUSCULAR VOLUME 99 fL (80-99); PLATELET COUNT 235 10^3/uL (130-400); WHITE BLOOD COUNT 9.1 10^3/uL (4.3-11.0)
[2021-12-08 15:20] LABS: BASOPHILS % (AUTO) 1 % (0-10); EOSINOPHILS % (AUTO) 4 % (0-10); LYMPHOCYTES % (AUTO) 12 % (12-44); MEAN PLATELET VOLUME 9.1 fL (9.0-12.2); MONOCYTES % (AUTO) 6 % (0-12); NEUTROPHILS % (AUTO) 76 % (42-75)
[2021-12-08 15:21] LABS: BASOPHILS # (AUTO) 0.1 10^3/uL (0.0-0.1); EOSINOPHILS # (AUTO) 0.4 10^3/uL (0.0-0.3); LYMPHOCYTES # (AUTO) 1.1 X 10^3 (1.0-4.0); MONOCYTES # (AUTO) 0.6 X 10^3 (0.0-1.0); NEUTROPHILS # (AUTO) 6.9 X 10^3 (1.8-7.8)
--- NOTE | 2021-12-08 15:22 | ED General ---
General Chief Complaint: Neurological Problems Stated Complaint: SYNCOPAL EPISODE Nursing Triage Note: Patient arrived to the ED by EMS for chief complaint of possible seizure/syncopal episode. Patient alert and oriented to person on arrival to the ED. EMS reports patient has a history of seizures and takes phenobarbital. Source of Information: Patient, EMS, Detention Records, Old Records Exam Limitations: Other (confusion, dementia) History of Present Illness Date Seen by Provider: Dec 08, 2021 Time Seen by Provider: 14:54 Initial Comments 76 yo male presenting with EMS from [facility] after being found on the floor there. He has a history of Absence seizures, COPD with O2 dependence, CHF, Chronic renal failure, Dementia, Chronic Atrial Fibrillation that is usually rate controlled. He was found on the floor in his room and was more confused than usual. He had some blood from a cut to inside of his lower lip and tip of tongue. He has some small superficial skin tears to his arms. He has indwelling coburn catheter. He has hx of recurrent pneumonia and UTI with pseudomonas. He does not remember what happened to him today and denies having any pain. From review of his chart he mostly gets around in a wheelchair with limited ambulation. Location Injury Occurred: [facility] Timing/Duration: Other (just NNP) Severity: Moderate Associated Systoms: No Chest Pain, No Cough, No Diaphoresis, No Fever/Chills, No Headaches, No Loss of Appetite, No Malaise, No Nausea/Vomiting, No Rash, No Seizure; Shortness of Air (chronic and no worse than usual), Weakness (generalized) Allergies and Home Medications Allergies Coded Allergies: No Known Drug Allergies (Unverified , 01/30/19) Patient Home Medication List Home Medication List Reviewed: Yes Albuterol Sulfate (Albuterol Sulfate) 2.5 Mg/0.5 Ml Vial.neb, 2.5 MG INH Q6H PRN for SHORTNESS OF BREATH, (Reported) Entered as Reported by: DOLLY HORTA on 03/22/21 0955 Allopurinol (Allopurinol) 100 Mg Tablet, 100 MG PO DAILY, (Reported) Entered as Reported by: KATHY CAMEJO on 12/30/20 1424 Atorvastatin Calcium (Atorvastatin Calcium) 10 Mg Tablet, 10 MG PO 1700, (Reported) Entered as Reported by: KATHY CAMEJO on 12/30/20 1424 Budesonide/Formoterol Fumarate (Symbicort 160-4.5 Mcg Inhaler) 10.2 Gm Hfa.aer.ad, 2 PUFF IH BID, (Reported) Entered as Reported by: KATHY CAMEJO on 12/30/20 1442 Cefdinir (Cefdinir) 300 Mg Capsule, 300 MG PO BID Prescribed by: ASTRID ALFONSO on 03/25/21 1125 Diltiazem HCl (Diltiazem ER) 240 Mg Capsule.er, 240 MG PO DAILY, (Reported) Entered as Reported by: DOLLY HORTA on 03/02/21 0807 Docusate Sodium (Docusate Sodium) 100 Mg Tablet, 100 MG PO BID, (Reported) Entered as Reported by: VITOR DENSON on 02/22/21 1347 Fluticasone Propion/Salmeterol (Fluticasone-Salmeterol 250-50) 1 Each Blst.w.dev, 1 EACH IH BID, (Reported) Entered as Reported by: VITOR DENSON on 02/22/21 1347 Furosemide (Furosemide) 20 Mg Tablet, 20 MG PO BID@07,17 Prescribed by: ASTRID ALFONSO on 03/25/21 1125 Ipratropium/Albuterol Sulfate (Iprat-Albut 0.5-3(2.5) mg/3 ml) 3 Ml Ampul.neb, 3 ML NEB TID, (Reported) Entered as Reported by: DOLLY HORTA on 03/02/21 0807 Lactobacillus Acidophilus (Probiotic) 1 Each Capsule, 1 EACH PO BID, (Reported) Entered as Reported by: VITOR DENSON on 02/22/21 1347 Linezolid (Zyvox) 600 Mg Tablet, 600 MG PO BID Prescribed by: ASTRID ALFONSO on 03/25/21 1125 Mv-Mn/FA/Coq10/Lycopene/Lutein (Theragran-M Premier 50+ Caplet) 1 Each Tablet, 1 EACH PO DAILY, (Reported) Entered as Reported by: VITOR DENSON on 02/22/21 1347 Nystatin (Nystatin) 1 Each Powder.ea., 1 EACH TOP TID, (Reported) Entered as Reported by: VITOR DENSON on 02/22/21 1347 Pantoprazole Sodium (Pantoprazole Sodium) 40 Mg Tablet.dr, 40 MG PO DAILY, (Reported) Entered as Reported by: KATHY CAMEJO on 12/30/20 1424 Phenobarbital (Phenobarbital) 32.4 Mg Tablet, 32.4 MG PO BID, (Reported) Entered as Reported by: VITOR DENSON on 02/22/21 1347 Simethicone (Simethicone) 180 Mg Capsule, 180 MG PO 0800,1700, (Reported) Entered as Reported by: DOLLY HORTA on 03/02/21 0807 Spironolactone (Spironolactone) 25 Mg Tablet, 25 MG PO DAILY Prescribed by: ASTRID ALFONSO on 03/25/21 1125 Thiamine HCl (B-1) 100 Mg Tablet, 100 MG PO DAILY, (Reported) Entered as Reported by: VITOR DENSON on 02/22/21 1347 Warfarin Sodium (Warfarin Sodium) 5 Mg Tablet, 5 MG PO MO,TU,WE,ERIN,FRI, (Reported) Entered as Reported by: DOLLY HORTA on 03/02/21 0807 Warfarin Sodium (Warfarin Sodium) 7.5 Mg Tablet, 7.5 MG PO SUN,SAT, (Reported) Entered as Reported by: VITOR HOLLEY on 03/21/21 0938 Review of Systems Review of Systems Constitutional: No chills, No diaphoresis, No fever; weakness (generalized) EENTM: other (small cut to tip of tongue and to inside of lower lip where he has some oozing of blood); No ear discharge, No ear pain, No epistaxis, No nose congestion Respiratory: see HPI; No cough, No stridor; wheezing Cardiovascular: No chest pain; edema, palpitations, syncope Gastrointestinal: No nausea, No vomiting Genitourinary: other (indwelling coburn catheter) Musculoskeletal: No neck pain Skin: other (several small superficial skin tears) Psychiatric/Neurological: Denies Headache; Seizure (hx of absence seizures), Weakness (general ), Other (confusion and slow to answer questions) Hematologic/Lymphatic: Denies Blood Clots; Easy Bleeding (taking Warfarin), Easy Bruising (taking Warfarin) Past Uawlnmp-Mljtok-Xkqymc Hx Patient Social History Alcohol Use?: Yes Immunizations Up To Date Tetanus Booster (TDap): Unknown First/Initial COVID19 Vaccinat: 03/09/21 Second COVID19 Vaccination Elliott: 03/09/21 Seasonal Allergies Seasonal Allergies: Yes Past Medical History Surgery/Hospitalization HX: atrial fibrillation, seizures, gout Surgeries: Yes (suprapubic catheter placement) Urinary Diversion Respiratory: Yes Chronic Bronchitis, COPD Cardiac: Yes Atrial Fibrillation, Chronic Edema/Swelling, High Cholesterol, Hypertension Neurological: Yes Neuropathy, Seizure Disorder Genitourinary: Yes (suprapubic catheter) Neurogenic Bladder Gastrointestinal: Yes Gastroesophageal Reflux Musculoskeletal: Yes (spinal degeneration/uses wheelchair) Gout Endocrine: Yes Diabetes, Non-Insulin dep HEENT: No Cancer: No Psychosocial: No Integumentary: No Blood Disorders: No Family Medical History NC Physical Exam Vital Signs Vital Signs - First Documented 12/08/21 14:54 Temp 36.1 Pulse 141 Resp 26 B/P (MAP) 139/108 (118) Pulse Ox 92 O2 Delivery Nasal Cannula O2 Flow Rate 2.00 Capillary Refill : Less Than 3 Seconds Height, Weight, BMI Height: 5'9.00" Weight: 225lbs. oz. 102.972766lm; 34.41 BMI Method:Stated General Appearance: Chronically ill, Obese Eyes: Bilateral Eye PERRL, Bilateral Eye EOMI HEENT: Normal ENT Inspection; No TM Abnormal (L), No TM Abnormal (R); Other (no adorno sign. no raccoon sign. no CSF otorrhea or rhinorrhea. no hemotympanum. no blood from nose or ears. 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 Norm as Tested Skin: Warm/Dry, Other (small irregular superficial skin tears to right arm) Comments GCS: 14 Eye = 4-Open spontaneously Verbal = 4-Confused Motor = 6-Obeys Commands Focused Exam Sepsis Stage: Sepsis Possible Source: Pulmonary Lactate Level 12/08/21 15:00: Lactic Acid Level 4.74*H Time of Focused Exam: 16:25 Respiratory: Chest Non Tender, No Accessory Muscle Use, No Respiratory Distress, Decreased Breath Sounds, Wheezing Cardiovascular: Irregularly Irregular, Tachycardia Capillary Refill: Less Than 3 Seconds Peripheral Pulses: 2+ Radial Pulses (R), 2+ Radial Pulses (L) Skin: normal color, warm/dry Lactic Acid Level Laboratory Tests Test 12/08/21 15:00 Lactic Acid Level 4.74 MMOL/L (0.50-2.00) *H Within 3hrs of presentation: Admin fluids, Admin ABX, Blood cultures prior to ABX's, Focus exam, Lactate level Procedures/Interventions Date of ETT Placement: Jan 23, 2021 Time of ETT Placement: 1613 Progress/Results/Core Measures Suspected Sepsis SIRS Temperature: Pulse: 141 Respiratory Rate: 26 Laboratory Tests 12/08/21 15:00: White Blood Count 9.1 Blood Pressure 139 /108 Mean: 118 12/08/21 15:00: Lactic Acid Level 4.74*H Laboratory Tests 12/08/21 15:00: Creatinine 1.72H, INR Comment 3.2H, Platelet Count 235, Total Bilirubin 0.4 Results/Orders Lab Results Laboratory Tests Test 12/08/21 15:00 12/08/21 15:20 12/08/21 15:41 Range/Units White Blood Count 9.1 4.3-11.0 10^3/uL Red Blood Count 3.97 L 4.30-5.52 10^6/uL Hemoglobin 12.6 L 13.3-17.7 g/dL Hematocrit 39 L 40-54 % Mean Corpuscular Volume 99 80-99 fL Mean Corpuscular Hemoglobin 32 25-34 pg Mean Corpuscular Hemoglobin Concent 32 32-36 g/dL Red Cell Distribution Width 13.3 10.0-14.5 % Platelet Count 235 130-400 10^3/uL Mean Platelet Volume 9.1 9.0-12.2 fL Immature Granulocyte % (Auto) 0 % Neutrophils (%) (Auto) 76 H 42-75 % Lymphocytes (%) (Auto) 12 12-44 % Monocytes (%) (Auto) 6 0-12 % Eosinophils (%) (Auto) 4 0-10 % Basophils (%) (Auto) 1 0-10 % Neutrophils # (Auto) 6.9 1.8-7.8 X 10^3 Lymphocytes # (Auto) 1.1 1.0-4.0 X 10^3 Monocytes # (Auto) 0.6 0.0-1.0 X 10^3 Eosinophils # (Auto) 0.4 H 0.0-0.3 10^3/uL Basophils # (Auto) 0.1 0.0-0.1 10^3/uL Immature Granulocyte # (Auto) 0.0 0.0-0.1 10^3/uL Prothrombin Time 32.9 H 12.2-14.7 SEC INR Comment 3.2 H 0.8-1.4 Activated Partial Thromboplast Time 49 H 24-35 SEC Sodium Level 134 L 135-145 MMOL/L Potassium Level 4.1 3.6-5.0 MMOL/L Chloride Level 93 L 98-107 MMOL/L Carbon Dioxide Level 24 21-32 MMOL/L Anion Gap 17 H 5-14 MMOL/L Blood Urea Nitrogen 24 H 7-18 MG/DL Creatinine 1.72 H 0.60-1.30 MG/DL Estimat Glomerular Filtration Rate 40 BUN/Creatinine Ratio 14 Glucose Level 145 H 70-105 MG/DL Lactic Acid Level 4.74 *H 0.50-2.00 MMOL/L Calcium Level 8.7 8.5-10.1 MG/DL Corrected Calcium 8.6 8.5-10.1 MG/DL Magnesium Level 2.0 1.6-2.4 MG/DL Total Bilirubin 0.4 0.1-1.0 MG/DL Aspartate Amino Transf (AST/SGOT) 15 5-34 U/L Alanine Aminotransferase (ALT/SGPT) 9 0-55 U/L Alkaline Phosphatase 133 40-136 U/L Troponin I < 0.30 <0.30 NG/ML C-Reactive Protein 3.26 H <0.50 MG/DL Pro-B-Type Natriuretic Peptide 3029.0 H <75.0 PG/ML Total Protein 7.7 6.4-8.2 GM/DL Albumin 4.1 3.2-4.5 GM/DL Serum Alcohol < 10 <10 MG/DL Influenza Type A Antigen NEGATIVE NEGATIVE Influenza Type B Antigen NEGATIVE NEGATIVE Urine Color YELLOW Urine Clarity SL CLOUDY Urine pH 7.0 5-9 Urine Specific [place] 1.015 L 1.016-1.022 Urine Protein NEGATIVE NEGATIVE Urine Glucose (UA) NEGATIVE NEGATIVE Urine Ketones NEGATIVE NEGATIVE Urine Nitrite NEGATIVE NEGATIVE Urine Bilirubin NEGATIVE NEGATIVE Urine Urobilinogen 0.2 < = 1.0 MG/DL Urine Leukocyte Esterase 1+ H NEGATIVE Urine RBC (Auto) 1+ H NEGATIVE Urine RBC 5-10 H /HPF Urine WBC 2-5 /HPF Urine Squamous Epithelial Cells RARE /HPF Urine Crystals NONE /LPF Urine Bacteria LARGE H /HPF Urine Casts NONE /LPF Urine Mucus NEGATIVE /LPF Urine Culture Indicated YES My Orders Orders - TREVA CANCHOLA MD Monitor-Rhythm Ecg Trace Only (12/08/21 14:59) Ed Iv/Invasive Line Start (12/08/21 14:59) Cbc With Automated Diff (12/08/21 14:59) Comprehensive Metabolic Panel (12/08/21 14:59) Crp Fs (12/08/21 14:59) Troponin I Fs (12/08/21 14:59) Protime With Inr (12/08/21 14:59) Partial Thromboplastin Time (12/08/21 14:59) Ekg Tracing (12/08/21 14:59) Blood Culture (12/08/21 14:59) Covid 19 Inhouse Test (12/08/21 14:59) Influenza A & B Antigens (12/08/21 14:59) Chest 1 View Ap/Pa Only (12/08/21 14:59) Ct Head/Cervical Spine Wo (12/08/21 14:59) Probnp Fs (12/08/21 14:59) Ua Culture If Indicated (12/08/21 14:59) Lactic Acid Analyzer (12/08/21 14:59) Isolation Central Supply Req (12/08/21 14:59) Magnesium (12/08/21 14:59) Diltiazem Injection (Cardizem Injection) (12/08/21 14:59) O2 (12/08/21 14:59) Ns Iv 500 Ml (Sodium Chloride 0.9%) (12/08/21 15:30) Alcohol (12/08/21 15:29) Ns Iv 1000 Ml (Sodium Chloride 0.9%) (12/08/21 15:55) Ceftriaxone 1 Gm Pre-Mix (Rocephin 1 Gm (12/08/21 15:55) Diltiazem Injection (Cardizem Injection) (12/08/21 15:55) Urine Culture (12/08/21 15:41) Vancomycin Injection (Vancomycin Injecti (12/08/21 16:35) Cefepime Injection (Maxipime Injection) (12/08/21 16:35) Ed Admission (Communication) (12/08/21 16:36) Code/Resuscitation (12/08/21 16:36) Vital Signs/I&O 12/08/21 12/08/21 14:54 15:28 Temp 36.1 Pulse 141 Resp 26 B/P (MAP) 139/108 (118) Pulse Ox 92 92 O2 Delivery Nasal Cannula Nasal Cannula O2 Flow Rate 2.00 2.00 Capillary Refill : Less Than 3 Seconds Blood Pressure Mean: 118 Progress Note #1: Progress Note Obtain blood cultures including lactic acid for his confusion and hypoxia. Chest x-ray to look for signs of pneumonia. CT scan of his head and cervical spine since he was found on the floor although he denies any pain. He also is taking warfarin or Coumadin so he does have an increased risk for intracranial hemorrhage or bleeding. Blood work to look at electrolytes as well as blood count and INR. Obtaining urinalysis from his indwelling Coburn catheter to see if it looks like there might be infection on top of his chronic UTI from the indwelling catheter. For his tachycardia we will try giving a dose of diltiazem 10 mg IV to see if that would help with his rate. Since he does have a history of chronic atrial fibrillation and COPD requiring O2 will continue on supplemental oxygen as well. Differential diagnosis includes seizure, syncopal episode, sepsis, pneumonia, UTI, COVID, influenza, electrolyte imbalance, dehydration with hypertensive or thostasis, myocardial infarction Progress Note #2: Progress Note He did not have significant change from the initial diltiazem bolus of 10 mg. Giving IV fluids 500 mL bolus since he does have a history of heart failure. Lab called stating that his lactic acid was elevated at 4.74. No definite source of infection off of initial exam but with his history of recurrent lung infection and urine infection those are certainly 2 potential sources. His CBC shows normal white blood cell count of 9.1. It does look like he might be hemoconcentrated as his hemoglobin is 12.6 and his baseline is usually closer to 10. Will add on IVF and Rocephin 1 gm IV. Progress Note #3: Progress Note CT scan of the head does not show any acute intracranial hemorrhage or process. There is no acute cervical spine fracture identified. Chemistry panel shows elevated BUN and creatinine slightly above his baseline. His BUN today is 24 and creatinine of 1.72. Typically he is more around 15 and 1.4 for his BUN and creatinine. His INR is 3.2. His troponin is less than 0.3. His proBNP is 3029, which is down from prior testing. Alcohol level is <10. Flu swab negative. CXR shows chronic effusion left greater than right but he also appears to have infiltrate in left lingula and lower lobe. With his history of pseudomonas in urine and being from [facility] will add Vancomycin and Cefepime to his antibiotics. His atrial fibrillation is improving and after 2nd Diltiazem bolus and fluids infusing he has heart rate down around 100-110 with a. fib. Progress Note #4: Progress Note 1633 d/w Dr. Alfonso for [facility] service and Dr. Cali. She accepted pt for admit with his sepsis, pneumonia, atrial fibrillation, hypoxia, syncope. She did request consult to Dr. Munoz with cardiology so he was aware of pt since pt is in paroxysmal atrial fibrillation with rate over 100. He appears to be improving with treatment in the ED but has a very guarded prognosis considering his multiple health conditions and overall poor health. [address] Munoz and made him aware of pt for consult about atrial fibrillation since pt is being admitted for sepsis and pneumonia but is improving with bolus dosing of diltiazem and IVF. ECG Initial ECG Impression Date: Dec 08, 2021 Initial ECG Impression Time: 14:59 Initial ECG Rate: 140 Initial ECG Comparisson: Changed (Today shows junctional tachycardia, previous shows sinus tachycardia, atrial fibrillation) Comment Junctional tachycardia versus atrial fibrillation with a heart rate of 140 bpm. Nonspecific T wave abnormalities in the lateral leads. Prolonged QT interval of 329 ms and QTc interval [address] elevation. The junctional tachycardia today is different from previous tracings showing sinus tachycardia, atrial fibrillation or sinus rhythm. Diagnostic Imaging Diagonstic Imaging: Xray Plain Films/CT/US/NM/MRI: chest Comments NAME: NOHEMY HUERTA Brock [facility] REC#: [id number] PT STATUS: REG ER : 1945 PHYSICIAN: TREVA CANCHOLA MD ADMIT DATE: 12/08/21/ER FS Signed Date of Exam:12/08/21 CHEST 1 VIEW AP/PA ONLY INDICATION: 76-year-old male with syncopal episode, injured in fall. COMPARISONS: 03/23/2021. FINDINGS: Single view of the chest shows a large left lower lobe consolidation with underlying large left effusion. There is moderate congestive heart failure. Overall, however, this has improved since the prior exam. There is aortic calcific atherosclerosis. Bony thorax once again shows bilateral shoulder arthropathy. IMPRESSION: 1. Large left pleural effusion with underlying left lingular and left lower lobe consolidation. There are also some right basilar infiltrates. 2. Moderate congestive heart failure but overall improved since the prior exam. Dictated by: Dictated on workstation # [id number] Dict: 12/08/21 1552 Trans: 12/08/21 1604 AS6 [id number] Interpreted by: MARTINEZ MADISON MD Electronically signed by: MARTINEZ MADISON MD 12/08/21 1604 Reviewed: Reviewed by Nh Diagonstic Imaging: CT Plain Films/CT/US/NM/MRI: c-spine, head Comments NAME: NOHEMY HUERTA [facility] REC#: [id number] PT STATUS: REG ER : 1945 PHYSICIAN: TREVA CANCHOLA MD ADMIT DATE: 12/08/21/ER FS Draft Date of Exam:12/08/21 CT HEAD/CERVICAL SPINE WO PROCEDURE: CT head and CT cervical spine without contrast. TECHNIQUE: Multiple contiguous axial images were obtained through the brain and cervical spine without the use of intravenous contrast. Sagittal and coronal reformations through the cervical spine were then performed. Auto Exposure Controls were utilized during the CT exam to meet ALARA standards for radiation dose reduction. INDICATION: Anticoagulated patient had a fall and now has altered mental status. COMPARISON: Exam compared with CT head and cervical performed on 10/19/2021. FINDINGS: HEAD: There is no intracranial hemorrhage, hydrocephalus, cerebral edema, mass, or mass effect. Orbits, sinuses, and calvarium are unremarkable. Atrophy and periventricular white matter small vessel disease, stable and chronic. No abnormal extra-axial fluid collection. Intracranial vascular calcifications, chronic. CERVICAL SPINE: Cervical body heights are maintained. Alignment is anatomic and stable degenerative changes to the [id number] cervical spine, chronic. Central skull base is intact. Craniocervical relationship is unremarkable. There are severe carotid atherosclerotic vascular calcifications, chronic. There does appear to be left apical pleural fluid. IMPRESSION: 1. CT head: Chronic stable senescent changes. No hemorrhage or fracture. 2. CT cervical spine: Chronic degenerative changes with no fracture or traumatic malalignment. Likely partially visualized left-sided apical pleural fluid. Dictated on workstation # [id number] Dict: 12/08/21 1547 Trans: 12/08/21 1557 AS6 [id number] Interpreted by: SORAYA HINOJOSA Electronically signed by: Reviewed: Reviewed by Me Departure Communication (Admissions) Time/Spoke to Admitting Phy: 16:33 d/w Dr. Alfonso trade union official for Dr. Cali and [facility] and she accepted pt for admit for sepsis, pneumonia and hypoxia with syncope. Will consult Dr. Munoz with Cardiology so he is aware as the patient is in atrial fibrillation with a rate that is improving with diltiazem boluses and IVF but still just over 100 bpm. Time/Spoke to Consulting Phy: 16:[address] Munoz of cardiology consult with being in atrial fibrillation. Impression Primary Impression: Sepsis due to pneumonia Additional Impressions: Pneumonia of left lung due to infectious organism Qualified Codes: J18.9 - Pneumonia, unspecified organism Paroxysmal atrial fibrillation Skin tear of right forearm without complication Qualified Codes: S51.811A - Laceration without foreign body of right forearm, initial encounter Fall at [facility] Qualified Codes: W19.XXXA - Unspecified fall, initial encounter; Y92.129 - Unspecified place in [facility] as the place of occurrence of the external cause Hypoxemia Disposition: 30 STILL A PATIENT Condition: Stable Admissions Decision to Admit Reason: Admit from ER (General) Decision to Admit/Date: Dec 08, 2021 Time/Decision to Admit Time: 16:33 Departure-Patient Inst. Referrals: ALCIDES CALI MD (PCP/Family) Primary Care Physician TREVA CANCHOLA MD Dec 08, 2021 15:22
[2021-12-08 15:25] LABS: INR 3.2 (0.8-1.4); PROTHROMBIN TIME PATIENT 32.9 SEC (12.2-14.7)
[2021-12-08] MEDS: NS IV 500 ML 500 ML IV SCH ×2 (15:36→19:07)
[2021-12-08 15:48] LABS: ALANINE AMINOTRANSFERASE 9 U/L (0-55); ALKALINE PHOSPHATASE 133 U/L (40-136); BILIRUBIN,TOTAL 0.4 MG/DL (0.1-1.0); BUN/CREATININE RATIO 14; CALCIUM 8.7 MG/DL (8.5-10.1); CARBON DIOXIDE 24 MMOL/L (21-32); CHLORIDE 93 MMOL/L (98-107); CREATININE SERUM 1.72 MG/DL (0.60-1.30); GFR ESTIMATED 40; GLUCOSE 145 MG/DL (70-105); POTASSIUM 4.1 MMOL/L (3.6-5.0); SODIUM 134 MMOL/L (135-145)
[2021-12-08 15:49] LABS: ALBUMIN 4.1 GM/DL (3.2-4.5); TOTAL PROTEIN 7.7 GM/DL (6.4-8.2)
[2021-12-08] MEDS ORDERED: NS IV 1000 ML 1,000 ML IV STA (15:55)
[2021-12-08] MEDS ORDERED: cefTRIAXone 1 GM PRE-MIX 50 ML IV STA (15:55)
--- NOTE | 2021-12-08 15:58 | Diagnostic Imaging Report ---
PROCEDURE: CT head and CT cervical spine without contrast. TECHNIQUE: Multiple contiguous axial images were obtained through the brain and cervical spine without the use of intravenous contrast. Sagittal and coronal reformations through the cervical spine were then performed. Auto Exposure Controls were utilized during the CT exam to meet ALARA standards for radiation dose reduction. INDICATION: Anticoagulated patient had a fall and now has altered mental status. COMPARISON: Exam compared with CT head and cervical performed on 10/19/2021. FINDINGS: HEAD: There is no intracranial hemorrhage, hydrocephalus, cerebral edema, mass, or mass effect. Orbits, sinuses, and calvarium are unremarkable. Atrophy and periventricular white matter small vessel disease, stable and chronic. No abnormal extra-axial fluid collection. Intracranial vascular calcifications, chronic. CERVICAL SPINE: Cervical body heights are maintained. Alignment is anatomic and stable degenerative changes to the [id number] cervical spine, chronic. Central skull base is intact. Craniocervical relationship is unremarkable. There are severe carotid atherosclerotic vascular calcifications, chronic. There does appear to be left apical pleural fluid. IMPRESSION: 1. CT head: Chronic stable senescent changes. No hemorrhage or fracture. 2. CT cervical spine: Chronic degenerative changes with no fracture or traumatic malalignment. Likely partially visualized left-sided apical pleural fluid. Dictated by: Dictated on workstation # [id number]
--- NOTE | 2021-12-08 16:01 | Diagnostic Imaging Report ---
INDICATION: 76-year-old male with syncopal episode, injured in fall. COMPARISONS: 03/23/2021. FINDINGS: Single view of the chest shows a large left lower lobe consolidation with underlying large left effusion. There is moderate congestive heart failure. Overall, however, this has improved since the prior exam. There is aortic calcific atherosclerosis. Bony thorax once again shows bilateral shoulder arthropathy. IMPRESSION: 1. Large left pleural effusion with underlying left lingular and left lower lobe consolidation. There are also some right basilar infiltrates. 2. Moderate congestive heart failure but overall improved since the prior exam. Dictated by: Dictated on workstation # [id number]
[2021-12-08 16:17] LABS: BILIRUBIN,URINE NEGATIVE (NEGATIVE); CLARITY,URINE SL CLOUDY; COLOR,URINE YELLOW; GLUCOSE, URINE (UA) NEGATIVE (NEGATIVE); KETONES,URINE NEGATIVE (NEGATIVE); LEUKOCYTE ESTERASE ,URINE 1+ (NEGATIVE); NITRITE,URINE NEGATIVE (NEGATIVE); PROTEIN,URINE NEGATIVE (NEGATIVE)
[2021-12-08 16:22] LABS: BACTERIA,URINE LARGE /HPF; SQUAMOUS EPITHELIAL CELL,UR RARE /HPF
[2021-12-08] MEDS ORDERED: VANCOMYCIN INJECTION 1,000 MG in NS (IVPB) 250 ML IV STA (16:35)
[2021-12-08] MEDS ORDERED: CEFEPIME INJECTION 1,000 MG in NS (IVPB) 50 ML IV STA (16:35)
[2021-12-08] MEDS ORDERED: ANTACID SUSP 30 ML UDC (MYLANTA) PO PRN (18:15)
[2021-12-08] MEDS ORDERED: morphine INJ 4 MG/ML 1 ML (VIAL/SYRINGE) IV PRN (18:15)
[2021-12-08] MEDS ORDERED: PATIENT MAY USE OWN MEDS, ALL PO SCH (18:15)
[2021-12-08] MEDS ORDERED: polyethylene glycoL POWDER 17 GM (MIRALAX) PACK PO PRN (18:15)
[2021-12-08] MEDS ORDERED: ACETAMINOPHEN 325 MG TABLET PO PRN (18:15)
[2021-12-08] MEDS ORDERED: MELATONIN 3 MG TABLET PO PRN (18:15)
[2021-12-08] MEDS ORDERED: ONDANSETRON 4 MG (ZOFRAN) ORAL DISSOLVE TAB PO PRN (18:15)
[2021-12-08] MEDS ORDERED: diphenhydrAMINE 50 MG/ML INJ (BENADRYL) IVP PRN (18:15)
[2021-12-08] MEDS ORDERED: diphenhydrAMINE 25 MG TAB (BENADRYL) PO PRN (18:15)
[2021-12-08] MEDS ORDERED: ONDANSETRON 4 MG/2 ML (SDV) Z0FRAN IV PRN (18:15)
[2021-12-08] MEDS ORDERED: BISACODYL 10 MG SUPP (DULCOLAX) PR PRN (18:15)
[2021-12-08] MEDS: NS IV 1000 ML 1,000 ML IV SCH (18:47)
[2021-12-08] MEDS: CEFEPIME 1,000 MG/NS 50 ML IVPB IV SCH ×2 (18:54)
[2021-12-08] MEDS ORDERED: VANCOMYCIN INJECTION 0.1 MG in NS (IVPB) 250 ML IV SCH (19:00)
[2021-12-08] MEDS ORDERED: VANCOMYCIN 2000 MG/NS 500 ML IVPB IV NR ×2 (19:00)
[2021-12-08 19:49] VITALS: BP 114/77
[2021-12-08] MEDS: inSUlin ASPART (NovoLOG) 1 UNIT/0.01 ML (CHARGE PER UNIT) SC SCH (20:51)
[2021-12-08] MEDS: DOCUSATE SODIUM 100 MG (COLACE) CAP PO SCH (20:57)
[2021-12-08] MEDS ORDERED: CEFEPIME INJECTION 2,000 MG in NS (IVPB) 50 ML IV SCH (21:00)
[2021-12-08 23:20] VITALS: BP 121/78
[2021-12-09] MEDS: CEFEPIME 1,000 MG/NS 50 ML IVPB IV SCH ×6 (02:12→18:08)
[2021-12-09 03:10] VITALS: BP 124/82
[2021-12-09] MEDS: inSUlin ASPART (NovoLOG) 1 UNIT/0.01 ML (CHARGE PER UNIT) SC SCH ×4 (04:51→20:37)
[2021-12-09] MEDS: NS IV 1000 ML 1,000 ML IV SCH ×2 (05:06→10:28)
[2021-12-09 05:57] LABS: BASOPHILS # (AUTO) 0.1 10^3/uL (0.0-0.1); BASOPHILS % (AUTO) 1 % (0-10); EOSINOPHILS # (AUTO) 0.3 10^3/uL (0.0-0.3); EOSINOPHILS % (AUTO) 4 % (0-10); HEMATOCRIT 39 % (40-54); HEMOGLOBIN 12.4 g/dL (13.3-17.7); LYMPHOCYTES # (AUTO) 1.1 10^3/uL (1.0-4.0); LYMPHOCYTES % (AUTO) 14 % (12-44); MEAN CORPUSCULAR HEMOGLOBIN 32 pg (25-34); MEAN CORPUSCULAR HGB CONC 32 g/dL (32-36); MEAN CORPUSCULAR VOLUME 101 fL (80-99); MEAN PLATELET VOLUME 9.4 fL (9.0-12.2); MONOCYTES # (AUTO) 0.5 10^3/uL (0.0-1.0); MONOCYTES % (AUTO) 6 % (0-12); NEUTROPHILS # (AUTO) 5.8 10^3/uL (1.8-7.8); NEUTROPHILS % (AUTO) 74 % (42-75); PLATELET COUNT 199 10^3/uL (130-400); WHITE BLOOD COUNT 7.9 10^3/uL (4.3-11.0)
[2021-12-09 06:05] LABS: INR 3.1 (0.8-1.4); PROTHROMBIN TIME PATIENT 32.2 SEC (12.2-14.7)
[2021-12-09 06:25] LABS: ALBUMIN 3.7 GM/DL (3.2-4.5); POTASSIUM 4.2 MMOL/L (3.6-5.0)
[2021-12-09 06:26] LABS: CALCIUM 8.5 MG/DL (8.5-10.1)
[2021-12-09 06:27] LABS: TOTAL PROTEIN 7.4 GM/DL (6.4-8.2)
[2021-12-09 06:29] LABS: BILIRUBIN,TOTAL 0.4 MG/DL (0.1-1.0)
[2021-12-09 06:31] LABS: CREATININE SERUM 1.84 MG/DL (0.60-1.30)
[2021-12-09 07:38] VITALS: BP 122/85
[2021-12-09] MEDS: DOCUSATE SODIUM 100 MG (COLACE) CAP PO SCH ×2 (08:30→20:08)
[2021-12-09] MEDS ORDERED: FURO20TA4 PO (09:26)
[2021-12-09] MEDS ORDERED: MAGN400O7 PO (09:26)
[2021-12-09] MEDS ORDERED: DILT-27 PO (09:26)
[2021-12-09] MEDS ORDERED: SPIR25TA5 PO (09:26)
[2021-12-09] MEDS ORDERED: CETI10TA17 PO (09:26)
[2021-12-09] MEDS ORDERED: PHEN64.8 PO (09:26)
[2021-12-09] MEDS ORDERED: WRF2.5T PO (09:26)
[2021-12-09] MEDS ORDERED: DILT240C91 PO (09:26)
[2021-12-09] MEDS ORDERED: MULT-349 PO (09:26)
[2021-12-09] MEDS ORDERED: OMEP40CA6 PO (09:26)
--- NOTE | 2021-12-09 10:37 | Physical Therapy Evaluation ---
PT Evaluation-General Medical Diagnosis Admission Date Dec 08, 2021 at 18:19 Medical Diagnosis: Fall/ hypoxia Onset Date: Dec 08, 2021 Therapy Diagnosis Therapy Diagnosis: weakness, debility Height/Weight Height (Feet): 5 Height (Inches): 9.00 Weight (Pounds): 225 Precautions Precautions/Isolations: Fall Prevention, Standard Precautions Referral Physician: Ron Reason for Referral: Evaluation/Treatment Medical History Pertinent Medical History: Atrial Fib, Alcoholism, COPD, DM, Heart Failure, HTN, Neuropathy, Smoking Current History Patient arrived at ER via EMS after a fall at assisted living due to possible seizure Reviewed History: Yes Social History Home: Assisted Living Entry Into Home: Level Entry Prior Prior Level of Function SCALE: Activities may be completed with or without assistive devices. 9-Wwfydzuwdv-ijobxlq completes the activity by him/herself with no assistance from a helper. 5-Set-up or Clean-up Assistance-helper sets up or cleans up; patient completes activity. [place] assists only prior to or following the activity. 4-Supervision or Touching Assistance-helper provides verbal cues and/or touching/steadying and/or contact guard assistance as patient completes activity. Assistance may be provided throughout the activity or intermittently. 3-Partial/Moderate Assistance-helper does LESS THAN HALF the effort. [place] lifts, holds or supports trunk or limbs, but provides less than half the effort. 2-Substantial/Maximal Assistance-helper does MORE THAN HALF the effort. [place] lifts or holds trunk or limbs and provides more than half the effort. 5-Tvaddeets-timpdf does ALL the effort. Patient does none of the effort to complete the activity. Or, the assistance of 2 or more helpers is required for the patient to complete the activity. If activity was not attempted, code reason: 7-Patient Refused. 9-Not Applicable-not attempted and the patient did not perform the activity before the current illness, exacerbation or injury. 10-Not Attempted due to Environmental Limitations-(lack of equipment, weather restraints, etc.). 88-Not Attempted due to Medical Conditions or Safety Concerns. Bed Mobility: 6 Transfers (B,C,W/C): 6 Gait: 6 Wheelchair Mobility: 6 Indoor Mobility (Ambulation): Independent Prior Devices Use: Manual wheelchair, Walker Patient reports that he moved around his assisted living facility in a w/c but used a walker within his room PT Evaluation-Current Subjective Patient presented seated in bed. Patient reports that he has been up already this morning to go to the bathroom. Patient consents to walking around his room and sitting in his chair. Patient reported that at the assisted living facility he used his w/c mostly and only walked within his room. Objective Patient Orientation: Person, Place Attachments: Oxygen, Suprapubic Catheter, IV Patient reports that he only wears O2 at night ROM/Strength ROM Lower Extremities WFL, limited due to obesity Strength Lower Extremities 4/5 strength bilaterally grossly Integumentary/Posture Posture trunk flexed in stand with FWW use Neuromuscular (Tone, Coordination, Reflexes) Grossly intact Sensory Vision: Functional Hearing: Functional Transfers Lying to Sitting/Side of Bed(Q: 4 Sit to Stand (QC): 4 Chair/Kqi-jx-Rxlnl Xfer(QC): 4 Gait Does the Patient Walk?: Yes Mode of Locomotion: Both Anticipated Mode of Locomotion: Both Walk 10 feet (QC): 4 Walk 50 ft with 2 Turns(QC): 4 Walk 150 ft (QC): 09 Distance: 50' Gait Assistive Device: FWW Comments/Gait Description Patient ambulated with FWW and CGA for 50' within his room. Balance Sitting Static: Normal Sitting Dynamic: Normal Standing Static: Fair Standing Dynamic: Fair Assessment/Needs Patient completed ambulation of 50' within his room with FWW and CGA. Patient required CGA for all transfers. Patient was fatigued after ambulation and transfers during therapy session. Patient required additional encouraging to get out of bed and moved to the chair. Rehab Potential: Good PT Hi Lift Operator Goals Hi Lift Operator Goals PT [facility] Goals Time Frame: Dec 18, 2021 Roll Left & Right (QC): 6 Sit to Lying (QC): 6 Lying-Sitting on Side/Bed(QC): 6 Sit to Stand (QC): 6 Chair/Nlf-re-Wsmjm Xfer(QC): 6 Toilet Transfer (QC): 6 Does the Patient Walk: Yes Walk 10 feet (QC): 6 Walk 50ft with 2 Turns (QC): 6 PT Plan Problem List Problem List: Activity Tolerance, Functional Strength, Safety, Balance, Gait, Transfer, Bed Mobility, ROM Treatment/Plan Treatment Plan: Continue Plan of Care Treatment Plan: Bed Mobility, Education, Functional Activity Ken, Functional Strength, Gait, Safety, Therapeutic Exercise, Transfers Treatment Duration: Dec 18, 2021 Frequency: 6 times per week Estimated Hrs Per Day: .25 hour per day Patient and/or Family Agrees t: Yes Safety Risks/Education Patient Education: Gait Training, Transfer Techniques Teaching Recipient: Patient Teaching Methods: Discussion Time/GCodes Time In: 1005 Time Out: 1019 Total Billed Treatment Time: 14 Total Billed Treatment 1 Visit EVModC 14 min SELVIN RODRIGUEZ PT Dec 09, 2021 10:37
[2021-12-09 11:09] VITALS: BP 122/88
[2021-12-09] MEDS ORDERED: RT-ALBUTEROL/IPRATROPIUM 3 ML (DUONEB) VIAL IH PRN (11:30)
[2021-12-09] MEDS ORDERED: MILK OF MAGNESIA 400 MG/5 ML 30 ML UDC PO PRN (11:30)
--- NOTE | 2021-12-09 11:31 | Occupational Therapy Eval ---
OT Evaluation-General/PLF Medical Diagnosis Admission Date Dec 08, 2021 at 18:19 Medical Diagnosis: Fall/ hypoxia Onset Date: Dec 08, 2021 Therapy Diagnosis Therapy Diagnosis: decrease strength, decreased ADL status Height/Weight Height (Feet): 5 Height (Inches): 9.00 Weight (Pounds): 225 Precautions Precautions/Isolations: Fall Prevention, Standard Precautions Referral Physician: Ron Referral Reason: Evaluation/Treatment Medical History Pertinent Medical History: Atrial Fib, Alcoholism, COPD, DM, Heart Failure, HTN, Neuropathy, Smoking Additional Medical History absence seizure, COPD, CHF, chronic renal failure, dementia, afib, suprapubic catheter, HTN, neuropathy, GERD, gout, DM Current History ED via EMS from [facility] after being found down on floor and more co nfused, possible seizure/syncopal episode. Social History Home: Assisted Living Entry Into Home: Level Entry ADL-Prior Level of Function SCALE: Activities may be completed with or without assistive devices. 3-Vxmxohjdzm-xtxclqs completes the activity by him/herself with no assistance from a helper. 5-Set-up or Clean-up Assistance-helper sets up or cleans up; patient completes activity. [place] assists only prior to or following the activity. 4-Supervision or Touching Assistance-helper provides verbal cues and/or touching/steadying and/or contact guard assistance as patient completes activity. Assistance may be provided throughout the activity or intermittently. 3-Partial/Moderate Assistance-helper does LESS THAN HALF the effort. [place] lifts, holds or supports trunk or limbs, but provides less than half the effort. 2-Substantial/Maximal Assistance-helper does MORE THAN HALF the effort. [place] lifts or holds trunk or limbs and provides more than half the effort. 9-Qepwnyosl-xlaaqj does ALL the effort. Patient does none of the effort to complete the activity. Or, the assistance of 2 or more helpers is required for the patient to complete the activity. If activity was not attempted, code reason: 7-Patient Refused. 9-Not Applicable-not attempted and the patient did not perform the activity before the current illness, exacerbation or injury. 10-Not Attempted due to Environmental Limitations-(lack of equipment, weather restraints, etc.). 88-Not Attempted due to Medical Conditions or Safety Concerns. ADL PLOF Comments Pt reports he is able to get up in his room using FWW by himself, he primarily uses a w/c around [place]. He has assistance with most ADLs, total assistance with LE dressing, footwear, toileting and showering. He is able to doff/don shirt, feed himself and complete oral care. Self Care: Needed Some Help OT Current Status Subjective Pt in recliner, agreeable to OT tx. Mental Status/Objective Patient Orientation: Person, Place Attachments: Cramer Catheter, IV, Oxygen Current Upper Extremity ROM WFL, BUE shoulder flexion to approx 90 degrees Upper Extremity Strength grossly 3+/5 ADL-Treatment Eating (QC): 6 (Per pt report) Oral Hygiene (QC): 5 (Per clincial judgment.) Upper Body Dressing (QC): 5 (Per clincial judgment.) Lower Body Dressing (QC): 1 (Per pt report and clincial judgment.) On/Off Footwear (QC): 1 (Per pt report and clincial judgment.) Toileting Hygiene (QC): 1 (Per pt report and clincial judgment.) Other Treatments Pt up in recliner, agreeable to OT evaluation. Pt provided information about PLOF. States he has assistance with almost all ADLs, except feeding, oral care and UE dressing. Pt participated in UE scree. Sit to stand from recliner with SBA, pt stood at FWW for 2 mins (SBA no LOB), then requested to sit back down, transfer to sit with SBA. Pt reports he is at his PLOF with ADLs at this time. Post tx, pt in recliner, call light in reach and all needs met. Education OT Patient Education: Correct positioning, Modified ADL techniques, Progress toward Goal/Update tx plan, Purpose of tx/functional activities, Rehab process, Safety issues Teaching Recipient: Patient Teaching Methods: Demonstration, Discussion Response to Teaching: Verbalize Understanding, Return Demonstration OT Ore Roaster Goals Ore Roaster Goals 1=Demonstrate adherence to instructed precautions during ADL tasks. 2=Patient will verbalize/demonstrate understanding of assistive devices/modifications for ADL. 3=Patient will improve strength/tolerance for activity to enable patient to perform ADL's. OT Education/Plan Problem List/Assessment Assessment: No Skilled OT Needs ID'd No skilled OT services indicated at this time. Pt has assistance with all ADLs at prior level except eating, oral care and UE dressing. Pt is currently at OF with eating, oral care and UE dressing. Discharge Recommendations Plan/Recommendations: Discharge/Goals Met Treatment Plan/Plan of Care Patient would benefit from OT for education, treatment and training to promote independence in ADL's, mobility, safety and/or upper extremity function for ADL's. Plan of Care: ADL Retraining, Functional Mobility Treatment Duration: Dec 09, 2021 Frequency: 1 time per week (eval only) Estimated Hrs Per Day: .25 hour per day Rehab Potential: Good Time/GCodes Start Time: 11:00 Stop Time: 11:13 Total Time Billed (hr/min): 13 Billed Treatment Time 1, GRACIELA OTTO OT Dec 09, 2021 11:31
--- NOTE | 2021-12-09 11:49 | Diagnostic Imaging Report ---
INDICATION: Shortness of breath. Comparison with 12/08/2021. FINDINGS: Elevation of the left hemidiaphragm with left basilar pleural effusion and left lower lobe consolidation. Left upper lung is clear. Right lung remains clear. The heart is mildly enlarged. No evidence of pulmonary edema. IMPRESSION: 1. Large left pleural effusion with left lower lobe infiltrate is unchanged. 2. Cardiomegaly without definite changes of pulmonary venous congestion now. Dictated by: Dictated on workstation # [id number]
--- NOTE | 2021-12-09 12:40 | Consultation - Surgery ---
EMILY KYLE 12/09/21 1240: History of Present Illness History of Present Illness Patient Consulted On(jennifer/time) 12/09/21 12:31 Date Seen by Provider: Dec 09, 2021 Time Seen by Provider: 12:32 History of Present Illness Curly Gonzalez is a 76 yo male with a history of AFIB, CHF, DM, nuerogenic bladder s/p suprapubic catheter, absence seizures, and dementia who presented for evaluation and management of PNA, hypoxemia, and fall. CXR on 12/08/21 demonstrated a large left pleural effusion, for which surgical consult was requested. Patient states some shallow breathing and SOA. Patient denies any N/V, fever, or CP. Curly is presently on warfarin and has an INR 3.1. Allergies and Home Medications Allergies Coded Allergies: No Known Drug Allergies (Unverified , 01/30/19) Patient Home Medication List Home Medication List Reviewed: Yes Allopurinol (Allopurinol) 100 Mg Tablet, 100 MG PO DAILY, (Reported) Entered as Reported by: KATHY CAMEJO on 12/30/201423 Last Action: Continued Atorvastatin Calcium (Atorvastatin Calcium) 10 Mg Tablet, 10 MG PO 1700, (Reported) Entered as Reported by: KATHY CAMEJO on 12/30/201423 Last Action: Continued Budesonide/Formoterol Fumarate (Symbicort 160-4.5 Mcg Inhaler) 10.2 Gm Hf a.aer.ad, 2 PUFF IH BID, (Reported) Entered as Reported by: KATHY CAMEJO on 12/30/20 1442 Last Action: Converted Cetirizine HCl (Cetirizine HCl) 10 Mg Tablet, 10 MG PO DAILY, (Reported) Entered as Reported by: DOLLY HORTA on 12/09/21925 Last Action: Converted Diltiazem HCl (Diltiazem 24Hr ER) 240 Mg Cap.er.24h, 240 MG PO DAILY, (Reported) Entered as Reported by: DOLLY HORTA on 12/09/21925 Last Action: Continued Diltiazem HCl (Diltiazem 24Hr ER) 120 Mg Cap.er.24h, 120 MG PO DAILY, (Reported) Entered as Reported by: DOLLY HORTA on 12/09/21925 Last Action: Continued Docusate Sodium (Docusate Sodium) 100 Mg Tablet, 100 MG PO BID, (Reported) Entered as Reported by: VITOR DENSON on 02/22/211346 Last Action: Converted Furosemide (Furosemide) 20 Mg Tablet, 20 MG PO 0800,1200, (Reported) Entered as Reported by: DOLLY HORTA on 12/09/21925 Last Action: Continued Ipratropium/Albuterol Sulfate (Iprat-Albut 0.5-3(2.5) mg/3 ml) 3 Ml Ampul.neb, 3 ML NEB Q6H PRN for SHORTNESS OF BREATH, (Reported) Entered as Reported by: DOLLY HORTA on 03/02/21806 Last Action: Continued Lactobacillus Acidophilus (Probiotic) 1 Each Capsule, 1 EACH PO 0800,1700, (Reported) Entered as Reported by: VITOR DENSON on 02/22/211346 Last Action: Converted Magnesium Hydroxide (Milk of Magnesia) 400 Mg/5 Ml Oral.susp, 30 ML PO DAILY PRN for CONSTIPATION-7TH LINE, (Reported) Entered as Reported by: DOLLY HORTA on 12/09/21925 Last Action: Continued Multivit,Ther Iron,Ca,FA & Min (Thera-M Caplet) 1 Each Tablet, 1 EACH PO DAILY, (Reported) Entered as Reported by: DOLLY HORTA on 12/09/21925 Last Action: Converted Omeprazole (Omeprazole) 40 Mg Capsule.dr, 40 MG PO DAILY, (Reported) Entered as Reported by: DOLLY HORTA on 12/09/21925 Last Action: Converted Phenobarbital (Phenobarbital) 64.8 Mg Tablet, 32.4 MG PO 0800,1700, (Reported) Entered as Reported by: DOLLY HORTA on 12/09/21925 Last Action: Continued Spironolactone (Spironolactone) 25 Mg Tablet, 25 MG PO DAILY, (Reported) Entered as Reported by: DOLLY HORTA on 12/09/21925 Last Action: Continued Thiamine HCl (B-1) 100 Mg Tablet, 100 MG PO DAILY, (Reported) Entered as Reported by: VITOR DENSON on 02/22/211346 Last Action: Continued Warfarin Sodium (Warfarin Sodium) 5 Mg Tablet, 5 MG PO 1700, (Reported) Entered as Reported by: DOLLY HORTA on 03/02/21 0807 Last Action: Continued Warfarin Sodium (Warfarin Sodium) 2.5 Mg Tablet, 2.5 MG PO SUN,MO,WE,FR,SA @1700, (Reported) Entered as Reported by: DOLLY HORTA on 12/09/21 0926 Last Action: Continued Discontinued Medications Mv-Mn/FA/Coq10/Lycopene/Lutein (Theragran-M Premier 50+ Caplet) 1 Each Tablet, 1 EACH PO DAILY, (Reported) Discontinued Reason: Prescription changed Entered as Reported by: VITOR DENSON on 02/22/21 1347 Warfarin Sodium (Warfarin Sodium) 7.5 Mg Tablet, 7.5 MG PO SUN,SAT, (Reported) Discontinued Reason: Duplicate Order Entered as Reported by: VITOR HOLLEY on 03/21/21 0938 Last Action: Discontinued Past Uexnlfo-Oegidx-Grphbd Hx Patient Social History Type Used: Cigarettes 2nd Hand Smoke Exposure: No Recent Hopitalizations: No Alcohol Use?: Yes Have you traveled recently?: No Immunizations Up To Date Tetanus Booster (TDap): Unknown Date of Influenza Vaccine: Sep 19, 2020 Seasonal Allergies Seasonal Allergies: Yes Surgeries History of Surgeries: Yes (suprapubic catheter placement) Surgeries: Urinary Diversion Respiratory History of Respiratory Disorde: Yes Respiratory Disorders: Chronic Bronchitis, COPD Cardiovascular History of Cardiac Disorders: Yes Cardiac Disorders: Atrial Fibrillation, Chronic Edema/Swelling, High Cholesterol, Hypertension Neurological History of Neurological Disord: Yes Neurological Disorders: Neuropathy, Seizure Disorder Genitourinary History of Genitourinary Disor: Yes (suprapubic catheter) Genitourinary Disorders: Neurogenic Bladder Gastrointestinal History of Gastrointestinal Di: Yes Gastrointestinal Disorders: Gastroesophageal Reflux Musculoskeletal History of Musculoskeletal Dis: Yes (spinal degeneration/uses wheelchair) Musculoskeletal Disorders: Gout Endocrine History of Endocrine Disorders: Yes Endocrine Disorders: Diabetes, Non-Insulin dep HEENT History of HEENT Disorders: No Cancer History of Cancer: No Psychosocial History of Psychiatric Problem: No Integumentary History of Skin or Integumenta: No Blood Transfusions History of Blood Disorders: No Review of Systems-General Constitutional: No fever; weakness EENTM: No ear pain, No eye pain Respiratory: cough, phlegm, short of breath Cardiovascular: No chest pain Gastrointestinal: No abdominal pain Genitourinary: No dysuria, No frequency Musculoskeletal: No joint pain, No joint swelling Skin: dryness; No pruritus Physical Exam-General Problems Physical Exam Vital Signs Vital Signs - First Documented 12/08/21 14:54 Temp 36.1 Pulse 141 Resp 26 B/P (MAP) 139/108 (118) Pulse Ox 92 O2 Delivery Nasal Cannula O2 Flow Rate 2.00 Capillary Refill : Less Than 3 Seconds General Appearance: WD/WN, no apparent distress Eyes: Bilateral Eye Normal Inspection, Bilateral Eye PERRL, Bilateral Eye EOMI HEENT: PERRL/EOMI, normal ENT inspection Neck: supple, normal inspection Respiratory: decreased breath sounds, crackles, rales, wheezing Cardiovascular: no edema, no gallop, no murmur, irregularly irregular Peripheral Pulses: 2+ Radial Pulses (L) Gastrointestinal: normal bowel sounds, non tender, soft Rectal: deferred Extremities: normal inspection, no pedal edema, other (stasis dermatitis) Skin: normal color, warm/dry Lymphatic: no adenopathy Data Review Labs Laboratory Tests 12/08/21 15:00: White Blood Count 9.1, Red Blood Count 3.97L, Hemoglobin 12.6L, Hematocrit 39L, Mean Corpuscular Volume 99, Mean Corpuscular Hemoglobin 32, Mean Corpuscular Hemoglobin Concent 32, Red Cell Distribution Width 13.3, Platelet Count 235, Mean Platelet Volume 9.1, Immature Granulocyte % (Auto) 0, Neutrophils (%) (Auto) 76H, Lymphocytes (%) (Auto) 12, Monocytes (%) (Auto) 6, Eosinophils (%) (Auto) 4, Basophils (%) (Auto) 1, Neutrophils # (Auto) 6.9, Lymphocytes # (Auto) 1.1, Monocytes # (Auto) 0.6, Eosinophils # (Auto) 0.4H, Basophils # (Auto) 0.1, Immature Granulocyte # (Auto) 0.0, Prothrombin Time 32.9H, INR Comment 3.2H, Activated Partial Thromboplast Time 49H, Sodium Level 134L, Potassium Level 4.1, Chloride Level 93L, Carbon Dioxide Level 24, Anion Gap 17H, Blood Urea Nitrogen 24H, Creatinine 1.72H, Estimat Glomerular Filtration Rate 40, BUN/Creatinine Ratio 14, Glucose Level 145H, Lactic Acid Level 4.74*H, Calcium Level 8.7, Corrected Calcium 8.6, Magnesium Level 2.0, Total Bilirubin 0.4, Aspartate Amino Transf (AST/SGOT) 15, Alanine Aminotransferase (ALT/SGPT) 9, Alkaline Phosphatase 133, Troponin I < 0.30, C-Reactive Protein 3.26H, Pro-B-Type Natriuretic Peptide 3029.0H, Total Protein 7.7, Albumin 4.1, Serum Alcohol < 10 12/08/21 15:20: Influenza Type A Antigen NEGATIVE, Influenza Type B Antigen NEGATIVE, SARS-CoV-2 RNA (RT-PCR) Not Detected 12/08/21 15:41: Urine Color YELLOW, Urine Clarity SL CLOUDY, Urine pH 7.0, Urine Specific [place] 1.015L, Urine Protein NEGATIVE, Urine Glucose (UA) NEGATIVE, Urine Ketones NEGATIVE, Urine Nitrite NEGATIVE, Urine Bilirubin NEGATIVE, Urine Urobilinogen 0.2, Urine Leukocyte Esterase 1+H, Urine RBC (Auto) 1+H, Urine RBC 5-10H, Urine WBC 2-5, Urine Squamous Epithelial Cells RARE, Urine Crystals NONE, Urine Bacteria LARGEH, Urine Casts NONE, Urine Mucus NEGATIVE, Urine Culture Indicated YES 12/08/21 17:30: Lactic Acid Level 1.48 12/08/21 20:11: Glucometer 127H 12/09/21 05:35: White Blood Count 7.9, Red Blood Count 3.90L, Hemoglobin 12.4L, Hematocrit 39L, Mean Corpuscular Volume 101H, Mean Corpuscular Hemoglobin 32, Mean Corpuscular Hemoglobin Concent 32, Red Cell Distribution Width 13.3, Platelet Count 199, Mean Platelet Volume 9.4, Immature Granulocyte % (Auto) 1, Neutrophils (%) (Auto) 74, Lymphocytes (%) (Auto) 14, Monocytes (%) (Auto) 6, Eosinophils (%) (Auto) 4, Basophils (%) (Auto) 1, Neutrophils # (Auto) 5.8, Lymphocytes # (Auto) 1.1, Monocytes # (Auto) 0.5, Eosinophils # (Auto) 0.3, Basophils # (Auto) 0.1, Immature Granulocyte # (Auto) 0.1, Prothrombin Time 32.2H, INR Comment 3.1H, Sodium Level 136, Potassium Level 4.2, Chloride Level 100, Carbon Dioxide Level 24, Anion Gap 12, Blood Urea Nitrogen 23H, Creatinine 1.84H, Estimat Glomerular Filtration Rate 37, BUN/Creatinine Ratio 13, Glucose Level 110H, Calcium Level 8.5, Corrected Calcium 8.7, Total Bilirubin 0.4, Aspartate Amino Transf (AST/SGOT) 19, Alanine Aminotransferase (ALT/SGPT) 11, Alkaline Phosphatase 102, Total Protein 7.4, Albumin 3.7 12/09/21 12:01: Glucometer 106 Radiology NAME: CURLY GONZALEZ [facility] REC#: [id number] PT STATUS: ADM IN : 1945 PHYSICIAN: ASTRID ALFONSO DO ADMIT DATE: 12/08/21 Draft Date of Exam:12/09/21 CHEST 1 VIEW, AP/PA ONLY INDICATION: Shortness of breath. Comparison with 12/08/2021. FINDINGS: Elevation of the left hemidiaphragm with left basilar pleural effusion and left lower lobe consolidation. Left upper lung is clear. Right lung remains clear. The heart is mildly enlarged. No evidence of pulmonary edema. IMPRESSION: 1. Large left pleural effusion with left lower lobe infiltrate is unchanged. 2. Cardiomegaly without definite changes of pulmonary venous congestion now. Assessment/Plan Assessment/Plan Assessment/Plan 1. PNA 2. Large L pleural effusion, stable Consider holding warfarin for five days Ultrasound of chest Thorcentesis planned for monday depending on how anticoagulation is reversed ( hold coumadin vs vit K or FFP) NATI PALACIO DO 12/09/21 184: History of Present Illness History of Present Illness History of Present Illness Consult requested by Dr. Alfonso for left pleural effusion. Patient is a 76-year-old male who lives [facility] Patient was found on the floor and transferred to the emergency department for further evaluation. Patient was admitted due to left lower lobe pneumonia and hypoxemia. Patient states that he is doing okay. His breathing is improved but having some shortness of air at times. Patient has no chest pain. Patient states activity makes his breathing worse. Nothing really seems to make it much better. He is on anticoagulation on warfarin which his INR is 3.1. He had a chest x-ray demonstrating a left lower lobe pneumonia and large left pleural effusion. Allergies and Home Medications Allergies Coded Allergies: No Known Drug Allergies (Unverified , 01/30/19) Patient Home Medication List Home Medication List Reviewed: Yes Allopurinol (Allopurinol) 100 Mg Tablet, 100 MG PO DAILY, (Reported) Entered as Reported by: KATHY CAMEJO on 12/30/20 142 Last Action: Continued Atorvastatin Calcium (Atorvastatin Calcium) 10 Mg Tablet, 10 MG PO 1700, (Reported) Entered as Reported by: KATHY CAMEJO on 12/30/20 142 Last Action: Continued Budesonide/Formoterol Fumarate (Symbicort 160-4.5 Mcg Inhaler) 10.2 Gm Hfa.aer.ad, 2 PUFF IH BID, (Reported) Entered as Reported by: KATHY CAMEJO on 12/30/20 1442 Last Action: Converted Cetirizine HCl (Cetirizine HCl) 10 Mg Tablet, 10 MG PO DAILY, (Reported) Entered as Reported by: DOLLY HORTA on 12/09/21925 Last Action: Converted Diltiazem HCl (Diltiazem 24Hr ER) 240 Mg Cap.er.24h, 240 MG PO DAILY, (Reported) Entered as Reported by: DOLLY HORTA on 12/09/21925 Last Action: Continued Diltiazem HCl (Diltiazem 24Hr ER) 120 Mg Cap.er.24h, 120 MG PO DAILY, (Reported) Entered as Reported by: DOLLY HORTA on 12/09/21925 Last Action: Continued Docusate Sodium (Docusate Sodium) 100 Mg Tablet, 100 MG PO BID, (Reported) Entered as Reported by: VITOR DENSON on 02/22/21 1347 Last Action: Converted Furosemide (Furosemide) 20 Mg Tablet, 20 MG PO 0800,1200, (Reported) Entered as Reported by: DOLLY HORTA on 12/09/21925 Last Action: Continued Ipratropium/Albuterol Sulfate (Iprat-Albut 0.5-3(2.5) mg/3 ml) 3 Ml Ampul.neb, 3 ML NEB Q6H PRN for SHORTNESS OF BREATH, (Reported) Entered as Reported by: DOLLY HORTA on 03/02/21 0807 Last Action: Continued Lactobacillus Acidophilus (Probiotic) 1 Each Capsule, 1 EACH PO 0800,1700, (Reported) Entered as Reported by: VITOR DENSON on 02/22/211346 Last Action: Converted Magnesium Hydroxide (Milk of Magnesia) 400 Mg/5 Ml Oral.susp, 30 ML PO DAILY PRN for CONSTIPATION-7TH LINE, (Reported) Entered as Reported by: DOLLY HORTA on 12/09/21925 Last Action: Continued Multivit,Ther Iron,Ca,FA & Min (Thera-M Caplet) 1 Each Tablet, 1 EACH PO DAILY, (Reported) Entered as Reported by: DOLLY HORTA on 12/09/21925 Last Action: Converted Omeprazole (Omeprazole) 40 Mg Capsule.dr, 40 MG PO DAILY, (Reported) Entered as Reported by: DOLLY HORTA on 12/09/21925 Last Action: Converted Phenobarbital (Phenobarbital) 64.8 Mg Tablet, 32.4 MG PO 0800,1700, (Reported) Entered as Reported by: DOLLY HORTA on 12/09/21925 Last Action: Continued Spironolactone (Spironolactone) 25 Mg Tablet, 25 MG PO DAILY, (Reported) Entered as Reported by: DOLLY HORTA on 12/09/21925 Last Action: Continued Thiamine HCl (B-1) 100 Mg Tablet, 100 MG PO DAILY, (Reported) Entered as Reported by: VITOR DENSON on 02/22/211346 Last Action: Continued Warfarin Sodium (Warfarin Sodium) 5 Mg Tablet, 5 MG PO 1700, (Reported) Entered as Reported by: DOLLY HORTA on 03/02/21 0807 Last Action: Continued Warfarin Sodium (Warfarin Sodium) 2.5 Mg Tablet, 2.5 MG PO [place],MO,WE,FR,SA @1700, (Reported) Entered as Reported by: DOLLY HORTA on 12/09/21925 Last Action: Continued Discontinued Medications Mv-Mn/FA/Coq10/Lycopene/Lutein (Theragran-M Premier 50+ Caplet) 1 Each Tablet, 1 EACH PO DAILY, (Reported) Discontinued Reason: Prescription changed Entered as Reported by: VITOR DENSON on 02/22/211346 Warfarin Sodium (Warfarin Sodium) 7.5 Mg Tablet, 7.5 MG PO MARIA GUADALUPE CERVANTES, (Reported) Discontinued Reason: Duplicate Order Entered as Reported by: VITOR HOLLEY on 03/21/21 0938 Last Action: Discontinued Past Mathapg-Dsgpep-Lgvapo Hx Reviewed Nursing Assessment Reviewed/Agree w Nursing PMH: Yes Family Medical History Significant Family History: No Pertinent Family Hx Review of Systems-General Constitutional: No fever; weakness EENTM: No ear pain, No eye pain Respiratory: cough, phlegm, short of breath Gastrointestinal: No abdominal pain, No nausea, No vomiting Genitourinary: No dysuria, No frequency Musculoskeletal: No joint pain, No joint swelling Skin: No change in color, No change in hair/nails; dryness; No pruritus Psychiatric/Neurological: Denies Anxiety, Denies Depressed, Denies Emotional Problems All Other Systems Reviewed Negative Unless Noted: Yes (Negative excepted noted.) Physical Exam-General Problems Physical Exam General Appearance: WD/WN, no apparent distress HEENT: PERRL/EOMI, normal ENT inspection Neck: non-tender, supple, normal inspection Respiratory: chest non-tender, no respiratory distress, no accessory muscle use Cardiovascular: no JVD, irregularly irregular Gastrointestinal: non tender, soft, other (Suprapubic catheter) Rectal: deferred Back: no CVA tenderness, no vertebral tenderness Extremities: normal inspection, no pedal edema, other (stasis dermatitis) Neurologic/Psychiatric: alert, normal mood/affect, oriented x 3 Skin: normal color, warm/dry Lymphatic: no adenopathy Assessment/Plan Assessment/Plan Assessment/Plan Pnemonia Fall Left pleural effusion USP anticoagulation Patient with shortness of air. Will get u/s of chest to further evaluate pleural effusion on left. Patient may benefit if large and drainable to have thoracentesis High risk on warfarin will need to hold or reverse to where safe to do procedures if needed. Follow INR. Supervisory-Addendum Brief Verification & Attestation Participated in pt care: history, MDM, physical Personally performed: exam, history, MDM, supervision of care Care discussed with: Medical Student Procedures: n/a Results interpretation: Verified all documentation Verification and Attestation of Medical Student E/M Service A medical student performed and documented this service in my presence. I reviewed and verified all information documented by the medical student and made modifications to such information, when appropriate. I personally performed the physical exam and medical decision making. Nati Palacio, Dec 09, 2021,18:52 EMILY KYLE Dec 09, 2021 12:40 NATI PALACIO DO Dec 09, 2021 18:48
[2021-12-09] MEDS: FUROSEMIDE 20 MG (LASIX) TAB PO SCH (13:05)
--- NOTE | 2021-12-09 14:49 | History & Physical-Hospitalist ---
FAROOQ LEE 12/09/21 1449: History of Present Illness HPI/Chief Complaint Curly Gonzalez is a 76 year old white male who presented to the ED via EMS from [facility]. He was found on the floor after sustaining a fall. It was reported that he was more confused than his usual baseline. He does not remember falling or the events that led up to the fall. A cut was identified on his lower lip as well as the tip of his tongue. Skin tears were noted on bilateral upper extremities. The patient usually uses a wheelchair due to decreased mobility. Micha osborn has an indwelling suprapubic catheter. He states the catheter is present due to prostatic complications. During encounter this morning, patient states he has had a productive cough for the past few weeks that has progressively gotten worse. He states he had pneumonia three times last spring. Patient also has a past medical history significant for absence seizures. He states he has not had recorded seizures for years, however he reports falling more frequently lately and is not sure if he is having seizures that are causing the falls. His last fall was three weeks ago. He presented to [facility] and states his MRI was unremarkable. HR 141, SpO2 97% 2.0L nasal cannula BUN 23, Cr 1.84 CRP: 3.26 on 12/08 Lactic acid 4.74 -> 1.48 on 12/08 INR: 3.1 UA: 2-5 WBC CXR: Large left pleural effusion with underlying left lingular and left lower lobe consolidation. Right basilar infiltrates. Head CT: chronic stable senescent changes Cervical spine CT: degenerative changes, likely left-sided apical pleural fluid EKG: junctional tachycardia, prolonged QT interval Source: patient, EMS notes reviewed Exam Limitations: no limitations Date Seen 12/09/21 Time Seen by a Provider: 11:00 Attending Physician Grace Alfonso DO PCP Wellington Miranda MD Referring Physician Date of Admission Dec 08, 2021 at 18:19 Home Medications & Allergies Home Medications Reviewed patient Home Medication Reconciliation performed by pharmacy medication reconciliations pest control chemical technician and/or nursing. Patients Allergies have been reviewed. Allergies Allergies Coded Allergies No Known Drug Allergies (Unverified01/30/19) Past Eqctvuu-Ojquzy-Pzpkjj Hx Patient Social History Marrital Status: ( in 2008) Employed/Student: retired (used to work at [employer] in [place]) Tobacco Use?: No Smoking Status: Former Smoker (42 years 1/2 pack per day) Use of E-Cig and/or Vaping dev: No Substance use?: No Alcohol Use?: Yes Alcohol type: Hard Liquor Additional alcohol type: whisky 4.0oz/day Alcohol Frequency: Daily Pt feels they are or have been: No Immunizations Up To Date Date of Influenza Vaccine: Sep 19, 2020 First/Initial COVID19 Vaccinat: 03/09/21 Second COVID19 Vaccination Elliott: 03/09/21 Tetanus Booster (TDap): Unknown Seasonal Allergies Seasonal Allergies: Yes Current Status Advance Directives: No Communicates: Verbally Primary Language: Peruvian Preferred Spoken Language: Peruvian Past Medical History Surgeries: Urinary Diversion Chronic Bronchitis, COPD Atrial Fibrillation, Chronic Edema/Swelling, High Cholesterol, Hypertension Neuropathy, Seizure Disorder (absence seizures) Neurogenic Bladder Gastroesophageal Reflux Gout Diabetes, Non-Insulin dep Blood Disorders: No PMHx: HTN HLD Atherosclerotic occlusive disease DMII Previous respiratory failure COPD Alcohol dependence CKD Chronic UTI Severe BPH SurgHx: Suprapubic catheter Family Medical History NC Review of Systems Respiratory: cough, phlegm, short of breath Cardiovascular: No chest pain, No edema; palpitations Gastrointestinal: No abdominal pain, No constipation (BM this morning), No diarrhea, No nausea, No vomiting Genitourinary: other (suprapubic catheter) Musculoskeletal: back pain Skin: lesions (skin tears bilateral upper extremities) Psychiatric/Neurological: Denies Headache; Weakness Physical Exam Physical Exam Vital Signs Vital Signs - First Documented 12/08/21 14:54 Temp 36.1 Pulse 141 Resp 26 B/P (MAP) 139/108 (118) Pulse Ox 92 O2 Delivery Nasal Cannula O2 Flow Rate 2.00 Capillary Refill : Less Than 3 Seconds Height, Weight, BMI Height: 5'9.00" Weight: 225lbs. oz. 102.887285ny; 34.81 BMI Method:Stated General Appearance: No Apparent Distress Neck: Supple; No Lymphadenopathy (L), No Lymphadenopathy (R) Respiratory: No Accessory Muscle Use, No Respiratory Distress, Decreased Breath Sounds (left lower lung) Cardiovascular: Normal Peripheral Pulses (left radial +2), Tachycardia, Other (regular rhythm) Gastrointestinal: Normal Bowel Sounds, Non Tender, Soft Extremity: No Pedal Edema Neurologic/Psychiatric: Alert, Oriented x3, Normal Mood/Affect Skin: Warm/Dry, Other (skin tears of bilateral upper extremities, bandaged) Lymphatic: No Adenopathy (no cervical adenopathy) Results Results/Procedures Labs Laboratory Tests 12/08/21 15:00 12/09/21 05:35 Patient resulted labs reviewed. Imaging: Reviewed Imaging Report Assessment/Plan Admission Diagnosis S/p fall, pneumonia, large left pleural effusion Admission Status: Inpatient Order (span 2 midnights) Reason for Inpatient Admission: S/p fall, pneumonia, large left pleural effusion Assessment and Plan Assessment: Left lower lobe pneumonia Large left pleural effusion S/p fall, frequent falls Chronic renal failure, possible acute on chronic kidney injury Debility Tachycardia, likely due to atrial fibrillation Warfarin therapy for atrial fibrillation Debility Resolved lactic acidosis Non-insulin dependent diabetes mellitus History of absence seizures Plan: Vancomycin and cefepime for pneumonia Supplemental oxygen, wean as tolerated Surgery consult for pleural effusion Sliding scale insulin Bowel regimen PRN Resume home medications Resume Warfarin, monitor INR PT/OT IVF to support renal function AM labs: CBC, BMP, INR Monitory vitals GRACE ALFONSO DO 12/10/21 0617: History of Present Illness HPI/Chief Complaint Chief complaint: Fall with pneumonia History of present illness: This is a 76-year-old white male clinic patient of [facility] who lives at assisted living who continues to smoke and has COPD who pre sented to the ER after a fall. Patient was assessed to have pneumonia with pleural effusion. Cardiology consulted. Source: patient Exam Limitations: no limitations Past Ceqyhxj-Vccuna-Obgzni Hx Patient Social History Marrital Status: ( in 2008) Employed/Student: retired (used to work at [employer] in [place]) Smoking Status: Current Everyday Smoker Past Medical History Pneumonia, COPD Atrial Fibrillation, Hypertension Neuropathy, Seizure Disorder (absence seizures) Review of Systems Constitutional: see HPI, malaise, weakness EENTM: no symptoms reported Respiratory: cough, dyspnea on exertion, phlegm, short of breath Cardiovascular: no symptoms reported Gastrointestinal: no symptoms reported Musculoskeletal: back pain Psychiatric/Neurological: Weakness Physical Exam Physical Exam General Appearance: No Apparent Distress, Chronically ill, Obese Eyes: Right Eye Normal Inspection, Right Eye PERRL HEENT: PERRL/EOMI, Normal ENT Inspection, Pharynx Normal, Moist Mucous Membranes Neck: Full Range of Motion, Normal Inspection, Non Tender Respiratory: Chest Non Tender, Lungs Clear, No Accessory Muscle Use, No Respi ratory Distress, Decreased Breath Sounds (left lower lung) Cardiovascular: Regular Rate, Rhythm, No Edema, No Gallop, No JVD, No Murmur, Normal Peripheral Pulses, Tachycardia Gastrointestinal: Normal Bowel Sounds, No Organomegaly, No Pulsatile Mass, Non Tender, Soft Back: Normal Inspection, No CVA Tenderness, No Vertebral Tenderness Extremity: Normal Capillary Refill, Normal Inspection, Normal Range of Motion, Non Tender, No Calf Tenderness, No Pedal Edema Neurologic/Psychiatric: Alert, Oriented x3, No Motor/Sensory Deficits, Normal Mood/Affect Skin: Normal Color, Warm/Dry Lymphatic: No Adenopathy Assessment/Plan Admission Diagnosis Assessment: Pneumonia Pleural effusion On anticoagulation A. fib Fall COPD Plan: IV antibiotics Cardiology consult Dr. More consult for effusion Admission Status: Inpatient Order (span 2 midnights) Reason for Inpatient Admission: Pneumonia Supervisory-Addendum Brief Verification & Attestation Participated in pt care: history, MDM, physical Personally performed: exam, history, MDM, supervision of care Care discussed with: Medical Student Procedures: n/a Results interpretation: Verified all documentation Verification and Attestation of Medical Student E/M Service A medical student performed and documented this service in my presence. I reviewed and verified all information documented by the medical student and made modifications to such information, when appropriate. I personally performed the physical exam and medical decision making. Grace Alfonso, Dec 10, 2021,06:17 FAROOQ LEE Dec 09, 2021 14:49 GRACE ALFONSO DO Dec 10, 2021 06:17
--- NOTE | 2021-12-09 15:22 | Consultation-Cardiology ---
HPI-Cardiology Cardiology Consultation: Date of Consultation 12/09/2021 Date of Admission 12/08/2021 Attending Physician Grace Velasquez DO Admitting Physician Wellington Miranda MD Consulting Physician DICK CARDOZA JR, MD HPI: Time Seen by a Provider: 15:16 Chief Complaint: Reason for consultation: Atrial fibrillation and heart failure. I had the pleasure of seeing Curly on the medical/stepdown unit at [facility] in [place], [place] this afternoon. He has a history of probable permanent atrial fibrillation as well as chronic heart failure. He resides in a local assisted living in [place], [place]. Yesterday he was found on the floor next to his bed. He does not remember falling out of bed. He does not remember waking up in the morning. The only thing he can remember from yesterday is waking up at the emergency room in [place]. When he arrived in the emergency room, evaluation revealed possible sepsis of unclear etiology. He was also in atrial fibrillation with a rapid ventricular rate. Because of this, a cardiology consultation was requested. He was also found to have a large left pleural effusion that the surgeon is thinking of performing a thoracentesis for diagnostic and therapeutic purposes. The patient has been taking warfarin for about the past year. He believes he was diagnosed with atrial fibrillation abou t 1 year ago. He does not know why he was placed on warfarin. He does not recall ever being on a DOAC. He denies any history of valvular heart disease. He denies any history of stroke or diabetes. He does report a history of heart failure, hypertension and hyperlipidemia. He denies any chest discomfort. He states that from time to time he will get significant bilateral lower extremity edema but he has been taking oral diuretic at home that seems to be keeping the edema under control. Over the past week or more he has noticed some increasing dyspnea on exertion while moving around in his room at the [facility] living. However, he still pushes himself to the dining room in a wheelchair to get his meals. He denies chest pain, paroxysmal nocturnal dyspnea, orthopnea, or palpitations. He wears oxygen at night due to his chronic obstructive pulmonary disease but has never been told he has sleep apnea. Certain portions of this document may have been dictated utilizing voice recognition technology. Inherent to this technology, typographical and grammatical errors may exist. As much as I am diligent to identify and correct these mistakes, some errors may remain in the document. Review of Systems-Cardiology Review of Systems Other comments Review of 10 organ systems is as per the history of present illness, otherwise negative. IOF-Hekeea-Exzcaa Hx Patient Social History Smoking Status: Former Smoker 2nd Hand Smoke Exposure: No Have you traveled recently?: No Alcohol Use?: Yes Pt feels they are or have been: No Immunizations Up To Date Tetanus Booster (TDap): Unknown Date of Influenza Vaccine: Sep 19, 2020 Past Medical History PMH As described under Assessment. Family Medical History Family Medical History: The patient does not know of any family history of premature coronary artery disease in first-degree relatives. Allergies and Home Medications Allergies Coded Allergies: No Known Drug Allergies (Unverified , 01/30/19) Patient Home Medication List Home Medication List Reviewed: Yes Allopurinol (Allopurinol) 100 Mg Tablet, 100 MG PO DAILY, (Reported) Entered as Reported by: KATHY CAMEJO on 12/30/201423 Last Action: Continued Atorvastatin Calcium (Atorvastatin Calcium) 10 Mg Tablet, 10 MG PO 1700, (Reported) Entered as Reported by: KATHY CAMEJO on 12/30/201423 Last Action: Continued Budesonide/Formoterol Fumarate (Symbicort 160-4.5 Mcg Inhaler) 10.2 Gm Hfa.aer.ad, 2 PUFF IH BID, (Reported) Entered as Reported by: KATHY CAMEJO on 12/30/20 1442 Last Action: Converted Cetirizine HCl (Cetirizine HCl) 10 Mg Tablet, 10 MG PO DAILY, (Reported) Entered as Reported by: DOLLY HORTA on 12/09/21925 Last Action: Converted Diltiazem HCl (Diltiazem 24Hr ER) 240 Mg Cap.er.24h, 240 MG PO DAILY, (Reported) Entered as Reported by: DOLLY HORTA on 12/09/21925 Last Action: Continued Diltiazem HCl (Diltiazem 24Hr ER) 120 Mg Cap.er.24h, 120 MG PO DAILY, (Reported) Entered as Reported by: DOLLY HORTA on 12/09/21925 Last Action: Continued Docusate Sodium (Docusate Sodium) 100 Mg Tablet, 100 MG PO BID, (Reported) Entered as Reported by: VITOR DENSON on 02/22/211346 Last Action: Converted Furosemide (Furosemide) 20 Mg Tablet, 20 MG PO 0800,1200, (Reported) Entered as Reported by: DOLLY HORTA on 12/09/21925 Last Action: Continued Ipratropium/Albuterol Sulfate (Iprat-Albut 0.5-3(2.5) mg/3 ml) 3 Ml Ampul.neb, 3 ML NEB Q6H PRN for SHORTNESS OF BREATH, (Reported) Entered as Reported by: DOLLY HORTA on 03/02/21806 Last Action: Continued Lactobacillus Acidophilus (Probiotic) 1 Each Capsule, 1 EACH PO 0800,1700, (Reported) Entered as Reported by: VITOR DENSON on 02/22/211346 Last Action: Converted Magnesium Hydroxide (Milk of Magnesia) 400 Mg/5 Ml Oral.susp, 30 ML PO DAILY PRN for CONSTIPATION-7TH LINE, (Reported) Entered as Reported by: DOLLY HORTA on 12/09/21925 Last Action: Continued Multivit,Ther Iron,Ca,FA & Min (Thera-M Caplet) 1 Each Tablet, 1 EACH PO DAILY, (Reported) Entered as Reported by: DOLLY HORTA on 12/09/21925 Last Action: Converted Omeprazole (Omeprazole) 40 Mg Capsule.dr, 40 MG PO DAILY, (Reported) Entered as Reported by: DOLLY HORTA on 12/09/21925 Last Action: Converted Phenobarbital (Phenobarbital) 64.8 Mg Tablet, 32.4 MG PO 0800,1700, (Reported) Entered as Reported by: DOLLY HORTA on 12/09/21925 Last Action: Continued Spironolactone (Spironolactone) 25 Mg Tablet, 25 MG PO DAILY, (Reported) Entered as Reported by: DOLLY HORTA on 12/09/21925 Last Action: Continued Thiamine HCl (B-1) 100 Mg Tablet, 100 MG PO DAILY, (Reported) Entered as Reported by: VITOR DENSON on 02/22/211346 Last Action: Continued Warfarin Sodium (Warfarin Sodium) 5 Mg Tablet, 5 MG PO 1700, (Reported) Entered as Reported by: DOLLY HORTA on 4/13/21 0807 Last Action: Continued Warfarin Sodium (Warfarin Sodium) 2.5 Mg Tablet, 2.5 MG PO SUN,MO,WE,FR,SA @1700, (Reported) Entered as Reported by: DOLLY HORTA on 12/09/21 09 Last Action: Continued Discontinued Medications Mv-Mn/FA/Coq10/Lycopene/Lutein (Theragran-M Premier 50+ Caplet) 1 Each Tablet, 1 EACH PO DAILY, (Reported) Discontinued Reason: Prescription changed Entered as Reported by: VITOR DENSON on 02/22/21 1347 Warfarin Sodium (Warfarin Sodium) 7.5 Mg Tablet, 7.5 MG PO SUN,SAT, (Reported) Discontinued Reason: Duplicate Order Entered as Reported by: VITOR HOLLEY on 03/21/21 09 Last Action: Discontinued Exam Vital Signs Vital Signs Date Time Temp Pulse Resp B/P (MAP) Pulse Ox O2 Delivery O2 Flow Rate FiO2 12/09/21 11:09 36.6 140 20 122/88 (99) 97 Nasal Cannula 2.00 Physical Exam General: Alert. No acute distress. Well nourished and appears stated age. Eye: Extraocular movements are intact. Conjunctivae are clear. There are no xanthelasma. HENT: Normocephalic. Atraumatic. Carotid pulsations 2/2 without bruits. Neck: Jugular venous pressure does not appear elevated. No thyromegaly appreciated. Respiratory: Lungs are clear to auscultation but decreased on the left. Respirations are non-labored. Symmetrical chest wall expansion. Cardiovascular: Normal rate. Irregular rhythm. No murmur. No gallop. Point of maximal impulse is not appear displaced. Good pulses equal in all extremities. Trace bilateral pretibial edema with venous stasis changes. Gastrointestinal: Soft. Normal bowel sounds. Skin: Skin turgor is normal. There is no pallor. Musculoskeletal: No kyphosis or scoliosis appreciated. Neurologic: Alert and oriented to person, place, time. Cranial nerves 3-12 appear grossly intact. The patient has good motor tone strength in the upper and lower extremities bilaterally. Psychiatric: Cooperative. Appropriate mood & affect. Labs Laboratory Tests Test 12/08/21 15:20 12/08/21 15:41 12/08/21 17:30 12/08/21 20:11 Range/Units Influenza Type A Antigen NEGATIVE NEGATIVE Influenza Type B Antigen NEGATIVE NEGATIVE SARS-CoV-2 RNA (RT-PCR) Not Detected Not Detecte Urine Color YELLOW Urine Clarity SL CLOUDY Urine pH 7.0 5-9 Urine Specific [place] 1.015 L 1.016-1.022 Urine Protein NEGATIVE NEGATIVE Urine Glucose (UA) NEGATIVE NEGATIVE Urine Ketones NEGATIVE NEGATIVE Urine Nitrite NEGATIVE NEGATIVE Urine Bilirubin NEGATIVE NEGATIVE Urine Urobilinogen 0.2 < = 1.0 MG/DL Urine Leukocyte Esterase 1+ H NEGATIVE Urine RBC (Auto) 1+ H NEGATIVE Urine RBC 5-10 H /HPF Urine WBC 2-5 /HPF Urine Squamous Epithelial Cells RARE /HPF Urine Crystals NONE /LPF Urine Bacteria LARGE H /HPF Urine Casts NONE /LPF Urine Mucus NEGATIVE /LPF Urine Culture Indicated YES Lactic Acid Level 1.48 0.50-2.00 MMOL/L Glucometer 127 H 70-110 MG/DL Test 12/09/21 05:35 12/09/21 12:01 Range/Units White Blood Count 7.9 4.3-11.0 10^3/uL Red Blood Count 3.90 L 4.30-5.52 10^6/uL Hemoglobin 12.4 L 13.3-17.7 g/dL Hematocrit 39 L 40-54 % Mean Corpuscular Volume 101 H 80-99 fL Mean Corpuscular Hemoglobin 32 25-34 pg Mean Corpuscular Hemoglobin Concent 32 32-36 g/dL Red Cell Distribution Width 13.3 10.0-14.5 % Platelet Count 199 130-400 10^3/uL Mean Platelet Volume 9.4 9.0-12.2 fL Immature Granulocyte % (Auto) 1 % Neutrophils (%) (Auto) 74 42-75 % Lymphocytes (%) (Auto) 14 12-44 % Monocytes (%) (Auto) 6 0-12 % Eosinophils (%) (Auto) 4 0-10 % Basophils (%) (Auto) 1 0-10 % Neutrophils # (Auto) 5.8 1.8-7.8 10^3/uL Lymphocytes # (Auto) 1.1 1.0-4.0 10^3/uL Monocytes # (Auto) 0.5 0.0-1.0 10^3/uL Eosinophils # (Auto) 0.3 0.0-0.3 10^3/uL Basophils # (Auto) 0.1 0.0-0.1 10^3/uL Immature Granulocyte # (Auto) 0.1 0.0-0.1 10^3/uL Prothrombin Time 32.2 H 12.2-14.7 SEC INR Comment 3.1 H 0.8-1.4 Sodium Level 136 135-145 MMOL/L Potassium Level 4.2 3.6-5.0 MMOL/L Chloride Level 100 98-107 MMOL/L Carbon Dioxide Level 24 21-32 MMOL/L Anion Gap 12 5-14 MMOL/L Blood Urea Nitrogen 23 H 7-18 MG/DL Creatinine 1.84 H 0.60-1.30 MG/DL Estimat Glomerular Filtration Rate 37 BUN/Creatinine Ratio 13 Glucose Level 110 H 70-105 MG/DL Calcium Level 8.5 8.5-10.1 MG/DL Corrected Calcium 8.7 8.5-10.1 MG/DL Total Bilirubin 0.4 0.1-1.0 MG/DL Aspartate Amino Transf (AST/SGOT) 19 5-34 U/L Alanine Aminotransferase (ALT/SGPT) 11 0-55 U/L Alkaline Phosphatase 102 40-136 U/L Total Protein 7.4 6.4-8.2 GM/DL Albumin 3.7 3.2-4.5 GM/DL Glucometer 106 70-110 MG/DL ECG Impression ECG Comment Electrocardiogram from [place] on 12/08 shows atrial fibrillation with a ventricular rate of [address] changes in diffuse leads. Diagnosis/Problems Diagnosis/Problems (1) Permanent atrial fibrillation Assessment & Plan: He believes he has had atrial fibrillation for at least the past year. He has no history of mitral stenosis. He is not entirely sure why he was placed on warfarin. He does have stage III chronic kidney disease but this is not a contraindication to DOAC's. He now has a large left pleural effusion that requires thoracentesis for diagnosis. This may also help his respiratory status. I do not typically like to reverse warfarin with vitamin K. However, since I would prefer to change the warfarin over to a DOAC, we can reverse the warfarin with vitamin K and then when he is ready to be placed back on oral anticoagulation, I would plan to start him on Xarelto. He would most likely need the lower dose of Xarelto due to GFR less than 50. He should continue on diltiazem for rate control. I will obtain another echocardiogram. If he has had a significant decline in his ejection fraction, we may want to change the diltiazem over to beta-ana maría. Furthermore, if he does not have significant atrial dilatation, that would suggest that the atrial fibrillation may not be permanent and he could potentially be a good candidate for rhythm management after he recovers from this acute, noncardiac illness. (2) Acute on chronic combined systolic and diastolic congestive heart failure Assessment & Plan: I suspect he has shortness of breath due to underlying chronic obstructive pulmonary disease with superimposed left-sided pneumonia, left pleural effusion and also some decompensation of his chronic heart failure. He seems to be starting to improve symptomatically. He is receiving his home dose of oral diuretic. A thoracentesis may also help with his respiratory status as outlined above. (3) Cardiomyopathy Assessment & Plan: His most recent echocardiogram from January 2021 showed mild left ventricular systolic dysfunction. I recommend a follow-up echocardiogram to reassess the ejection fraction. If his ejection fraction remains depressed, we may want to change diltiazem over to beta-ana maría as outlined above. (4) Primary hypertension Assessment & Plan: Blood pressure is well controlled with diltiazem. (5) Mixed hyperlipidemia Assessment & Plan: Continue statin medication. I will add a lipid panel to previous blood sample. (6) Pleural effusion Status: Acute Assessment & Plan: This could be a parapneumonic effusion due to his left-sided pneumonia. I agree with thoracentesis for both diagnostic and therapeutic indications. We will administer vitamin K today and obtain a follow-up INR tomorrow. Hopefully, the thoracentesis can be accomplished tomorrow if the INR has come down below 2. (7) Stage 3 chronic kidney disease Assessment & Plan: His GFR has varied between 30-60. During this admission, it has been below 50. This would mean he will need the reduced dose of Xarelto at 15 mg daily if we decide to go that route for his atrial fibrillation. DICK CARDOZA JR, MD Dec 09, 2021 15:22
[2021-12-09] MEDS ORDERED: VITAMIN K 1 MG/ML ORAL SOLN 1 ML SYRINGE PO NR (15:30)
[2021-12-09] MEDS ORDERED: PHYTONADIONE (VIT. K) 10 MG/ML AMP IM NR (15:30)
--- NOTE | 2021-12-09 15:53 | Diagnostic Imaging Report ---
INDICATION: Evaluation for pleural effusion. FINDINGS: There is a small pleural effusion noted bilaterally, slightly larger on the right. IMPRESSION: Small bilateral pleural effusions. Dictated by: Dictated on workstation # [id number]
[2021-12-09 16:00] VITALS: BP 136/96
[2021-12-09] MEDS: AtorvaSTATin TABLET 10 MG TABLET PO SCH (16:38)
[2021-12-09] MEDS: LACTOBACILLUS ACIDOPHILUS (PROBIOTIC) CAPSULE PO SCH (16:39)
[2021-12-09] MEDS: PHENobarbital 64.8 MG (1 GRAIN) TAb PO SCH (16:43)
[2021-12-09] MEDS ORDERED: meTOprolol TARTRATE 50 MG (LOPRESSOR) TAB PO NR (16:45)
[2021-12-09] MEDS ORDERED: warFARin 5 MG (COUMADIN) TAB PO SCH (17:00)
[2021-12-09] MEDS ORDERED: NON-FORMULARY MEDICATION 1 EA EA (Lactobacillus Acidophilus (Probiotic) 1 EACH) PO SCH (17:00)
[2021-12-09 17:42] LABS: TRIGLYCERIDES 85 MG/DL (<150); VLDL CHOLESTEROL 17 MG/DL (5-40)
[2021-12-09 17:47] LABS: CHOLESTEROL 136 MG/DL (< 200); HDL CHOLESTEROL 34 MG/DL (40-60)
[2021-12-09] MEDS ORDERED: VANCOMYCIN 1250 MG/NS 250 ML IVPB IV SCH ×2 (19:00)
[2021-12-09 20:00] VITALS: BP 117/73
[2021-12-09] MEDS: MAGNESIUM OXIDE (MAG-OX)400 MG TAB PO SCH (20:08)
[2021-12-09] MEDS ORDERED: NON-FORMULARY MEDICATION 1 EA EA (Docusate Sodium 100 MG) PO SCH (21:00)
[2021-12-09] MEDS ORDERED: NON-FORMULARY MEDICATION 1 EA EA (Budesonide/Formoterol Fumarate (Symbicort 160-4.5 Mcg In IH SCH (21:00)
[2021-12-10] VITALS (7 sets, daily range): BP systolic 102–140; BP diastolic 65–94
[2021-12-10] MEDS: CEFEPIME 1,000 MG/NS 50 ML IVPB IV SCH ×6 (03:51→18:58)
[2021-12-10 05:22] LABS: BASOPHILS # (AUTO) 0.1 10^3/uL (0.0-0.1); BASOPHILS % (AUTO) 1 % (0-10); EOSINOPHILS # (AUTO) 0.4 10^3/uL (0.0-0.3); EOSINOPHILS % (AUTO) 4 % (0-10); HEMATOCRIT 40 % (40-54); HEMOGLOBIN 12.3 g/dL (13.3-17.7); LYMPHOCYTES # (AUTO) 1.2 10^3/uL (1.0-4.0); LYMPHOCYTES % (AUTO) 13 % (12-44); MEAN CORPUSCULAR HEMOGLOBIN 31 pg (25-34); MEAN CORPUSCULAR HGB CONC 31 g/dL (32-36); MEAN CORPUSCULAR VOLUME 100 fL (80-99); MEAN PLATELET VOLUME 9.3 fL (9.0-12.2); MONOCYTES # (AUTO) 0.6 10^3/uL (0.0-1.0); MONOCYTES % (AUTO) 7 % (0-12); NEUTROPHILS # (AUTO) 7.2 10^3/uL (1.8-7.8); NEUTROPHILS % (AUTO) 76 % (42-75); PLATELET COUNT 211 10^3/uL (130-400); WHITE BLOOD COUNT 9.5 10^3/uL (4.3-11.0)
[2021-12-10 05:47] LABS: ALBUMIN 3.5 GM/DL (3.2-4.5); POTASSIUM 4.2 MMOL/L (3.6-5.0)
[2021-12-10 05:48] LABS: CALCIUM 8.5 MG/DL (8.5-10.1); INR 1.7 (0.8-1.4); PROTHROMBIN TIME PATIENT 20.6 SEC (12.2-14.7)
[2021-12-10 05:50] LABS: TOTAL PROTEIN 7.2 GM/DL (6.4-8.2)
[2021-12-10 05:51] LABS: BILIRUBIN,TOTAL 0.5 MG/DL (0.1-1.0)
[2021-12-10 05:53] LABS: CREATININE SERUM 1.86 MG/DL (0.60-1.30)
[2021-12-10] MEDS: inSUlin ASPART (NovoLOG) 1 UNIT/0.01 ML (CHARGE PER UNIT) SC SCH ×4 (05:53→20:28)
[2021-12-10] MEDS: SPIRONOLACTONE 25 MG (ALDACTONE) TAB PO SCH (08:25)
[2021-12-10] MEDS: LACTOBACILLUS ACIDOPHILUS (PROBIOTIC) CAPSULE PO SCH ×2 (08:25→16:55)
[2021-12-10] MEDS: LORATADINE (CLARITIN) 10 MG TAB PO SCH (08:25)
[2021-12-10] MEDS: FOLIC ACID 1 MG TAB PO SCH (08:25)
[2021-12-10] MEDS: ALLOPURINOL 100 MG (ZYLOPRIM) TAB PO SCH (08:25)
[2021-12-10] MEDS: THIAMINE 100 MG (VITAMIN B-1) TAB PO SCH (08:25)
[2021-12-10] MEDS: MAGNESIUM OXIDE (MAG-OX)400 MG TAB PO SCH ×2 (08:25→21:03)
[2021-12-10] MEDS: PANTOPRAZOLE 40 MG (PROTONIX) TAB PO SCH (08:26)
[2021-12-10] MEDS: DOCUSATE SODIUM 100 MG (COLACE) CAP PO SCH ×2 (08:26→19:46)
[2021-12-10] MEDS: PHENobarbital 64.8 MG (1 GRAIN) TAb PO SCH ×2 (08:27→16:55)
[2021-12-10] MEDS: FUROSEMIDE 20 MG (LASIX) TAB PO SCH ×2 (08:31→11:38)
[2021-12-10] MEDS ORDERED: meTOproloL SUCCINATE 50 MG (TOPROL XL) TAB PO SCH (09:00)
[2021-12-10] MEDS ORDERED: [UNRECOGNIZED DRUG - OTHER] PO SCH (09:00)
[2021-12-10] MEDS ORDERED: MULTIVIT THER IRON CA FA PO SCH (09:00)
[2021-12-10] MEDS ORDERED: NON-FORMULARY MEDICATION 1 EA EA (Cetirizine HCl 10 MG) PO SCH (09:00)
[2021-12-10] MEDS ORDERED: NON-FORMULARY MEDICATION 1 EA EA (Omeprazole 40 MG) PO SCH (09:00)
[2021-12-10] MEDS ORDERED: dilTIAZem120 MG (CARDIZEM CD) CAP PO SCH (09:00)
[2021-12-10] MEDS: MULTIVITAMINS LIQUID 15 ML UDC PO SCH (09:12)
--- NOTE | 2021-12-10 09:32 | Progress Note - Surgery ---
MAICOLItzelEMILY HUI 12/10/21 0932: Subjective Date Seen by a Provider: Dec 10, 2021 Time Seen by a Provider: 09:27 Subjective/Events-last exam Upon follow-up for evaluation of pleural effusion, Curly states he is feeling better today. He reports that his breathing is about the same, but that he has more energy. Patient has appetite, and was eating breakfast in his chair this AM. Affect is more positive. Chest US demonstrated small pleural effusions bilat, which are slightly larger on the right. INR has also decreased to 1.7 following administration of VIT K on 12/10/21. Warfarin continues to be held. Review of Systems General: Fatigue, Malaise, Appetite HEENT: No Visual Changes, No Ear Pain Pulmonary: Dyspnea (stable on o2), Cough (intermittent, mild) Gastrointestinal: No: Nausea, Vomiting, Abdominal Pain Genitourinary: No Frequency, No Incontinence Musculoskeletal: No: arm pain, leg pain Neurological: Weakness; No: Numbness Focused Exam Lactate Level 12/08/21 15:00: Lactic Acid Level 4.74*H 12/08/21 17:30: Lactic Acid Level 1.48 Time of Focused Exam: 16:25 Respiratory: No Accessory Muscle Use, No Respiratory Distress, Decreased Breath Sounds, Rales Cardiovascular: No Gallop, Irregularly Irregular, Tachycardia Capillary Refill: Less Than 3 Seconds Peripheral Pulses: 2+ Radial Pulses (L) Skin: normal color (improved from yesterday), warm/dry, other (stasis dermatitis bilat LE) Objective Exam Vital Signs Date Time Temp Pulse Resp B/P (MAP) Pulse Ox O2 Delivery O2 Flow Rate FiO2 12/10/21 07:47 92 Nasal Cannula 2.00 12/10/21 07:46 36.4 142 20 133/94 (107) 92 Nasal Cannula 2.00 12/10/21 07:00 141 12/10/21 04:21 36.3 89 17 112/72 (85) 95 Nasal Cannula 2.00 12/10/21 01:00 105 12/10/21 00:00 36.4 85 18 118/65 (82) 94 Nasal Cannula 2.00 12/09/21 20:00 36.6 88 18 117/73 (88) 100 Nasal Cannula 2.00 12/09/21 20:00 Nasal Cannula 2.00 12/09/21 19:00 92 12/09/21 18:39 93 Nasal Cannula 2.00 12/09/21 16:54 119 12/09/21 16:00 36.4 142 18 136/96 (109) 96 Nasal Cannula 2.00 12/09/21 15:17 96 Nasal Cannula 2.00 12/09/21 11:09 36.6 140 20 122/88 (99) 97 Nasal Cannula 2.00 I & O 12/10/21 07:00 Intake Total 3954.5 ml Output Total 1875 ml Balance 2079.5 ml Capillary Refill : Less Than 3 Seconds General Appearance: No Apparent Distress, Chronically ill, Obese HEENT: PERRL/EOMI, Normal ENT Inspection, Pharynx Normal, Moist Mucous Membranes Neck: Full Range of Motion, Normal Inspection, Non Tender Respiratory: Chest Non Tender, Lungs Clear, No Accessory Muscle Use, No Respiratory Distress, Decreased Breath Sounds (left lower lung) Cardiovascular: Regular Rate, Rhythm, No Edema, No Gallop, No JVD, No Murmur, Normal Peripheral Pulses, Tachycardia Peripheral Pulses: 2+ Radial Pulses (R), 2+ Radial Pulses (L) Gastrointestinal: non tender, soft, other (Suprapubic catheter) Extremity: Normal Capillary Refill, Normal Inspection, Normal Range of Motion, Non Tender, No Calf Tenderness, No Pedal Edema Neurologic/Psychiatric: Alert, Oriented x3, No Motor/Sensory Deficits, Normal Mood/Affect Skin: Normal Color, Warm/Dry Lymphatic: No Adenopathy Results Lab Laboratory Tests 12/09/21 12:01: Glucometer 106 12/09/21 16:49: Glucometer 106 12/09/21 20:28: Glucometer 138H 12/10/21 04:45: White Blood Count 9.5, Red Blood Count 3.95L, Hemoglobin 12.3L, Hematocrit 40, Mean Corpuscular Volume 100H, Mean Corpuscular Hemoglobin 31, Mean Corpuscular Hemoglobin Concent 31L, Red Cell Distribution Width 13.1, Platelet Count 211, Mean Platelet Volume 9.3, Immature Granulocyte % (Auto) 0, Neutrophils (%) (Auto) 76H, Lymphocytes (%) (Auto) 13, Monocytes (%) (Auto) 7, Eosinophils (%) (Auto) 4, Basophils (%) (Auto) 1, Neutrophils # (Auto) 7.2, Lymphocytes # (Auto) 1.2, Monocytes # (Auto) 0.6, Eosinophils # (Auto) 0.4H, Basophils # (Auto) 0.1, Immature Granulocyte # (Auto) 0.0, Prothrombin Time 20.6H, INR Comment 1.7H, Sodium Level 132L, Potassium Level 4.2, Chloride Level 100, Carbon Dioxide Level 23, Anion Gap 9, Blood Urea Nitrogen 28H, Creatinine 1.86H, Estimat Glomerular Filtration Rate 37, BUN/Creatinine Ratio 15, Glucose Level 104, Calcium Level 8.5, Corrected Calcium 8.9, Total Bilirubin 0.5, Aspartate Amino Transf (AST/SGOT) 19, Alanine Aminotransferase (ALT/SGPT) 14, Alkaline Phosphatase 102, Total Protein 7.2, Albumin 3.5 12/10/21 05:14: Glucometer 99 Microbiology 12/08/21 Urine Culture - Preliminary, Resulted Mixed Bacterial Betty 12/08/21 Blood Culture - Preliminary, Resulted No growth Radiology [facility], [place] NAME: CURLY HUERTA [facility] REC#: [id number] PT STATUS: ADM IN : 1945 PHYSICIAN: NATI PALACIO DO ADMIT DATE: 12/08/21 Date of Exam:12/09/21 CHEST [id number] INDICATION: Evaluation for pleural effusion. FINDINGS: There is a small pleural effusion noted bilaterally, slightly larger on the right. IMPRESSION: Small bilateral pleural effusions. Dictated by: Dictated on workstation # [id number] Assessment/Plan Assessment/Plan Assessment/Plan 1. PNA 2. L left pleural effusion 3. A-fib 4. Anticoagulation INR decreased to 1.7 following administration of vit K and holding warfarin. Ultrasound demonstrated small bilat pleural effusions-question as to whether or not fluid pockets are sufficient in size for thoracentesis. Breathing seems mildly improved. Will continue to evaluate. NATI PALACIO DO 12/10/21 1551: Subjective Subjective/Events-last exam Patient still with breathing the same as yesterday. He is feeling little better. Better appetite. Patient had small pleural effusions bilaterally by ultrasound but not much fluid that could be drained. Patient INR down to 1.7. No new complaints denies nausea vomiting fever sweats chills or chest pain. Objective Exam General Appearance: No Apparent Distress, Chronically ill HEENT: PERRL/EOMI, Normal ENT Inspection Neck: Normal Inspection, Non Tender Respiratory: Chest Non Tender, No Accessory Muscle Use, No Respiratory Distress Cardiovascular: Tachycardia Gastrointestinal: non tender, soft, other (Suprapubic catheter) Extremity: Non Tender, No Calf Tenderness Neurologic/Psychiatric: Alert, Oriented x3 Skin: Normal Color, Warm/Dry, Other (Some slight venous stasis lower extremities) Lymphatic: No Adenopathy Assessment/Plan Assessment/Plan Assessment/Plan Patient pneumonia, bilateral pleural effusions very small if not able to be drained. A. fib, anticoagulation. Patient ultrasounds not demonstrating any drainable fluid pocket at this time. We will continue medical management. Patient encouraged to use deep breaths and improved aeration. Patient if has worsening breathing will repeat ultrasound to see if any further fluid accumulation. We will sign off at this time please call if needed. Supervisory-Addendum Brief Verification & Attestation Participated in pt care: history, MDM, physical Personally performed: exam, history, MDM, supervision of care Care discussed with: Medical Student Procedures: n/a Results interpretation: Verified all documentation Verification and Attestation of Medical Student E/M Service A medical student performed and documented this service in my presence. I reviewed and verified all information documented by the medical student and made modifications to such information, when appropriate. I personally performed the physical exam and medical decision making. Nati Palacio, Dec 10, 2021,15:51 EMILY KYLE Dec 10, 2021 09:32 NATI PALACIO DO Dec 10, 2021 15:51
--- NOTE | 2021-12-10 10:35 | Physical Therapy Daily Note ---
PT Daily Note-Current Subjective Patient presents sitting in bed. Patient agreed after some encouragement to walk around the room and sit in the chair. Mental Status Patient Orientation: Person, Place Attachments: Oxygen (2.5L NC), Suprapubic Catheter Transfers SCALE: Activities may be completed with or without assistive devices. 2-Pckxdgktjb-dwvdsxa completes the activity by him/herself with no assistance from a helper. 5-Set-up or Clean-up Assistance-helper sets up or cleans up; patient completes activity. [place] assists only prior to or following the activity. 4-Supervision or Touching Assistance-helper provides verbal cues and/or touching/steadying and/or contact guard assistance as patient completes activity. Assistance may be provided throughout the activity or intermittently. 3-Partial/Moderate Assistance-helper does LESS THAN HALF the effort. [place] lifts, holds or supports trunk or limbs, but provides less than half the effort. 2-Substantial/Maximal Assistance-helper does MORE THAN HALF the effort. [place] lifts or holds trunk or limbs and provides more than half the effort. 1-Ksinjjjry-hwypje does ALL the effort. Patient does none of the effort to complete the activity. Or, the assistance of 2 or more helpers is required for the patient to complete the activity. If activity was not attempted, code reason: 7-Patient Refused. 9-Not Applicable-not attempted and the patient did not perform the activity before the current illness, exacerbation or injury. 10-Not Attempted due to Environmental Limitations-(lack of equipment, weather restraints, etc.). 88-Not Attempted due to Medical Conditions or Safety Concerns. Lying to Sitting/Side of Bed(Q: 4 Sit to Stand (QC): 3 Chair/Vsa-yb-Kirsc Xfer(QC): 3 Patient required min assist for all sit to stand transfers and required SBA for bed mobility. Gait Training Distance: 50' Walk 10 feet (QC): 4 Walk 50 ft with 2 Turns(QC): 4 Gait Assistive Device: FWW Patient required CGA with ambulation throughout his room. Patient reported fatigue after ambulation in his room. Assessment Patient ambulated for 50' with FWW and CGA. Patient required significant amounts of encouragement to perform ambulation. Patient walks with a bent over posture and with his head down. Patient was cued to walk in the walker but patient continued to have the walker in front of him. PT Custodial Goals Custodial Goals PT Story Teller Goals Time Frame: Dec 18, 2021 Roll Left & Right (QC): 6 Sit to Lying (QC): 6 Lying-Sitting on Side/Bed(QC): 6 Sit to Stand (QC): 6 Chair/Qpd-vh-Fwlwe Xfer(QC): 6 Toilet Transfer (QC): 6 Does the Patient Walk: Yes Walk 10 feet (QC): 6 Walk 50ft with 2 Turns (QC): 6 PT Plan Problem List Problem List: Activity Tolerance, Functional Strength, Safety, Balance, Gait, Transfer, Bed Mobility, ROM Treatment/Plan Treatment Plan: Continue Plan of Care Treatment Plan: Bed Mobility, Education, Functional Activity Ken, Functional Strength, Gait, Safety, Therapeutic Exercise, Transfers Treatment Duration: Dec 18, 2021 Frequency: 6 times per week Estimated Hrs Per Day: .25 hour per day Patient and/or Family Agrees t: Yes Time/GCodes Time In: 957 Time Out: 1005 Total Billed Treatment Time: 8 Total Billed Treatment 1 Visit FA 8 min SELVIN RODRIGUEZ PT Dec 10, 2021 10:35
[2021-12-10] MEDS ORDERED: RT--FLUTICASONE/SALMETEROL 232-14 (AIRDUO RespiCLICK) IH SCH (12:00)
--- NOTE | 2021-12-10 13:03 | Progress Note - Hospitalist ---
FAROOQ LEE 12/10/21 1303: Subjective HPI/CC On Admission Date Seen by Provider: Dec 10, 2021 Time Seen by Provider: 10:30 Chief complaint: Fall with pneumonia History of present illness: This is a 76-year-old white male clinic patient of [facility] who lives at assisted living who continues to smoke and has COPD who presented to the ER after a fall. Patient was assessed to have pneumonia with pleural effusion. Cardiology consulted. Subjective/Events-last exam Patient is sitting up in chair at time of encounter. He states he is feeling well today. He denies chest pain but does experience dyspnea with exertion. He denies dyspnea at rest or with conversation. Cardiology saw the patient yesterday and is reversing the patient's Warfarin therapy with Vitamin K and initiating Xarelto. Cardiology also recommends a thoracentesis of the left pleural effusion. For now the patient will remain on Diltiazem, but based off of the patient's second echo, he might be switched to a Beta-ana maría. Patient states he has not had a bowel movement today but has passed flatus. Patient reports a productive cough that has not changed since yesterday. Vitals are stable. SpO2 95% with 2.0L nasal cannula INR 1.7 Na 132 BUN 28, Cr 1.86 CXR: large left pleural effusion, left lower lobe infiltrate, cardiomegaly Chest US: small bilateral pleural effusion Echo on 12/09: Reported overall a poor scan. LV: mild concentric hypertrophy, EF 35-40%. Moderate hypokinesis. Decrease in LV systolic function compared to previous study. RV: decrease in systolic function. RA: mildly dilated. Aortic valve: tricuspid, calcified leaflets. Pulmonary arteries: pressure could not be determined. Repeat echo has been ordered. Review of Systems Pulmonary: Dyspnea (on exertion), Cough Cardiovascular: No: Chest Pain Gastrointestinal: No: Nausea, Vomiting, Abdominal Pain Focused Exam Lactate Level 12/08/21 15:00: Lactic Acid Level 4.74*H 12/08/21 17:30: Lactic Acid Level 1.48 Time of Focused Exam: 16:25 Objective Exam Vital Signs Vital Signs Date Time Temp Pulse Resp B/P (MAP) Pulse Ox O2 Delivery O2 Flow Rate FiO2 12/10/21 12:17 120 12/10/21 11:32 36.6 18 140/83 (102) 96 Nasal Cannula 2.00 Capillary Refill : Less Than 3 Seconds General Appearance: No Apparent Distress Respiratory: No Accessory Muscle Use, No Respiratory Distress, Other (high- pitched lung sounds throughout, not stridorous ) Cardiovascular: No Edema, Tachycardia, Other (regular rhythm) Gastrointestinal: Normal Bowel Sounds, Non Tender, Soft Genital/Rectal: Other (suprapubic catheter in place) Extremity: No Pedal Edema Neurologic/Psychiatric: Alert, Normal Mood/Affect Skin: Warm/Dry, Other (bilateral lower extremities, erythematous dry skin. Skin tear of bilateral upper extremities) Results/Procedures Lab Laboratory Tests 12/10/21 04:45 Patient resulted labs reviewed. 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 Plan: Vancomycin and cefepime for pneumonia Probiotics Supplemental oxygen, wean as tolerated Surgery consult for pleural effusion -> thoracentesis Sliding scale insulin Bowel regimen PRN Resume home medications Reverse Warfarin with Vitamin K, initiate Xarelto therapy PT/OT IVF to support renal function AM labs: CBC, BMP Monitor vitals Repeat Echo, Cardiology following GRACE ALFONSO DO 12/11/21 0631: Subjective Subjective/Events-last exam Pt about the same Unsure if there is enough effusion to actually tap INR has been reversed with Vitamin K 1.7 and will start Xarelto today Checked meds and labs Appreciate Cardiology Review of Systems General: Fatigue, Malaise Pulmonary: Dyspnea (on exertion) Objective Exam General Appearance: No Apparent Distress, WD/WN, Chronically ill Respiratory: No Accessory Muscle Use, No Respiratory Distress, Decreased Breath Sounds Cardiovascular: Regular Rate, Rhythm Neurologic/Psychiatric: Alert, Oriented x3, No Motor/Sensory Deficits, Normal Mood/Affect Assessment/Plan Assessment and Plan Assess & Plan/Chief Complaint Supportive care Start Xarelto Review echo Supervisory-Addendum Brief Verification & Attestation Participated in pt care: history, MDM, physical Personally performed: exam, history, MDM, supervision of care Care discussed with: Medical Student Procedures: n/a Results interpretation: Verified all documentation Verification and Attestation of Medical Student E/M Service A medical student performed and documented this service in my presence. I reviewed and verified all information documented by the medical student and made modifications to such information, when appropriate. I personally performed the physical exam and medical decision making. Grace Alfonso, Dec 11, 2021,06:31 FAROOQ LEE Dec 10, 2021 13:03 GRACE ALFONSO DO Dec 11, 2021 06:31
[2021-12-10] MEDS ORDERED: meTOproloL SUCCINATE 50 MG (TOPROL XL) TAB PO NR (16:00)
--- NOTE | 2021-12-10 16:04 | Cardiology Progress Note ---
Progress Note-Cardiology Events since last exam Date Seen by Provider: Dec 10, 2021 Time Seen by Provider: 15:58 Events since last exam I am following him due to atrial fibrillation. He had an ultrasound of the chest and there was not enough fluid in his pleural space to perform a thoracentesis. He denies chest discomfort, dyspnea at rest, palpitations, syncope, or ankle edema. Certain portions of this document may have been dictated utilizing voice recognition technology. Inherent to this technology, typographical and grammatical errors may exist. As much as I am diligent to identify and correct these mistakes, some errors may remain in the document. Vitals Last set of Vitals Signs Vital Signs 12/10/21 15:23 Temp 36.4 Pulse 136 Resp 18 B/P (MAP) 102/79 (87) Pulse Ox 96 O2 Delivery Nasal Cannula O2 Flow Rate 2.00 Labs Labs Laboratory Tests 12/10/21 04:45 Exam Vital Signs Vital Signs Date Time Temp Pulse Resp B/P (MAP) Pulse Ox O2 Delivery O2 Flow Rate FiO2 12/10/21 15:23 36.4 136 18 102/79 (87) 96 Nasal Cannula 2.00 Physical Exam General: Alert. No acute distress. He is obese. Eye: No xanthelasma. HENT: Normocephalic. Neck: Jugular venous pressure does not appear elevated. Respiratory: Lungs are clear to auscultation. Respirations are non-labored. Breath sounds are equal. Symmetrical chest wall expansion. Cardiovascular: Tachycardia with irregular rhythm. No murmur. No gallop. Trace bilateral pretibial edema with mild chronic venous stasis changes. Gastrointestinal: Soft. Normal bowel sounds. Skin: Warm. Dry. Neurologic: Alert and oriented to person, place, time. Cranial nerves 3-11 grossly intact. Psychiatric: Cooperative. Appropriate mood & affect. Labs Laboratory Tests Test 12/09/21 16:49 12/09/21 20:28 12/10/21 04:45 12/10/21 05:14 Range/Units Glucometer 106 138 H 99 70-110 MG/DL White Blood Count 9.5 4.3-11.0 10^3/uL Red Blood Count 3.95 L 4.30-5.52 10^6/uL Hemoglobin 12.3 L 13.3-17.7 g/dL Hematocrit 40 40-54 % Mean Corpuscular Volume 100 H 80-99 fL Mean Corpuscular Hemoglobin 31 25-34 pg Mean Corpuscular Hemoglobin Concent 31 L 32-36 g/dL Red Cell Distribution Width 13.1 10.0-14.5 % Platelet Count 211 130-400 10^3/uL Mean Platelet Volume 9.3 9.0-12.2 fL Immature Granulocyte % (Auto) 0 % Neutrophils (%) (Auto) 76 H 42-75 % Lymphocytes (%) (Auto) 13 12-44 % Monocytes (%) (Auto) 7 0-12 % Eosinophils (%) (Auto) 4 0-10 % Basophils (%) (Auto) 1 0-10 % Neutrophils # (Auto) 7.2 1.8-7.8 10^3/uL Lymphocytes # (Auto) 1.2 1.0-4.0 10^3/uL Monocytes # (Auto) 0.6 0.0-1.0 10^3/uL Eosinophils # (Auto) 0.4 H 0.0-0.3 10^3/uL Basophils # (Auto) 0.1 0.0-0.1 10^3/uL Immature Granulocyte # (Auto) 0.0 0.0-0.1 10^3/uL Prothrombin Time 20.6 H 12.2-14.7 SEC INR Comment 1.7 H 0.8-1.4 Sodium Level 132 L 135-145 MMOL/L Potassium Level 4.2 3.6-5.0 MMOL/L Chloride Level 100 98-107 MMOL/L Carbon Dioxide Level 23 21-32 MMOL/L Anion Gap 9 5-14 MMOL/L Blood Urea Nitrogen 28 H 7-18 MG/DL Creatinine 1.86 H 0.60-1.30 MG/DL Estimat Glomerular Filtration Rate 37 BUN/Creatinine Ratio 15 Glucose Level 104 70-105 MG/DL Calcium Level 8.5 8.5-10.1 MG/DL Corrected Calcium 8.9 8.5-10.1 MG/DL Total Bilirubin 0.5 0.1-1.0 MG/DL Aspartate Amino Transf (AST/SGOT) 19 5-34 U/L Alanine Aminotransferase (ALT/SGPT) 14 0-55 U/L Alkaline Phosphatase 102 40-136 U/L Total Protein 7.2 6.4-8.2 GM/DL Albumin 3.5 3.2-4.5 GM/DL Test 12/10/21 10:46 12/10/21 15:25 Range/Units Glucometer 156 H 96 70-110 MG/DL Diagnosis/Problems Diagnosis/Problems (1) Permanent atrial fibrillation Assessment & Plan: He believes he has had atrial fibrillation for at least the past year. He was taking warfarin at home for stroke prophylaxis. This was discontinued because he may have needed a thoracentesis. Since he will not need a thoracentesis, I will start him on Xarelto. He will need the lower dose due to GFR less than 50. The GFR is generally close to the same value as the creatinine clearance. I previously changed his diltiazem over to metoprolol suc cinate. Due to persistent tachycardia, I will increase the dose of metoprolol and give him an extra dose today. As long as his heart rates improved, he may be ready for discharge over the weekend once his noncardiac issues have improved. I am not entirely sure he is asymptomatic with the atrial f ibrillation. If we can get his heart rate under control, rate control and stroke prophylaxis may be a reasonable strategy in this patient as opposed to trying to convert him to sinus rhythm. (2) Aortic stenosis Assessment & Plan: His echocardiogram with contrast from earlier today shows moderate aortic stenosis. I cannot appreciate a murmur although his heart sounds are somewhat distant. This should not be contributing to his symptoms but will need to be followed longitudinally. Aortic stenosis is not a contraindication to treatment with a DOAC. (3) Acute on chronic heart failure with preserved ejection fraction (HFpEF) Assessment & Plan: Some of his shortness of breath could be due to slight decompensation of his heart failure. His symptoms now seem to be improving. He has been taking spironolactone which does have some limited data on efficacy and heart failure with preserved ejection fraction. He should continue on the oral furosemide. (4) Cardiomyopathy Assessment & Plan: His most recent echocardiogram from January 2021 showed mild left ventricular systolic dysfunction. His echocardiogram from was technically difficult and was suggestive of moderate left ventricular systolic dysfunction. However his follow-up echocardiogram from today that was done with echo contrast shows a normal ejection fraction. (5) Primary hypertension Assessment & Plan: Blood pressure is reasonably controlled with the present medication. I will be increasing the dose of metoprolol due to persistent tachycardia. I would recommend he be discharged with metoprolol as opposed to diltiazem that he was taking at home. (6) Mixed hyperlipidemia Assessment & Plan: Continue statin medication. (7) Pleural effusion Status: Acute Assessment & Plan: This could be a parapneumonic effusion due to his left-sided pneumonia. His ultrasound of the chest did not show enough fluid to be safely drained. (8) Stage 3 chronic kidney disease Assessment & Plan: His GFR has varied between 30-60. During this admission, it has been below 50. As above, since the GFR roughly correlates with creatinine clearance, I have started him on the renal adjusted dose of Xarelto. DICK CARDOZA JR, MD Dec 10, 2021 16:04
[2021-12-10] MEDS: AtorvaSTATin TABLET 10 MG TABLET PO SCH (16:55)
[2021-12-10] MEDS: RIVAROXABAN 15 MG TABLET (XARELTO) PO SCH (16:55)
[2021-12-10] MEDS ORDERED: warFARin 2.5 MG (COUMADIN) TAB PO SCH (17:00)
[2021-12-10] MEDS ORDERED: TROUGH ORDER-PHARMACY XX NR (18:00)
--- NOTE | 2021-12-10 18:39 | Physician Query Clarification ---
Physician Query-General Query to Physician: The medical record reflects the following clinical scenario: The patient, in the setting of History/Risk factors, Pneumonia, Multiple medical conditions: DM, COPD, Seizures, Alcohol dependence Clinical Findings Admission VS/Labs: HR 141, RR 26, BP 139/108, SpO2 88% sat on room air T 36.1, WBC 9.1, lactic acid 4.74 then 1.48 Treatment in ER: Normal saline 2.5 L ceftriaxone IV, vancomycin IV, cefepime IV, Question: Do you agree with the impression of Sepsis due to Pneumonia per Dr. Robbie Diaz? 1. Yes; will document Sepsis due to pneumonia, present on admission in the Progress Notes 2. No; will continue to document pneumonia in the Progress Notes 3. Other; will document explanation of clinical findings 4. Clinically undetermined; no explanation for clinical findings Please clarify and document your clinical opinion in the Progress Notes and Discharge Summary including the definitive and/or presumptive diagnosis, (suspected or probable), related to the above clinical findings. Please include clinical findings supporting your diagnosis. In responding to this query, please exercise your independent professional judgment. The purpose of this communication is to more accurately reflect the complexity of your patients condition. The fact that a question is asked does not imply that any particular answer is desired or expected. Please remember a lack of response to the above will prompt a phone page by CDI/coding staff Thank you for timely response to this clarification. Valeria Isidro MSN, RN Clinical Site Medical Director [phone] [email or web address] PHYSICIAN RESPONSE: Based on the clinical findings in the record, please respond to the query above on this document as an addendum. Physician Response: Physician Response yes If you have questions please contact: Street Light Servicer: Ext: Thank you for your time and cooperation. Clinical Site Medical Director/Street Light Servicer This is a permanent part of the medical rec ord VALERIA ISIDRO Dec 10, 2021 18:39 ASTRID ALFONSO DO Dec 10, 2021 20:21
[2021-12-10] MEDS: RT--FLUTICASONE/SALMETEROL 232-14 (AIRDUO RespiCLICK) IH SCH (22:27)
[2021-12-11 03:28] VITALS: BP 126/76
[2021-12-11] MEDS: CEFEPIME 1,000 MG/NS 50 ML IVPB IV SCH ×6 (03:34→18:33)
[2021-12-11 05:48] LABS: BASOPHILS # (AUTO) 0.1 10^3/uL (0.0-0.1); BASOPHILS % (AUTO) 1 % (0-10); EOSINOPHILS # (AUTO) 0.3 10^3/uL (0.0-0.3); EOSINOPHILS % (AUTO) 4 % (0-10); HEMATOCRIT 39 % (40-54); HEMOGLOBIN 12.3 g/dL (13.3-17.7); LYMPHOCYTES # (AUTO) 1.1 10^3/uL (1.0-4.0); LYMPHOCYTES % (AUTO) 12 % (12-44); MEAN CORPUSCULAR HEMOGLOBIN 32 pg (25-34); MEAN CORPUSCULAR HGB CONC 31 g/dL (32-36); MEAN CORPUSCULAR VOLUME 102 fL (80-99); MEAN PLATELET VOLUME 9.4 fL (9.0-12.2); MONOCYTES # (AUTO) 0.6 10^3/uL (0.0-1.0); MONOCYTES % (AUTO) 7 % (0-12); NEUTROPHILS # (AUTO) 7.5 10^3/uL (1.8-7.8); NEUTROPHILS % (AUTO) 77 % (42-75); PLATELET COUNT 196 10^3/uL (130-400); WHITE BLOOD COUNT 9.7 10^3/uL (4.3-11.0)
[2021-12-11] MEDS: inSUlin ASPART (NovoLOG) 1 UNIT/0.01 ML (CHARGE PER UNIT) SC SCH ×4 (05:55→20:27)
[2021-12-11 06:00] LABS: ALBUMIN 3.5 GM/DL (3.2-4.5)
[2021-12-11 06:01] LABS: POTASSIUM 4.2 MMOL/L (3.6-5.0)
[2021-12-11 06:02] LABS: CALCIUM 8.8 MG/DL (8.5-10.1)
[2021-12-11 06:03] LABS: TOTAL PROTEIN 7.1 GM/DL (6.4-8.2)
[2021-12-11 06:05] LABS: BILIRUBIN,TOTAL 0.4 MG/DL (0.1-1.0)
[2021-12-11 06:07] LABS: CREATININE SERUM 1.9 MG/DL (0.60-1.30)
[2021-12-11 06:15] LABS: VANCOMYCIN,TROUGH 18.7 UG/ML (10.0-20.0)
--- NOTE | 2021-12-11 06:51 | Progress Note - Hospitalist ---
Subjective HPI/CC On Admission Date Seen by Provider: Dec 11, 2021 Time Seen by Provider: 12:30 Chief complaint: Fall with pneumonia History of present illness: This is a 76-year-old white male clinic patient of [facility] who lives at assisted living who continues to smoke and has COPD who presented to the ER after a fall. Patient was assessed to have pneumonia with pleural effusion. Cardiology consulted. Subjective/Events-last exam Patient doing a lot better Breathing is about the same Tolerating antibiotics Labs reviewed No pain reported Review of Systems General: Fatigue, Malaise Pulmonary: Dyspnea, Cough Focused Exam Lactate Level Time of Focused Exam: 16:25 Objective Exam Vital Signs Vital Signs Date Time Temp Pulse Resp B/P (MAP) Pulse Ox O2 Delivery O2 Flow Rate FiO2 12/12/21 03:11 36.3 101 22 113/77 (89) 95 Nasal Cannula 2.50 Capillary Refill : Less Than 3 Seconds General Appearance: No Apparent Distress, Chronically ill, Obese Respiratory: No Accessory Muscle Use, No Respiratory Distress, Decreased Breath Sounds Cardiovascular: Regular Rate, Rhythm Neurologic/Psychiatric: Alert, Oriented x3, Depressed Affect Results/Procedures Lab Laboratory Tests 12/11/21 05:39 Patient resulted labs reviewed. Imaging: Reviewed Imaging Report Assessment/Plan Assessment and Plan Assess & Plan/Chief Complaint Assessment: Pneumonia Effusion Atrial fibrillation Chronic kidney disease Plan: Continue treatment Monitor kidney function ASTRID ALFONSO DO Dec 11, 2021 06:51
[2021-12-11] MEDS ORDERED: TROUGH ORDER-PHARMACY XX NR (07:00)
[2021-12-11] MEDS: RT--FLUTICASONE/SALMETEROL 232-14 (AIRDUO RespiCLICK) IH SCH ×2 (07:13→21:08)
[2021-12-11 07:22] VITALS: BP 123/87
[2021-12-11] MEDS: MULTIVITAMINS LIQUID 15 ML UDC PO SCH (08:38)
[2021-12-11] MEDS: SPIRONOLACTONE 25 MG (ALDACTONE) TAB PO SCH (08:38)
[2021-12-11] MEDS: meTOproloL SUCCINATE 50 MG (TOPROL XL) TAB PO SCH (08:38)
[2021-12-11] MEDS: PHENobarbital 64.8 MG (1 GRAIN) TAb PO SCH ×2 (08:39→17:26)
[2021-12-11] MEDS: PANTOPRAZOLE 40 MG (PROTONIX) TAB PO SCH (08:39)
[2021-12-11] MEDS: FOLIC ACID 1 MG TAB PO SCH (08:39)
[2021-12-11] MEDS: MAGNESIUM OXIDE (MAG-OX)400 MG TAB PO SCH ×2 (08:39→19:53)
[2021-12-11] MEDS: ALLOPURINOL 100 MG (ZYLOPRIM) TAB PO SCH (08:39)
[2021-12-11] MEDS: LACTOBACILLUS ACIDOPHILUS (PROBIOTIC) CAPSULE PO SCH ×2 (08:39→17:26)
[2021-12-11] MEDS: THIAMINE 100 MG (VITAMIN B-1) TAB PO SCH (08:39)
[2021-12-11] MEDS: FUROSEMIDE 20 MG (LASIX) TAB PO SCH ×2 (08:39→11:32)
[2021-12-11] MEDS: LORATADINE (CLARITIN) 10 MG TAB PO SCH (08:39)
[2021-12-11] MEDS: DOCUSATE SODIUM 100 MG (COLACE) CAP PO SCH ×2 (08:40→19:53)
--- NOTE | 2021-12-11 10:46 | Physical Therapy Daily Note ---
PT Daily Note-Current Subjective Pt is in the chair, and wants to get up and walk. Mental Status Patient Orientation: Person, Place, Time, Situation Attachments: Oxygen Transfers SCALE: Activities may be completed with or without assistive devices. 7-Jpqomcsaxf-odubowv completes the activity by him/herself with no assistance from a helper. 5-Set-up or Clean-up Assistance-helper sets up or cleans up; patient completes activity. Kersey assists only prior to or following the activity. 4-Supervision or Touching Assistance-helper provides verbal cues and/or touching/steadying and/or contact guard assistance as patient completes activity . Assistance may be provided throughout the activity or intermittently. 3-Partial/Moderate Assistance-helper does LESS THAN HALF the effort. Kersey lifts, holds or supports trunk or limbs, but provides less than half the effort. 2-Substantial/Maximal Assistance-helper does MORE THAN HALF the effort. Kersey lifts or holds trunk or limbs and provides more than half the effort. 6-Jikpeijep-fpuakv does ALL the effort. Patient does none of the effort to complete the activity. Or, the assistance of 2 or more helpers is required for the patient to complete the activity. If activity was not attempted, code reason: 7-Patient Refused. 9-Not Applicable-not attempted and the patient did not perform the activity before the current illness, exacerbation or injury. 10-Not Attempted due to Environmental Limitations-(lack of equipment, weather restraints, etc.). 88-Not Attempted due to Medical Conditions or Safety Concerns. Sit to Stand (QC): 5 Gait Training Does the Patient Walk?: Yes Distance: 50ft Walk 10 feet (QC): 5 Walk 50 ft with 2 Turns(QC): 5 Gait Persons Needed: 1 Gait Assistive Device: FWW Even reciprocal gait with no issues observed. Good safety with turns and transfers. Exercises Seated Therapy Exercises: LE Protocol Seated Reps: 15 Assessment Current Status: Good Progress Pt is motivated and participates fully with gait and exercises. He would have walked further but he did not have pants and did not want to wear a gown (due to a bowel accident last night). PT Shelter Goals Coat Hanger Shaper Machine Operator Goals PT Shelter Goals Time Frame: Dec 18, 2021 Roll Left & Right (QC): 6 Sit to Lying (QC): 6 Lying-Sitting on Side/Bed(QC): 6 Sit to Stand (QC): 6 Chair/Ehf-to-Gebca Xfer(QC): 6 Toilet Transfer (QC): 6 Does the Patient Walk: Yes Walk 10 feet (QC): 6 Walk 50ft with 2 Turns (QC): 6 PT Plan Treatment/Plan Treatment Plan: Continue Plan of Care Treatment Plan: Bed Mobility, Education, Functional Activity Ken, Functional Strength, Gait, Safety, Therapeutic Exercise, Transfers Treatment Duration: Dec 18, 2021 Frequency: 6 times per week Estimated Hrs Per Day: .25 hour per day Patient and/or Family Agrees t: Yes Time/GCodes Time In: 915 Time Out: 930 Total Billed Treatment Time: 15 Total Billed Treatment 1, gt 15 EZ FRIAS PT Dec 11, 2021 10:46
[2021-12-11 11:22] VITALS: BP 120/88
[2021-12-11] MEDS: VANCOMYCIN 1 GM/NS 250 ML IVPB IV SCH ×2 (11:33)
[2021-12-11 15:35] VITALS: BP 101/68
[2021-12-11] MEDS: RIVAROXABAN 15 MG TABLET (XARELTO) PO SCH (17:26)
[2021-12-11] MEDS: AtorvaSTATin TABLET 10 MG TABLET PO SCH (17:26)
[2021-12-11 19:24] VITALS: BP 106/75
[2021-12-11 23:29] VITALS: BP 95/58
[2021-12-12 03:11] VITALS: BP 113/77
[2021-12-12] MEDS: CEFEPIME 1,000 MG/NS 50 ML IVPB IV SCH ×6 (03:36→17:50)
[2021-12-12] MEDS: inSUlin ASPART (NovoLOG) 1 UNIT/0.01 ML (CHARGE PER UNIT) SC SCH ×4 (05:45→20:28)
[2021-12-12 06:04] LABS: BASOPHILS # (AUTO) 0.1 10^3/uL (0.0-0.1); BASOPHILS % (AUTO) 1 % (0-10); EOSINOPHILS # (AUTO) 0.3 10^3/uL (0.0-0.3); EOSINOPHILS % (AUTO) 3 % (0-10); HEMATOCRIT 40 % (40-54); HEMOGLOBIN 12.3 g/dL (13.3-17.7); LYMPHOCYTES # (AUTO) 1.2 10^3/uL (1.0-4.0); LYMPHOCYTES % (AUTO) 12 % (12-44); MEAN CORPUSCULAR HEMOGLOBIN 32 pg (25-34); MEAN CORPUSCULAR HGB CONC 31 g/dL (32-36); MEAN CORPUSCULAR VOLUME 103 fL (80-99); MEAN PLATELET VOLUME 9.6 fL (9.0-12.2); MONOCYTES # (AUTO) 0.8 10^3/uL (0.0-1.0); MONOCYTES % (AUTO) 8 % (0-12); NEUTROPHILS # (AUTO) 7.9 10^3/uL (1.8-7.8); NEUTROPHILS % (AUTO) 76 % (42-75); PLATELET COUNT 198 10^3/uL (130-400); WHITE BLOOD COUNT 10.4 10^3/uL (4.3-11.0)
[2021-12-12 06:15] LABS: ALBUMIN 3.4 GM/DL (3.2-4.5)
[2021-12-12 06:16] LABS: POTASSIUM 4.3 MMOL/L (3.6-5.0)
[2021-12-12 06:17] LABS: CALCIUM 8.5 MG/DL (8.5-10.1)
[2021-12-12 06:18] LABS: TOTAL PROTEIN 7.1 GM/DL (6.4-8.2)
[2021-12-12 06:20] LABS: BILIRUBIN,TOTAL 0.3 MG/DL (0.1-1.0)
[2021-12-12 06:21] LABS: CREATININE SERUM 2.1 MG/DL (0.60-1.30)
--- NOTE | 2021-12-12 07:02 | Progress Note - Hospitalist ---
Subjective HPI/CC On Admission Date Seen by Provider: Dec 12, 2021 Time Seen by Provider: 12:30 Chief complaint: Fall with pneumonia History of present illness: This is a 76-year-old white male clinic patient of [facility] who lives at assisted living who continues to smoke and has COPD who presented to the ER after a fall. Patient was assessed to have pneumonia with pleural effusion. Cardiology consulted. Subjective/Events-last exam Patient about the same Patient appears to be very end stage Checked meds labs Denies pain Review of Systems General: Fatigue, Malaise Pulmonary: Dyspnea, Cough Focused Exam Time of Focused Exam: 16:25 Objective Exam Vital Signs Vital Signs Date Time Temp Pulse Resp B/P (MAP) Pulse Ox O2 Delivery O2 Flow Rate FiO2 12/13/21 04:37 36.8 87 20 112/77 (89) 94 Nasal Cannula 2.50 Capillary Refill : Less Than 3 Seconds General Appearance: No Apparent Distress, WD/WN, Chronically ill Respiratory: No Accessory Muscle Use, No Respiratory Distress, Decreased Breath Sounds Cardiovascular: Regular Rate, Rhythm Neurologic/Psychiatric: Alert, Oriented x3, Depressed Affect Results/Procedures Lab Laboratory Tests 12/12/21 05:31 Patient resulted labs reviewed. Imaging: Reviewed Imaging Report Assessment/Plan Assessment and Plan Assess & Plan/Chief Complaint Assessment: Pneumonia Effusion Atrial fibrillation Chronic kidney disease Plan: Continue treatment Monitor kidney function 12/12/2021: Supportive care Oxygen supplementation Very poor prognosis Meets criteria for hospice ASTRID ALFONSO DO Dec 12, 2021 07:02
[2021-12-12] MEDS: RT--FLUTICASONE/SALMETEROL 232-14 (AIRDUO RespiCLICK) IH SCH ×2 (07:20→21:35)
[2021-12-12 07:41] VITALS: BP 108/74
[2021-12-12] MEDS: SPIRONOLACTONE 25 MG (ALDACTONE) TAB PO SCH (08:15)
[2021-12-12] MEDS: PANTOPRAZOLE 40 MG (PROTONIX) TAB PO SCH (08:15)
[2021-12-12] MEDS: LORATADINE (CLARITIN) 10 MG TAB PO SCH (08:15)
[2021-12-12] MEDS: FOLIC ACID 1 MG TAB PO SCH (08:15)
[2021-12-12] MEDS: THIAMINE 100 MG (VITAMIN B-1) TAB PO SCH (08:16)
[2021-12-12] MEDS: DOCUSATE SODIUM 100 MG (COLACE) CAP PO SCH ×2 (08:16→20:12)
[2021-12-12] MEDS: LACTOBACILLUS ACIDOPHILUS (PROBIOTIC) CAPSULE PO SCH ×4 (08:16→17:51)
[2021-12-12] MEDS: meTOproloL SUCCINATE 50 MG (TOPROL XL) TAB PO SCH (08:16)
[2021-12-12] MEDS: ALLOPURINOL 100 MG (ZYLOPRIM) TAB PO SCH (08:16)
[2021-12-12] MEDS: MAGNESIUM OXIDE (MAG-OX)400 MG TAB PO SCH ×2 (08:27→20:11)
[2021-12-12] MEDS: PHENobarbital 64.8 MG (1 GRAIN) TAb PO SCH ×2 (08:27→17:51)
[2021-12-12] MEDS: FUROSEMIDE 20 MG (LASIX) TAB PO SCH ×2 (08:28→12:12)
[2021-12-12] MEDS: MULTIVITAMINS LIQUID 15 ML UDC PO SCH (08:58)
[2021-12-12 11:05] VITALS: BP 105/71
[2021-12-12] MEDS: VANCOMYCIN 1 GM/NS 250 ML IVPB IV SCH ×2 (12:11)
[2021-12-12] MEDS ORDERED: CHOLESTYRAMINE 4 GM (QUESTRAN LITE, PREVALITE) PKT PO PRN (12:45)
[2021-12-12 15:57] VITALS: BP 116/85
[2021-12-12] MEDS: RIVAROXABAN 15 MG TABLET (XARELTO) PO SCH (17:50)
[2021-12-12] MEDS: AtorvaSTATin TABLET 10 MG TABLET PO SCH (17:51)
[2021-12-12 19:15] VITALS: BP 134/75
[2021-12-12 23:47] VITALS: BP 126/68
[2021-12-13] MEDS: CEFEPIME 1,000 MG/NS 50 ML IVPB IV SCH ×6 (03:43→18:50)
[2021-12-13 04:37] VITALS: BP 112/77
[2021-12-13] MEDS: inSUlin ASPART (NovoLOG) 1 UNIT/0.01 ML (CHARGE PER UNIT) SC SCH ×4 (05:35→20:14)
[2021-12-13 06:34] LABS: BASOPHILS # (AUTO) 0.1 10^3/uL (0.0-0.1); BASOPHILS % (AUTO) 1 % (0-10); EOSINOPHILS # (AUTO) 0.1 10^3/uL (0.0-0.3); EOSINOPHILS % (AUTO) 1 % (0-10); HEMATOCRIT 43 % (40-54); HEMOGLOBIN 13.4 g/dL (13.3-17.7); LYMPHOCYTES # (AUTO) 0.9 10^3/uL (1.0-4.0); LYMPHOCYTES % (AUTO) 8 % (12-44); MEAN CORPUSCULAR HEMOGLOBIN 32 pg (25-34); MEAN CORPUSCULAR HGB CONC 31 g/dL (32-36); MEAN CORPUSCULAR VOLUME 102 fL (80-99); MEAN PLATELET VOLUME 9.4 fL (9.0-12.2); MONOCYTES # (AUTO) 0.7 10^3/uL (0.0-1.0); MONOCYTES % (AUTO) 6 % (0-12); NEUTROPHILS % (AUTO) 84 % (42-75); PLATELET COUNT 228 10^3/uL (130-400); WHITE BLOOD COUNT 10.7 10^3/uL (4.3-11.0)
[2021-12-13 07:00] LABS: ALBUMIN 3.6 GM/DL (3.2-4.5); BILIRUBIN,TOTAL 0.3 MG/DL (0.1-1.0); CALCIUM 8.9 MG/DL (8.5-10.1); CREATININE SERUM 2.41 MG/DL (0.60-1.30); POTASSIUM 4.5 MMOL/L (3.6-5.0); TOTAL PROTEIN 7.5 GM/DL (6.4-8.2)
[2021-12-13 08:00] VITALS: BP 132/88
--- NOTE | 2021-12-13 08:11 | Diagnostic Imaging Report ---
INDICATION: Pneumonia. Comparison made with prior examination from 12/09/2021. FINDINGS: There is cardiomegaly. There is some venous congestion. There are bibasilar infiltrates left greater than right. There is a left pleural effusion. There is no pneumothorax. The mediastinum is unremarkable. IMPRESSION: Bibasilar infiltrates somewhat more consolidated on the left with a left pleural effusion. Cardiomegaly and some central pulmonary venous congestion. Dictated by: Dictated on workstation # [id number]
[2021-12-13] MEDS: RT--FLUTICASONE/SALMETEROL 232-14 (AIRDUO RespiCLICK) IH SCH ×2 (08:30→19:11)
[2021-12-13] MEDS: meTOproloL SUCCINATE 50 MG (TOPROL XL) TAB PO SCH (09:19)
[2021-12-13] MEDS: PANTOPRAZOLE 40 MG (PROTONIX) TAB PO SCH (09:21)
[2021-12-13] MEDS: SPIRONOLACTONE 25 MG (ALDACTONE) TAB PO SCH (09:22)
[2021-12-13] MEDS: PHENobarbital 64.8 MG (1 GRAIN) TAb PO SCH ×2 (09:23→16:32)
[2021-12-13] MEDS: FUROSEMIDE 20 MG (LASIX) TAB PO SCH (09:25)
[2021-12-13] MEDS: DOCUSATE SODIUM 100 MG (COLACE) CAP PO SCH ×2 (09:27→19:25)
[2021-12-13] MEDS ORDERED: TROUGH ORDER-PHARMACY XX NR (10:00)
--- NOTE | 2021-12-13 10:34 | Physical Therapy Progress Note ---
Therapy Progress Note Patient refused therapy twice this morning. Patient was mumbling, very lethargic, and had difficulty keeping his eyes open. PT voiced concern to RN of patient status change from last week to this week. 1 ref SELVIN RODRIGUEZ PT Dec 13, 2021 10:34
[2021-12-13] MEDS: MULTIVITAMINS LIQUID 15 ML UDC PO SCH (11:31)
[2021-12-13] MEDS: LACTOBACILLUS ACIDOPHILUS (PROBIOTIC) CAPSULE PO SCH ×5 (11:31→16:33)
[2021-12-13] MEDS: LORATADINE (CLARITIN) 10 MG TAB PO SCH (11:31)
[2021-12-13] MEDS: FOLIC ACID 1 MG TAB PO SCH (11:31)
[2021-12-13] MEDS: MAGNESIUM OXIDE (MAG-OX)400 MG TAB PO SCH ×2 (11:32→19:24)
[2021-12-13] MEDS: THIAMINE 100 MG (VITAMIN B-1) TAB PO SCH (11:32)
[2021-12-13] MEDS: ALLOPURINOL 100 MG (ZYLOPRIM) TAB PO SCH (11:32)
--- NOTE | 2021-12-13 11:41 | Progress Note - Hospitalist ---
FAROOQ LEE 12/13/21 1141: Subjective HPI/CC On Admission Date Seen by Provider: Dec 13, 2021 Time Seen by Provider: 10:30 Chief complaint: Fall with pneumonia History of present illness: This is a 76-year-old white male clinic patient of [facility] who lives at assisted living who continues to smoke and has COPD who presented to the ER after a fall. Patient was assessed to have pneumonia with pleural effusion. Cardiology consulted. Subjective/Events-last exam Patient is resting in bed at time of encounter. He is drifting in and out of sleep, occasionally responding to verbal stimuli by opening his eyes. At the end of the encounter he did request a drink of water. After drinking through a straw he began to cough, the cough was wet. I asked if he felt like the water "went down the wrong pipe," and he nodded his head yes. Per nursing report, there has been a decline in the patient's disposition since Monday. His nurse denies any previous signs of swallowing dysfunction. She reports that he is not as awake and alert as he was on Monday. She states that he told her he is not in any pain. Unable to obtain ROS. Na 129 BUN 46, Cr 2.41 CXR: bibasilar infiltrates with more consolidation on the left, left pleural effusion SpO2 94% 2.5L nasal cannula, increased from 2.0L Focused Exam Time of Focused Exam: 16:25 Objective Exam Vital Signs Vital Signs Date Time Temp Pulse Resp B/P (MAP) Pulse Ox O2 Delivery O2 Flow Rate FiO2 12/13/21 08:31 98 Nasal Cannula 2.00 12/13/21 08:00 36.2 126 21 132/88 (103) Capillary Refill : Less Than 3 Seconds General Appearance: Chronically ill, Mild Distress Respiratory: No Accessory Muscle Use; No Crackles, No Wheezing; Other (coarse breath sounds on the right anterior lung field) Cardiovascular: Regular Rate, Rhythm, No Edema, Normal Peripheral Pulses (right radial pulse +2) Gastrointestinal: Normal Bowel Sounds, Soft Extremity: No Pedal Edema Neurologic/Psychiatric: Other (patient was reponsive to some verbal stimuli; somnolent ) Skin: Warm/Dry, Other (ashen/bob discoloration) Results/Procedures Lab Laboratory Tests 12/13/21 06:10 Patient resulted labs reviewed. 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 Hospice candidate Hyponatremia Plan: Palliative care Speech therapy evaluation DNR Vancomycin and cefepime for pneumonia Probiotics Supplemental oxygen, wean as tolerated Surgery consult for pleural effusion Sliding scale insulin Bowel regimen PRN Resume home medications Reverse Warfarin with Vitamin K, initiate Xarelto therapy PT/OT IVF to support renal function -> cessation of fluids, monitor Na AM labs: CBC, BMP Monitor vitals Cardiology following GRACE ALFONSO DO 12/14/21 0523: Subjective Subjective/Events-last exam Pt really declining Palliative care consult May need hospice at discharge Speech eval will evaluate change of diet Grave prognosis Objective Exam General Appearance: Chronically ill, Other (Somnolent) Respiratory: Decreased Breath Sounds, Rales Assessment/Plan Assessment and Plan Assess & Plan/Chief Complaint DNR Comfort care Supervisory-Addendum Brief Verification & Attestation Participated in pt care: history, MDM, physical Personally performed: exam, history, MDM, supervision of care Care discussed with: Medical Student Procedures: n/a Results interpretation: Verified all documentation Verification and Attestation of Medical Student E/M Service A medical student performed and documented this service in my presence. I reviewed and verified all information documented by the medical student and made modifications to such information, when appropriate. I personally performed the physical exam and medical decision making. Grace Alfonso Dec 14, 2021,05:22 FAROOQ LEE Dec 13, 2021 11:41 GRACE ALFONSO DO Dec 14, 2021 05:23
[2021-12-13 12:00] VITALS: BP 146/76
[2021-12-13] MEDS ORDERED: FUROSEMIDE 40 MG/4 ML INJ (LASIX) IVP SCH (14:30)
[2021-12-13 16:00] VITALS: BP 103/70
[2021-12-13] MEDS: AtorvaSTATin TABLET 10 MG TABLET PO SCH (16:32)
[2021-12-13] MEDS: RIVAROXABAN 15 MG TABLET (XARELTO) PO SCH (16:33)
[2021-12-13] MEDS ORDERED: LORazepam INJ 2 MG/ML (ATIVAN) VIAL IVP PRN (18:15)
[2021-12-13] MEDS ORDERED: morphine INJ 10 MG/ML 1ML (SYR OR VIAL) IVP PRN (18:15)
[2021-12-13] MEDS ORDERED: morphine INJ 4 MG/ML 1 ML (VIAL/SYRINGE) IV PRN (18:30)
[2021-12-13] MEDS ORDERED: SCOPOLAMINE 1.5 MG (TRANSDERM-SCOP) PATCH TD ONE (19:45)
[2021-12-13 19:59] VITALS: BP 119/87
[2021-12-13] MEDS ORDERED: SCOPOLAMINE 1.5 MG (TRANSDERM-SCOP) PATCH ONE (21:54)
--- NOTE | 2021-12-14 05:03 | Discharge Summary ---
Discharge Summary Hospital Course Was the Problem List Reviewed?: Yes Problems/Dx: (1) Permanent atrial fibrillation (2) Aortic stenosis (3) Acute on chronic heart failure with preserved ejection fraction (HFpEF) (4) Cardiomyopathy (5) Primary hypertension (6) Mixed hyperlipidemia (7) Pleural effusion Status: Acute (8) Stage 3 chronic kidney disease Hospital Course Date of Admission: Dec 08, 2021 at 18:19 Admission Diagnosis : Family Physician/Provider: Wellington Miranda MD Date of Discharge: 12/14/21 Discharge Diagnosis: Acute on chronic respiratory failure, pneumonia, pleural effusions, congestive heart failure, atrial fibrillation, DM, chronic kidney disease Hospital Course: Brief hospital course: Curly Gonzalez was a 76 year old white male who presented to the ED via EMS on 12/08/2021 s/p unwitnessed fall in his home at [facility]. Patient had a past medical history remarkable for pneumonia, absence seizures, chronic bronchitis, COPD, atrial fibrillation, chronic edema, high cholesterol, HTN, neurogenic bladder, GERD, gout, non-insulin dependent diabetes mellitus, chronic renal failure, and debility with frequent falls. A suprapubic catheter was also in place. At the time of admission, patient also reported having a productive cough for the past few weeks with progressive worsening. CXR demonstrated large left pleural effusion with underlying left lingular and left lower lobe consolidation. Right basilar infiltrates. Head CT: chronic stable senescent changes. Cervical spine CT: degenerative changes, likely left-sided apical pleural fluid. EKG: junctional tachycardia, prolonged QT interval. Patient was admitted with left lower lobe pneumonia and large left pleural effusion, and Cardiology and Surgery were consulted. IV antibiotics, Vancomycin and Cefepime, were initiated with supplemental oxygen. Home medications were resumed, including Warfarin. After consultation, Cardiology decided to reverse patient's Warfarin therapy with Vitamin K and initiated Xarelto and recommended a thoracentesis to reduce the left pleural effusion. On 12/09/2021 chest US demonstrated small bilateral pleural effusion. Based off of this imaging result, Surgery decided to continue to monitor the patient and did not recommend thoracentesis to reduce left pleural effusion. Echocardiogram on 12/09: Reported overall a poor scan. LV: mild concentric hypertrophy, EF 35-40%. Moderate hypokinesis. Decrease in LV systolic function compared to previous study. RV: decrease in systolic function. RA: mildly dilated. Aortic valve: tricuspid, calcified leaflets. Pulmonary arteries: pressure could not be determined. Repeat echo was ordered. Echo on 12/10: LV: moderate concentric hypertrophy, normal systolic function, EF 60-65%. Aortic valve: moderate aortic stenosis with a mean gradient of 25 mmHg, a peak gradient of 50 mmHg, and a peak velocity of 3.5m/s. Pulmonary arteries: 31 mmHg assuming right atrial pressure of 5 mmHg. On 12/12 the patient's disposition began to decline despite tolerating active therapies. On 12/13 patient continued to decline and palliative care was initiated. The patient's DPOA was contacted. The patient late in the evening due to respiratory arrest. The patient was DNR. Throughout the patient's stay, Novolog sliding scale and bowel regimen therapies were in place. PT and OT evaluated the patient on 12/09 and worked with him throughout his stay. This is a brief summary of the patient's stay and contains pertinent information regarding the patient's care. Full description of the patient's care can be found in the patient's chart. Date of admission: 12/08/2021 Date of discharge: 12/13/2021 Attending physician: Dr. Grace Alfonso Admission diagnosis: S/p fall, Left lower lobe pneumonia, Large left pleural effusion Discharge diagnosis: Respiratory arrest, Left lower lobe pneumonia, Large left pleural effusion Secondary diagnoses: Chronic renal failure/Stage III CKD, Debility, Tachycardia, Non-insulin dependent diabetes mellitus, Hyponatremia, Resolved lactic acidosis Consultations: Surgery, Cardiology, PT, OT Procedures: Echocardiogram FAROOQ LEE Dec 14, 2021 13:13 <Created by FAROOQ LEE > Labs and Pending Lab Test: Laboratory Tests 12/13/21 05:32: Glucometer 119H 12/13/21 06:10: White Blood Count 10.7, Red Blood Count 4.25L, Hemoglobin 13.4, Hematocrit 43, Mean Corpuscular Volume 102H, Mean Corpuscular Hemoglobin 32, Mean Corpuscular Hemoglobin Concent 31L, Red Cell Distribution Width 13.2, Platelet Count 228, Mean Platelet Volume 9.4, Immature Granulocyte % (Auto) 1, Neutrophils (%) (Auto) 84H, Lymphocytes (%) (Auto) 8L, Monocytes (%) (Auto) 6, Eosinophils (%) (Auto) 1, Basophils (%) (Auto) 1, Neutrophils # (Auto) 9.0H, Lymphocytes # (Auto) 0.9L, Monocytes # (Auto) 0.7, Eosinophils # (Auto) 0.1, Basophils # (Auto) 0.1, Immature Granulocyte # (Auto) 0.1, Sodium Level 129L, Potassium Level 4.5, Chloride Level 97L, Carbon Dioxide Level 23, Anion Gap 9, Blood Urea Nitrogen 46H, Creatinine 2.41H, Estimat Glomerular Filtration Rate 27, BUN/Creatinine Ratio 19, Glucose Level 128H, Calcium Level 8.9, Corrected Calcium 9.2, Total Bilirubin 0.3, Aspartate Amino Transf (AST/SGOT) 29, Alanine Aminotransferase (ALT/SGPT) 24, Alkaline Phosphatase 141H, Total Protein 7.5, Albumin 3.6 12/13/21 10:09: Vancomycin Level Trough 17.5 12/13/21 11:16: Glucometer 129H 12/13/21 16:57: Glucometer 129H 12/13/21 20:09: Glucometer 133H Microbiology 12/08/21 Urine Culture - Final, Complete Escherichia coli Pseudomonas aeruginosa Enterococcus faecalis Mixed Bacterial Betty 12/08/21 Blood Culture - Preliminary, Resulted No growth Home Meds Active Reported Diltiazem 24Hr ER (Diltiazem HCl) 120 Mg Cap.er.24h 120 Mg PO DAILY TAKES 120MG +240MG TO EQUAL 360MG DAILY HOLD IF SBP<100 AND OR HR<60 Warfarin Sodium 2.5 Mg Tablet 2.5 Mg PO SUN,MO,WE,FR,SA @1700 TAKES 5MG EVERYDAY AND ON MON,MON,WE,FR&SAT AND ADDITIONAL 2.5MG IS GIVEN Cetirizine HCl 10 Mg Tablet 10 Mg PO DAILY Milk of Magnesia (Magnesium Hydroxide) 400 Mg/5 Ml Oral.susp 30 Ml PO DAILY PRN Phenobarbital 64.8 Mg Tablet 32.4 Mg PO 0800,1700 TAKES OF A 64.8MG TAB Furosemide 20 Mg Tablet 20 Mg PO 0800,1200 Spironolactone 25 Mg Tablet 25 Mg PO DAILY Diltiazem 24Hr ER (Diltiazem HCl) 240 Mg Cap.er.24h 240 Mg PO DAILY TAKES 120MG +240MG TO EQUAL 360MG DAILY HOLD IF SBP<100 AND OR HR<60 Omeprazole 40 Mg Capsule.dr 40 Mg PO DAILY Thera-M Caplet (Multivit,Ther Iron,Ca,FA & Min) 1 Each Tablet 1 Each PO DAILY Warfarin Sodium 5 Mg Tablet 5 Mg PO 1700 TAKES 5MG EVERYDAY AND ON SUN,MON,WE,FR&SAT AND ADDITIONAL 2.5MG IS GIVEN Iprat-Albut 0.5-3(2.5) mg/3 ml (Ipratropium/Albuterol Sulfate) 3 Ml Ampul.neb 3 Ml NEB Q6H PRN B-1 (Thiamine HCl) 100 Mg Tablet 100 Mg PO DAILY Probiotic (Lactobacillus Acidophilus) 1 Each Capsule 1 Each PO 0800,1700 Docusate Sodium 100 Mg Tablet 100 Mg PO BID Symbicort 160-4.5 Mcg Inhaler (Budesonide/Formoterol Fumarate) 10.2 Gm Hfa.aer.ad 2 Puff IH BID Atorvastatin Calcium 10 Mg Tablet 10 Mg PO 1700 Allopurinol 100 Mg Tablet 100 Mg PO DAILY Assessment/Pt Instructions Discharge Planning: <30 minutes discharge planning Discharge Physical Examination Vital Signs Vital Signs Date Time Temp Pulse Resp B/P (MAP) Pulse Ox O2 Delivery O2 Flow Rate FiO2 12/13/21 19:59 36.2 135 30 119/87 (98) 91 Nasal Cannula 3.00 Allergies: Coded Allergies: No Known Drug Allergies (Unverified , 01/30/19) Discharge Summary Date of Admission Dec 08, 2021 at 18:19 Date of Discharge Dec 13, 2021 at 23:10 Admission Diagnosis Assessment: Pneumonia Pleural effusion On anticoagulation A. fib Fall COPD Plan: IV antibiotics Cardiology consult Dr. More consult for effusion Comfort Measures/ End of Life Care: Comfort Measures Discharge Diagnosis Assessment: Pneumonia Effusion Atrial fibrillation Chronic kidney disease Plan: Continue treatment Monitor kidney function 12/12/2021: Supportive care Oxygen supplementation Very poor prognosis Meets criteria for hospice (1) Permanent atrial fibrillation Assessment & Plan: He believes he has had atrial fibrillation for at least the past year. He was taking warfarin at home for stroke prophylaxis. This was discontinued because he may have needed a thoracentesis. Since he will not need a thoracentesis, I will start him on Xarelto. He will need the lower dose due to GFR less than 50. The GFR is generally close to the same value as the creatinine clearance. I previously changed his diltiazem over to metoprolol succinate. Due to persistent tachycardia, I will increase the dose of metoprolol and give him an extra dose today. As long as his heart rates improved, he may be ready for discharge over the weekend once his noncardiac issues have improved. I am not entirely sure he is asymptomatic with the atrial fibrillation. If we can get his heart rate under control, rate control and stroke prophylaxis may be a reasonable strategy in this patient as opposed to trying to convert him to sinus rhythm. (2) Aortic stenosis Assessment & Plan: His echocardiogram with contrast from earlier today shows moderate aortic stenosis. I cannot appreciate a murmur although his heart sounds are somewhat distant. This should not be contributing to his symptoms but will need to be followed longitudinally. Aortic stenosis is not a contr aindication to treatment with a DOAC. (3) Acute on chronic heart failure with preserved ejection fraction (HFpEF) Assessment & Plan: Some of his shortness of breath could be due to slight decompensation of his heart failure. His symptoms now seem to be improving. He has been taking spironolactone which does have some limited data on efficacy and heart failure with preserved ejection fraction. He should continue on the oral furosemide. (4) Cardiomyopathy Assessment & Plan: His most recent echocardiogram from January 2021 showed mild left ventricular systolic dysfunction. His echocardiogram from was technically difficult and was suggestive of moderate left ventricular systolic dysfunction. However his follow-up echocardiogram from today that was done with echo contrast shows a normal ejection fraction. (5) Primary hypertension Assessment & Plan: Blood pressure is reasonably controlled with the present medication. I will be increasing the dose of metoprolol due to persistent tachycardia. I would recommend he be discharged with metoprolol as opposed to diltiazem that he was taking at home. (6) Mixed hyperlipidemia Assessment & Plan: Continue statin medication. (7) Pleural effusion Status: Acute Assessment & Plan: This could be a parapneumonic effusion due to his left-sided pneumonia. His ultrasound of the chest did not show enough fluid to be safely drained. (8) Stage 3 chronic kidney disease Assessment & Plan: His GFR has varied between 30-60. During this admission, it has been below 50. As above, since the GFR roughly correlates with creatinine clearance, I have started him on the renal adjusted dose of Xarelto. GRACE ALFONSO DO Dec 14, 2021 05:03
--- NOTE | 2021-12-14 13:14 | Progress Note ---
FAROOQ LEE 12/14/21 1313: Progress Note Brief hospital course: Curly Gonzalez was a 76 year old white male who presented to the ED via EMS on 12/08/2021 s/p unwitnessed fall in his home at [facility]. Patient had a past medical history remarkable for pneumonia, absence seizures, chronic bronchitis, COPD, atrial fibrillation, chronic edema, high cholesterol, HTN, neurogenic bladder, GERD, gout, non-insulin dependent diabetes mellitus, chronic renal failure, and debility with frequent falls. A suprapubic catheter was also in place. At the time of admission, patient also reported h aving a productive cough for the past few weeks with progressive worsening. CXR demonstrated large left pleural effusion with underlying left lingular and left lower lobe consolidation. Right basilar infiltrates. Head CT: chronic stable senescent changes. Cervical spine CT: degenerative changes, likely left-sided apical pleural fluid. EKG: junctional tachycardia, prolonged QT interval. Patient was admitted with left lower lobe pneumonia and large left pleural effusion, and Cardiology and Surgery were consulted. IV antibiotics, Vancomycin and Cefepime, were initiated with supplemental oxygen. Home medications were resumed, including Warfarin. After consultation, Cardiology decided to reverse patient's Warfarin therapy with Vitamin K and initiated Xarelto and recommended a thoracentesis to reduce the left pleural effusion. On 12/09/2021 chest US demonstrated small bilateral pleural effusion. Based off of this imaging result, Surgery decided to continue to monitor the patient and did not recommend thoracentesis to reduce left pleural effusion. Echocardiogram on 12/09: Reported overall a poor scan. LV: mild concentric hypertrophy, EF 35-40%. Moderate hypokinesis. Decrease in LV systolic function compared to previous study. RV: decrease in systolic function. RA: mildly dilated. Aortic valve: tricuspid, calcified leaflets. Pulmonary arteries: pressure could not be determined. Repeat echo was ordered. Echo on 12/10: LV: moderate concentric hypertrophy, normal systolic function, EF 60-65%. Aortic valve: moderate aortic stenosis with a mean gradient of 25 mmHg, a peak gradient of 50 mmHg, and a peak velocity of 3.5m/s. Pulmonary arteries: 31 mmHg assuming right atrial pressure of 5 mmHg. On 12/12 the patient's disposition began to decline despite tolerating active therapies. On 12/13 patient continued to decline and palliative care was initiated. The patient's DPOA was contacted. The patient late in the evening due to respiratory arrest. The patient was DNR. Throughout the patient's stay, Novolog sliding scale and bowel regimen therapies were in place. PT and OT evaluated the patient on 12/09 and worked with him throughout his stay. This is a brief summary of the patient's stay and contains pertinent information regarding the patient's care. Full description of the patient's care can be found in the patient's chart. Date of admission: 12/08/2021 Date of discharge: 12/13/2021 Attending physician: Dr. Grace Velasquez Admission diagnosis: S/p fall, Left lower lobe pneumonia, Large left pleural effusion Discharge diagnosis: Respiratory arrest, Left lower lobe pneumonia, Large left pleural effusion Secondary diagnoses: Chronic renal failure/Stage III CKD, Debility, Tachycardia, Non-insulin dependent diabetes mellitus, Hyponatremia, Resolved lactic acidosis Consultations: Surgery, Cardiology, PT, OT Procedures: Echocardiogram GRACE VELASQUEZ DO 12/15/21 0549: Supervisory-Addendum Brief Verification & Attestation Participated in pt care: history, MDM, physical Personally performed: exam, history, MDM, supervision of care Care discussed with: Medical Student Procedures: n/a Results interpretation: Verified all documentation Verification and Attestation of Medical Student E/M Service A medical student performed and documented this service in my presence. I reviewed and verified all information documented by the medical student and made modifications to such information, when appropriate. I personally performed the physical exam and medical decision making. Grace Velasquez, Dec 15, 2021,05:49 FAROOQ LEE Dec 14, 2021 13:13 GRACE VELASQUEZ DO Dec 15, 2021 05:49
== END 2021-12-13 23:10 | disposition expired | DRG 871 ==
LOC: EDUNIT# 14:54 → ER FS 14:56 → 4TH 18:19
PROVIDERS: ADMIT Internal Medicine; ATTEND Internal Medicine
DX: A41.9 Sepsis, unspecified organism (principal); J18.9 Pneumonia, unspecified organism; I50.33 Acute on chronic diastolic (congestive) heart failure; J44.0 Chronic obstructive pulmonary disease with (acute) lower respiratory infection; I13.0 Hypertensive heart and chronic kidney disease with heart failure and stage 1 through stage 4 chronic kidney disease, or unspecified chronic kidney disease; J90 Pleural effusion, not elsewhere classified; Z51.5 Encounter for palliative care; Z66 Do not resuscitate; Z20.822 Contact with and (suspected) exposure to COVID-19; I42.9 Cardiomyopathy, unspecified; I48.21 Permanent atrial fibrillation; R09.2 Respiratory arrest; R09.02 Hypoxemia; E11.22 Type 2 diabetes mellitus with diabetic chronic kidney disease; N18.30 Chronic kidney disease, stage 3 unspecified; E11.40 Type 2 diabetes mellitus with diabetic neuropathy, unspecified; N31.9 Neuromuscular dysfunction of bladder, unspecified; G40.A09 Absence epileptic syndrome, not intractable, without status epilepticus; S01.511A Laceration without foreign body of lip, initial encounter; S01.512A Laceration without foreign body of oral cavity, initial encounter; S51.811A Laceration without foreign body of right forearm, initial encounter; M10.9 Gout, unspecified; F03.90 Unspecified dementia, unspecified severity, without behavioral disturbance, psychotic disturbance, mood disturbance, and anxiety; Z79.01 Long term (current) use of anticoagulants; Z99.81 Dependence on supplemental oxygen; W06.XXXA Fall from bed, initial encounter
CPT/HCPCS: 36415; 70450; 71045; 72125; 76604; 80053; 80061; 80202; 80320; 81000; 82947; 83605; 83735; 83880; 84484; 85025; 85610; 85730; 86141; 87040; 87088; 87186; 87636; 87804; 93005; 93041; 93306; 93308; 94640; 94760